=== PATIENT | female | born 1935 | race Caucasian/White ===

== ENCOUNTER → 2016-11-03 | Outpatient (CLI) | payer MEDICARE, OTHER ==
--- NOTE | 2016-11-04 16:34 | BD ---
EXAMINATION TYPE: MG DEXA axial skeleton. DATE OF EXAM: 11/03/2016 3:57 PM COMPARISON: NONE CLINICAL HISTORY: 81-year-old female disorder of bone, postmenopausal screening Height: 60.5 IN Weight: 137 LBS FRAX RISK QUESTIONS: Alcohol (3 or more units per day): NO Family History (Parent hip fracture): NO Glucocorticoids (More than 3mos): NO (Ex: prednisone, prednisolone, methylprednisolone, dexamethasone, and hydrocortisone). History of Fracture in Adulthood: NO Secondary Osteoporosis: 1. Type 1 Diabetes: NO 2. Hyperthyroidism: NO 3. Menopause before 45: NO 4. Malnutrition: NO 5. Chronic liver disease: NO Rheumatoid Arthritis: NO Current Tobacco Use: NO RISK FACTORS HISTORY OF: Active: YES Postmenopausal woman: YES AGE 53 Take estrogen and/or progesterone medications: NOT NOW How long: AGE 53 - 70 MEDICATIONS: Thyroid Medications: YES Which medication: Levothyroxine How Lon + YRS Additional Medications: CALCIUM, VIT D, LEVOTHYROXINE, HEART MED, BLOOD PRESSURE MEDS, EXAM MEASUREMENTS: Bone mineral densitometry was performed using the [employer]. Bone mineral density as measured about the Lumbar spine is: ----- L1-L4(G/cm2): 0.980 T Score Values are as follows: ----- L2: -2.4 ----- L3: -0.9 ----- L4: -1.6 ----- L1-L4: -1.7 Bone mineral density BASELINE Bone mineral density about the R hip (g/cm2): 0.731 Bone mineral density about the L hip (g/cm2): 0.720 T Score values are as follows: -----R Neck: -2.2 -----L Neck: -2.3 -----R Intertrochanter: -1.2 -----L Intertrochanter: -1.4 Bone mineral density BASELINE IMPRESSION: Osteopenia as indicated by T score values in the lumbar spine and both hips. There is slightly increased risk of fracture and the patient may be considered for treatment. Re-Screen 2-5 years. NOTE: T-SCORE=SD OF THE YOUNG ADULT MEAN.
== END | disposition home or self-care (01) ==
LOC: RADBDWWP 15:56
PROVIDERS: ATTEND Obstetrics & Gynecology
DX: M85.852 Other specified disorders of bone density and structure, left thigh (principal); M85.851 Other specified disorders of bone density and structure, right thigh; M85.88 Other specified disorders of bone density and structure, other site
CPT/HCPCS: 77080

== ENCOUNTER → 2016-11-03 | Outpatient (CLI) | payer MEDICARE, OTHER | LOC: RADMAMWWP 13:16 → RADBDWWP 13:34 | PROVIDERS: ATTEND Obstetrics & Gynecology | DX: Z53.9 Procedure and treatment not carried out, unspecified reason (principal) ==

== ENCOUNTER → 2016-11-03 | Outpatient (CLI) | payer MEDICARE, OTHER ==
--- NOTE | 2016-11-05 07:26 | MM ---
Reason for exam: screening (asymptomatic). Last mammogram was performed 1 year and 1 month ago. History: Patient is postmenopausal and is nulliparous. Physical Findings: A clinical breast exam by your physician is recommended on an annual basis and results should be correlated with mammographic findings. MG Screening Mammo w CAD Bilateral CC and MLO view(s) were taken. Prior study comparison: October 11, 2015, bilateral MG screening mammo w CAD. September 11, 2014, bilateral MG screening mammo w CAD. May 29, 2013, bilateral digital screening mammo w/CAD. March 12, 2011, bilateral digital screening mammo w/CAD. There are scattered fibroglandular densities. Asymmetric density superior right breast at a middle depth appears more defined. ASSESSMENT: Incomplete: need additional imaging evaluation, BI-RAD 0 RECOMMENDATION: Special view mammogram of the right breast. If lesion persists on supplemental views, image directed ultrasound is recommended. [facility] will attempt to contact patient to return for supplemental views and ultrasound if indicated.
== END | disposition home or self-care (01) ==
LOC: RADMAMWWP 12:41
PROVIDERS: ATTEND Obstetrics & Gynecology
DX: Z12.31 Encounter for screening mammogram for malignant neoplasm of breast (principal); R92.2 Inconclusive mammogram

== ENCOUNTER → 2016-11-12 | Outpatient (CLI) | payer MEDICARE, OTHER ==
--- NOTE | 2016-11-13 06:50 | MM ---
Reason for exam: additional evaluation requested from abnormal screening. Last mammogram was performed less than 1 month ago. History: Patient is postmenopausal and is nulliparous. Physical Findings: Nurse did not find any significant physical abnormalities on exam. MG Work Up Mamm w CAD RT CC and MLO view(s) were taken of the right breast. Prior study comparison: November 03, 2016, bilateral MG screening mammo w CAD. October 11, 2015, bilateral MG screening mammo w CAD. There are scattered fibroglandular densities. No distinct lesion persists at area of mammographic concern in the right breast. These results were verbally communicated with the patient and result sheet given to the patient on 11/12/16. ASSESSMENT: Benign, BI-RAD 2 RECOMMENDATION: Return to routine screening mammogram schedule for both breasts.
== END | disposition home or self-care (01) ==
LOC: RADMAMWWP 14:55
PROVIDERS: ATTEND Obstetrics & Gynecology
DX: R92.8 Other abnormal and inconclusive findings on diagnostic imaging of breast (principal)

== ENCOUNTER → 2017-12-24 | Outpatient (CLI) | payer MEDICARE, OTHER ==
--- NOTE | 2017-12-28 11:35 | MM ---
Reason for exam: screening (asymptomatic). Last mammogram was performed 1 year and 1 month ago. History: Patient is postmenopausal and is nulliparous. Physical Findings: A clinical breast exam by your physician is recommended on an annual basis and results should be correlated with mammographic findings. MG 3D Screening Mammo W/Cad Bilateral CC and MLO view(s) were taken. Prior study comparison: November 12, 2016, right breast MG work up mamm w CAD RT. November 03, 2016, bilateral MG screening mammo w CAD. There are scattered fibroglandular densities. Grouped calcifications posterior 11 o'clock right breast increased from 2017 and new from older priors. Associated focal asymmetry. ASSESSMENT: Incomplete: need additional imaging evaluation, BI-RAD 0 RECOMMENDATION: Special view mammogram of the right breast. [facility] will attempt to contact patient to return for supplemental views.
== END | disposition home or self-care (01) ==
LOC: RADMAMWWP 10:54
PROVIDERS: ATTEND Obstetrics & Gynecology
DX: Z12.31 Encounter for screening mammogram for malignant neoplasm of breast (principal)
CPT/HCPCS: 77063; 77067

== ENCOUNTER → 2017-12-31 | Outpatient (CLI) | payer MEDICARE, OTHER ==
--- NOTE | 2018-01-03 14:26 | MM ---
Reason for exam: additional evaluation requested from abnormal screening. Last mammogram was performed less than 1 month ago. History: Patient is postmenopausal. Took estrogen beginning at age 56. Took progesterone beginning at age 56. Physical Findings: Nurse did not find any significant physical abnormalities on exam. MG 3D Work Up W/Cad RT Spot compression CC, spot compression LM, and LM view(s) were taken of the right breast. Prior study comparison: December 24, 2017, bilateral MG 3d screening mammo w/cad. November 12, 2016, right breast MG work up mamm w CAD RT. The breast tissue is heterogeneously dense. This may lower the sensitivity of mammography. Finding: There are intermediate concern, suspicious heterogeneous calcifications in the upper outer quadrant, posterior middle position of the right breast. These results were verbally communicated with the patient and result sheet given to the patient on 12/31/17. ASSESSMENT: Suspicious, BI-RAD 4 RECOMMENDATION: Stereotactic core biopsy of the right breast. Called Dr. Akins with mammographic findings and has scheduled an appointment for the patient for 02/10/18 at 9:[address] Perry. Biopsy scheduled for 01/10/18 at 10:00. PRELIMINARY REPORT CALLED AND FAXED TO DR. PERRY ON 01/03/18.
== END | disposition home or self-care (01) ==
LOC: RADMAMWWP 12:54
PROVIDERS: ATTEND Obstetrics & Gynecology
DX: R92.8 Other abnormal and inconclusive findings on diagnostic imaging of breast (principal)
CPT/HCPCS: 77065; G0279

== ENCOUNTER → 2018-01-10 | Day surgery (SDC) | payer MEDICARE, OTHER ==
[2018-01-10 09:21] VITALS: RESP 16; BMI 25.7
[2018-01-10 10:37] VITALS: BP 144/71; PULSE 65; TEMP 98
--- NOTE | 2018-01-10 11:40 | MM ---
EXAMINATION TYPE: MG stereo VAD BX RT DATE OF EXAM: 01/10/2018 COMPARISON: Prior mammogram December 31, 2017 and older studies. CLINICAL HISTORY: Abnormal mammogram. Suspicious calcifications. TECHNIQUE: Stereotactic guided core biopsy of right breast with clip placement and follow-up two-view mammogram. FINDINGS: The procedure of stereotactic guided core biopsy was explained to the patient. Benefits, alternatives, and risks were discussed. An informed consent was then obtained. The [facility] pathway for biopsy was chosen. Shortness pathway was cranial approach. I performed the localization, then performed the remainder of the procedure. Overlying skin is cleansed with Betadine. Lidocaine with bicarbonate is used as anesthetic into the skin and deeper tissue. Lidocaine with epinephrine is used as anesthetic into the deeper tissue during sampling. A vacuum assisted biopsy gun was used to obtain multiple core samples. The patient tolerated the procedure well without any immediate complication. The patient was kept in the radiology department for short stay after the procedure and then discharged home in stable condition. Targeted calcifications are identified in specimen mammogram. Post biopsy mammogram shows the clip to appear in satisfactory position relative to the targeted area of concern on the preprocedure images. A few adjacent residual calcifications are present. IMPRESSION: SUCCESSFUL, UNCOMPLICATED STEREOTACTIC GUIDED CORE BIOPSY OF AREA OF CONCERN IN THE RIGHT BREAST, FULL PATHOLOGY RESULTS TO FOLLOW. Low to intermediate index of suspicion noted at time of procedure. 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 SEE SURGICAL PATHOLOGY CANCER CASE SUMMARY AND COMMENT. Recommendation Surgical consult of the right breast. GEOFFREY
== END ==
LOC: RADMAMWWP 08:47
PROVIDERS: ATTEND Surgery
DX: D05.11 Intraductal carcinoma in situ of right breast (principal); Z88.5 Allergy status to narcotic agent
CPT/HCPCS: 88305; 88342; 88341; 19081; A4648; J2001

== ENCOUNTER 2018-01-27 09:52 | Day surgery (SDC) | payer MEDICARE, OTHER ==
[2018-01-21 18:05] VITALS: BMI 25.4
--- NOTE | 2018-01-27 09:01 | P.HPADDEND ---
H&P Addendum H&P Addendum Date: 01/27/18 Patient presented to the hospital today for surgical resection of recently diagnosed right breast cancer. The options have been discussed previously with the patient in detail. She remains not interested in mastectomy. We will proceed with right breast lumpectomy with wire localization and sentinel lymph node biopsy preceded by sentinel lymph node injection. Risks of bleeding, infection, scarring, nerve injury, seroma, pain, potential need for additional surgeries, wound formation, and anesthesia-related complications were reviewed. She understands and wishes to proceed. No additional changes to history or physical
[~2018-01-27 09:52] MED LIST: ALPRAZolam 0.25 MG TAB PO PRN; DEXAMETHASONE SOD PHOSPHATE 10 MG/ML 1 ML VIAL IV ONE; HEPARIN SODIUM,PORCINE 5,000 UNIT/ML 1 ML VIAL SQ ONE; LACTATED RINGERS 1,000 ML IV SCH; MORPHINE SULFATE 4 MG/ML SYRINGE IV PRN; ONDANSETRON 4 MG/2 ML VIAL IVP ONE; Pre Op ABX Message 1 EACH MISC MISCELLANE ONE
[2018-01-27] MEDS ORDERED: LIDOCAINE 1% 20 ML VIAL (10MG/ML) FOR IV START INTRADERMA ONE (10:50)
[2018-01-27 11:00] LABS: Basophils % (A) 0 %; Eosinophils # (A) 0.1 k/uL (0-0.7); Eosinophils % (A) 2 %; HCT 40.2 % (34.0-46.0); HGB 13.4 gm/dL (11.4-16.0); Lymphocytes # (A) 1.9 k/uL (1.0-4.8); Lymphocytes % (A) 27 %; MCHC 33.3 g/dL (31.0-37.0); Mean Platelet Volume 6.6; Monocytes # (A) 0.3 k/uL (0-1.0); Monocytes % (A) 5 %; Neutrophils # (A) 4.7 k/uL (1.3-7.7); Neutrophils % (A) 66 %; Platelet Count 280 k/uL (150-450); RBC 4.79 m/uL (3.80-5.40); RDW 13.6 % (11.5-15.5); WBC 7.2 k/uL (3.8-10.6)
[2018-01-27] MEDS ORDERED: LIDOCAINE 1% INJ 10MG/ML (20 ML MDV) SQ ONE (12:01)
[2018-01-27] MEDS ORDERED: ceFAZolin IN SWFI 2 GM/20 ML SYRINGE IVP STA (12:51)
[2018-01-27] MEDS ORDERED: SUCCINYLCHOLINE CHLORIDE 100 MG/5 ML SYR IV ONE (12:58)
[2018-01-27] MEDS ORDERED: LIDOCAINE 1% INJ 10MG/ML (20 ML MDV) ONE (12:58)
[2018-01-27] MEDS ORDERED: diphenhydrAMINE 50 MG/ML 1 ML VIAL ONE (12:58)
[2018-01-27] MEDS ORDERED: fentaNYL (PF) 50 MCG/ML 2 ML AMP ONE (12:58)
[2018-01-27] MEDS ORDERED: PROPOFOL 10 MG/ML 20 ML VIAL IV ONE (12:58)
[2018-01-27] MEDS ORDERED: ePHEDrine SULFATE/0.9% NACL/PF 50 MG/5 ML SYRINGE IV ONE (12:58)
--- NOTE | 2018-01-27 13:20 | NM ---
EXAMINATION TYPE: NM sentinel node injection DATE OF EXAM: 01/27/2018 COMPARISON: NONE HISTORY: Right breast cancer. TECHNIQUE AND FINDINGS: The procedure of sentinel lymph node injection was explained to the patient. The benefits, alternatives, and risks were discussed. An informed consent was then obtained. Overlying skin is cleaned with sterile alcohol. Following this, 508 uCi Tc99m Tilmanocept was inject ed into 4 equivalent doses at 10:00 position surrounding the right nipple intradermally. The patient tolerated the procedure well without any immediate complication. The patient was kept in the radiology department for short stay after the procedure and then taken to surgery for surgical p rocedure what is presumed intraoperative gamma probe will be used for sentinel lymph node detection. IMPRESSION: Right breast radiotracer injection for sentinel node localization as above.
[2018-01-27] MEDS ORDERED: ROPIVACAINE 5 MG/ML 30 ML VIAL MISCELLANE ONE (13:26)
[2018-01-27] MEDS ORDERED: LACTATED RINGERS 1,000 ML IV ONE (14:37)
--- NOTE | 2018-01-27 14:42 | MM ---
EXAMINATION TYPE: MG pre op needle loc RT, MG surgical specimen RT DATE OF EXAM: 01/27/2018 COMPARISON: Exams dating back to 11/12/2016 CLINICAL HISTORY: Right breast upper outer quadrant calcifications. TECHNIQUE: Needle localization with wire placement and surgical excision of area of concern in the right breast. FINDINGS: The procedure of needle localization with wire placement and than surgical excision was explained to the patient. Benefits, alternatives, and risks were discussed. An informed consent was then obtained. Preprocedural timeout was performed. The shortest pathway for procedure was chosen. Shortest pathway was craniocaudal from above approach. The overlying skin was prepped and draped in usual sterile fashion. Lidocaine buffered with bicarbonate was used as anesthetic into the skin and subcutaneous tissue up to the level of area of concern. A 5 cm needle was used. It was placed via a craniocaudal from above approach under mammographic guidance. Subsequent 90 degrees mammogram show the needle to be in satisfactory position relative to the targeted area. At this point, wire was placed and the needle was withdrawn. The wire was fixed to patient's skin. Images were marked for surgeon. The patient tolerated the procedure well without any immediate complication. The patient was kept in the radiology department for short stay after the procedure and then taken to surgery for surgical excision. Targeted calcifications and wire are identified in specimen mammogram. The patient was kept in hospital for short stay after the procedure and then discharged home in stable condition. IMPRESSION: Successful, uncomplicated needle localization with wire placement and surgical excision of suspicious group of calcifications in the right breast , full pathology results to follow. Pathology Results: Malignant A. SENTINEL LYMPH NODE BIOPSY #1: NEGATIVE FOR METASTATIC ADENOCARCINOMA BY H+E WELL CYTOKERATIN 7 AND OTTONIEL IMMUNOPEROXIDASE STAINS. B. SENTINEL LYMPH NODE #2, BIOPSY: NEGATIVE FOR METASTATIC ADENOCARCINOMA BY ROUTINE H+E WELL CYTOKERATIN 7 AND OTTONIEL IMMUNOPEROXIDASE STUDIES. C. SENTINEL LYMPH NODE #3, BIOPSY: NEGATIVE FOR METASTATIC ADENOCARCINOMA BY ROUTINE H+E WELL IMMUNOPEROXIDASE STUDIES FOR CYTOKERATIN 7 AND OTTONIEL. D. SENTINEL LYMPH NODE #4, BIOPSY: NEGATIVE FOR METASTATIC ADENOCARCINOMA ON ROUTINE H+E WELL IMMUNOPEROXIDASE STUDIES FOR CYTOKERATIN 7 AND OTTONIEL. E. RIGHT BREAST: RESIDUAL INVASIVE DUCTAL CARCINOMA WITH MUCINOUS FEATURES. 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 THE INVASIVE COMPONENT MEASURES 6 MM IN GREATEST DIMENSION AND IS LESS THAN 2 MM FROM THE BLACK INKED SUPERIOR MARGIN OF EXCISION. DCIS IS LESS THAN 2 MM AWAY FROM THE JUNCTURE OF THE BLACK INKED SUPERIOR AND BLUE INKED ANTERIOR (ANTERIOR SUPERIOR) MARGIN. CYTOKERATIN 5/6 DOCUMENTS DCIS IN BLOCKS E6 AND E7 DESCRIBED ABOVE. APPROPRIATE PERFORMANCE OF IMMUNOPEROXIDASE CONTROL SECTIONS IS SEEN IN PARTS A - E FOR CK 5/6, CK 7 AND OTTONIEL RESPECTIVELY. Recommendation Surgical consult of the right breast. MTDD
[2018-01-27 14:58] VITALS: TEMP 98
[2018-01-27] MEDS ORDERED: traMADol 50 MG TAB PO PRN (15:23)
[2018-01-27] MEDS ORDERED: NALOXONE 0.4 MG/ML 1 ML VIAL IV PRN (15:23)
[2018-01-27] MEDS ORDERED: HYDROmorphone 0.5 MG/0.5 ML SYRINGE IVP ONE (15:27)
--- NOTE | 2018-01-27 15:39 | P.OP ---
Date of Procedure: 01/27/18 Procedure(s) Performed: PREOPERATIVE DIAGNOSIS: Right breast cancer POSTOPERATIVE DIAGNOSIS: Same PROCEDURE: Right Breast wire localization lumpectomy with sentinel lymph node biopsy SURGEON: Vicky EBL: Minimal ANESTHESIA: General COMPLICATIONS: None OPERATIVE PROCEDURE: Patient was placed on the operating room table in the supine position. 2 mL of methylene blue was injected into the subareolar space. The breast was then massaged for 5 minutes. The right axilla was addressed at that time. The hot spot in the right axilla was identified. A small curvilinear incision was made using the scalpel. Dissection down through the subcutaneous tissues took place using electrocautery. Using the neoprobe I identified a total of 4 sentinel lymph nodes. These were all removed and sent to pathology for close examination. Frozen sections from these lymph nodes were negative for metastatic disease. No bleeding was seen. The subcutaneous tissues were closed using 3-0 Vicryl sutures. The skin was closed using 4-0 Monocryl sutures. The wire entrance site was then addressed. This was present at the 11:00 location. A curvilinear incision was made adjacent to the wire entrance site. I followed the wire down into the breast tissue. An adequate lumpectomy specimen then took place around the wire. Margins of 1.5-2 cm worth attempted to be achieved. The clip cardiac cath lab manager was used to marla the lumpectomy site circumferentially. The lumpectomy site was irrigated no bleeding was seen. The clip was confirmed to be within the lumpectomy specimen by radiology. The subcutaneous tissues were closed using 3-0 Vicryl sutures. The skin was closed using a running 4-0 Monocryl stitch. Steri-Strips and sterile dressings were applied. The lumpectomy specimen was then painted the appropriate 6 colors. DISPOSITION: Stable to recovery room
[2018-01-27 16:04] VITALS: RESP 18
[2018-01-27 16:26] VITALS: BP 151/71; PULSE 67
== END 2018-01-27 17:22 | disposition home or self-care (01) ==
LOC: OR 09:52
PROVIDERS: ATTEND Surgery
DX: C50.411 Malignant neoplasm of upper-outer quadrant of right female breast (principal); R00.1 Bradycardia, unspecified; Z79.2 Long term (current) use of antibiotics; Z79.890 Hormone replacement therapy; Z79.899 Other long term (current) drug therapy; Z88.5 Allergy status to narcotic agent
CPT/HCPCS: 85025; 76098; 19281; 38792; 19301; 38525; A9520; J1200; J1644; J1100; J2405; J2001; J3010; J2795; J0330; J2704; J1170; J0690; 88307; 88331; 88341; 88342

== ENCOUNTER → 2018-04-25 | Outpatient (CLI) | payer MEDICARE, OTHER ==
--- NOTE | 2018-04-26 08:17 | BD ---
EXAMINATION TYPE: Axial Bone Density DATE OF EXAM: 04/25/2018 COMPARISON: 11/03/2016 CLINICAL HISTORY: C 50.411, Z79.890, breast carcinoma, post menopausal with hormonal replacement ther apy Height: 5 FT Weight: 132 FRAX RISK QUESTIONS: RISK FACTORS HISTORY OF: Active: YES Postmenopausal woman: AGE 55 If Premenopausal, do you have irregular periods: Take estrogen and/or progesterone medications: TOOK BIOIDENTICAL FROM [age] Lost more than 2 inches in height since high school: YES MEDICATIONS: Thyroid Medications: YES Which medication: LEVOTHYROXINE How Lon YEARS Additional Medications: LEVOTHYROXINE, LOSARTIN, OMEPRAZOLE, MULTI VIT, FISH OIL, CALCIUM, ASPIRIN, L ETROZOLE, ARTIFICIAL TEARS Additional History: RT CARPAL TUNNEL SURG EXAM MEASUREMENTS: Bone mineral densitometry was performed using the [employer]. Bone mineral density as measured about the Lumbar spine is: ----- L1-L4(G/cm2): 0.975 T Score Values are as follows: ----- L2: -2.8 ----- L3: -0.9 ----- L4: -0.9 ----- L1-L4: -1.7 Bone mineral density has: INCREASED 1.7% SINCE STUDY 2016 Bone mineral density about the R hip (g/cm2): 0.683 Bone mineral density about the L hip (g/cm2): 0.702 T Score values are as follows: -----R Neck: -2.6 -----L Neck: -2.4 -----R Total: -1.8 -----L Total: -1.7 Bone mineral density has: DECREASED -4.6% SINCE STUDY 2016 IMPRESSION: Osteoporosis Osteoporosis (T Score less than -2.5). There is increased fracture risk and therapy is usually indicated based on age. Re-Screen 1-2 years. NOTE: T-SCORE=SD OF THE YOUNG ADULT MEAN.
== END | disposition home or self-care (01) ==
LOC: RADBDWWP 14:27
PROVIDERS: ATTEND Internal Medicine Hematology & Oncology
DX: C50.411 Malignant neoplasm of upper-outer quadrant of right female breast (principal); M81.0 Age-related osteoporosis without current pathological fracture; N95.1 Menopausal and female climacteric states; Z79.890 Hormone replacement therapy
CPT/HCPCS: 77080

== ENCOUNTER 2019-01-26 17:04 | Inpatient (IN) | payer MEDICARE, OTHER ==
[2019-01-26] MEDS ORDERED: HYDROmorphone 1 MG/ML 1 ML SYRINGE IVP STA (18:01)
[2019-01-26 18:12] LABS: Basophils % (A) 0 %; Eosinophils # (A) 0.1 k/uL (0-0.7); Eosinophils % (A) 0 %; HCT 42.5 % (34.0-46.0); HGB 13.8 gm/dL (11.4-16.0); Lymphocytes % (A) 6 %; MCH 27.1 pg (25.0-35.0); MCHC 32.4 g/dL (31.0-37.0); MCV 83.5 fL (80.0-100.0); Mean Platelet Volume 6.8; Monocytes # (A) 0.7 k/uL (0-1.0); Monocytes % (A) 4 %; Neutrophils # (A) 15.9 k/uL (1.3-7.7); Neutrophils % (A) 90 %; Platelet Count 335 k/uL (150-450); RBC 5.09 m/uL (3.80-5.40); RDW 14.4 % (11.5-15.5); WBC 17.7 k/uL (3.8-10.6)
[2019-01-26 18:19] LABS: Appearance,Urine Clear (Clear); Bacteria,Urine Rare /hpf; Bilirubin,Urine Negative (Negative); Blood,Urine Trace (Negative); Color,Urine Yellow; Glucose,Urine (UA) Negative (Negative); Ketones,Urine Negative (Negative); Leukocyte Esterase,Urine Large (Negative); Mucus,Urine Many /hpf; Nitrite,Urine Negative (Negative); PH, Urine 5.5 (5.0-8.0); Protein,Urine 1+ (Negative); RBC,Urine 5 /hpf (0-5); Specific Gravity,Urine 1.033 (1.001-1.035); Squamous Epithelial Cell,Urine 1 /hpf (0-4); Urobilinogen,Urine <2.0 mg/dL (<2.0)
[2019-01-26 18:21] LABS: ALT 22 U/L (9-52); AST 20 U/L (14-36); Albumin 4.1 g/dL (3.5-5.0); Alkaline Phosphatase 57 U/L (38-126); Amylase 35 U/L (30-110); Anion Gap 8 mmol/L; Blood Urea Nitrogen 29 mg/dL (7-17); Carbon Dioxide 22 mmol/L (22-30); Chloride 109 mmol/L (98-107); Glucose 142 mg/dL (74-99); Lipase 67 U/L (23-300); Magnesium 2.1 mg/dL (1.6-2.3); Potassium 4.6 mmol/L (3.5-5.1); Sodium 139 mmol/L (137-145); Total Bilirubin 0.6 mg/dL (0.2-1.3)
[2019-01-26] MEDS ORDERED: PIPERACILLIN-TAZOBACTAM 3.375 GM in SODIUM CHLORIDE 0.9% 100 ML IVPB STA (19:13)
--- NOTE | 2019-01-26 19:22 | CT ---
EXAMINATION TYPE: CT abdomen pelvis w con DATE OF EXAM: 01/26/2019 COMPARISON: 08/04/2016 CT HISTORY: RUPTURE/AB PAIN CT DLP: 620.8 mGycm Automated exposure control for dose reduction was used. TECHNIQUE: Helical acquisition of images was performed from the lung bases through the pelvis. CONTRAST: Performed without Oral Contrast and with IV Contrast, patient injected with 100 mL of Isovu e 300. FINDINGS: LUNG BASES: No significant abnormality is appreciated. LIVER/GB: No significant abnormality is appreciated, although cholelithiasis noted. PANCREAS: No significant abnormality is seen. SPLEEN: No significant abnormality is seen. ADRENALS: No significant abnormality is seen. KIDNEYS: No significant abnormality is seen. Large right renal cyst noted, with 2 small left renal cy sts. PERITONEAL CAVITY: There is a moderate volume of pneumoperitoneum in the right upper quadrant and le ft upper quadrant. Only a few tiny bubbles of pneumoperitoneum noted within the bilateral lower quadr ants. BOWEL: The small bowel mesentery shows a diffuse, mild groundglass opacity pattern, consistent with edematous reticulation, with several fluid distended small bowel loops with top normal caliber. In ad dition, there are bowel loops anterior to the descending colon which show mural thickening. The colon has gas and fecal material scattered throughout, and demonstrates innumerable diverticula e xtending from the distal transverse colon to the rectosigmoid. The mesocolon does not show edematous reticulation. ADENOPATHY: None visualized REPRODUCTIVE ORGANS: No significant abnormality is seen URINARY BLADDER: No significant abnormality is seen. OSSEOUS STRUCTURES: No significant abnormality is seen. OTHER: No acute venous or arterial findings. The celiac axis, SMA, and MAYA are patent. IMPRESSION: PROMINENT PNEUMOPERITONEUM, WITH CT FINDINGS SUGGESTING PERFORATED ILEUM. Results discussed with ordering physician just now, in order to help expedite management decision-maureen naqvi. Less suspected differential considerations include perforated duodenal cap or colonic divertic jay.
[2019-01-26] MEDS ORDERED: NALOXONE 0.4 MG/ML 1 ML VIAL IV PRN ×2 (19:35→21:59)
--- NOTE | 2019-01-26 19:47 | ED ---
Abdominal Pain HPI - General Chief Complaint: Abdominal Pain Stated Complaint: Rupture, abd pain Time Seen by Provider: 01/26/19 17:36 Source: patient, RN notes reviewed Mode of arrival: wheelchair Limitations: no limitations - History of Present Illness Initial Comments: This 83-year-old female who was sent in by her doctor after she presented his office earlier today with complaints of abdominal pain this started last evening lab work was done as well as x-rays x-ray showed evidence of free air under the diaphragm. Patient came into the hospital after instruction by Dr. Peres. The patient initially went home however did tend to her [id number] before she came in herself. She denies any fevers chills nausea vomiting sweats this time he does complain of some abdominal pain no trouble with dysuria hematuria diarrhea constipation. She voices no history of ulcers diverticulitis. Shortness of breath no cough. MD Complaint: abdominal pain - Related Data Home Medications Medication Instructions Recorded Confirmed Aspirin 81 mg PO DAILY 08/19/16 01/26/19 Calcium Carbonate/Vitamin D3 1 each PO DAILY 08/19/16 01/26/19 [Calcium 600-Vit D3 800 Tab] Fish Oil/Dha/Epa [Fish Oil 1,200 600 mg PO DAILY 08/19/16 01/26/19 mg Fish Oil] Levothyroxine Sodium [Unithroid] 150 mcg PO QAM 08/19/16 01/26/19 Losartan [Cozaar] 50 mg PO DAILY 08/19/16 01/26/19 Multivitamins, Thera [Multivitamin] 1 tab PO DAILY 08/19/16 01/26/19 Omeprazole 20 mg PO HS 08/19/16 01/26/19 Letrozole 2.5 mg PO HS 01/26/19 01/26/19 Allergies Allergy/AdvReac Type Severity Reaction Status Date / Time codeine Allergy Nausea & Verified 01/26/19 18:19 Vomiting narcotics AdvReac Mild Nausea & Uncoded 01/26/19 17:29 Vomiting Review of Systems ROS Statement: Those systems with pertinent positive or pertinent negative responses have been documented in the HPI. ROS Other: All systems not noted in ROS Statement are negative. Past Medical History Past Medical History: Cancer, GERD/Reflux, Hypertension, Osteoarthritis (OA), Skin Disorder, Thyroid Disorder Additional Past Medical History / Comment(s): Rosacea. 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 RT BREAST CA CURRENTLY. History of Any Multi-Drug Resistant Organisms: None Reported Past Surgical History: Hernia Repair, Joint Replacement Additional Past Surgical History / Comment(s): valerie knee replacements; partial thyroidectomy. BREAST BIOPSY. EXC CATARACTS. Past Anesthesia/Blood Transfusion Reactions: Motion Sickness, Postoperative Nausea & Vomiting (PONV) Past Psychological History: No Psychological Hx Reported Smoking Status: Never smoker Past Alcohol Use History: None Reported Past Drug Use History: None Reported - Past Family History Mother Family Medical History: Osteoarthritis (OA) Additional Family Medical History / Comment(s): at age 85 Father Additional Family Medical History / Comment(s): [place] General Exam - General Exam Comments Initial Comments: This is a well-developed well-nourished awake alert oriented 3 female Limitations: no limitations General appearance: alert, in no apparent distress Head exam: Present: atraumatic, normocephalic, normal inspection Eye exam: Present: normal appearance, PERRL, EOMI. Absent: scleral icterus, conjunctival injection, periorbital swelling ENT exam: Present: normal exam, mucous membranes moist Neck exam: Present: normal inspection. Absent: tenderness, meningismus, lymphadenopathy Respiratory exam: Present: normal lung sounds bilaterally. Absent: respiratory distress, wheezes, rales, rhonchi, stridor Cardiovascular Exam: Present: regular rate, normal rhythm, normal heart sounds. Absent: systolic murmur, diastolic murmur, rubs, gallop, clicks GI/Abdominal exam: Present: soft, tenderness, guarding (Some voluntary guarding), normal bowel sounds. Absent: distended, rebound, rigid, bruit, pulsatile mass Rectal exam: Present: deferred Extremities exam: Present: normal inspection, full ROM, normal capillary refill. Absent: tenderness, pedal edema, joint swelling, calf tenderness Back exam: Present: normal inspection Neurological exam: Present: alert, oriented X3, CN II-XII intact Psychiatric exam: Present: normal affect, normal mood Skin exam: Present: warm, dry, intact, normal color. Absent: rash Course Vital Signs 01/26/19 01/26/19 17:27 19:22 Temperature 99.2 F 98.0 F Pulse Rate 90 82 Respiratory 22 18 Rate Blood Pressure 132/77 123/98 O2 Sat by Pulse 97 98 Oximetry Medical Decision Making - Medical Decision Making I did discuss findings with the patient Dr. Peres came in to see the patient also I did also discuss the case with . Patient will be admitted she will go the operating room for exploratory laparoscopy. IV antibiotics as well as pain medication was given. - Lab Data Result diagrams: 01/26/19 17:46 01/26/19 17:46 Lab Results 01/26/19 01/26/19 01/26/19 Range/Units 17:46 17:46 17:50 WBC 17.7 H (3.8-10.6) k/uL RBC 5.09 (3.80-5.40) m/uL Hgb 13.8 (11.4-16.0) gm/dL Hct 42.5 (34.0-46.0) % MCV 83.5 (80.0-100.0) fL MCH 27.1 (25.0-35.0) pg MCHC 32.4 (31.0-37.0) g/dL RDW 14.4 (11.5-15.5) % Plt Count 335 (150-450) k/uL Neutrophils % 90 % Lymphocytes % 6 % Monocytes % 4 % Eosinophils % 0 % Basophils % 0 % Neutrophils # 15.9 H (1.3-7.7) k/uL Lymphocytes # 1.0 (1.0-4.8) k/uL Monocytes # 0.7 (0-1.0) k/uL Eosinophils # 0.1 (0-0.7) k/uL Basophils # 0.0 (0-0.2) k/uL Sodium 139 (137-145) mmol/L Potassium 4.6 (3.5-5.1) mmol/L Chloride 109 H (98-107) mmol/L Carbon Dioxide 22 (22-30) mmol/L Anion Gap 8 mmol/L BUN 29 H (7-17) mg/dL Creatinine 0.62 (0.52-1.04) mg/dL Est GFR (CKD-EPI)AfAm >90 (>60 ml/min/1.73 sqM) Est GFR (CKD-EPI)NonAf 84 (>60 ml/min/1.73 sqM) Glucose 142 H (74-99) mg/dL Calcium 11.0 H (8.4-10.2) mg/dL Magnesium 2.1 (1.6-2.3) mg/dL Total Bilirubin 0.6 (0.2-1.3) mg/dL AST 20 (14-36) U/L ALT 22 (9-52) U/L Alkaline Phosphatase 57 (38-126) U/L Total Protein 7.0 (6.3-8.2) g/dL Albumin 4.1 (3.5-5.0) g/dL Amylase 35 (30-110) U/L Lipase 67 (23-300) U/L Urine Color Yellow Urine Appearance Clear (Clear) Urine pH 5.5 (5.0-8.0) Ur Specific Ackerman 1.033 (1.001-1.035) Urine Protein 1+ H (Negative) Urine Glucose (UA) Negative (Negative) Urine Ketones Negative (Negative) Urine Blood Trace H (Negative) Urine Nitrite Negative (Negative) Urine Bilirubin Negative (Negative) Urine Urobilinogen <2.0 (<2.0) mg/dL Ur Leukocyte Esterase Large H (Negative) Urine RBC 5 (0-5) /hpf Urine WBC 30 H (0-5) /hpf Ur Squamous Epith Cells 1 (0-4) /hpf Urine Bacteria Rare H (None) /hpf Urine Mucus Many H (None) /hpf - Radiology Data Radiology results: report reviewed (I did review the imaging and report or is evidence of a perforated viscus with free air in the diaphragm. Please see the complete report I did discuss the case with the radiologist), image reviewed Disposition Clinical Impression: Acute abdomen, Perforated abdominal viscus, Febrile illness, acute Disposition: ADMITTED IP TO THIS [facility] Condition: Serious Referrals: Ilia Peres MD [Primary Care Provider] - 1-2 days
[2019-01-26] MEDS: SODIUM CHLORIDE 0.9% 1,000 ML IV SCH (19:58)
--- NOTE | 2019-01-26 21:23 | P.GSHP ---
History of Present Illness H&P Date: 01/26/19 Chief Complaint: Pneumoperitoneum A 3-year-old female came to the ER with complaints of abdominal pain. Pain began suddenly last night. She was seen by Dr. Peres in the office today. X- ray showed free air. Patient was taken to the emergency room. White blood cell count elevated at 17. CAT scan shows large volume of pneumoperitoneum. Large volume of stool within the colon. Exact site unknown but ileum is listed as a possible etiology. Patient denies constipation. Appetite diminished. Some nausea. No fevers. No rectal bleeding or melena. Last colonoscopy over 10 years ago. Past Medical History Past Medical History: Cancer, GERD/Reflux, Hypertension, Osteoarthritis (OA), Skin Disorder, Thyroid Disorder Additional Past Medical History / Comment(s): Rosacea. 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 RT BREAST CA CURRENTLY. History of Any Multi-Drug Resistant Organisms: None Reported Past Surgical History: Hernia Repair, Joint Replacement Additional Past Surgical History / Comment(s): valerie knee replacements; partial thyroidectomy. BREAST BIOPSY. EXC CATARACTS. Past Anesthesia/Blood Transfusion Reactions: Motion Sickness, Postoperative Nausea & Vomiting (PONV) Past Psychological History: No Psychological Hx Reported Smoking Status: Never smoker Past Alcohol Use History: None Reported Past Drug Use History: None Reported - Past Family History Mother Family Medical History: Osteoarthritis (OA) Additional Family Medical History / Comment(s): at age 85 Father Additional Family Medical History / Comment(s): [place] Medications and Allergies Home Medications Medication Instructions Recorded Confirmed Type Aspirin 81 mg PO DAILY 08/19/16 01/26/19 History Calcium Carbonate/Vitamin D3 1 each PO DAILY 08/19/16 01/26/19 History [Calcium 600-Vit D3 800 Tab] Fish Oil/Dha/Epa [Fish Oil 1,200 600 mg PO DAILY 08/19/16 01/26/19 History mg Fish Oil] Levothyroxine Sodium [Unithroid] 150 mcg PO QAM 08/19/16 01/26/19 History Losartan [Cozaar] 50 mg PO DAILY 08/19/16 01/26/19 History Multivitamins, Thera [Multivitamin] 1 tab PO DAILY 08/19/16 01/26/19 History Omeprazole 20 mg PO HS 08/19/16 01/26/19 History Letrozole 2.5 mg PO HS 01/26/19 01/26/19 History Allergies Allergy/AdvReac Type Severity Reaction Status Date / Time codeine Allergy Nausea & Verified 01/26/19 18:19 Vomiting narcotics AdvReac Mild Nausea & Uncoded 01/26/19 17:29 Vomiting Surgical - Exam Vital Signs Temp Pulse Resp BP Pulse Ox 99.2 F 90 22 132/77 97 01/26/19 17:27 01/26/19 17:27 01/26/19 17:27 01/26/19 17:27 01/26/19 17:27 Physical exam: General: Well-developed, well-nourished HEENT: Normocephalic, sclerae nonicteric Abdomen: Mild distention, diffuse tenderness noted increase in the lower quadr ants Extremities: No edema Neuro: Alert and oriented Results - Labs 01/26/19 17:46 01/26/19 17:46 Abnormal Lab Results - Last 24 Hours (Table) 01/26/19 01/26/19 01/26/19 Range/Units 17:46 17:46 17:50 WBC 17.7 H (3.8-10.6) k/uL Neutrophils # 15.9 H (1.3-7.7) k/uL Chloride 109 H (98-107) mmol/L BUN 29 H (7-17) mg/dL Glucose 142 H (74-99) mg/dL Calcium 11.0 H (8.4-10.2) mg/dL Urine Protein 1+ H (Negative) Urine Blood Trace H (Negative) Ur Leukocyte Esterase Large H (Negative) Urine WBC 30 H (0-5) /hpf Urine Bacteria Rare H (None) /hpf Urine Mucus Many H (None) /hpf Diabetes panel 01/26/19 Range/Units 17:46 Sodium 139 (137-145) mmol/L Potassium 4.6 (3.5-5.1) mmol/L Chloride 109 H (98-107) mmol/L Carbon Dioxide 22 (22-30) mmol/L BUN 29 H (7-17) mg/dL Creatinine 0.62 (0.52-1.04) mg/dL Glucose 142 H (74-99) mg/dL Calcium 11.0 H (8.4-10.2) mg/dL AST 20 (14-36) U/L ALT 22 (9-52) U/L Alkaline Phosphatase 57 (38-126) U/L Total Protein 7.0 (6.3-8.2) g/dL Albumin 4.1 (3.5-5.0) g/dL Calcium panel 01/26/19 Range/Units 17:46 Calcium 11.0 H (8.4-10.2) mg/dL Albumin 4.1 (3.5-5.0) g/dL Pituitary panel 01/26/19 Range/Units 17:46 Sodium 139 (137-145) mmol/L Potassium 4.6 (3.5-5.1) mmol/L Chloride 109 H (98-107) mmol/L Carbon Dioxide 22 (22-30) mmol/L BUN 29 H (7-17) mg/dL Creatinine 0.62 (0.52-1.04) mg/dL Glucose 142 H (74-99) mg/dL Calcium 11.0 H (8.4-10.2) mg/dL Adrenal panel 01/26/19 Range/Units 17:46 Sodium 139 (137-145) mmol/L Potassium 4.6 (3.5-5.1) mmol/L Chloride 109 H (98-107) mmol/L Carbon Dioxide 22 (22-30) mmol/L BUN 29 H (7-17) mg/dL Creatinine 0.62 (0.52-1.04) mg/dL Glucose 142 H (74-99) mg/dL Calcium 11.0 H (8.4-10.2) mg/dL Total Bilirubin 0.6 (0.2-1.3) mg/dL AST 20 (14-36) U/L ALT 22 (9-52) U/L Alkaline Phosphatase 57 (38-126) U/L Total Protein 7.0 (6.3-8.2) g/dL Albumin 4.1 (3.5-5.0) g/dL Assessment and Plan (1) Perforated abdominal viscus Narrative/Plan: Clinical scenario discussed in detail with the patient. We'll proceed with exploratory laparotomy at this time. Possible need for bowel resection and/or ostomy reviewed. Risks of bleeding, infection, leak, abscess, hernia, progressive sepsis, respiratory failure, cardiac complications, and reviewed. She understands and wishes to proceed. Current Visit: Yes Status: Acute Code(s): [id number] - SNOMED Code(s): 96454654
[2019-01-26] MEDS ORDERED: ROCURONIUM BROMIDE 10 MG/ML 10 ML VIAL IV ONE (22:30)
[2019-01-26] MEDS ORDERED: MIDAZOLAM 2 MG/2 ML VIAL ONE (22:30)
[2019-01-26] MEDS ORDERED: SUCCINYLCHOLINE CHLORIDE 100 MG/5 ML SYR IV ONE (22:30)
[2019-01-26] MEDS ORDERED: fentaNYL (PF) 50 MCG/ML 2 ML AMP ONE (22:30)
[2019-01-26] MEDS ORDERED: LIDOCAINE 1% INJ 10MG/ML (20 ML MDV) ONE (22:30)
[2019-01-26] MEDS ORDERED: PROPOFOL 10 MG/ML 20 ML VIAL IV ONE (22:30)
[2019-01-26] MEDS ORDERED: SODIUM CHLORIDE 0.9% 1,000 ML IV ONE (22:36)
[2019-01-26] MEDS ORDERED: ceFAZolin 1,000 MG VIAL IVPB ONE (22:56)
[2019-01-26] MEDS ORDERED: BENZOCAINE/MENTHOL LOZENG 1 EACH LOZENGE MUCOUS MEM PRN (23:58)
--- NOTE | 2019-01-27 00:11 | P.OP ---
Date of Procedure: 01/27/19 Procedure(s) Performed: PREOPERATIVE DIAGNOSIS: Perforated viscous POSTOPERATIVE DIAGNOSIS: Sigmoid colon perforation PROCEDURE: Sigmoid colectomy with end colostomy SURGEON: Vicky EBL: 50 mL ANESTHESIA: General COMPLICATIONS: None OPERATIVE PROCEDURE: Patient place in the operative table in the supine posi tion. The patient was placed under general anesthesia. The abdomen was prepped and draped in usual sterile fashion. A vertical incision was made extending from the suprapubic region above the umbilicus. The fascia was divided as well. Upon entrance into the peritoneal cavity purulent fluid was identified. Cultures were taken. The patient had adhesions between the omentum and the lower abdominal wall. There was a mesh present across the lower abdominal wall that appeared to be subfascial in location. This was lysed using electrocautery and blunt dissection. The Bookwalter retractor was utilized. The site of perforation was identified in the mid sigmoid colon. I divided the sigmoid colon proximal to this using a linear 75 stapler. The mesentery was divided at that time using the LigaSure device. Beyond the inflamed segment I divided the distal sigmoid colon using a linear stapler. The sigmoid colon was then mobilized further by dividing a portion of mesentery proximally and also dividing the white line of Toldt. Once I had enough length on the colon the abdomen was copiously irrigated with 3 L of saline. No further purulence was encountered at that time. A circular incision was made in the left midabdomen. Dissection through the subcutaneous fat and fascia took place using electrocautery. I bluntly entered the peritoneal cavity and this was further bluntly opened. The bowel was brought out through this defect in the left midabdomen. The midline fascia was then reapproximated using 2 separate double- stranded #1 PDS sutures. The subcutaneous tissues were irrigated. The subcutaneous tissues were closed using 3-0 Vicryl sutures. The skin was then closed using gerson. 3 separate sites were left open along the midline incision for Telfa wick placement. The ostomy was then addressed. The staple line was then removed using electrocautery. The ostomy was then matured in a [place] fashion using interrupted 3-0 Vicryl sutures. An ostomy appliance was then applied. Sterile dressings were then applied to the midline incision. DISPOSITION: Stable to recovery room
[2019-01-27] MEDS: ROPIVACAINE 250 MG, HYDROMORPHONE (PF) 5 MG in SODIUM CHLORIDE 0.9% 200 ML EPIDURAL PRN ×2 (00:21→00:44)
[2019-01-27] MEDS: D5-0.45% NACL WITH KCL 20MEQ/L 1,000 ML IV SCH ×4 (01:30→23:47)
[2019-01-27] MEDS: SODIUM CHLORIDE 0.9% 1,000 ML IV SCH ×3 (03:24→20:18)
[2019-01-27] MEDS: METOCLOPRAMIDE 5 MG/ML 2 ML VIAL IVP PRN ×2 (06:28→17:31)
--- NOTE | 2019-01-27 07:13 | P.PN ---
Progress Note - Text 01/27 652am 83-year-old female status post exploratory lap by Dr. Perry. Patient has an epidural catheter for postop pain control solution running at 6 mL an hour, patient's pain is better controlled no motor or sensory deficits noted
[2019-01-27 07:37] LABS: Basophils % (A) 0 %; Eosinophils % (A) 0 %; HCT 37.4 % (34.0-46.0); HGB 11.9 gm/dL (11.4-16.0); Lymphocytes # (A) 0.8 k/uL (1.0-4.8); Lymphocytes % (A) 6 %; MCH 27.2 pg (25.0-35.0); MCHC 31.8 g/dL (31.0-37.0); MCV 85.4 fL (80.0-100.0); Mean Platelet Volume 6.2; Monocytes # (A) 0.5 k/uL (0-1.0); Monocytes % (A) 4 %; Neutrophils # (A) 12.1 k/uL (1.3-7.7); Neutrophils % (A) 89 %; Platelet Count 254 k/uL (150-450); RBC 4.38 m/uL (3.80-5.40); RDW 14.1 % (11.5-15.5); WBC 13.6 k/uL (3.8-10.6)
[2019-01-27 08:03] LABS: Anion Gap 4 mmol/L; Blood Urea Nitrogen 19 mg/dL (7-17); Calcium 8.6 mg/dL (8.4-10.2); Carbon Dioxide 24 mmol/L (22-30); Chloride 109 mmol/L (98-107); Glucose 209 mg/dL (74-99); Potassium 4.6 mmol/L (3.5-5.1); Sodium 137 mmol/L (137-145)
[2019-01-27] MEDS: HEPARIN SODIUM,PORCINE 5,000 UNIT/ML 1 ML VIAL SQ SCH ×3 (09:27→16:18)
[2019-01-27] MEDS: FAMOTIDINE 20 MG/2 ML VIAL IV SCH ×2 (09:27→20:24)
[2019-01-27] MEDS: metroNIDAZOLE-NS PMX 500 MG in SALINE 1 100ML.BAG IVPB SCH ×3 (09:28→23:44)
[2019-01-27] MEDS: PIPERACILLIN-TAZOBACTAM 3.375 GM in SODIUM CHLORIDE 0.9% 100 ML IVPB SCH ×2 (11:00→16:18)
--- NOTE | 2019-01-27 14:55 | P.PN ---
Subjective Progress Note Date: 01/27/19 Principal diagnosis: Diverticulitis Patient doing better today. She states her pain is improved. White blood cell count 13.6. Still feeling somewhat nauseated. No ostomy function. Objective - Vital Signs Vital signs: Vital Signs Temp 98 F 01/27/19 07:00 Pulse 67 01/27/19 08:00 Resp 14 01/27/19 08:00 BP 134/73 01/27/19 07:00 Pulse Ox 99 01/27/19 07:00 Intake & Output 01/26/19 01/27/19 01/27/19 18:59 06:59 18:59 Intake Total 811 800 Output Total 150 Balance 661 800 Weight 61.235 kg Intake: IV 811 Intake, IV Titration 750 Amount D5-0.45% NaCl with KCl 750 20Meq/l 1,000 ml @ 125 mls/hr IV .Q8H [facility] Rx#: [id number] Oral 50 Output: Urine 100 Estimated Blood Loss 50 Other: Voiding Method Indwelling Catheter - Exam Abdomen: Soft, mild tenderness, dressing clean and dry, ostomy pink - Labs CBC & Chem 7: 01/27/19 07:05 01/27/19 07:05 Labs: Abnormal Lab Results - Last 24 Hours (Table) 01/26/19 01/26/19 01/26/19 Range/Units 17:46 17:46 17:50 WBC 17.7 H (3.8-10.6) k/uL Neutrophils # 15.9 H (1.3-7.7) k/uL Lymphocytes # (1.0-4.8) k/uL Chloride 109 H (98-107) mmol/L BUN 29 H (7-17) mg/dL Glucose 142 H (74-99) mg/dL Calcium 11.0 H (8.4-10.2) mg/dL Urine Protein 1+ H (Negative) Urine Blood Trace H (Negative) Ur Leukocyte Esterase Large H (Negative) Urine WBC 30 H (0-5) /hpf Urine Bacteria Rare H (None) /hpf Urine Mucus Many H (None) /hpf 01/27/19 01/27/19 Range/Units 07:05 07:05 WBC 13.6 H (3.8-10.6) k/uL Neutrophils # 12.1 H (1.3-7.7) k/uL Lymphocytes # 0.8 L (1.0-4.8) k/uL Chloride 109 H (98-107) mmol/L BUN 19 H (7-17) mg/dL Glucose 209 H (74-99) mg/dL Calcium (8.4-10.2) mg/dL Urine Protein (Negative) Urine Blood (Negative) Ur Leukocyte Esterase (Negative) Urine WBC (0-5) /hpf Urine Bacteria (None) /hpf Urine Mucus (None) /hpf Microbiology - Last 24 Hours (Table) 01/26/19 23:43 Gram Stain - Preliminary Rectum Wound Culture - Preliminary 01/26/19 23:43 Anaerobic Culture - Preliminary Perineal Fluid 01/26/19 17:50 Urine Culture - Preliminary Urine,Voided Assessment and Plan (1) Perforated abdominal viscus Narrative/Plan: Continue clear liquids. Increase activity. We'll consult PT/OT. Continue antibiotics. Recheck labs tomorrow. Current Visit: Yes Status: Acute Code(s): [id number] - SNOMED Code(s): 01729233
[2019-01-27] MEDS: ONDANSETRON 4 MG/2 ML VIAL IVP PRN (23:03)
[2019-01-28] MEDS: HEPARIN SODIUM,PORCINE 5,000 UNIT/ML 1 ML VIAL SQ SCH ×4 (00:51→23:54)
[2019-01-28] MEDS: PIPERACILLIN-TAZOBACTAM 3.375 GM in SODIUM CHLORIDE 0.9% 100 ML IVPB SCH ×3 (00:51→16:50)
[2019-01-28] MEDS: SODIUM CHLORIDE 0.9% 1,000 ML IV SCH ×3 (03:04→23:32)
[2019-01-28 06:59] LABS: Basophils % (A) 0 %; Eosinophils # (A) 0.1 k/uL (0-0.7); Eosinophils % (A) 1 %; HCT 34.5 % (34.0-46.0); HGB 10.9 gm/dL (11.4-16.0); Lymphocytes # (A) 0.8 k/uL (1.0-4.8); Lymphocytes % (A) 8 %; MCH 27.3 pg (25.0-35.0); MCHC 31.7 g/dL (31.0-37.0); MCV 86.1 fL (80.0-100.0); Monocytes # (A) 0.5 k/uL (0-1.0); Monocytes % (A) 5 %; Neutrophils # (A) 8.5 k/uL (1.3-7.7); Neutrophils % (A) 85 %; Platelet Count 227 k/uL (150-450); RBC 4.01 m/uL (3.80-5.40); RDW 14.5 % (11.5-15.5)
--- NOTE | 2019-01-28 07:05 | P.PN ---
Progress Note - Text Progress Note Date: 01/28/19 Pt is POD#2 s/p ex lap. Pt w/o complaints. Pain controlled. Epidural at 4 ml/hr. Not ambulating. Denies headache, fever, or LE weakness. Epidural site with small amount of serosanguinous fluid. No erythema. A/P POD#2 s/p ex lap - Continue epidural - may increase rate if pt has discomfort - encourage incentive spirometer and OOB
[2019-01-28 07:09] LABS: Anion Gap 1 mmol/L; Blood Urea Nitrogen 12 mg/dL (7-17); Calcium 8.6 mg/dL (8.4-10.2); Carbon Dioxide 27 mmol/L (22-30); Chloride 110 mmol/L (98-107); Glucose 124 mg/dL (74-99); Potassium 5.1 mmol/L (3.5-5.1); Sodium 138 mmol/L (137-145)
[2019-01-28] MEDS: D5-0.45% NACL WITH KCL 20MEQ/L 1,000 ML IV SCH ×2 (09:25→16:59)
[2019-01-28] MEDS: metroNIDAZOLE-NS PMX 500 MG in SALINE 1 100ML.BAG IVPB SCH ×3 (09:26→23:54)
[2019-01-28] MEDS: FAMOTIDINE 20 MG/2 ML VIAL IV SCH ×2 (09:26→20:11)
[2019-01-28] MEDS: ONDANSETRON 4 MG/2 ML VIAL IVP PRN (10:23)
--- NOTE | 2019-01-28 11:30 | P.PN ---
Progress Note - Text Progress Note Date: 01/28/19 Patient is resting comfortably in bed. She has no real complaints. On exam her vital signs are stable. Her abdomen soft. Incision site is clean dry tach. Patient will have her diet slowly advance.
[2019-01-28] MEDS: ROPIVACAINE 250 MG, HYDROMORPHONE (PF) 5 MG in SODIUM CHLORIDE 0.9% 200 ML EPIDURAL PRN (19:15)
[2019-01-29] MEDS: PIPERACILLIN-TAZOBACTAM 3.375 GM in SODIUM CHLORIDE 0.9% 100 ML IVPB SCH ×3 (01:45→17:19)
[2019-01-29] MEDS: SODIUM CHLORIDE 0.9% 1,000 ML IV SCH ×2 (02:55→11:59)
[2019-01-29] MEDS: metroNIDAZOLE-NS PMX 500 MG in SALINE 1 100ML.BAG IVPB SCH ×3 (07:19→23:11)
--- NOTE | 2019-01-29 07:56 | P.PN ---
Progress Note - Text Progress Note Date: 01/29/19 Pt w/o complaints. Pain controlled. Denies weakness or headache. Epidural @ 5 ml/hr. Epidural site dry. A/P POD # 3 s/p ex lap - continue at current settings
[2019-01-29] MEDS: FAMOTIDINE 20 MG/2 ML VIAL IV SCH ×2 (08:50→21:26)
[2019-01-29] MEDS: HEPARIN SODIUM,PORCINE 5,000 UNIT/ML 1 ML VIAL SQ SCH ×3 (08:50→23:11)
[2019-01-29] MEDS: D5-0.45% NACL WITH KCL 20MEQ/L 1,000 ML IV SCH ×3 (08:51→11:59)
--- NOTE | 2019-01-29 10:10 | P.PN ---
Progress Note - Text Progress Note Date: 01/29/19 The patient appears to be slightly confused this morning. She wants to go home. She's had no significant function through her colostomy appliance. On exam her vital signs are stable. Abdomen soft. Incision site is clean dry tach. Colostomy is pink there is no significant stool in the colostomy appliance. Status post Karen procedure for perforated diverticula is. Patient will remain on clear liquid diet.
[2019-01-29] MEDS: ONDANSETRON 4 MG/2 ML VIAL IVP PRN (12:15)
[2019-01-30] MEDS: PIPERACILLIN-TAZOBACTAM 3.375 GM in SODIUM CHLORIDE 0.9% 100 ML IVPB SCH ×3 (00:21→16:57)
[2019-01-30] MEDS: SODIUM CHLORIDE 0.9% 1,000 ML IV SCH ×3 (01:51→15:20)
[2019-01-30] MEDS: metroNIDAZOLE-NS PMX 500 MG in SALINE 1 100ML.BAG IVPB SCH ×3 (09:07→23:55)
[2019-01-30] MEDS: HEPARIN SODIUM,PORCINE 5,000 UNIT/ML 1 ML VIAL SQ SCH ×3 (09:53→23:58)
[2019-01-30] MEDS: FAMOTIDINE 20 MG/2 ML VIAL IV SCH ×2 (09:53→21:22)
--- NOTE | 2019-01-30 10:45 | P.PN ---
Progress Note - Text Progress Note Date: 01/30/19 Patient's resting comfortably in chair. She has had no significant output through her colostomy appliance. On exam her vital signs are stable. Her abdomen soft. Incision site is clean. Status post Karen procedure. Patient will have her diet advanced once he has return of her bowel function.
--- NOTE | 2019-01-30 11:27 | P.CONS ---
History of Present Illness - Reason for Consult Consult date: 01/30/19 HTN Requesting physician: Kalin Desai - Chief Complaint abdominal pain - History of Present Illness Patient is an 83-year-old female with a past medical history of breast cancer currently on Femara, Osteoprosis on zometa, HTN, and hypothyroidism who presented to the ER at the direction of her physician for abdominal pain. She was seen by Dr. Peres's office and underwent an abdominal x-ray which showed free air and she was immediately sent to the emergency room. In the emergency room she underwent an extensive evaluation. Computed tomography scan showed free air. She was admitted to Dr. Perry's service and underwent sigmoid colectomy with end colostomy secondary to perforated viscus. She is continuing to do well postoperatively. Her diet has been maintained on clear liquids. We're asked to consult for help with resumption of her home meds. Patient seen and examined at bedside. She is having some abdominal pain that is worse with movement and coughing, she has some nausea which is improving daily, she has not had output from her ostomy. She is feeling very weak and tired. She denies any chest pain or shortness of breath. She is not having any focal neuro symptoms such as numbness, tingling, or 1 arm or 1 leg that is weak. She states she was healthy up until she began having abdominal pain. She has been caring for her [id number] . She denies any recent cough, cold, fever, flu, runny nose, or stuffy nose. Review of Systems Pertinent positives and negatives as discussed in HPI, a complete review of systems was performed and all other systems are negative. Past Medical History Past Medical History: Cancer, GERD/Reflux, Hyperlipidemia, Hypertension, Osteoarthritis (OA), Skin Disorder, Thyroid Disorder Additional Past Medical History / Comment(s): Rosacea. 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 RT BREAST CA CURRENTLY. Arthritis. GERD. Osteoporosis. History of Any Multi-Drug Resistant Organisms: None Reported Past Surgical History: Hernia Repair, Joint Replacement Additional Past Surgical History / Comment(s): valerie knee replacements; partial thyroidectomy. BREAST BIOPSY. EXC CATARACTS. Past Anesthesia/Blood Transfusion Reactions: Motion Sickness, Postoperative Nausea & Vomiting (PONV) Past Psychological History: No Psychological Hx Reported Smoking Status: Never smoker Past Alcohol Use History: None Reported Additional Past Alcohol Use History / Comment(s): once every couple weeks Past Drug Use History: None Reported Additional History: Takes care of her aging , does not use a cane or walker, walks and does aerobics and weightlifting. - Past Family History Mother Family Medical History: Osteoarthritis (OA) Additional Family Medical History / Comment(s): at age 85 Father Additional Family Medical History / Comment(s): in [place] Medications and Allergies Home Medications Medication Instructions Recorded Confirmed Type Aspirin 81 mg PO DAILY 08/19/16 01/26/19 History Calcium Carbonate/Vitamin D3 1 each PO DAILY 08/19/16 01/26/19 History [Calcium 600-Vit D3 800 Tab] Fish Oil/Dha/Epa [Fish Oil 1,200 600 mg PO DAILY 08/19/16 01/26/19 History mg Fish Oil] Levothyroxine Sodium [Unithroid] 150 mcg PO QAM 08/19/16 01/26/19 History Losartan [Cozaar] 50 mg PO DAILY 08/19/16 01/26/19 History Multivitamins, Thera [Multivitamin] 1 tab PO DAILY 08/19/16 01/26/19 History Omeprazole 20 mg PO HS 08/19/16 01/26/19 History Letrozole 2.5 mg PO HS 01/26/19 01/26/19 History Allergies Allergy/AdvReac Type Severity Reaction Status Date / Time codeine Allergy Nausea & Verified 01/26/19 18:19 Vomiting narcotics AdvReac Mild Nausea & Uncoded 01/26/19 17:29 Vomiting Physical Exam Osteopathic Statement: *. No significant issues noted on an osteopathic structural exam other than those noted in the History and Physical/Consult. Vitals: Vital Signs Temp Pulse Resp BP Pulse Ox 01/30/19 02:01 98.9 F 96 17 111/64 95 01/29/19 21:40 98.0 F 71 19 131/67 98 01/29/19 13:57 98.1 F 89 12 107/71 94 L Intake and Output 01/29/19 01/30/19 01/30/19 22:59 06:59 14:59 Intake Total 240 Output Total 800 875 Balance -800 -875 240 Intake: Oral 240 Output: Urine 800 875 Other: Voiding Method Indwelling Catheter General: non toxic, mild distress secondary to pain, appears at stated age, normal weight Derm: Dressing in place over midline incision, ostomy pink with no output, no unusual rashes/lesions no unusual ecchymoses, warm, dry Head: atraumatic, normocephalic, symmetric Eyes: EOMI, no lid lag, anicteric sclera, pupils equal round reactive to light ENT: Nose and ears atraumatic, no thrush, no pharyngeal erythema Neck: No thyromegaly, no cervical lymphadenopathy, trachea midline, supple Mouth: no lip lesion, mucus membranes moist Cardiovascular: S1S2 reg, no murmur, positive posterior tibial pulse bilateral, trace edema, capillary refill less than 2 seconds Lungs: CTA bilateral, no rhonchi, no rales , no accessory muscle use Abdominal: soft, + tender to palpation diffusely, no guarding, no appreciable organomegaly, normal bowel sounds Ext: no gross muscle atrophy, muscle strength 4 out of 5 in all 4 extremities grossly, no contractures, Neuro: CN II-XI grossly intact, light touch intact all 4 extremities, finger to nose within normal limits, Psych: Alert, oriented, appropriate affect Results CBC & Chem 7: 01/28/19 06:31 01/28/19 06:31 Labs: Microbiology - Last 24 Hours (Table) 01/26/19 23:43 Anaerobic Culture - Final Perineal Fluid Anaerobic Gm Negative Bacilli 01/26/19 17:46 Blood Culture - Preliminary Blood No Growth after 72 hours 01/26/19 23:43 Gram Stain - Preliminary Rectum Wound Culture - Preliminary Escherichia coli CT scan - abdomen: report reviewed CT scan - pelvis: report reviewed Assessment and Plan Assessment: Perforated viscus status post colectomy with colostomy formation and postoperat sumi pain -Patient with increased confusion will add prn Tylenol she has not been taking anything for pain -E coli and anaerobic bacteria in culture- on zosyn and flagyl -path pending -On clear liquid diet, no ostomy output as of yet -Management per surgery Hypothyroidism -Resume Synthroid Acute blood loss anemia - anticipated and expected outcome - follow CBC Hypertension -Resume Cozaar Breast cancer -Continue to hold Femara - Out patient follow-up GERD - protonix HLD - hold fish oil until more oral intake Hyperclacemia, resolved - continue hold calcium Dehydration, resolved Thank you for allowing us to participate in the care of this patient. Do not hesitate to contact us with questions. Someone can be reached from the [facility] hospitalist group at all hours of the day at [phone].
[2019-01-30] MEDS: PANTOPRAZOLE 40 MG TABLET PO SCH (12:59)
[2019-01-30 14:46] VITALS: BMI 25.4
[2019-01-30] MEDS: D5-0.45% NACL WITH KCL 20MEQ/L 1,000 ML IV SCH ×4 (15:09→23:58)
[2019-01-30] MEDS: HYDROmorphone 1 MG/ML 1 ML SYRINGE IVP PRN ×2 (18:57→22:45)
[2019-01-30] MEDS: METOCLOPRAMIDE 5 MG/ML 2 ML VIAL IVP PRN (19:04)
[2019-01-31] MEDS: PIPERACILLIN-TAZOBACTAM 3.375 GM in SODIUM CHLORIDE 0.9% 100 ML IVPB SCH ×3 (00:58→16:51)
[2019-01-31] MEDS: SODIUM CHLORIDE 0.9% 1,000 ML IV SCH ×4 (01:11→08:30)
[2019-01-31] MEDS: LEVOTHYROXINE 75 MCG TAB PO SCH (05:16)
[2019-01-31] MEDS: HEPARIN SODIUM,PORCINE 5,000 UNIT/ML 1 ML VIAL SQ SCH ×2 (08:11→15:00)
[2019-01-31] MEDS: D5-0.45% NACL WITH KCL 20MEQ/L 1,000 ML IV SCH ×2 (08:11→14:53)
[2019-01-31] MEDS: LOSARTAN 50 MG TAB PO SCH (08:12)
[2019-01-31] MEDS: metroNIDAZOLE-NS PMX 500 MG in SALINE 1 100ML.BAG IVPB SCH ×2 (08:12→15:00)
[2019-01-31] MEDS: FAMOTIDINE 20 MG/2 ML VIAL IV SCH ×2 (08:12→21:26)
[2019-01-31] MEDS: PANTOPRAZOLE 40 MG TABLET PO SCH ×2 (08:12→16:55)
[2019-01-31] MEDS: MULTIVITAMINS, THERA 1 EACH TAB PO SCH (08:12)
[2019-01-31 08:50] LABS: Anion Gap 5 mmol/L; Blood Urea Nitrogen 5 mg/dL (7-17); Calcium 8.9 mg/dL (8.4-10.2); Carbon Dioxide 25 mmol/L (22-30); Chloride 109 mmol/L (98-107); Glucose 117 mg/dL (74-99); Magnesium 1.8 mg/dL (1.6-2.3); Potassium 4.2 mmol/L (3.5-5.1); Sodium 139 mmol/L (137-145)
[2019-01-31 08:52] LABS: HCT 36.4 % (34.0-46.0); HGB 11.9 gm/dL (11.4-16.0); MCH 27.3 pg (25.0-35.0); MCHC 32.6 g/dL (31.0-37.0); MCV 83.8 fL (80.0-100.0); Mean Platelet Volume 7.2; Platelet Count 270 k/uL (150-450); RBC 4.35 m/uL (3.80-5.40); RDW 14.2 % (11.5-15.5); WBC 10.7 k/uL (3.8-10.6)
[2019-01-31 09:00] LABS: INR 1.1 (<1.2); Prothrombin Time 11.7 sec (9.0-12.0)
--- NOTE | 2019-01-31 10:47 | P.PN ---
<Rachelle Eldridge Britni - Last Filed: 01/31/19 10:42> Subjective Progress Note Date: 01/31/19 CHIEF COMPLAINT: Pneumoperitoneum HISTORY OF PRESENT ILLNESS: Patient is status post sigmoid colectomy with end colostomy secondary to sigmoid colon perforation performed on 01/27/2019. Svetlana ent examined at bedside. The patient denies abdominal pain. Ostomy with large amount of stool noted. Patient tolerating clear liquid diet. Requesting diet to be advanced. PHYSICAL EXAM: VITAL SIGNS: Reviewed. GENERAL: Well-developed in no acute distress. HEENT: No sclera icterus. Extraocular movements grossly intact. Moist buccal mucosa. Head is atraumatic, normocephalic. ABDOMEN: Soft. Nondistended. Nontender. Dressing clean dry intact. Ostomy with large amount of stool noted. NEUROLOGIC: Alert and oriented. Cranial nerves II through XII grossly intact. ASSESSMENT: 1. Sigmoid colon perforation, status post sigmoid colectomy with end colostomy PLAN: 1. Advance diet to full liquid. Advance as tolerated 2. PT/OT 3. Pain control 4. Incentive spirometry Nurse practitioner note has been reviewed by physician. Signing provider agrees with the documented findings, assessment, and plan of care. Objective - Vital Signs Vital signs: Vital Signs Temp 98.5 F 01/31/19 07:41 Pulse 77 01/31/19 07:41 Resp 15 01/31/19 07:41 BP 136/87 01/31/19 07:41 Pulse Ox 97 01/31/19 07:41 Intake & Output 01/30/19 01/31/19 01/31/19 18:59 06:59 18:59 Intake Total 770 240 480 Output Total 1700 Balance -930 240 480 Weight 61.235 kg Intake: Oral 770 240 480 Output: Urine 1700 Other: Voiding Method Toilet Toilet Toilet # Voids 2 - Labs CBC & Chem 7: 01/31/19 07:41 01/31/19 07:41 Labs: Abnormal Lab Results - Last 24 Hours (Table) 01/31/19 01/31/19 Range/Units 07:41 07:41 WBC 10.7 H (3.8-10.6) k/uL Chloride 109 H (98-107) mmol/L BUN 5 L (7-17) mg/dL Creatinine 0.47 L (0.52-1.04) mg/dL Glucose 117 H (74-99) mg/dL Microbiology - Last 24 Hours (Table) 01/26/19 17:46 Blood Culture - Preliminary Blood No Growth after 96 hours 01/26/19 23:43 Gram Stain - Final Rectum Wound Culture - Final Escherichia coli Beta Hemolytic Streptococcus F 01/26/19 23:43 Anaerobic Culture - Final Perineal Fluid Anaerobic Gm Negative Bacilli <Rivas Perry - Last Filed: 01/31/19 16:05> Subjective As above. Patient doing well. Tolerating diet currently. Ostomy functioning. Will increase diet further. Add Toradol for pain control. Objective - Vital Signs Vital signs: Vital Signs Temp 97.9 F 01/31/19 16:01 Pulse 88 01/31/19 16:01 Resp 16 01/31/19 16:01 BP 150/74 01/31/19 16:01 Pulse Ox 96 01/31/19 16:01 Intake & Output 01/30/19 01/31/19 01/31/19 18:59 06:59 18:59 Intake Total 770 240 960 Output Total 1700 Balance -930 240 960 Weight 61.235 kg Intake: Oral 770 240 960 Output: Urine 1700 Other: Voiding Method Toilet Toilet Toilet # Voids 2 - Labs CBC & Chem 7: 01/31/19 07:41 01/31/19 07:41 Labs: Abnormal Lab Results - Last 24 Hours (Table) 01/31/19 01/31/19 Range/Units 07:41 07:41 WBC 10.7 H (3.8-10.6) k/uL Chloride 109 H (98-107) mmol/L BUN 5 L (7-17) mg/dL Creatinine 0.47 L (0.52-1.04) mg/dL Glucose 117 H (74-99) mg/dL Microbiology - Last 24 Hours (Table) 01/26/19 17:46 Blood Culture - Preliminary Blood No Growth after 96 hours Assessment and Plan (1) Perforated abdominal viscus Current Visit: Yes Status: Acute Code(s): IJQ6159 - SNOMED Code(s): 40377442
--- NOTE | 2019-01-31 11:31 | P.PN ---
Subjective Progress Note Date: 01/31/19 Principal diagnosis: abdominal pain Patient is an 83-year-old female with a past medical history of breast cancer currently on Femara, Osteoprosis on zometa, HTN, and hypothyroidism who presented to the ER at the direction of her physician for abdominal pain. She was seen by Dr. Peres's office and underwent an abdominal x-ray which showed free air and she was immediately sent to the emergency room. In the emergency room she underwent an extensive evaluation. Computed tomography scan showed free air. She was admitted to Dr. Perry's service and underwent sigmoid colectomy with end colostomy secondary to perforated viscus. She is continuing to do well postoperatively. Her diet has been maintained on clear liquids. Increased on 01/31. Increasing confusion on 01/31. Patient seen and examined at bedside. Concerned about her feeling anxious. Doesn't understand why she needs to be in the hospital. No chest pain, sob. Difficult with reorientation. Objective - Vital Signs Vital signs: Vital Signs Temp 98.5 F 01/31/19 07:41 Pulse 77 01/31/19 07:41 Resp 15 01/31/19 07:41 BP 136/87 01/31/19 07:41 Pulse Ox 97 01/31/19 07:41 Intake & Output 01/30/19 01/31/19 01/31/19 18:59 06:59 18:59 Intake Total 770 240 480 Output Total 1700 Balance -930 240 480 Weight 61.235 kg Intake: Oral 770 240 480 Output: Urine 1700 Other: Voiding Method Toilet Toilet Toilet # Voids 2 - Exam General: non toxic, mild distress due to anxiety, appears at stated age Derm: warm, dry Head: atraumatic, normocephalic, symmetric Eyes: EOMI, no lid lag, anicteric sclera Mouth: no lip lesion, mucus membranes dry Cardiovascular: S1S2 reg, no murmur, positive posterior tibial pulse bilateral, Lungs: decreased bs bilateral, no rhonchi, no rales , no accessory muscle use Abdominal: soft, +tender to palpation diffusely, no guarding, no appreciable organomegaly Ext: no gross muscle atrophy, trace edema, no contractures Neuro: CN II-XI grossly intact, no focal neuro deficits Psych: Alert, oriented,anxious, flight of thoughts - Labs CBC & Chem 7: 01/31/19 07:41 01/31/19 07:41 Labs: Abnormal Lab Results - Last 24 Hours (Table) 01/31/19 01/31/19 Range/Units 07:41 07:41 WBC 10.7 H (3.8-10.6) k/uL Chloride 109 H (98-107) mmol/L BUN 5 L (7-17) mg/dL Creatinine 0.47 L (0.52-1.04) mg/dL Glucose 117 H (74-99) mg/dL Microbiology - Last 24 Hours (Table) 01/26/19 17:46 Blood Culture - Preliminary Blood No Growth after 96 hours 01/26/19 23:43 Gram Stain - Final Rectum Wound Culture - Final Escherichia coli Beta Hemolytic Streptococcus F 01/26/19 23:43 Anaerobic Culture - Final Perineal Fluid Anaerobic Gm Negative Bacilli Assessment and Plan Assessment: Perforated viscus status post colectomy with colostomy formation and postoperative pain - scheduled tylenol and prn dilaudid -polymicrobial culture- on zosyn and flagyl -path pending -On full liquid diet, + ostomy output -Management per surgery Toxic metabolic encephalopathy, suspect secondary to untreated pain -Patient's epidural stopped infusing on 01/29. -Start scheduled Tylenol -Frequent reorientation -treatment of underlying condition as above. Hypothyroidism -Synthroid Acute blood loss anemia - anticipated and expected outcome - follow CBC Hypertension - Cozaar -BP likely elevated secondary to pain Breast cancer -Continue to hold Femara - Out patient follow-up GERD - protonix HLD - hold fish oil until more oral intake Hyperclacemia, resolved - continue hold calcium Dehydration, resolved DVT prophylaxis: Heparin Anticipated discharge: Per surgery Total of 30 minutes was spent with this complex patient.
[2019-01-31] MEDS: ACETAMINOPHEN TAB 325 MG TAB PO SCH ×2 (12:36→17:00)
[2019-01-31] MEDS: KETOROLAC 30 MG/ML 1 ML VIAL IVP SCH (17:00)
[2019-02-01] MEDS: ACETAMINOPHEN TAB 325 MG TAB PO SCH ×5 (00:01→23:03)
[2019-02-01] MEDS: HEPARIN SODIUM,PORCINE 5,000 UNIT/ML 1 ML VIAL SQ SCH ×4 (00:01→23:03)
[2019-02-01] MEDS: PIPERACILLIN-TAZOBACTAM 3.375 GM in SODIUM CHLORIDE 0.9% 100 ML IVPB SCH ×4 (01:14→23:04)
[2019-02-01] MEDS: SODIUM CHLORIDE 0.9% 1,000 ML IV SCH ×3 (01:15→19:45)
[2019-02-01] MEDS: KETOROLAC 30 MG/ML 1 ML VIAL IVP SCH ×5 (06:03→23:03)
[2019-02-01] MEDS: LEVOTHYROXINE 75 MCG TAB PO SCH (06:04)
[2019-02-01] MEDS: metroNIDAZOLE-NS PMX 500 MG in SALINE 1 100ML.BAG IVPB SCH ×4 (08:50→23:04)
[2019-02-01] MEDS: PANTOPRAZOLE 40 MG TABLET PO SCH ×2 (08:56→17:12)
[2019-02-01] MEDS: FAMOTIDINE 20 MG/2 ML VIAL IV SCH ×2 (08:56→20:47)
[2019-02-01] MEDS: LOSARTAN 50 MG TAB PO SCH (08:56)
[2019-02-01] MEDS: MULTIVITAMINS, THERA 1 EACH TAB PO SCH (08:56)
[2019-02-01 10:48] LABS: Basophils % (A) 0 %; Eosinophils # (A) 0.1 k/uL (0-0.7); Eosinophils % (A) 1 %; HGB 12.1 gm/dL (11.4-16.0); Lymphocytes # (A) 1.5 k/uL (1.0-4.8); Lymphocytes % (A) 13 %; MCH 26.8 pg (25.0-35.0); MCHC 31.9 g/dL (31.0-37.0); MCV 84.1 fL (80.0-100.0); Mean Platelet Volume 7.2; Monocytes # (A) 0.7 k/uL (0-1.0); Monocytes % (A) 6 %; Neutrophils # (A) 8.6 k/uL (1.3-7.7); Neutrophils % (A) 77 %; Platelet Count 316 k/uL (150-450); RBC 4.52 m/uL (3.80-5.40); RDW 14.6 % (11.5-15.5); WBC 11.1 k/uL (3.8-10.6)
--- NOTE | 2019-02-01 11:57 | P.PN ---
<Rachelle Eldridge - Last Filed: 02/01/19 11:51> Subjective Progress Note Date: 02/01/19 CHIEF COMPLAINT: Pneumoperitoneum HISTORY OF PRESENT ILLNESS: Patient is status post sigmoid colectomy with end colostomy secondary to sigmoid colon perforation performed on 01/27/2019. Svetlana ent examined at bedside. Family present. Patient denies abdominal pain. Denies nausea or vomiting. She does report the smell of the hospital food makes her nauseous. She is tolerating low fiber diet but taking in very small amounts of her meals. Family encouraged to bring in items from home to eat that patient may enjoy. Ostomy with stool noted. WBC 11.1 PHYSICAL EXAM: VITAL SIGNS: Reviewed. GENERAL: Well-developed in no acute distress. HEENT: No sclera icterus. Extraocular movements grossly intact. Moist buccal mucosa. Head is atraumatic, normocephalic. ABDOMEN: Soft. Nondistended. Nontender. Dressing clean dry intact. Ostomy with stool noted. NEUROLOGIC: Alert and oriented. Cranial nerves II through XII grossly intact. ASSESSMENT: 1. Sigmoid colon perforation, status post sigmoid colectomy with end colostomy PLAN: 1. Continue low fiber diet 2. PT/OT 3. Pain control 4. Incentive spirometry 5. Possible discharge tomorrow. Patient and family to discuss home with home care versus subacute rehab Nurse practitioner note has been reviewed by physician. Signing provider agrees with the documented findings, assessment, and plan of care. Objective - Vital Signs Vital signs: Vital Signs Temp 99.3 F 02/01/19 07:26 Pulse 71 02/01/19 08:50 Resp 16 02/01/19 08:50 BP 133/69 02/01/19 07:26 Pulse Ox 97 02/01/19 07:26 Intake & Output 01/31/19 02/01/19 02/01/19 18:59 06:59 18:59 Intake Total 1440 Output Total 225 Balance 1440 -225 Intake: Oral 1440 Output: Stool 225 Other: Voiding Method Toilet Toilet Toilet - Labs CBC & Chem 7: 02/01/19 09:54 01/31/19 07:41 Labs: Abnormal Lab Results - Last 24 Hours (Table) 02/01/19 Range/Units 09:54 WBC 11.1 H (3.8-10.6) k/uL Neutrophils # 8.6 H (1.3-7.7) k/uL Microbiology - Last 24 Hours (Table) 01/26/19 17:46 Blood Culture - Preliminary Blood No Growth after 120 hours <Rivas Perry - Last Filed: 02/01/19 12:18> Subjective As above. Patient remains nauseated. White blood cell count slightly elevated. Continue low fiber diet. Continue discussion with the family regarding home versus rehab. Objective - Vital Signs Vital signs: Vital Signs Temp 99.3 F 02/01/19 07:26 Pulse 71 02/01/19 08:50 Resp 16 02/01/19 08:50 BP 133/69 02/01/19 07:26 Pulse Ox 97 02/01/19 07:26 Intake & Output 01/31/19 02/01/19 02/01/19 18:59 06:59 18:59 Intake Total 1440 Output Total 225 Balance 1440 -225 Intake: Oral 1440 Output: Stool 225 Other: Voiding Method Toilet Toilet Toilet - Labs CBC & Chem 7: 02/01/19 09:54 01/31/19 07:41 Labs: Abnormal Lab Results - Last 24 Hours (Table) 02/01/19 Range/Units 09:54 WBC 11.1 H (3.8-10.6) k/uL Neutrophils # 8.6 H (1.3-7.7) k/uL Microbiology - Last 24 Hours (Table) 01/26/19 17:46 Blood Culture - Preliminary Blood No Growth after 120 hours Assessment and Plan (1) Perforated abdominal viscus Current Visit: Yes Status: Acute Code(s): [id number] - SNOMED Code(s): 60244050
--- NOTE | 2019-02-01 15:09 | P.PN ---
Subjective Progress Note Date: 02/01/19 Principal diagnosis: abdominal pain Patient is an 83-year-old female with a past medical history of breast cancer currently on Femara, Osteoprosis on zometa, HTN, and hypothyroidism who presented to the ER at the direction of her physician for abdominal pain. She was seen by Dr. Peres's office and underwent an abdominal x-ray which showed free air and she was immediately sent to the emergency room. In the emergency room she underwent an extensive evaluation. Computed tomography scan showed free air. She was admitted to Dr. Perry's service and underwent sigmoid colectomy with end colostomy secondary to perforated viscus. She is continuing to do well postoperatively. Her diet has been maintained on clear liquids. Increased on 01/31. Increasing confusion on 01/31 that improved with scheduled tylenol. Patient seen and examined at bedside. Having slight abd pain, + nausea after lunch, decreased appetite, + ostomy output, no chest pain or shortness of trevor th. Will think about rehab, but doesn't want to go Objective - Vital Signs Vital signs: Vital Signs Temp 99.3 F 02/01/19 07:26 Pulse 71 02/01/19 08:50 Resp 16 02/01/19 08:50 BP 133/69 02/01/19 07:26 Pulse Ox 97 02/01/19 07:26 Intake & Output 01/31/19 02/01/19 02/01/19 18:59 06:59 18:59 Intake Total 1440 Output Total 225 Balance 1440 -225 Intake: Oral 1440 Output: Stool 225 Other: Voiding Method Toilet Toilet Toilet - Exam General: non toxic, no distress, appears at stated age Derm: warm, dry Head: atraumatic, normocephalic, symmetric Eyes: EOMI, no lid lag, anicteric sclera Mouth: no lip lesion, mucus membranes dry Cardiovascular: S1S2 reg, no murmur, positive posterior tibial pulse bilateral, Lungs: decreased bs bilateral, no rhonchi, no rales , no accessory muscle use Abdominal: soft, +tender to palpation diffusely, no guarding, no appreciable organomegaly Ext: no gross muscle atrophy, trace edema, no contractures Neuro: CN II-XI grossly intact, no focal neuro deficits Psych: Alert, oriented, appropriate affect - Labs CBC & Chem 7: 02/01/19 09:54 01/31/19 07:41 Labs: Abnormal Lab Results - Last 24 Hours (Table) 02/01/19 Range/Units 09:54 WBC 11.1 H (3.8-10.6) k/uL Neutrophils # 8.6 H (1.3-7.7) k/uL Microbiology - Last 24 Hours (Table) 01/26/19 17:46 Blood Culture - Preliminary Blood No Growth after 120 hours Assessment and Plan Assessment: Perforated viscus status post colectomy with colostomy formation and postoperative pain - scheduled tylenol and prn dilaudid -polymicrobial culture- on zosyn and flagyl -path: diverticulosis with ruptured diverticulitis -Low fiber diet, + ostomy output -Management per surgery Toxic metabolic encephalopathy, improved -Patient's epidural stopped infusing on 01/29. -Continue scheduled Tylenol -Frequent reorientation -treatment of underlying condition as above. Hypothyroidism -Synthroid Hypertension - Cozaar -follow BP Breast cancer -Continue to hold Femara - Out patient follow-up GERD - protonix HLD - resume fish oil Hyperclacemia, resolved - continue hold calcium Dehydration, resolved Acute blood loss anemia, resolved DVT prophylaxis: Heparin Anticipated discharge: Per surgery Total of 30 minutes was spent with this complex patient.
[2019-02-01] MEDS: D5-0.45% NACL WITH KCL 20MEQ/L 1,000 ML IV SCH ×3 (19:44→22:01)
[2019-02-02] MEDS: SODIUM CHLORIDE 0.9% 1,000 ML IV SCH ×2 (03:28→22:45)
[2019-02-02] MEDS: ACETAMINOPHEN TAB 325 MG TAB PO SCH ×3 (05:30→17:19)
[2019-02-02] MEDS: LEVOTHYROXINE 75 MCG TAB PO SCH (05:30)
[2019-02-02] MEDS: KETOROLAC 30 MG/ML 1 ML VIAL IVP SCH ×2 (05:31→15:18)
[2019-02-02] MEDS: HEPARIN SODIUM,PORCINE 5,000 UNIT/ML 1 ML VIAL SQ SCH ×2 (08:47→15:41)
[2019-02-02] MEDS: PANTOPRAZOLE 40 MG TABLET PO SCH ×2 (08:47→17:19)
[2019-02-02] MEDS: MULTIVITAMINS, THERA 1 EACH TAB PO SCH (08:47)
[2019-02-02] MEDS: LOSARTAN 50 MG TAB PO SCH (08:47)
[2019-02-02] MEDS: FAMOTIDINE 20 MG/2 ML VIAL IV SCH (08:48)
[2019-02-02] MEDS: metroNIDAZOLE-NS PMX 500 MG in SALINE 1 100ML.BAG IVPB SCH ×2 (08:48→15:41)
[2019-02-02] MEDS ORDERED: FISH OIL PO SCH (09:00)
[2019-02-02] MEDS ORDERED: EPA PO SCH (09:00)
[2019-02-02] MEDS ORDERED: DHA PO SCH (09:00)
[2019-02-02] MEDS: PIPERACILLIN-TAZOBACTAM 3.375 GM in SODIUM CHLORIDE 0.9% 100 ML IVPB SCH ×2 (11:08→17:19)
--- NOTE | 2019-02-02 11:47 | P.PN ---
Subjective Progress Note Date: 02/02/19 Principal diagnosis: abdominal pain Patient is an 83-year-old female with a past medical history of breast cancer currently on Femara, Osteoprosis on zometa, HTN, and hypothyroidism who presented to the ER at the direction of her physician for abdominal pain. She was seen by Dr. Peres's office and underwent an abdominal x-ray which showed free air and she was immediately sent to the emergency room. In the emergency room she underwent an extensive evaluation. Computed tomography scan showed free air. She was admitted to Dr. Perry's service and underwent sigmoid colectomy with end colostomy secondary to perforated viscus. She is continuing to do well postoperatively. Her diet has been maintained on clear liquids. Increased on 01/31. Increasing confusion on 01/31 that improved with scheduled tylenol. 02/01 started low fiber diet. Patient seen and examined at bedside. Has some pain at the top of her incision, worse with coughing. Still with low appetite, no overt nausea. Denies any chest pain or shortness of breath. Will be going home with home health. States changing her ostomy bag went well yesterday. Objective - Vital Signs Vital signs: Vital Signs Temp 98.4 F 02/02/19 08:30 Pulse 81 02/02/19 08:30 Resp 16 02/02/19 08:30 BP 131/67 02/02/19 08:30 Pulse Ox 98 02/02/19 08:30 Intake & Output 02/01/19 02/02/19 02/02/19 18:59 06:59 18:59 Other: Voiding Method Toilet Toilet - Exam General: non toxic, no distress, appears at stated age Derm: warm, dry Head: atraumatic, normocephalic, symmetric Eyes: EOMI, no lid lag, anicteric sclera Mouth: no lip lesion, mucus membranes dry Cardiovascular: S1S2 reg, no murmur, positive posterior tibial pulse bilateral, Lungs: decreased bs bilateral, no rhonchi, no rales , no accessory muscle use Abdominal: soft, +tender to palpation diffusely, no guarding, no appreciable organomegaly Ext: no gross muscle atrophy, trace edema, no contractures Neuro: CN II-XI grossly intact, no focal neuro deficits Psych: Alert, oriented, appropriate affect - Labs CBC & Chem 7: 02/01/19 09:54 01/31/19 07:41 Labs: Microbiology - Last 24 Hours (Table) 01/26/19 17:46 Blood Culture - Final Blood No Growth after 144 hours Assessment and Plan Assessment: Perforated viscus status post colectomy with colostomy formation and postoperative pain - scheduled tylenol and prn dilaudid -polymicrobial culture- on zosyn and flagyl -path: diverticulosis with ruptured diverticulitis -Low fiber diet, + ostomy output -Management per surgery Hypothyroidism -Synthroid Hypertension - Cozaar -follow BP Breast cancer -Continue to hold Femara, resume on discharge - Out patient follow-up GERD - protonix HLD - fish oil Hyperclacemia, resolved - continue hold calcium Dehydration, resolved Acute blood loss anemia, resolved Toxic metabolic encephalopathy,resolved DVT prophylaxis: Heparin Anticipated discharge: in AM with home health Total of 30 minutes was spent with this complex patient.
--- NOTE | 2019-02-02 13:23 | P.PN ---
Subjective Progress Note Date: 02/02/19 CHIEF COMPLAINT: Pneumoperitoneum HISTORY OF PRESENT ILLNESS: Patient is status post sigmoid colectomy with end colostomy secondary to sigmoid colon perforation performed on 01/27/2019. Patient examined at bedside this morning. No family present at time of exami nation. Patient continues to report decreased appetite. She states she ate a little bit of food that her family brought in yesterday. She reports eating some of her omelet this morning and some cherries her family brought in. Patient discussed discharge planning with her family yesterday. She does not want to go to subacute rehab at discharge. She would like to return home with home care. She states she is not ready for discharge today and needs more time to learn her colostomy bag. PHYSICAL EXAM: VITAL SIGNS: Reviewed. GENERAL: Well-developed in no acute distress. HEENT: No sclera icterus. Extraocular movements grossly intact. Moist buccal mucosa. Head is atraumatic, normocephalic. ABDOMEN: Soft. Nondistended. Nontender. Dressing clean dry intact. Ostomy with stool noted. NEUROLOGIC: Alert and oriented. Cranial nerves II through XII grossly intact. ASSESSMENT: 1. Sigmoid colon perforation, status post sigmoid colectomy with end colostomy PLAN: 1. Continue low fiber diet 2. PT/OT 3. Pain control 4. Incentive spirometry 5. Continue colostomy teaching. Yady Culp to meet with patient again tomorrow morning 6. Anticipate discharge home tomorrow with home care Nurse practitioner note has been reviewed by physician. Signing provider agrees with the documented findings, assessment, and plan of care. Objective - Vital Signs Vital signs: Vital Signs Temp 98.4 F 02/02/19 08:30 Pulse 81 02/02/19 08:30 Resp 16 02/02/19 08:30 BP 131/67 02/02/19 08:30 Pulse Ox 98 02/02/19 08:30 Intake & Output 02/01/19 02/02/19 02/02/19 18:59 06:59 18:59 Other: Voiding Method Toilet Toilet - Labs CBC & Chem 7: 02/01/19 09:54 01/31/19 07:41 Labs: Microbiology - Last 24 Hours (Table) 01/26/19 17:46 Blood Culture - Final Blood No Growth after 144 hours
[2019-02-02] MEDS: FAMOTIDINE 20 MG TAB PO SCH (20:19)
[2019-02-02] MEDS: D5-0.45% NACL WITH KCL 20MEQ/L 1,000 ML IV SCH (22:45)
[2019-02-03] MEDS: ACETAMINOPHEN TAB 325 MG TAB PO SCH ×4 (00:19→17:50)
[2019-02-03] MEDS: metroNIDAZOLE-NS PMX 500 MG in SALINE 1 100ML.BAG IVPB SCH ×3 (00:20→16:43)
[2019-02-03] MEDS: HEPARIN SODIUM,PORCINE 5,000 UNIT/ML 1 ML VIAL SQ SCH ×3 (00:20→16:43)
[2019-02-03] MEDS: PIPERACILLIN-TAZOBACTAM 3.375 GM in SODIUM CHLORIDE 0.9% 100 ML IVPB SCH ×3 (01:21→17:50)
[2019-02-03] MEDS: LEVOTHYROXINE 75 MCG TAB PO SCH (05:35)
[2019-02-03 08:24] LABS: Calcium 9.1 mg/dL (8.4-10.2); Potassium 3.9 mmol/L (3.5-5.1)
[2019-02-03] MEDS: MULTIVITAMINS, THERA 1 EACH TAB PO SCH (08:24)
[2019-02-03] MEDS: LOSARTAN 50 MG TAB PO SCH (08:24)
[2019-02-03] MEDS: FAMOTIDINE 20 MG TAB PO SCH (08:24)
[2019-02-03] MEDS: PANTOPRAZOLE 40 MG TABLET PO SCH ×2 (08:24→17:50)
[2019-02-03 08:26] LABS: Basophils # (A) 0.1 k/uL (0-0.2); Basophils % (A) 0 %; Eosinophils # (A) 0.2 k/uL (0-0.7); Eosinophils % (A) 1 %; HCT 39.3 % (34.0-46.0); HGB 12.5 gm/dL (11.4-16.0); Lymphocytes # (A) 3.1 k/uL (1.0-4.8); Lymphocytes % (A) 20 %; MCH 26.4 pg (25.0-35.0); MCHC 31.8 g/dL (31.0-37.0); MCV 82.9 fL (80.0-100.0); Mean Platelet Volume 6.8; Monocytes # (A) 0.7 k/uL (0-1.0); Monocytes % (A) 5 %; Neutrophils # (A) 11.3 k/uL (1.3-7.7); Neutrophils % (A) 72 %; Platelet Count 411 k/uL (150-450); RBC 4.75 m/uL (3.80-5.40); WBC 15.6 k/uL (3.8-10.6)
--- NOTE | 2019-02-03 10:33 | P.PN ---
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 She was seen by Dr. Peres's office and underwent an abdominal x-ray which showed free air and she was immediately sent to the emergency room. In the emergency room she underwent an extensive evaluation. Computed tomography scan showed free air. She was admitted to Dr. Perry's service and underwent sigmoid colectomy with end colostomy secondary to perforated viscus. She is continuing to do well postoperatively. Her diet has been maintained on clear liquids. Increased on 01/31. Increasing confusion on 01/31 that improved with scheduled tylenol. 02/01 started low fiber diet. WBC increased to 15 on 02/03. Patient seen and examined at bedside. Feeling tired today and a bit off. No chest pain, SOB, nausea, + increased ostomy output. Ostomy teaching going well. Objective - Vital Signs Vital signs: Vital Signs Temp 97.3 F L 02/03/19 07:40 Pulse 99 02/03/19 08:22 Resp 18 02/03/19 08:22 BP 135/78 02/03/19 07:40 Pulse Ox 98 02/03/19 07:40 Intake & Output 02/02/19 02/03/19 02/03/19 18:59 06:59 18:59 Intake Total 300 240 Balance 300 240 Weight 61.235 kg Intake: Intake, IV Titration 200 Amount Piperacillin-Tazobactam 3 100 .375 gm In Sodium Chloride 0.9% 100 ml @ 25 mls/hr IVPB Q8HR [facility] Rx# :[id number] metroNIDAZOLE-NS PMX 500 100 mg In Saline 1 100ml.bag @ 100 mls/hr IVPB Q8HR [facility] Rx#:[id number] Oral 100 240 Other: Voiding Method Toilet Toilet Toilet # Voids 2 - Exam General: non toxic, no distress, appears at stated age Derm: Incision clean, dry, intact, warm, dry Head: atraumatic, normocephalic, symmetric Eyes: EOMI, no lid lag, anicteric sclera Mouth: no lip lesion, mucus membranes dry Cardiovascular: S1S2 reg, no murmur, positive posterior tibial pulse bilateral, Lungs: decreased bs bilateral, no rhonchi, no rales , no accessory muscle use Abdominal: soft, nontender to palpation diffusely, no guarding, no appreciable organomegaly, + ostomy with good output, pink Ext: no gross muscle atrophy, trace edema, no contractures Neuro: CN II-XI grossly intact, no focal neuro deficits Psych: Alert, oriented, appropriate affect - Labs CBC & Chem 7: 02/03/19 07:44 02/03/19 07:44 Labs: Abnormal Lab Results - Last 24 Hours (Table) 02/03/19 02/03/19 Range/Units 07:44 07:44 WBC 15.6 H (3.8-10.6) k/uL Neutrophils # 11.3 H (1.3-7.7) k/uL Chloride 109 H (98-107) mmol/L Assessment and Plan Assessment: Perforated viscus status post colectomy with colostomy formation with increasing leukocytosis today - d/w Surgery will do CT scan to ensure no abscess. - scheduled tylenol and prn dilaudid -polymicrobial culture- on zosyn and flagyl -path: diverticulosis with ruptured diverticulitis -Low fiber diet, + ostomy output Hypothyroidism -Synthroid Hypertension - Cozaar -follow BP Breast cancer -Continue to hold Femara, resume on discharge - Out patient follow-up GERD - protonix HLD - fish oil Hyperclacemia, resolved - continue hold calcium Dehydration, resolved Acute blood loss anemia, resolved Toxic metabolic encephalopathy,resolved DVT prophylaxis: Heparin Anticipated discharge: undetermined Total of 30 minutes was spent with this complex patient.
[2019-02-03] MEDS: IOPAMIDOL-300 CONTRAST 30 ML VIAL (ORAL USE) PO PRN ×2 (10:39→11:09)
--- NOTE | 2019-02-03 10:50 | P.PN ---
<Rachelle Eldridge A - Last Filed: 02/03/19 10:47> Subjective Progress Note Date: 02/03/19 CHIEF COMPLAINT: Pneumoperitoneum HISTORY OF PRESENT ILLNESS: Patient is status post sigmoid colectomy with end colostomy secondary to sigmoid colon perforation performed on 01/27/2019. [place]ana ent examined at bedside this morning. No family present at time of examination. Patient denies abdominal pain. She reports eating about half her breakfast this morning. Denies nausea or vomiting. Ostomy with stool. Met with ostomy resource RN this morning for further teaching. Patient states she feels more comfortable with her ostomy care. WBC increased to 15.6 today from 11.1. Patient remains on Flagyl and Zosyn. Afebrile. Vital signs have been stable. PHYSICAL EXAM: VITAL SIGNS: Reviewed. GENERAL: Well-developed in no acute distress. HEENT: No sclera icterus. Extraocular movements grossly intact. Moist buccal mucosa. Head is atraumatic, normocephalic. ABDOMEN: Soft. Nondistended. Nontender. Dressing clean dry intact. Ostomy with stool noted. NEUROLOGIC: Alert and oriented. Cranial nerves II through XII grossly intact. ASSESSMENT: 1. Sigmoid colon perforation, status post sigmoid colectomy with end colostomy PLAN: 1. Continue low fiber diet 2. PT/OT 3. Pain control 4. Incentive spirometry 5. Continue colostomy teaching 6. Continue antibiotics. Monitor WBC 7. CT abdomen/pelvis to rule out abscess Nurse practitioner note has been reviewed by physician. Signing provider agrees with the documented findings, assessment, and plan of care. Objective - Vital Signs Vital signs: Vital Signs Temp 97.3 F L 02/03/19 07:40 Pulse 99 02/03/19 08:22 Resp 18 02/03/19 08:22 BP 135/78 02/03/19 07:40 Pulse Ox 98 02/03/19 07:40 Intake & Output 02/02/19 02/03/19 02/03/19 18:59 06:59 18:59 Intake Total 300 240 Balance 300 240 Weight 61.235 kg Intake: Intake, IV Titration 200 Amount Piperacillin-Tazobactam 3 100 .375 gm In Sodium Chloride 0.9% 100 ml @ 25 mls/hr IVPB Q8HR [facility] Rx# :[id number] metroNIDAZOLE-NS PMX 500 100 mg In Saline 1 100ml.bag @ 100 mls/hr IVPB Q8HR [facility] Rx#:[id number] Oral 100 240 Other: Voiding Method Toilet Toilet Toilet # Voids 2 - Labs CBC & Chem 7: 02/03/19 07:44 02/03/19 07:44 Labs: Abnormal Lab Results - Last 24 Hours (Table) 02/03/19 02/03/19 Range/Units 07:44 07:44 WBC 15.6 H (3.8-10.6) k/uL Neutrophils # 11.3 H (1.3-7.7) k/uL Chloride 109 H (98-107) mmol/L <MelquiadesdiandraRivas - Last Filed: 02/03/19 13:31> Subjective As above. Patient's white blood cell count today is elevated. She actually feels well and looks better than when I saw her last 48 hours ago. Incision without erythema or significant drainage. CAT scan from today was reviewed. No identifiable source of infection to explain her leukocytosis on that study. Continue antibiotics. Recheck CBC tomorrow. Continue pulmonary toilet. Objective - Vital Signs Vital signs: Vital Signs Temp 97.3 F L 02/03/19 07:40 Pulse 99 02/03/19 08:22 Resp 18 02/03/19 08:22 BP 135/78 02/03/19 07:40 Pulse Ox 98 02/03/19 07:40 Intake & Output 02/02/19 02/03/19 02/03/19 18:59 06:59 18:59 Intake Total 300 240 Balance 300 240 Weight 61.235 kg Intake: Intake, IV Titration 200 Amount Piperacillin-Tazobactam 3 100 .375 gm In Sodium Chloride 0.9% 100 ml @ 25 mls/hr IVPB Q8HR [facility] Rx# :[id number] metroNIDAZOLE-NS PMX 500 100 mg In Saline 1 100ml.bag @ 100 mls/hr IVPB Q8HR [facility] Rx#:[id number] Oral 100 240 Other: Voiding Method Toilet Toilet Toilet # Voids 2 - Labs CBC & Chem 7: 02/03/19 07:44 02/03/19 07:44 Labs: Abnormal Lab Results - Last 24 Hours (Table) 02/03/19 02/03/19 Range/Units 07:44 07:44 WBC 15.6 H (3.8-10.6) k/uL Neutrophils # 11.3 H (1.3-7.7) k/uL Chloride 109 H (98-107) mmol/L Assessment and Plan (1) Perforated abdominal viscus Current Visit: Yes Status: Acute Code(s): TAN1013 - SNOMED Code(s): 45862181
[2019-02-03] MEDS ORDERED: IOPAMIDOL-300 CONTRAST 30 ML VIAL (ORAL USE) PO PRN (11:34)
--- NOTE | 2019-02-03 12:03 | CT ---
EXAMINATION TYPE: CT abdomen pelvis wo con DATE OF EXAM: 02/03/2019 COMPARISON: 01/26/2019 HISTORY: Possible abscess post op. CT DLP: 406.3 mGycm Examination is limited given the lack of intravenous contrast. Therefore evaluation of possible absce sses is quite limited. GI contrast was utilized. Unenhanced CT abdomen pelvis was performed. FINDINGS: LUNG BASES: No evidence for nodule. No evidence for infiltrate. LIVER/GB: Cholelithiasis noted. No space-occupying hepatic lesion. PANCREAS: No pancreatic mass identified. No inflammatory process seen. SPLEEN: No evidence for splenomegaly. No intrasplenic lesions seen. ADRENALS: No adrenal nodules identified. No evidence for thickening. KIDNEYS: Hypoattenuating renal lesions again noted likely reflecting cysts. No nephrolithiasis. No hy dronephrosis. Air is identified within the urinary bladder. BOWEL: Interval left mid abdominal diverting colostomy. Subcutaneous air noted. Midline skin gerson noted without abnormal collection. Previously noted left lower quadrant abscess is no longer visuali zed. No new abscess seen with certainty. No free air evident. Lymph nodes: No evidence for adenopathy greater than 1 cm. Abdominal aorta: Atheromatous changes seen. No evidence for aneurysm. Genital organs: No significant abnormality. Other: No significant abnormality. IMPRESSION: 1. Interval left mid abdominal diverting colostomy. 2. No visible abscess on this limited unenhanced study. 3. Cholelithiasis.
--- NOTE | 2019-02-03 15:24 | XR ---
EXAMINATION TYPE: XR chest 2V DATE OF EXAM: 02/03/2019 COMPARISON: NONE HISTORY: Pneumonia TECHNIQUE: Frontal and lateral views of the chest are obtained. FINDINGS: Patient is rotated. Multiple right-sided rib fractures appear chronic. Surgical clips pres ent in the right breast and axilla. Aorta is dense and tortuous. Heart is likely enlarged. No evident airspace disease, pneumothorax, or pleural effusion. Prominent lung volume may be indicative of unde rlying COPD. Thoracic spondylosis is present. Bone mineralization is reduced. IMPRESSION: Postop changes. Cardiomegaly. Additional findings above. Pneumonia not evident. Follow-u p as indicated. Rotated exam.
[2019-02-03 15:46] LABS: Appearance,Urine Clear (Clear); Bilirubin,Urine Negative (Negative); Blood,Urine Negative (Negative); Color,Urine Yellow; Glucose,Urine (UA) Negative (Negative); Ketones,Urine Negative (Negative); Leukocyte Esterase,Urine Trace (Negative); Nitrite,Urine Negative (Negative); PH, Urine 6.5 (5.0-8.0); Protein,Urine Negative (Negative); Specific Gravity,Urine 1.009 (1.001-1.035); Squamous Epithelial Cell,Urine <1 /hpf (0-4); Urobilinogen,Urine <2.0 mg/dL (<2.0)
[2019-02-04] MEDS: HEPARIN SODIUM,PORCINE 5,000 UNIT/ML 1 ML VIAL SQ SCH ×2 (00:23→08:59)
[2019-02-04] MEDS: metroNIDAZOLE-NS PMX 500 MG in SALINE 1 100ML.BAG IVPB SCH ×2 (00:24→08:59)
[2019-02-04] MEDS: ACETAMINOPHEN TAB 325 MG TAB PO SCH ×3 (00:24→11:44)
[2019-02-04] MEDS: PIPERACILLIN-TAZOBACTAM 3.375 GM in SODIUM CHLORIDE 0.9% 100 ML IVPB SCH ×2 (01:29→10:16)
[2019-02-04] MEDS: LEVOTHYROXINE 75 MCG TAB PO SCH (06:07)
[2019-02-04 07:56] LABS: Basophils % (A) 0 %; Eosinophils # (A) 0.3 k/uL (0-0.7); Eosinophils % (A) 2 %; HGB 11.7 gm/dL (11.4-16.0); Lymphocytes # (A) 2.4 k/uL (1.0-4.8); Lymphocytes % (A) 19 %; MCH 27.1 pg (25.0-35.0); MCHC 32.6 g/dL (31.0-37.0); MCV 83.1 fL (80.0-100.0); Mean Platelet Volume 6.7; Monocytes # (A) 0.6 k/uL (0-1.0); Monocytes % (A) 5 %; Neutrophils # (A) 9.5 k/uL (1.3-7.7); Neutrophils % (A) 73 %; Platelet Count 344 k/uL (150-450); RBC 4.33 m/uL (3.80-5.40); RDW 15.9 % (11.5-15.5); WBC 13.1 k/uL (3.8-10.6)
[2019-02-04 08:12] LABS: Calcium 9.3 mg/dL (8.4-10.2); Potassium 4.1 mmol/L (3.5-5.1)
[2019-02-04 08:34] VITALS: BP 152/76; PULSE 70; RESP 15; TEMP 98.4
[2019-02-04] MEDS: PANTOPRAZOLE 40 MG TABLET PO SCH (08:59)
[2019-02-04] MEDS: MULTIVITAMINS, THERA 1 EACH TAB PO SCH (08:59)
[2019-02-04] MEDS: LOSARTAN 50 MG TAB PO SCH (08:59)
--- NOTE | 2019-02-04 13:15 | P.PN ---
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 She was seen by Dr. Peres's office and underwent an abdominal x-ray which showed free air and she was immediately sent to the emergency room. In the emergency room she underwent an extensive evaluation. Computed tomography scan showed free air. She was admitted to Dr. Perry's service and underwent sigmoid colectomy with end colostomy secondary to perforated viscus. She is continuing to do well postoperatively. Her diet has been maintained on clear liquids. Increased on 01/31. Increasing confusion on 01/31 that improved with scheduled tylenol. 02/01 started low fiber diet. WBC increased to 15 on 02/03. UA and CXR negative. WBC decreasing. Patient seen and examined at bedside. Up and eating. Tolerating diet, good ostomy output. No nuasea or vomiting, no SOB, no chest pain. Objective - Vital Signs Vital signs: Vital Signs Temp 98.4 F 02/04/19 07:11 Pulse 70 02/04/19 08:00 Resp 15 02/04/19 08:00 BP 152/76 02/04/19 07:11 Pulse Ox 98 02/04/19 07:11 Intake & Output 02/03/19 02/04/19 02/04/19 18:59 06:59 18:59 Intake Total 240 200 240 Output Total 200 Balance 40 200 240 Intake: Intake, IV Titration 200 Amount Piperacillin-Tazobactam 3 100 .375 gm In Sodium Chloride 0.9% 100 ml @ 25 mls/hr IVPB Q8HR [facility] Rx# :[id number] metroNIDAZOLE-NS PMX 500 100 mg In Saline 1 100ml.bag @ 100 mls/hr IVPB Q8HR [facility] Rx#:[id number] Oral 240 240 Output: Urine 200 Other: Voiding Method Toilet Toilet Toilet # Voids 1 2 - Exam General: non toxic, no distress, appears at stated age Derm: Incision clean, dry, intact, warm, dry Head: atraumatic, normocephalic, symmetric Eyes: EOMI, no lid lag, anicteric sclera Mouth: no lip lesion, mucus membranes dry Cardiovascular: S1S2 reg, no murmur, positive posterior tibial pulse bilateral, Lungs: decreased bs bilateral, no rhonchi, no rales , no accessory muscle use Abdominal: soft, nontender to palpation diffusely, no guarding, no appreciable organomegaly, Ext: no gross muscle atrophy, trace edema, no contractures Neuro: CN II-XI grossly intact, no focal neuro deficits Psych: Alert, oriented, appropriate affect - Labs CBC & Chem 7: 02/04/19 07:10 02/04/19 07:10 Labs: Abnormal Lab Results - Last 24 Hours (Table) 02/03/19 02/04/19 02/04/19 Range/Units 15:25 07:10 07:10 WBC 13.1 H (3.8-10.6) k/uL RDW 15.9 H (11.5-15.5) % Neutrophils # 9.5 H (1.3-7.7) k/uL Chloride 110 H (98-107) mmol/L Ur Leukocyte Esterase Trace H (Negative) Urine WBC Clumps Rare H (None) /hpf Assessment and Plan Assessment: Perforated viscus status post colectomy with colostomy formation with increasing leukocytosis today - Retepat CT without abscess - not taking anything besides tylenol for pain -polymicrobial culture- on zosyn and flagyl. Will complete 2 week course with augment and flagyl. RX writtne -path: diverticulosis with ruptured diverticulitis -Low fiber diet, + ostomy output Hypothyroidism -Synthroid Hypertension - Cozaar -follow BP Breast cancer - Resume Femera on discharge GERD - protonix HLD - fish oil Hyperclacemia, resolved Dehydration, resolved Acute blood loss anemia, resolved Toxic metabolic encephalopathy,resolved Medically optimized for discharge at the discretion of surgery Discharge med recs completed, Colectomy instructions attached. DVT prophylaxis: Heparin Anticipated discharge: undetermined Total of 30 minutes was spent with this complex patient.
[2019-02-04] MEDS ORDERED: metroNIDAZOLE 500 MG TAB PO SCH (16:00)
--- NOTE | 2019-02-04 18:04 | P.DS ---
Providers Date of admission: 01/26/19 19:37 Expected date of discharge: 02/04/19 Attending physician: Rivas Perry Consults: 01/30/19 09:26 Consult Physician Urgent Consulting Provider: Wally Burger Consult Reason/Comments: medical management Do you want consulting provider notified?: Yes Primary care physician: Ilia Peres - Discharge Diagnosis(es) (1) Diverticulitis large intestine Current Visit: Yes Status: Acute (2) Diverticulitis of colon with perforation Current Visit: Yes Status: Acute (3) Acute abdomen Current Visit: Yes Status: Acute (4) Perforated abdominal viscus Current Visit: Yes Status: Acute (5) Hypertensive cardiomyopathy Current Visit: Yes Status: Acute (6) Hypothyroidism Current Visit: Yes Status: Acute Hospital Course: CHIEF COMPLAINT: Perforated viscus HISTORY OF PRESENT ILLNESS: The patient is a 83-year-old female who was admitted on 01/26/2019 for perforated viscus. She status post ostomy creation for perforated diverticulitis, 01/27/2019. Yesterday, she had leukocytosis is now improved. No fevers or chills. Clinically she is doing well and anxious to leave the hospital. She is very independent. Her family is at bedside. She is tolerating diet. Ostomy is functioning for bowel movements ROS: No reports of nausea and vomiting. No fevers or chills. No new chest pain. No productive sputum PHYSICAL EXAM: VITAL SIGNS: Reviewed CONSTITUTIONAL: Well developed and in no acute distress. EYES: Conjuctivae without sclera icterus. Extraocular movements grossly intact. HEAD, EARS, NOSE, THROAT: Moist buccal mucosa. Head is atraumatic, normocephalic. Hears conversational speech. No nasal drainage. NECK: Supple. No thyroidomegaly. RESPIRATORY: Non-labored respirations and equal bilateral excursions. CARDIOVASCULAR: Palpable 2+ radial pulses. Regular rate. Regular rhythm. ABDOMEN: Incisions clean dry and intact. Soft. No peritonitis. MUSCULOSKELETAL: No gross deformity of the lower extremities noted. No clubbing. No cyanosis. SKIN: Good skin turgor. Well perfused. NEUROLOGIC: Cranial nerves I through XII grossly intact. No focal or lateralizing signs. PSYCH: Appropriate affect. Alert and oriented to person, place and time. CLINCAL LABS: White blood cell count improved, less than 17,000 ASSESSMENT: 1. Perforated viscus from sigmoid diverticulitis PLAN: 1. Overall patient clinically stable for discharge. 2. No driving restrictions reviewed in the interim. 3. Weight lifting restrictions also reviewed of 10 pounds. 4. Foreign strips from abdomen removed per nursing with Optifoam placed. 5. Home healthcare arranged. 6. Follow-up with Dr. Perry as outpatient Vital Signs Temp 98.4 F 02/04/19 07:11 Pulse 70 02/04/19 15:46 Resp 15 02/04/19 15:46 BP 152/76 02/04/19 07:11 Pulse Ox 98 02/04/19 07:11 Intake & Output 02/03/19 02/04/19 02/04/19 18:59 06:59 18:59 Intake Total 240 200 420 Output Total 200 Balance 40 200 420 Intake: Intake, IV Titration 200 Amount Piperacillin-Tazobactam 3 100 .375 gm In Sodium Chloride 0.9% 100 ml @ 25 mls/hr IVPB Q8HR [facility] Rx# :[id number] metroNIDAZOLE-NS PMX 500 100 mg In Saline 1 100ml.bag @ 100 mls/hr IVPB Q8HR [facility] Rx#:[id number] Oral 240 420 Output: Urine 200 Other: Voiding Method Toilet Toilet Toilet # Voids 1 2 Laboratory Last Values WBC 13.1 k/uL (3.8-10.6) H 02/04/19 07:10 RBC 4.33 m/uL (3.80-5.40) 02/04/19 07:10 Hgb 11.7 gm/dL (11.4-16.0) 02/04/19 07:10 Hct 36.0 % (34.0-46.0) 02/04/19 07:10 MCV 83.1 fL (80.0-100.0) 02/04/19 07:10 MCH 27.1 pg (25.0-35.0) 02/04/19 07:10 MCHC 32.6 g/dL (31.0-37.0) 02/04/19 07:10 RDW 15.9 % (11.5-15.5) H 02/04/19 07:10 Plt Count 344 k/uL (150-450) 02/04/19 07:10 Neutrophils % 73 % 02/04/19 07:10 Lymphocytes % 19 % 02/04/19 07:10 Monocytes % 5 % 02/04/19 07:10 Eosinophils % 2 % 02/04/19 07:10 Basophils % 0 % 02/04/19 07:10 Neutrophils # 9.5 k/uL (1.3-7.7) H 02/04/19 07:10 Lymphocytes # 2.4 k/uL (1.0-4.8) 02/04/19 07:10 Monocytes # 0.6 k/uL (0-1.0) 02/04/19 07:10 Eosinophils # 0.3 k/uL (0-0.7) 02/04/19 07:10 Basophils # 0.0 k/uL (0-0.2) 02/04/19 07:10 PT 11.7 sec (9.0-12.0) 01/31/19 07:41 INR 1.1 (<1.2) 01/31/19 07:41 Sodium 140 mmol/L (137-145) 02/04/19 07:10 Potassium 4.1 mmol/L (3.5-5.1) 02/04/19 07:10 Chloride 110 mmol/L (98-107) H 02/04/19 07:10 Carbon Dioxide 25 mmol/L (22-30) 02/04/19 07:10 Anion Gap 5 mmol/L 02/04/19 07:10 BUN 17 mg/dL (7-17) 02/04/19 07:10 Creatinine 0.87 mg/dL (0.52-1.04) 02/04/19 07:10 Est GFR (CKD-EPI)AfAm 71 (>60 ml/min/1.73 sqM) 02/04/19 07:10 Est GFR (CKD-EPI)NonAf 62 (>60 ml/min/1.73 sqM) 02/04/19 07:10 Glucose 91 mg/dL (74-99) 02/04/19 07:10 Calcium 9.3 mg/dL (8.4-10.2) 02/04/19 07:10 Magnesium 1.8 mg/dL (1.6-2.3) 01/31/19 07:41 Total Bilirubin 0.6 mg/dL (0.2-1.3) 01/26/19 17:46 AST 20 U/L (14-36) 01/26/19 17:46 ALT 22 U/L (9-52) 01/26/19 17:46 Alkaline Phosphatase 57 U/L (38-126) 01/26/19 17:46 Total Protein 7.0 g/dL (6.3-8.2) 01/26/19 17:46 Albumin 4.1 g/dL (3.5-5.0) 01/26/19 17:46 Amylase 35 U/L (30-110) 01/26/19 17:46 Lipase 67 U/L (23-300) 01/26/19 17:46 Urine Color Yellow 02/03/19 15:25 Urine Appearance Clear (Clear) 02/03/19 15:25 Urine pH 6.5 (5.0-8.0) 02/03/19 15:25 Ur Specific [place] 1.009 (1.001-1.035) 02/03/19 15:25 Urine Protein Negative (Negative) 02/03/19 15:25 Urine Glucose (UA) Negative (Negative) 02/03/19 15:25 Urine Ketones Negative (Negative) 02/03/19 15:25 Urine Blood Negative (Negative) 02/03/19 15:25 Urine Nitrite Negative (Negative) 02/03/19 15:25 Urine Bilirubin Negative (Negative) 02/03/19 15:25 Urine Urobilinogen <2.0 mg/dL (<2.0) 02/03/19 15:25 Ur Leukocyte Esterase Trace (Negative) H 02/03/19 15:25 Urine RBC 5 /hpf (0-5) 01/26/19 17:50 Urine WBC 3 /hpf (0-5) 02/03/19 15:25 Urine WBC Clumps Rare /hpf (None) H 02/03/19 15:25 Ur Squamous Epith Cells <1 /hpf (0-4) 02/03/19 15:25 Urine Bacteria Rare /hpf (None) H 01/26/19 17:50 Urine Mucus Many /hpf (None) H 01/26/19 17:50 Pertinent Studies: Recent CT of the abdomen and pelvis 02/03/2019 without moderate pneumoperitoneum. Postsurgical changes confirmed. Procedures: PREOPERATIVE DIAGNOSIS: Perforated viscous POSTOPERATIVE DIAGNOSIS: Sigmoid colon perforation PROCEDURE: Sigmoid colectomy with end colostomy SURGEON: Vicky EBL: 50 mL ANESTHESIA: General COMPLICATIONS: None Patient Condition at Discharge: Stable Plan - Discharge Summary Discharge Rx Participant: Yes New Discharge Prescriptions: New Amoxic-Pot Clav 875-125Mg [Augmentin 875-125] 1 tab PO Q12HR #12 tablet metroNIDAZOLE [Flagyl] 500 mg PO TID #18 tab Acetaminophen Tab [Tylenol] 650 mg PO Q6HR PRN tab PRN Reason: Pain Continue Losartan [Cozaar] 50 mg PO DAILY Levothyroxine Sodium [Unithroid] 150 mcg PO QAM Multivitamins, Thera [Multivitamin (formulary)] 1 tab PO DAILY Fish Oil/Dha/Epa [Fish Oil 1,200 mg Fish Oil] 600 mg PO DAILY Aspirin 81 mg PO DAILY Omeprazole 20 mg PO HS Calcium Carbonate/Vitamin D3 [Calcium 600-Vit D3 800 Tab] 1 each PO DAILY Letrozole 2.5 mg PO HS Discharge Medication List Aspirin 81 mg PO DAILY 08/19/16 [History] Calcium Carbonate/Vitamin D3 [Calcium 600-Vit D3 800 Tab] 1 each PO DAILY 08/19/16 [History] Fish Oil/Dha/Epa [Fish Oil 1,200 mg Fish Oil] 600 mg PO DAILY 08/19/16 [History] Levothyroxine Sodium [Unithroid] 150 mcg PO QAM 08/19/16 [History] Losartan [Cozaar] 50 mg PO DAILY 08/19/16 [History] Multivitamins, Thera [Multivitamin (formulary)] 1 tab PO DAILY 08/19/16 [History] Omeprazole 20 mg PO HS 08/19/16 [History] Letrozole 2.5 mg PO HS 01/26/19 [History] Acetaminophen Tab [Tylenol] 650 mg PO Q6HR PRN tab 02/04/19 [Rx] Amoxic-Pot Clav 875-125Mg [Augmentin 875-125] 1 tab PO Q12HR #12 tablet 02/04/19 [Rx] metroNIDAZOLE [Flagyl] 500 mg PO TID #18 tab 02/04/19 [Rx] Follow up Appointment(s)/Referral(s): Ilia Peres MD [Primary Care Provider] - 1-2 days [facility], [NON-STAFF] - Rivas Perry MD [Medical Doctor] - 1 Week Patient Instructions/Handouts: Colostomy Care (GEN), Colectomy (DC) Activity/Diet/Wound Care/Special Instructions: PLEASE CALL TO CONFIRM APPOINTMENT WITH DR PERRY Colostomy Care Instructions for Post Hospital Stay: Date of Last Pouching system change: 02.03.2019 Current supplies being sent with patient to home for colostomy care as follows: Convatec flange moldable to size of stoma #[id number] (Three provided by the hospital for home) Convatec Pouching system with filter #[id number] (three provided by the hospital) Deyvi seal (half noel sjape ) to skin crease (three from the hospital) Osotmy powder & No sting prep pads (12) from the hospital Apply around the stoma (bowel) skin irritation area before placing the flange (wafer) Ala is reminded to empty the pouching system when the bag is 1/2 to 1/3 full . The entire Pouching system is to be changed every 3 -5 days unless otherwise directed by the Home Nurse [facility] Can[facility] Health please make arrangements for Mrs Canchola for permanent colostomy care supplies after 3 weeks [address] home [address] Arnett. Diet: Low fiber Activity: as tolerated, no lifting over 5 pounds, No driving for 1 week Discharge Disposition: HOME WITH HOME HEALTH SERVICES
== END 2019-02-04 18:23 | disposition home health service (06) | DRG 329 ==
LOC: EC 17:04 → 4SSUR 19:37
PROVIDERS: ADMIT Surgery; ATTEND Surgery
PROC: 0D1N0Z4 Bypass Sigmoid Colon to Cutaneous, Open Approach (ICD-10-PCS; principal; 2019-01-27)
PROC: 0DBN0ZZ Excision of Sigmoid Colon, Open Approach (ICD-10-PCS; principal; 2019-01-27)
DX: K57.20 Diverticulitis of large intestine with perforation and abscess without bleeding (principal); G92 Toxic encephalopathy; D62 Acute posthemorrhagic anemia; I43 Cardiomyopathy in diseases classified elsewhere; C50.911 Malignant neoplasm of unspecified site of right female breast; M81.0 Age-related osteoporosis without current pathological fracture; I11.9 Hypertensive heart disease without heart failure; E86.0 Dehydration; E83.52 Hypercalcemia; K21.9 Gastro-esophageal reflux disease without esophagitis; E78.5 Hyperlipidemia, unspecified; I10 Essential (primary) hypertension; E89.0 Postprocedural hypothyroidism; L71.9 Rosacea, unspecified; M19.90 Unspecified osteoarthritis, unspecified site; Z96.653 Presence of artificial knee joint, bilateral; Z79.82 Long term (current) use of aspirin; Z79.899 Other long term (current) drug therapy; Z85.3 Personal history of malignant neoplasm of breast; Z85.828 Personal history of other malignant neoplasm of skin; Z98.42 Cataract extraction status, left eye; Z98.41 Cataract extraction status, right eye; Z82.61 Family history of arthritis; Z88.5 Allergy status to narcotic agent
CPT/HCPCS: 36415; 71046; 74176; 74177; 80048; 80053; 81001; 82150; 83690; 83735; 85025; 85027; 85610; 87040; 87070; 87075; 87077; 87086; 87186; 87205; 88307; 96365; 96375; 99285

== ENCOUNTER → 2019-01-26 | Outpatient (CLI) | payer MEDICARE, OTHER ==
[2019-01-26 13:40] LABS: Appearance,Urine Clear (Clear); Bilirubin,Urine Negative (Negative); Blood,Urine Negative (Negative); Color,Urine Yellow; Glucose,Urine (UA) 3+ (Negative); Ketones,Urine Negative (Negative); Leukocyte Esterase,Urine Small (Negative); Mucus,Urine Occasional /hpf; Nitrite,Urine Negative (Negative); Protein,Urine Trace (Negative); RBC,Urine 2 /hpf (0-5); Specific Gravity,Urine 1.027 (1.001-1.035); Urobilinogen,Urine <2.0 mg/dL (<2.0); WBC,Urine 2 /hpf (0-5)
[2019-01-26 13:42] LABS: HCT 42.8 % (34.0-46.0); HGB 13.6 gm/dL (11.4-16.0); MCH 26.8 pg (25.0-35.0); MCHC 31.8 g/dL (31.0-37.0); MCV 84.2 fL (80.0-100.0); Mean Platelet Volume 6.2; Platelet Count 352 k/uL (150-450); RBC 5.08 m/uL (3.80-5.40)
[2019-01-26 13:49] LABS: ALT 26 U/L (9-52); AST 22 U/L (14-36); Albumin 4.2 g/dL (3.5-5.0); Alkaline Phosphatase 56 U/L (38-126); Anion Gap 8 mmol/L; Blood Urea Nitrogen 28 mg/dL (7-17); Carbon Dioxide 26 mmol/L (22-30); Chloride 105 mmol/L (98-107); Glucose 110 mg/dL (74-99); Potassium 4.4 mmol/L (3.5-5.1); Sodium 139 mmol/L (137-145); Total Bilirubin 0.7 mg/dL (0.2-1.3); Total Protein 7.1 g/dL (6.3-8.2)
--- NOTE | 2019-01-26 14:59 | XR ---
EXAMINATION TYPE: XR abdomen complete w decub DATE OF EXAM: 01/26/2019 COMPARISON: CT abdomen pelvis 08/04/2016 HISTORY: Abdominal pain TECHNIQUE: Supine, upright, and left side down lateral decubitus views of the abdomen are obtained. FINDINGS: There is pneumoperitoneum. The bowel gas pattern is unremarkable as there is air throughout nondilated small and large bowel. No sizeable air fluid levels. No mass effects are seen. No unusual calcifications. Multiple calcifications are likely representing phleboliths within the pe lvis. There is a calcification present in left upper quadrant associated with the pancreatic tail as noted on prior CT. There is a spinal curvature. Degenerative disc changes are present. Bone mineraliz ation is reduced. Surgical clips are present in the right axilla. IMPRESSION: Pneumoperitoneum, results called to the referring clinician's office at the time of interpretation of the exam.
== END ==
LOC: RADXRMAIN 12:34
PROVIDERS: ATTEND Internal Medicine
DX: R10.9 Unspecified abdominal pain (principal)
CPT/HCPCS: 36415; 74021; 80053; 81001; 85027

== ENCOUNTER → 2019-03-27 | Outpatient (CLI) | payer MEDICARE, OTHER ==
--- NOTE | 2019-03-28 09:03 | MM ---
Reason for exam: additional evaluation requested from prior study. Last mammogram was performed 1 year and 3 months ago. History: Patient is postmenopausal and has history of breast cancer at age 82. Malignant MG pre op needle loc RT of the right breast, January 27, 2018. Lumpectomy of the right breast, January 27, 2018. Malignant MG stereo VAD BX RT of the right breast, January 10, 2018. Took estrogen beginning at age 56. Took progesterone beginning at age 56. Taking antineoplastic for 1 year beginning at age 82. Physical Findings: Nurse did not find any significant physical abnormalities on exam. MG 3D Diag Mammo W/Cad EILEEN Bilateral CC and MLO view(s) were taken. Prior study comparison: December 31, 2017, right breast MG 3d work up w/cad RT. December 24, 2017, bilateral MG 3d screening mammo w/cad. The breast tissue is heterogeneously dense. This may lower the sensitivity of mammography. No suspicious calcifications or masses. Post operative changes right breast of lumpectomy. No significant new findings when compared with previous films. These results were verbally communicated with the patient and result sheet given to the patient on 03/27/19. ASSESSMENT: Benign, BI-RAD 2 RECOMMENDATION: Follow-up diagnostic mammogram of both breasts in 1 year.
== END | disposition home or self-care (01) ==
LOC: RADMAMWWP 13:42
PROVIDERS: ATTEND Surgery
DX: Z08 Encounter for follow-up examination after completed treatment for malignant neoplasm (principal); Z85.3 Personal history of malignant neoplasm of breast
CPT/HCPCS: 77066; G0279; 77062

== ENCOUNTER 2019-06-20 16:09 | Inpatient (IN) | payer MEDICARE, OTHER ==
[2019-06-20] MEDS ORDERED: SODIUM CHLORIDE 0.9% 1,000 ML IV STA (16:32)
[2019-06-20] MEDS ORDERED: SODIUM CHLORIDE 0.9% 500 ML 500 ML IV STA (16:32)
--- NOTE | 2019-06-20 16:47 | ED ---
Abdominal Pain HPI - General Chief Complaint: Abdominal Pain Stated Complaint: unable to eat, possible blockage Time Seen by Provider: 06/20/19 16:31 Source: patient, RN notes reviewed, old records reviewed Mode of arrival: wheelchair Limitations: no limitations - History of Present Illness Initial Comments: This is an 83-year-old female the ER for evaluation of severe abdominal pain with nausea and no output in her colostomy. Patient is unable blockage she has had this issue before. She is colostomy few months ago. Symptoms started for 2 days unable keep down fluids feels very dehydrated no fevers. Again no output in her colostomy. 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 Unknown surgeon MD Complaint: abdominal pain, other (Decreased bowel movements, nausea and vomiting with eating) -: days(s) Location: diffuse Radiation: none Migration to: no migration Severity: moderate Severity scale (1-10): 6 Quality: aching, fullness Consistency: constant Improves With: nothing Worsens With: eating Associated Symptoms: nausea, vomiting - Related Data Home Medications Medication Instructions Recorded Confirmed Levothyroxine Sodium [Unithroid] 150 mcg PO DAILY 08/19/16 06/20/19 Losartan [Cozaar] 50 mg PO HS 08/19/16 06/20/19 Multivitamins, Thera [Multivitamin 1 tab PO DAILY 08/19/16 06/20/19 (formulary)] Letrozole 2.5 mg PO HS 01/26/19 06/20/19 Calcium Carbonate 500 mg PO HS 06/20/19 06/20/19 [place]-3 Fatty Acids/Fish Oil [Fish 1 cap PO HS 06/20/19 06/20/19 Oil 1,000 mg Softgel] Zometa(Unknown) 1 dose IV Q365D 06/20/19 06/20/19 Allergies Allergy/AdvReac Type Severity Reaction Status Date / Time codeine AdvReac Nausea & Verified 06/20/19 17:06 Vomiting narcotics AdvReac Mild Nausea & Uncoded 06/20/19 16:18 Vomiting Review of Systems ROS Statement: Those systems with pertinent positive or pertinent negative responses have been documented in the HPI. ROS Other: All systems not noted in ROS Statement are negative. Past Medical History Past Medical History: Cancer, GERD/Reflux, Hypertension, Osteoarthritis (OA), Skin Disorder, Thyroid Disorder Additional Past Medical History / Comment(s): Rosacea. 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 RT BREAST CA CURRENTLY. History of Any Multi-Drug Resistant Organisms: None Reported Past Surgical History: Hernia Repair, Joint Replacement Additional Past Surgical History / Comment(s): valerie knee replacements; partial thyroidectomy. BREAST BIOPSY. EXC CATARACTS. Past Anesthesia/Blood Transfusion Reactions: Motion Sickness, Postoperative Nausea & Vomiting (PONV) Past Psychological History: No Psychological Hx Reported Smoking Status: Never smoker Past Alcohol Use History: None Reported Past Drug Use History: None Reported - Past Family History Mother Family Medical History: Osteoarthritis (OA) Additional Family Medical History / Comment(s): at age 85 Father Additional Family Medical History / Comment(s): in [place] General Exam Limitations: no limitations General appearance: alert, in no apparent distress Head exam: Present: atraumatic, normocephalic, normal inspection Eye exam: Present: normal appearance, EOMI. Absent: scleral icterus, conjunctival injection, periorbital swelling ENT exam: Present: normal exam, mucous membranes dry Neck exam: Present: normal inspection. Absent: tenderness, meningismus, lymphadenopathy Respiratory exam: Present: normal lung sounds bilaterally. Absent: respiratory distress, wheezes, rales, rhonchi, stridor Cardiovascular Exam: Present: regular rate, normal rhythm, normal heart sounds. Absent: systolic murmur, diastolic murmur, rubs, gallop, clicks GI/Abdominal exam: Present: soft, distended, tenderness, guarding, normal bowel sounds. Absent: rebound, rigid Extremities exam: Present: normal inspection, full ROM, normal capillary refill. Absent: tenderness, pedal edema, joint swelling, calf tenderness Back exam: Present: normal inspection Neurological exam: Present: alert, oriented X3, CN II-XII intact Psychiatric exam: Present: normal affect, normal mood Skin exam: Present: warm, dry, intact, normal color. Absent: rash Course Vital Signs 06/20/19 16:16 Temperature 97.9 F Pulse Rate 94 Respiratory 16 Rate Blood Pressure 153/88 O2 Sat by Pulse 98 Oximetry - Reevaluation(s) Reevaluation #1: 06/20/19 19:23 Medical records reviewed Reevaluation #2: 06/20/19 19:23 With no improvement in symptoms still severe pain nausea vomiting - Consultations Consultation #1: Spoke with sound will admit, will consult Dr. Whaley patient's prior surgeon Medical Decision Making - Medical Decision Making 83 female the ER for evaluation patient resents today for evaluation regards to abdominal pain and small bowel obstruction. We'll admit for symptom management and IV hydration - Lab Data Result diagrams: 06/20/19 17:04 06/20/19 17:04 Lab Results 06/20/19 06/20/19 06/20/19 Range/Units 17:04 17:04 17:04 WBC 9.8 (3.8-10.6) k/uL RBC 4.58 (3.80-5.40) m/uL Hgb 12.7 (11.4-16.0) gm/dL Hct 38.8 (34.0-46.0) % MCV 84.8 (80.0-100.0) fL MCH 27.7 (25.0-35.0) pg MCHC 32.6 (31.0-37.0) g/dL RDW 13.5 (11.5-15.5) % Plt Count 295 (150-450) k/uL Neutrophils % 91 % Lymphocytes % 7 % Monocytes % 2 % Eosinophils % 0 % Basophils % 0 % Neutrophils # 8.9 H (1.3-7.7) k/uL Lymphocytes # 0.6 L (1.0-4.8) k/uL Monocytes # 0.2 (0-1.0) k/uL Eosinophils # 0.0 (0-0.7) k/uL Basophils # 0.0 (0-0.2) k/uL Sodium 140 (137-145) mmol/L Potassium 3.9 (3.5-5.1) mmol/L Chloride 101 (98-107) mmol/L Carbon Dioxide 30 (22-30) mmol/L Anion Gap 9 mmol/L BUN 20 H (7-17) mg/dL Creatinine 0.68 (0.52-1.04) mg/dL Est GFR (CKD-EPI)AfAm >90 (>60 ml/min/1.73 sqM) Est GFR (CKD-EPI)NonAf 81 (>60 ml/min/1.73 sqM) Glucose 181 H (74-99) mg/dL Plasma Lactic Acid [place] 1.3 (0.7-2.0) mmol/L Calcium 11.3 H (8.4-10.2) mg/dL Phosphorus 3.7 (2.5-4.5) mg/dL Magnesium 1.7 (1.6-2.3) mg/dL Total Bilirubin 0.5 (0.2-1.3) mg/dL AST 22 (14-36) U/L ALT 24 (9-52) U/L Alkaline Phosphatase 58 (38-126) U/L Total Protein 6.9 (6.3-8.2) g/dL Albumin 4.0 (3.5-5.0) g/dL Amylase 39 (30-110) U/L Lipase 14 L (23-300) U/L - Radiology Data Radiology results: report reviewed (X-ray abdomen series the chest is positive for SBO), image reviewed Disposition Clinical Impression: Abdominal pain, Small bowel obstruction Disposition: ADMITTED IP TO THIS HOSP Condition: Fair Is patient prescribed a controlled substance at d/c from ED?: No Referrals: Ilia Peres MD [Primary Care Provider] - 1-2 days
[2019-06-20 17:40] LABS: Basophils % (A) 0 %; Eosinophils % (A) 0 %; HCT 38.8 % (34.0-46.0); HGB 12.7 gm/dL (11.4-16.0); Lymphocytes # (A) 0.6 k/uL (1.0-4.8); Lymphocytes % (A) 7 %; MCH 27.7 pg (25.0-35.0); MCHC 32.6 g/dL (31.0-37.0); MCV 84.8 fL (80.0-100.0); Mean Platelet Volume 6.3; Monocytes # (A) 0.2 k/uL (0-1.0); Monocytes % (A) 2 %; Neutrophils # (A) 8.9 k/uL (1.3-7.7); Neutrophils % (A) 91 %; Platelet Count 295 k/uL (150-450); RBC 4.58 m/uL (3.80-5.40); RDW 13.5 % (11.5-15.5); WBC 9.8 k/uL (3.8-10.6)
[2019-06-20 17:51] LABS: ALT 24 U/L (9-52); AST 22 U/L (14-36); African American GFR (CKD) >90 (>60 ml/min/1.73 sqM); Alkaline Phosphatase 58 U/L (38-126); Amylase 39 U/L (30-110); Anion Gap 9 mmol/L; Blood Urea Nitrogen 20 mg/dL (7-17); Calcium 11.3 mg/dL (8.4-10.2); Carbon Dioxide 30 mmol/L (22-30); Chloride 101 mmol/L (98-107); Glucose 181 mg/dL (74-99); Magnesium 1.7 mg/dL (1.6-2.3); Phosphorus 3.7 mg/dL (2.5-4.5); Potassium 3.9 mmol/L (3.5-5.1); Sodium 140 mmol/L (137-145); Total Bilirubin 0.5 mg/dL (0.2-1.3); Total Protein 6.9 g/dL (6.3-8.2)
--- NOTE | 2019-06-20 19:03 | XR ---
EXAMINATION TYPE: XR abdomen acute w cxr, total 3 views DATE OF EXAM: 06/20/2019 COMPARISON: None HISTORY: Pain, vomiting, no colostomy output for 3 days TECHNIQUE: 3 views FINDINGS: CHEST: Right axillary and breast surgical clips noted. No acute pulmonary or pleural process. Mildly enlarged cardiac silhouette and tortuous thoracic aorta noted. ABDOMEN PELVIS: There is no evidence for pneumoperitoneum. No pneumatosis. However, the bowel gas pa ttern is remarkable for small bowel dilatation, which is particularly prominent in the left upper rudy drant. The small bowel dilated loops measure up to 4.4 cm caliber (normal up to 3 cm caliber). The up right view shows gas fluid levels in the left upper quadrant. The colon is not well visualized. IMPRESSION: MODERATE SMALL BOWEL OBSTRUCTION PATTERN.
[2019-06-20] MEDS ORDERED: PANTOPRAZOLE 40 MG/10 ML VIAL IVP STA (19:24)
[2019-06-20] MEDS ORDERED: DEXTROSE 5%-0.45% NACL 1,000 ML IV ONE (19:24)
[2019-06-20] MEDS ORDERED: ONDANSETRON 4 MG/2 ML VIAL IVP PRN (19:24)
[2019-06-20] MEDS ORDERED: ONDANSETRON 4 MG/2 ML VIAL IVP STA (19:24)
--- NOTE | 2019-06-21 08:05 | P.HPIM ---
History of Present Illness H&P Date: 06/20/19 Chief Complaint: no colostomy output this is delayed charting , due to EMR technical difficulties, patient seen on 06/20/2019 @2345 83-year-old female with history of hypertension and hypothyroid Patient reports no colostomy output for the past 3 days she wasnt passing gases. She had this colostomy done back in January 2019 for ruptured bowel patient is not exactly aware of what happened exactly. She denies history of colon cancer. Yesterday patient felt nauseous she had decreased by mouth intake over the past few days. Today she attempted to eat and ended up throwing everything up denies any GI bleeding or hematemesis. Denies any fevers or chills. She had these symptoms before multiple times. For which she decided to come to the hospital as she was feeling weak and tired and was afraid of getting dehydration again has happened before when she had decreased by mouth intake. She was also concerned bowel obstruction. She also reports abdominal pain mainly in the upper epigastric region rated 8 out of 10 in severity sharp in nature nonradiating pain decreases after vomiting. And gets worse with eating. At time of interview she reports no abdominal pain. Of note by the time I evaluated the patient she had passed bowel movement through the colostomy bag however it was more liquid than she is used to but she reports that its brown in color no evidence of any bleeding. She feels way better now since he passed a bowel movement. Patient was admitted for general surgery evaluation and supportive care along with IV fluid hydration Otherwise patient denies any fevers or chills denies any chest pain or trouble breathing denies any leg swelling or GI bleeding Review of Systems Pertinent positives as noted in HPI. All other systems were reviewed and are negative Past Medical History Past Medical History: Cancer, GERD/Reflux, Hypertension, Osteoarthritis (OA), Skin Disorder, Thyroid Disorder Additional Past Medical History / Comment(s): Rosacea. 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 RT BREAST CA CURRENTLY. History of Any Multi-Drug Resistant Organisms: None Reported Past Surgical History: Hernia Repair, Joint Replacement Additional Past Surgical History / Comment(s): valerie knee replacements; partial thyroidectomy. BREAST BIOPSY. EXC CATARACTS. Past Anesthesia/Blood Transfusion Reactions: Motion Sickness, Postoperative Nausea & Vomiting (PONV) Past Psychological History: No Psychological Hx Reported Smoking Status: Never smoker Past Alcohol Use History: None Reported Additional Past Alcohol Use History / Comment(s): once every couple weeks Past Drug Use History: None Reported - Past Family History Mother Family Medical History: Osteoarthritis (OA) Additional Family Medical History / Comment(s): at age 85 Father Additional Family Medical History / Comment(s): [place] Medications and Allergies Home Medications Medication Instructions Recorded Confirmed Type Levothyroxine Sodium [Unithroid] 150 mcg PO DAILY 08/19/16 06/20/19 History Losartan [Cozaar] 50 mg PO HS 08/19/16 06/20/19 History Multivitamins, Thera [Multivitamin 1 tab PO DAILY 08/19/16 06/20/19 History (formulary)] Letrozole 2.5 mg PO HS 01/26/19 06/20/19 History Calcium Carbonate 500 mg PO HS 06/20/19 06/20/19 History [place]-3 Fatty Acids/Fish Oil [Fish 1 cap PO HS 06/20/19 06/20/19 History Oil 1,000 mg Softgel] Zometa(Unknown) 1 dose IV Q365D 06/20/19 06/20/19 History Allergies Allergy/AdvReac Type Severity Reaction Status Date / Time codeine AdvReac Nausea & Verified 06/20/19 17:06 Vomiting narcotics AdvReac Mild Nausea & Uncoded 06/20/19 16:18 Vomiting Physical Exam Vitals: Vital Signs Temp Pulse Pulse Resp BP BP Pulse Ox 06/21/19 07:00 98.3 F 68 16 112/63 92 L 06/20/19 19:57 98.2 F 76 18 145/78 95 06/20/19 16:16 97.9 F 94 16 153/88 98 Intake and Output 06/20/19 06/21/19 06/21/19 22:59 06:59 14:59 Intake Total 800 Output Total 0 Balance 0 800 Intake: Intake, IV Titration 800 Amount Dextrose 5%-0.45% NaCl 1, 800 000 ml @ 83 mls/hr IV . Q12H3M [facility] Rx#:[id number] Output: Urine 0 Other: # Voids 1 Weight 57.606 kg Constitutional: No acute distress, conversant, pleasant Eyes: Anicteric sclerae, moist conjunctiva, no lid-lag Pupils equal round reactive to light ENMT: NC/AT Oropharynx clear, no erythema, exudates Neck: Supple, FROM, no masses, or JVD No carotid bruits No thyromegaly Lungs: Clear to auscultation Clear to percussion Normal respiratory effort, no accessory muscle use Cardiovascular: Heart regular in rate and rhythm, No murmurs, gallops, or rubs No peripheral edema Abdominal: Soft Colostomy back with brownish liquid no bleeding. Nontender, no guarding, rebound or rigidity Abdomen moving with respiration Normoactive bowel sounds No hepatomegaly, No splenomegaly No palpable mass No abdominal wall hernia noted Skin: Normal temperature, tone, texture, turgor No induration No subcutaneous nodules No rash, lesions No ulcers Extremities: No digital cyanosis No clubbing Pedal pulses intact and symmetrical Radial pulses intact and symmetrical No calf tenderness Psychiatric: Alert and oriented to person, place and time Appropriate affect fair judgement Neuro Muscles Strength 5/5 in all 4 extremities Sensation to light touch grossly present throughout Cranial nerves II-XII grossly intact No focal sensory deficits Lymphatics: no palpable cervical or supraclavicular , or inguinal lymph nodes Results CBC & Chem 7: 06/20/19 17:04 06/20/19 17:04 Labs: Abnormal Lab Results - Last 24 Hours (Table) 06/20/19 06/20/19 Range/Units 17:04 17:04 Neutrophils # 8.9 H (1.3-7.7) k/uL Lymphocytes # 0.6 L (1.0-4.8) k/uL BUN 20 H (7-17) mg/dL Glucose 181 H (74-99) mg/dL Calcium 11.3 H (8.4-10.2) mg/dL Lipase 14 L (23-300) U/L Thrombosis Risk Factor Assmnt - Choose All That Apply Any of the Below Risk Factors Present?: No Each Risk Factor Represents 3 Points: Age 75 years or older Other congenital or acquired thrombophilia - If yes, enter type in comment: No Thrombosis Risk Factor Assessment Total Risk Factor Score: 3 Thrombosis Risk Factor Assessment Level: Moderate Risk Assessment and Plan Assessment: 83-year-old femalewith history of ruptured colon Status post colostomy presented to the hospital due to decrease output through the colostomy and abdominal pain along with vomiting and nausea and dehydration. Anticipated length of stay less than 2 midnights. for general surgery evaluation rule out bowel obstruction and for IV rehydration with fluids Plan: Decreased colostomy output rule out bowel obstruction This has since improved patient had output in her colostomy, liquid brownish in color, denies any bleeding General surgery evaluation Dehydration secondary to decreased by mouth intake and repeated nausea vomiting IV fluid hydration and supportive care Hypertension resume home meds Hypothyroid resume home meds DVT prophylaxis heparin subcu 3 times a day CODE STATUS: Full code Discussed with: Patient, ER, RN Anticipated length of stay less than [address]: home A total of 60 minutes was spent on the care of this complex patient more than 50% of the time was spent in counseling and care coordination.
[2019-06-21] MEDS ORDERED: PANTOPRAZOLE 40 MG/10 ML VIAL IVP SCH (09:00)
--- NOTE | 2019-06-21 10:22 | XR ---
2 view abdomen HISTORY: Small bowel obstruction To views the abdomen correlated to prior exam 06/20/2019 There is a mild spinal curvature. There are air-fluid levels without bowel distention in the left hem iabdomen. Lung bases are clear. Multiple calcifications present within the pelvis are likely vascular . There is an ostomy in the left lower quadrant. IMPRESSION: Correlate for small bowel obstruction.
[2019-06-21] MEDS: ENOXAPARIN 40 MG/0.4 ML SYRINGE SQ SCH (11:32)
[2019-06-21] MEDS: LEVOTHYROXINE 75 MCG TAB PO SCH (11:33)
[2019-06-21] MEDS: SODIUM CHLORIDE 0.9% 1,000 ML IV SCH (12:05)
--- NOTE | 2019-06-21 12:06 | P.GSCN ---
<Rachelle Eldridge A - Last Filed: 06/21/19 11:59> History of Present Illness Consult date: 06/21/19 Reason for Consult: known Requesting physician: Arpit Flowers History of present illness: CHIEF COMPLAINT: decreased ostomy output HISTORY OF PRESENT ILLNESS: 83-year-old female known to surgical services due to recent hospitalization in January 2019. Patient underwent sigmoid colectomy with end colostomy secondary to sigmoid colon perforation at that time. Patient presented to the ER with a chief complaint of no ostomy output for 2 days and nausea and vomiting with oral intake. Patient examined this morning at the bedside. She reports having some liquid stool last night from ostomy. No stool this morning. However, ostomy has gas in bag. She denies abdominal pain. Denies nausea or vomiting. PAST MEDICAL HISTORY: See list. PAST SURGICAL HISTORY: See list. SOCIAL HISTORY: No illicit drug use. REVIEW OF SYSTEMS: CONSTITUTIONAL: Denies fever or chills. HEENT: Denies blurred vision, vision changes, or eye pain. Denies hemoptysis CARDIOVASCULAR: Denies chest pain or pressure. RESPIRATORY: No shortness of breath. GASTROINTESTINAL: Refer to HPI for pertinent findings HEMATOLOGIC: Denies bleeding disorders. GENITOURINARY: Denies any blood in urine. SKIN: Denies pruitis. Denies rash. PHYSICAL EXAM: VITAL SIGNS: Reviewed. GENERAL: Well-developed in no acute distress. HEENT: No sclera icterus. Extraocular movements grossly intact. Moist buccal mucosa. Head is atraumatic, normocephalic. ABDOMEN: Soft. Nondistended. Nontender. Healed midline incision. Ostomy to left lower quadrant with flatus noted. NEUROLOGIC: Alert and oriented. Cranial nerves II through XII grossly intact. LABORATORY DATA: WBC 9.8. Hemoglobin 12.7. Lactic acid 1.3 IMAGIN. Abdominal x-ray on admission reveals small bowel dilation prominent in the left upper quadrant measuring 4.47 m in caliber. Impression reveals moderate small bowel obstruction pattern. 2. Repeat abdominal x-ray this morning reveals air-fluid levels without bowel distention the left hemiabdomen. Correlate personal bowel obstruction. ASSESSMENT: 1. Decreased stool from ostomy, nausea, vomiting, x 2 days 2. Possible small bowel obstruction versus ileus PLAN: Patients symptoms have resolved at the time of examination. XR shows improvement in small bowel dilation. Will trial clear liquid diet. If she tolerates, may slowly advance. Nurse practitioner note has been reviewed by physician. Signing provider agrees with the documented findings, assessment, and plan of care. Past Medical History Past Medical History: Cancer, GERD/Reflux, Hypertension, Osteoarthritis (OA), Skin Disorder, Thyroid Disorder Additional Past Medical History / Comment(s): Rosacea. 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 RT BREAST CA CURRENTLY. History of Any Multi-Drug Resistant Organisms: None Reported Past Surgical History: Hernia Repair, Joint Replacement Additional Past Surgical History / Comment(s): valerie knee replacements; partial thyroidectomy. BREAST BIOPSY. EXC CATARACTS. Past Anesthesia/Blood Transfusion Reactions: Motion Sickness, Postoperative Nausea & Vomiting (PONV) Past Psychological History: No Psychological Hx Reported Smoking Status: Never smoker Past Alcohol Use History: None Reported Additional Past Alcohol Use History / Comment(s): once every couple weeks Past Drug Use History: None Reported - Past Family History Mother Family Medical History: Osteoarthritis (OA) Additional Family Medical History / Comment(s): at age 85 Father Additional Family Medical History / Comment(s): [place] Medications and Allergies Home Medications Medication Instructions Recorded Confirmed Type Levothyroxine Sodium [Unithroid] 150 mcg PO DAILY 08/19/16 06/20/19 History Losartan [Cozaar] 50 mg PO HS 08/19/16 06/20/19 History Multivitamins, Thera [Multivitamin 1 tab PO DAILY 08/19/16 06/20/19 History (formulary)] Letrozole 2.5 mg PO HS 01/26/19 06/20/19 History Calcium Carbonate 500 mg PO HS 06/20/19 06/20/19 History [place]-3 Fatty Acids/Fish Oil [Fish 1 cap PO HS 06/20/19 06/20/19 History Oil 1,000 mg Softgel] Zometa(Unknown) 1 dose IV Q365D 06/20/19 06/20/19 History Allergies Allergy/AdvReac Type Severity Reaction Status Date / Time codeine AdvReac Nausea & Verified 06/20/19 17:06 Vomiting narcotics AdvReac Mild Nausea & Uncoded 06/20/19 16:18 Vomiting Surgical - Exam Vital Signs Temp Pulse Resp BP Pulse Ox 97.9 F 94 16 153/88 98 06/20/19 16:16 06/20/19 16:16 06/20/19 16:16 06/20/19 16:16 06/20/19 16:16 Results - Labs 06/20/19 17:04 06/20/19 17:04 Abnormal Lab Results - Last 24 Hours (Table) 06/20/19 06/20/19 Range/Units 17:04 17:04 Neutrophils # 8.9 H (1.3-7.7) k/uL Lymphocytes # 0.6 L (1.0-4.8) k/uL BUN 20 H (7-17) mg/dL Glucose 181 H (74-99) mg/dL Calcium 11.3 H (8.4-10.2) mg/dL Lipase 14 L (23-300) U/L Diabetes panel 06/20/19 Range/Units 17:04 Sodium 140 (137-145) mmol/L Potassium 3.9 (3.5-5.1) mmol/L Chloride 101 (98-107) mmol/L Carbon Dioxide 30 (22-30) mmol/L BUN 20 H (7-17) mg/dL Creatinine 0.68 (0.52-1.04) mg/dL Glucose 181 H (74-99) mg/dL Calcium 11.3 H (8.4-10.2) mg/dL AST 22 (14-36) U/L ALT 24 (9-52) U/L Alkaline Phosphatase 58 (38-126) U/L Total Protein 6.9 (6.3-8.2) g/dL Albumin 4.0 (3.5-5.0) g/dL Calcium panel 06/20/19 Range/Units 17:04 Calcium 11.3 H (8.4-10.2) mg/dL Phosphorus 3.7 (2.5-4.5) mg/dL Albumin 4.0 (3.5-5.0) g/dL Pituitary panel 06/20/19 Range/Units 17:04 Sodium 140 (137-145) mmol/L Potassium 3.9 (3.5-5.1) mmol/L Chloride 101 (98-107) mmol/L Carbon Dioxide 30 (22-30) mmol/L BUN 20 H (7-17) mg/dL Creatinine 0.68 (0.52-1.04) mg/dL Glucose 181 H (74-99) mg/dL Calcium 11.3 H (8.4-10.2) mg/dL Adrenal panel 06/20/19 Range/Units 17:04 Sodium 140 (137-145) mmol/L Potassium 3.9 (3.5-5.1) mmol/L Chloride 101 (98-107) mmol/L Carbon Dioxide 30 (22-30) mmol/L BUN 20 H (7-17) mg/dL Creatinine 0.68 (0.52-1.04) mg/dL Glucose 181 H (74-99) mg/dL Calcium 11.3 H (8.4-10.2) mg/dL Total Bilirubin 0.5 (0.2-1.3) mg/dL AST 22 (14-36) U/L ALT 24 (9-52) U/L Alkaline Phosphatase 58 (38-126) U/L Total Protein 6.9 (6.3-8.2) g/dL Albumin 4.0 (3.5-5.0) g/dL <Rivas Perry - Last Filed: 06/21/19 12:55> History of Present Illness History of present illness: As above. Patient with plain films and clinical history suggesting small bowel obstruction. She has had improvement ostomy function and no longer having any pain or bloating. We'll start clear liquids. If symptoms recur Will order CT abdomen and pelvis. We'll consult social work to see the patient to discuss issues related to her who has severe dementia. Surgical - Exam Vital Signs Temp Pulse Resp BP Pulse Ox 97.9 F 94 16 153/88 98 06/20/19 16:16 06/20/19 16:16 06/20/19 16:16 06/20/19 16:16 06/20/19 16:16 Results - Labs 06/20/19 17:04 06/20/19 17:04 Abnormal Lab Results - Last 24 Hours (Table) 06/20/19 06/20/19 Range/Units 17:04 17:04 Neutrophils # 8.9 H (1.3-7.7) k/uL Lymphocytes # 0.6 L (1.0-4.8) k/uL BUN 20 H (7-17) mg/dL Glucose 181 H (74-99) mg/dL Calcium 11.3 H (8.4-10.2) mg/dL Lipase 14 L (23-300) U/L Diabetes panel 06/20/19 Range/Units 17:04 Sodium 140 (137-145) mmol/L Potassium 3.9 (3.5-5.1) mmol/L Chloride 101 (98-107) mmol/L Carbon Dioxide 30 (22-30) mmol/L BUN 20 H (7-17) mg/dL Creatinine 0.68 (0.52-1.04) mg/dL Glucose 181 H (74-99) mg/dL Calcium 11.3 H (8.4-10.2) mg/dL AST 22 (14-36) U/L ALT 24 (9-52) U/L Alkaline Phosphatase 58 (38-126) U/L Total Protein 6.9 (6.3-8.2) g/dL Albumin 4.0 (3.5-5.0) g/dL Calcium panel 06/20/19 Range/Units 17:04 Calcium 11.3 H (8.4-10.2) mg/dL Phosphorus 3.7 (2.5-4.5) mg/dL Albumin 4.0 (3.5-5.0) g/dL Pituitary panel 06/20/19 Range/Units 17:04 Sodium 140 (137-145) mmol/L Potassium 3.9 (3.5-5.1) mmol/L Chloride 101 (98-107) mmol/L Carbon Dioxide 30 (22-30) mmol/L BUN 20 H (7-17) mg/dL Creatinine 0.68 (0.52-1.04) mg/dL Glucose 181 H (74-99) mg/dL Calcium 11.3 H (8.4-10.2) mg/dL Adrenal panel 06/20/19 Range/Units 17:04 Sodium 140 (137-145) mmol/L Potassium 3.9 (3.5-5.1) mmol/L Chloride 101 (98-107) mmol/L Carbon Dioxide 30 (22-30) mmol/L BUN 20 H (7-17) mg/dL Creatinine 0.68 (0.52-1.04) mg/dL Glucose 181 H (74-99) mg/dL Calcium 11.3 H (8.4-10.2) mg/dL Total Bilirubin 0.5 (0.2-1.3) mg/dL AST 22 (14-36) U/L ALT 24 (9-52) U/L Alkaline Phosphatase 58 (38-126) U/L Total Protein 6.9 (6.3-8.2) g/dL Albumin 4.0 (3.5-5.0) g/dL
--- NOTE | 2019-06-21 13:26 | P.PN ---
Subjective Progress Note Date: 06/21/19 Principal diagnosis: Small bowel obstruction Patient was in examined. No acute events overnight. Patient reports no abdominal pain currently. No output in the ostomy. She denies any chest pain, shortness of breath or palpitations. Complains of no nausea or vomiting. No fever or chills. Objective - Vital Signs Vital signs: Vital Signs Temp 98.3 F 06/21/19 07:00 Pulse 68 06/21/19 07:00 Resp 16 06/21/19 07:00 BP 112/63 06/21/19 07:00 Pulse Ox 92 L 06/21/19 07:00 Intake & Output 06/20/19 06/21/19 06/21/19 18:59 06:59 18:59 Intake Total 800 Output Total 0 Balance 800 Weight 57.606 kg Intake: Intake, IV Titration 800 Amount Dextrose 5%-0.45% NaCl 1, 800 000 ml @ 83 mls/hr IV . Q12H3M ONE Rx#:[id number] Output: Urine 0 Other: # Voids 1 - Exam General: [non toxic], [no distress], [appears at stated age] Derm: [warm], [dry] Head: [atraumatic], [normocephalic], [symmetric] Eyes: [EOMI], [no lid lag], [anicteric sclera] Mouth: [no lip lesion], [mucus membranes moist] Cardiovascular: [S1S2 reg], [no murmur], [positive DP pulse bilateral], Lungs: [CTA bilateral], [no rhonchi, no rales] , [no accessory muscle use] Abdominal: [soft], [ nontender to palpation], [no guarding], [no appreciable organomegaly], [ostomy bag without stool] Ext: [no gross muscle atrophy], [no edema], [no contractures] Neuro: [no focal neuro deficits] Psych: [Alert], [oriented], [appropriate affect] - Labs CBC & Chem 7: 06/20/19 17:04 06/20/19 17:04 Labs: Abnormal Lab Results - Last 24 Hours (Table) 06/20/19 06/20/19 Range/Units 17:04 17:04 Neutrophils # 8.9 H (1.3-7.7) k/uL Lymphocytes # 0.6 L (1.0-4.8) k/uL BUN 20 H (7-17) mg/dL Glucose 181 H (74-99) mg/dL Calcium 11.3 H (8.4-10.2) mg/dL Lipase 14 L (23-300) U/L Assessment and Plan Assessment: Assessment and plan Decreased colostomy output rule out bowel obstruction Elevated BUN Hyperglycemia Hypertension Hypothyroidism KUB shows small bowel obstruction pattern. Evaluated by surgery, recommends clear liquid diet and advance as tolerated. Plans: Clear liquid diet and advance as tolerated. Zofran as needed for nausea or vomiting. Continue Protonix IV daily. Continue normal saline at 75 mL per hour. BUN 20, creatinine within normal limits. Likely due to dehydration. Plans: IVF as above. Repeat BMP in the morning. Blood glucose 181. No history of diabetes. Was also on D5. Plans: Repeat BMP in the morning. Follow A1c. BP well-controlled. Plans: Resume losartan. Plans: Resume Synthroid. [Patient admitted for small bowel obstruction, decreased ostomy output. Symptoms have improved. Clear liquid diet and advance. General surgery on board. Likely DC in 1-2 days. ]
[2019-06-21] MEDS: LOSARTAN 50 MG TAB PO SCH (20:49)
[2019-06-21] MEDS: LETROZOLE 2.5 MG TAB PO SCH (20:49)
[2019-06-21] MEDS ORDERED: CALCIUM CARBONATE 500 MG CHEWABLE PO SCH (21:00)
[2019-06-21 21:54] LABS: Appearance,Urine Clear (Clear); Bilirubin,Urine Negative (Negative); Blood,Urine Negative (Negative); Color,Urine Colorless; Glucose,Urine (UA) Negative (Negative); Ketones,Urine Negative (Negative); Leukocyte Esterase,Urine Negative (Negative); Nitrite,Urine Negative (Negative); PH, Urine 6.5 (5.0-8.0); Protein,Urine Negative (Negative); Specific Gravity,Urine 1.003 (1.001-1.035); Urobilinogen,Urine <2.0 mg/dL (<2.0)
[2019-06-22] MEDS: SODIUM CHLORIDE 0.9% 1,000 ML IV SCH ×2 (03:42→11:13)
[2019-06-22] MEDS: LEVOTHYROXINE 75 MCG TAB PO SCH (06:14)
[2019-06-22] MEDS: PANTOPRAZOLE 40 MG TABLET PO SCH (08:29)
[2019-06-22] MEDS: ENOXAPARIN 40 MG/0.4 ML SYRINGE SQ SCH (08:29)
--- NOTE | 2019-06-22 11:12 | P.PN ---
Subjective Progress Note Date: 06/22/19 Principal diagnosis: Small bowel obstruction Patient was in examined. No acute events overnight. Patient reports no abdominal pain currently. No output in the ostomy. Able to tolerate clear liquids without difficulties. She denies any chest pain, shortness of breath or palpitations. Complains of no nausea or vomiting. No fever or chills. Objective - Vital Signs Vital signs: Vital Signs Temp 98.3 F 06/22/19 07:00 Pulse 67 06/22/19 07:00 Resp 16 06/22/19 07:00 BP 106/58 06/22/19 07:00 Pulse Ox 95 06/22/19 07:00 Intake & Output 06/21/19 06/22/19 06/22/19 18:59 06:59 18:59 Intake Total 750 Balance 750 Intake: Intake, IV Titration 750 Amount Sodium Chloride 0.9% 1, 750 000 ml @ 75 mls/hr IV . [id number] [facility] Rx#:[id number] Other: Voiding Method Toilet Toilet # Voids 1 2 - Exam General: [non toxic], [no distress], [appears at stated age] Derm: [warm], [dry] Head: [atraumatic], [normocephalic], [symmetric] Eyes: [EOMI], [no lid lag], [anicteric sclera] Mouth: [no lip lesion], [mucus membranes moist] Cardiovascular: [S1S2 reg], [no murmur], [positive DP pulse bilateral], Lungs: [CTA bilateral], [no rhonchi, no rales] , [no accessory muscle use] Abdominal: [soft], [ nontender to palpation], [no guarding], [no appreciable organomegaly], [ostomy bag without stool] Ext: [no gross muscle atrophy], [no edema], [no contractures] Neuro: [no focal neuro deficits] Psych: [Alert], [oriented], [appropriate affect] - Labs CBC & Chem 7: 06/20/19 17:04 06/20/19 17:04 Assessment and Plan Assessment: Assessment and plan Decreased colostomy output rule out bowel obstruction Elevated BUN Hyperglycemia Hypertension Hypothyroidism KUB shows small bowel obstruction pattern. Evaluated by surgery, recommends full liquid diet and advance as tolerated. Plans: Full liquid diet and advance as tolerated. Zofran as needed for nausea or vomiting. Continue Protonix IV daily. Continue normal saline at 75 mL per hour. BUN 20, creatinine within normal limits. Likely due to dehydration. Plans: IVF as above. Repeat BMP in the morning. Blood glucose 181. No history of diabetes. Was also on D5. Plans: Repeat BMP in the morning. Follow A1c. BP well-controlled. Plans: Resume losartan. Plans: Resume Synthroid. [Patient admitted for small bowel obstruction, decreased ostomy output. Symptoms have improved. Full liquid diet and advance. General surgery on board. Plans on DC tomorrow if able to tolerate diet.]
[2019-06-22] MEDS: CALCIUM CARBONATE LIQUID 500 MG/5 ML CUP PO SCH ×2 (11:46→17:15)
--- NOTE | 2019-06-22 13:21 | P.PN ---
<Rachelle Eldridge - Last Filed: 06/22/19 13:15> Subjective Progress Note Date: 06/22/19 CHIEF COMPLAINT: decreased ostomy output HISTORY OF PRESENT ILLNESS: Patient examined at the bedside. She reports having stool in her ostomy overnight. Small amount of stool in bag this morning. She is been tolerating clear liquid diet. She denies abdominal pain. Denies nausea or vomiting. PHYSICAL EXAM: VITAL SIGNS: Reviewed. GENERAL: Well-developed in no acute distress. HEENT: No sclera icterus. Extraocular movements grossly intact. Moist buccal mucosa. Head is atraumatic, normocephalic. ABDOMEN: Soft. Nondistended. Nontender. Healed midline incision. Ostomy to left lower quadrant with flatus and stool noted. NEUROLOGIC: Alert and oriented. Cranial nerves II through XII grossly intact. ASSESSMENT: 1. Decreased stool from ostomy, nausea, vomiting, x 2 days 2. Small bowel obstruction, resolving PLAN: Advance diet to full liquids If patient continues to tolerate diet and stool output, anticipate discharge home tomorrow Nurse practitioner note has been reviewed by physician. Signing provider agrees with the documented findings, assessment, and plan of care. Objective - Vital Signs Vital signs: Vital Signs Temp 98.3 F 06/22/19 07:00 Pulse 67 06/22/19 07:00 Resp 16 06/22/19 07:00 BP 106/58 06/22/19 07:00 Pulse Ox 95 06/22/19 07:00 Intake & Output 06/21/19 06/22/19 06/22/19 18:59 06:59 18:59 Intake Total 750 Balance 750 Intake: Intake, IV Titration 750 Amount Sodium Chloride 0.9% 1, 750 000 ml @ 75 mls/hr IV . [id number] [facility] Rx#:[id number] Other: Voiding Method Toilet Toilet # Voids 1 2 - Labs CBC & Chem 7: 06/20/19 17:04 06/20/19 17:04 <Rivas Perry - Last Filed: 06/22/19 15:08> Subjective As above. Patient doing better today. Believe the patient's bowel obstruction is resolving spontaneously. Will increase diet. Likely discharge tomorrow. Objective - Vital Signs Vital signs: Vital Signs Temp 98.2 F 06/22/19 15:00 Pulse 75 06/22/19 15:00 Resp 16 06/22/19 15:00 BP 114/64 06/22/19 15:00 Pulse Ox 99 06/22/19 15:00 Intake & Output 06/21/19 06/22/19 06/22/19 18:59 06:59 18:59 Intake Total 750 Balance 750 Intake: Intake, IV Titration 750 Amount Sodium Chloride 0.9% 1, 750 000 ml @ 75 mls/hr IV . [id number] [facility] Rx#:[id number] Other: Voiding Method Toilet Toilet # Voids 1 2 2 - Labs CBC & Chem 7: 06/20/19 17:04 06/20/19 17:04
[2019-06-22 17:32] LABS: Hemoglobin A1C 5.6 % (4.0-6.0)
[2019-06-22] MEDS ORDERED: IOPAMIDOL CONTRAST (ORAL USE) VIAL PO PRN ×2 (19:14→19:29)
[2019-06-22] MEDS: HYDROmorphone 0.5 MG/0.5 ML SYRINGE IVP PRN (21:26)
--- NOTE | 2019-06-22 22:19 | CT ---
EXAMINATION TYPE: CT abdomen pelvis w con DATE OF EXAM: 06/22/2019 COMPARISON: 02/03/2019 HISTORY: Abdomen pain. Hx breast ca-RT. Hx hernia repair CT DLP: 724.4 mGycm Automated exposure control for dose reduction was used. TECHNIQUE: Helical acquisition of images was performed from the lung bases through the pelvis. CONTRAST: Performed with Oral Contrast and with IV Contrast, patient injected with 100 mL of Isovue 300. FINDINGS: There is some patchy atelectasis at the lung bases. Heart is enlarged. There is hiatal hernia. Stomac h is large. There are multiple large gallstones. Liver shows no focal defect. Bile ducts are not dila mayte. There is no evidence of pancreatic mass. Spleen is intact. There is no adrenal mass. There are multiple bilateral renal cortical cysts that measure up to 7 cm. There is no hydronephrosis. Ureters are not dilated. There is no retroperitoneal adenopathy. There is colostomy with parastomal hernia in the left lower quadrant. There are multiple dilated air and flui d-filled loops of small bowel in the abdomen. Bladder distends smoothly. There are numerous phleboliths in the pelvis. Uterus is anteverted. There is no free fluid in the pelvis. There are spondylotic changes in the lumbar spine. There is no compre ssion fracture. The bony pelvis appears intact. The terminal ileum is not dilated. There are multiple sigmoid diverticula. There is small bowel transition point seen on the sagittal images #72 and the a xial image 51. Small bowel is dilated to more than 4 cm. There is no evidence of free air. There is no ascites. There is no intestinal wall thickening. Parast omal hernia contains dilated small bowel but no obstruction at that point. IMPRESSION: THERE IS LEFT SIDE COLOSTOMY WITH INCARCERATED DILATED SMALL BOWEL AND PARASTOMAL HERNIA. THIS DOES N OT APPEAR TO BE A SITE OF OBSTRUCTION.. THERE IS EVIDENCE OF MECHANICAL HIGH-GRADE SMALL BOWEL OBSTRU CTION WITH TRANSITION POINT IN THE MID JEJUNUM ANTERIORLY THAT COULD RELATE TO A STRICTURE OR ADHESIO NS. NO MASS SEEN.. PARASTOMAL HERNIA IS A CHANGE COMPARED TO OLD EXAM. SMALL BOWEL OBSTRUCTION IS A CHANGE COMPARED TO O LD EXAM.
[2019-06-22] MEDS: LETROZOLE 2.5 MG TAB PO SCH (22:52)
[2019-06-22] MEDS: LOSARTAN 50 MG TAB PO SCH (22:52)
[2019-06-23] MEDS: traMADol 50 MG TAB PO PRN (01:37)
[2019-06-23] MEDS: SODIUM CHLORIDE 0.9% 1,000 ML IV SCH ×2 (01:38→17:16)
[2019-06-23] MEDS: LEVOTHYROXINE 75 MCG TAB PO SCH (05:53)
[2019-06-23] MEDS: CALCIUM CARBONATE LIQUID 500 MG/5 ML CUP PO SCH ×2 (06:39→17:01)
[2019-06-23] MEDS: ENOXAPARIN 40 MG/0.4 ML SYRINGE SQ SCH (08:43)
[2019-06-23] MEDS: PANTOPRAZOLE 40 MG TABLET PO SCH (08:44)
[2019-06-23 08:58] LABS: African American GFR (CKD) >90 (>60 ml/min/1.73 sqM); Anion Gap 8 mmol/L; Blood Urea Nitrogen 9 mg/dL (7-17); Carbon Dioxide 28 mmol/L (22-30); Chloride 105 mmol/L (98-107); Glucose 117 mg/dL (74-99); Potassium 3.5 mmol/L (3.5-5.1); Sodium 141 mmol/L (137-145)
--- NOTE | 2019-06-23 12:00 | P.PN ---
Subjective Progress Note Date: 06/23/19 Principal diagnosis: Small bowel obstruction Patient was in examined. Overnight patient consumed some pork chop and solid food. Multiple episodes of nausea and vomiting with abdominal soreness yesterday. Patient denies any chest pain, shortness of breath or palpitations. CT scan done last night confirms SBO. Objective - Vital Signs Vital signs: Vital Signs Temp 98.9 F 06/23/19 07:00 Pulse 71 06/23/19 07:00 Resp 16 06/23/19 07:00 BP 114/65 06/23/19 07:00 Pulse Ox 92 L 06/23/19 07:00 Intake & Output 06/22/19 06/23/19 06/23/19 18:59 06:59 18:59 Intake Total 450 Output Total 400 Balance 50 Intake: Intake, IV Titration 450 Amount Sodium Chloride 0.9% 1, 450 000 ml @ 75 mls/hr IV . [id number] [facility] Rx#:[id number] Output: Emesis 400 Other: Voiding Method Toilet Toilet # Voids 2 2 - Exam General: [non toxic], [no distress], [appears at stated age] Derm: [warm], [dry] Head: [atraumatic], [normocephalic], [symmetric] Eyes: [EOMI], [no lid lag], [anicteric sclera] Mouth: [no lip lesion], [mucus membranes moist] Cardiovascular: [S1S2 reg], [no murmur], [positive DP pulse bilateral], Lungs: [CTA bilateral], [no rhonchi, no rales] , [no accessory muscle use] Abdominal: [soft], [epigastric tenderness to palpation without rebound], [no guarding], [no appreciable organomegaly], [ostomy bag without stool] Ext: [no gross muscle atrophy], [no edema], [no contractures] Neuro: [no focal neuro deficits] Psych: [Alert], [oriented], [appropriate affect] - Labs CBC & Chem 7: 06/20/19 17:04 06/23/19 08:19 Labs: Abnormal Lab Results - Last 24 Hours (Table) 06/23/19 Range/Units 08:19 Glucose 117 H (74-99) mg/dL Assessment and Plan Assessment: Assessment and plan Decreased colostomy output rule out bowel obstruction Hypertension Hypothyroidism Result: Elevated BUN and hyperglycemia, no evidence of diabetes mellitus with normal A1c. KUB shows small bowel obstruction pattern. SBO confirmed on CT last night. Plans: Follow surgery recommendations, patient will likely need OR. Zofran as needed for nausea or vomiting. Continue Protonix IV daily. Continue normal saline at 75 mL per hour. BP well-controlled. Plans: Resume losartan. Plans: Resume Synthroid. [Patient admitted for small bowel obstruction, decreased ostomy output. Symptoms worsened overnight. General surgery on board. Possible OR will discuss with surgery.]
--- NOTE | 2019-06-23 13:22 | P.PN ---
Subjective Progress Note Date: 06/23/19 Principal diagnosis: Small bowel obstruction After the patient had regular food yesterday evening she began experiencing abdominal pain and bloating with subsequent vomiting. CAT scan reviewed. Small bowel obstruction seen. She does have a parastomal hernia but this does not appear to be the site of obstruction. She does feel somewhat better today. Decreased ostomy function once again. Objective - Vital Signs Vital signs: Vital Signs Temp 98.9 F 06/23/19 07:00 Pulse 71 06/23/19 07:00 Resp 16 06/23/19 07:00 BP 114/65 06/23/19 07:00 Pulse Ox 92 L 06/23/19 07:00 Intake & Output 06/22/19 06/23/19 06/23/19 18:59 06:59 18:59 Intake Total 450 Output Total 400 Balance 50 Intake: Intake, IV Titration 450 Amount Sodium Chloride 0.9% 1, 450 000 ml @ 75 mls/hr IV . [id number] [facility] Rx#:[id number] Output: Emesis 400 Other: Voiding Method Toilet Toilet # Voids 2 2 - Exam Abdomen: Soft, mild distention, mild tenderness - Labs CBC & Chem 7: 06/20/19 17:04 06/23/19 08:19 Labs: Abnormal Lab Results - Last 24 Hours (Table) 06/23/19 Range/Units 08: Glucose 117 H (74-99) mg/dL Assessment and Plan (1) Small bowel obstruction Narrative/Plan: Patient with recurrent or persistent small bowel obstruction. Will keep nothing by mouth for now. Place nasogastric tube. Tentatively plan small bowel follow- through for Wednesday. Patient and her son were informed of the clinical scenario and plans. Current Visit: Yes Status: Acute Code(s): K56.609 - UNSP INTESTNL OBST, UNSP TO PARTIAL VERSUS COMPLETE OBST SNOMED Code(s): 017271431
[2019-06-23] MEDS: HYDROmorphone 0.5 MG/0.5 ML SYRINGE IVP PRN (21:04)
[2019-06-23] MEDS: LOSARTAN 50 MG TAB PO SCH (21:28)
[2019-06-23] MEDS: LETROZOLE 2.5 MG TAB PO SCH (21:28)
[2019-06-24] MEDS: LEVOTHYROXINE 75 MCG TAB PO SCH (04:57)
[2019-06-24 07:30] LABS: Basophils % (A) 0 %; Eosinophils # (A) 0.1 k/uL (0-0.7); Eosinophils % (A) 1 %; HCT 35.5 % (34.0-46.0); HGB 11.3 gm/dL (11.4-16.0); Lymphocytes # (A) 2.1 k/uL (1.0-4.8); Lymphocytes % (A) 28 %; MCH 27.4 pg (25.0-35.0); MCHC 31.9 g/dL (31.0-37.0); Mean Platelet Volume 6.3; Monocytes # (A) 0.5 k/uL (0-1.0); Monocytes % (A) 6 %; Neutrophils % (A) 64 %; Platelet Count 242 k/uL (150-450); RBC 4.12 m/uL (3.80-5.40); RDW 13.5 % (11.5-15.5); WBC 7.8 k/uL (3.8-10.6)
[2019-06-24 07:40] LABS: African American GFR (CKD) >90 (>60 ml/min/1.73 sqM); Anion Gap 7 mmol/L; Blood Urea Nitrogen 10 mg/dL (7-17); Calcium 8.8 mg/dL (8.4-10.2); Carbon Dioxide 26 mmol/L (22-30); Chloride 108 mmol/L (98-107); Glucose 85 mg/dL (74-99); Potassium 3.4 mmol/L (3.5-5.1); Sodium 141 mmol/L (137-145)
[2019-06-24] MEDS: CALCIUM CARBONATE LIQUID 500 MG/5 ML CUP PO SCH ×2 (07:51→18:39)
[2019-06-24] MEDS: PANTOPRAZOLE 40 MG TABLET PO SCH (07:51)
[2019-06-24] MEDS: SODIUM CHLORIDE 0.9% 1,000 ML IV SCH ×2 (08:00→18:42)
[2019-06-24] MEDS: ENOXAPARIN 40 MG/0.4 ML SYRINGE SQ SCH (09:49)
[2019-06-24] MEDS: PANTOPRAZOLE 40 MG/10 ML VIAL IVP SCH (11:05)
--- NOTE | 2019-06-24 11:52 | P.PN ---
Progress Note - Text Progress Note Date: 06/24/19 The patient is resting comfortably in her bed. She denies a significant abdominal pain. She's had no significant bowel function. Her CAT scan shows evidence of a high-grade small bowel obstruction in the jejunum. Parafon exam her vital signs are stable. Her abdomen soft with no significant tenderness. There is no rebound or guarding. High-grade small bowel structure. Patient will most likely undergo surgery on Wednesday with Dr. Whaley.
[2019-06-24] MEDS ORDERED: Potassium Replacement Protocol 1 EACH MISC MISCELLANE PRN (12:46)
[2019-06-24] MEDS: BENZOCAINE SPRAY 1 CAN TOPICAL PRN ×2 (12:58→21:29)
[2019-06-24 13:00] VITALS: BMI 24.0
--- NOTE | 2019-06-24 13:01 | P.PN ---
Subjective Progress Note Date: 06/24/19 Principal diagnosis: Small bowel obstruction Patient was in examined. NG tube inserted with 500 mL evacuated. Patient complains of sore throat. Patient denies any chest pain, shortness of breath or palpitations. Plans to observe while nothing by mouth for possible surgery on Wednesday. Objective - Vital Signs Vital signs: Vital Signs Temp 98.2 F 06/24/19 07:00 Pulse 75 06/24/19 07:00 Resp 15 06/24/19 07:00 BP 116/67 06/24/19 07:00 Pulse Ox 93 L 06/24/19 07:00 Intake & Output 06/23/19 06/24/19 06/24/19 18:59 06:59 18:59 Intake Total 225 600 Output Total 401 100 Balance -401 125 600 Intake: IV 600 Sodium Chloride 0.9% 1, 600 000 ml @ 75 mls/hr IV . [id number] [facility] Rx#:[id number] Intake, IV Titration 225 Amount Sodium Chloride 0.9% 1, 225 000 ml @ 75 mls/hr IV . [id number] [facility] Rx#:[id number] Output: Gastric Drainage 400 100 Stool 1 Other: # Voids 1 1 3 - Exam General: [non toxic], [no distress], [appears at stated age] Derm: [warm], [dry] Head: [atraumatic], [normocephalic], [symmetric] Eyes: [EOMI], [no lid lag], [anicteric sclera] Mouth: [no lip lesion], [mucus membranes moist] Cardiovascular: [S1S2 reg], [no murmur], [positive DP pulse bilateral], Lungs: [CTA bilateral], [no rhonchi, no rales] , [no accessory muscle use] Abdominal: [soft], [epigastric tenderness to palpation without rebound], [no guarding], [no appreciable organomegaly], [ostomy bag without stool] Ext: [no gross muscle atrophy], [no edema], [no contractures] Neuro: [no focal neuro deficits] Psych: [Alert], [oriented], [appropriate affect] - Labs CBC & Chem 7: 06/24/19 07:05 06/24/19 06:50 Labs: Abnormal Lab Results - Last 24 Hours (Table) 06/24/19 06/24/19 Range/Units 06:50 07:05 Hgb 11.3 L (11.4-16.0) gm/dL Potassium 3.4 L (3.5-5.1) mmol/L Chloride 108 H (98-107) mmol/L Assessment and Plan Assessment: Assessment and plan Decreased colostomy output rule out bowel obstruction Hypokalemia Hypertension Hypothyroidism Resolved: Elevated BUN and hyperglycemia, no evidence of diabetes mellitus with normal A1c. KUB shows small bowel obstruction pattern. SBO confirmed on CT. Plans: Follow surgery recommendations, patient will likely need OR. Zofran as needed for nausea or vomiting. Continue Protonix IV daily. Continue normal saline at 75 mL per hour. Potassium 3.4. Likely from poor oral intake, vomiting. Plans: Replace via protocol. Repeat BMP in the morning. BP well-controlled. Plans: Resume losartan. Plans: Resume Synthroid. [Patient admitted for small bowel obstruction, decreased ostomy output. General surgery on board, Continue NG tube to suction. Possible OR will discuss with surgery.]
[2019-06-24] MEDS: POTASSIUM CHLORIDE 10 MEQ in WATER FOR INJECTION 1 100ML.BAG IVPB SCH ×4 (14:41→19:46)
[2019-06-24] MEDS: LETROZOLE 2.5 MG TAB PO SCH (19:45)
[2019-06-24] MEDS: LOSARTAN 50 MG TAB PO SCH (19:45)
[2019-06-25] MEDS: LEVOTHYROXINE 75 MCG TAB PO SCH (04:54)
[2019-06-25] MEDS: PANTOPRAZOLE 40 MG/10 ML VIAL IVP SCH (09:21)
[2019-06-25] MEDS: ENOXAPARIN 40 MG/0.4 ML SYRINGE SQ SCH (09:22)
[2019-06-25] MEDS: POTASSIUM CHLORIDE 10 MEQ in WATER FOR INJECTION 1 100ML.BAG IVPB SCH ×2 (09:22→10:49)
[2019-06-25] MEDS: HYDROmorphone 0.5 MG/0.5 ML SYRINGE IVP PRN (10:02)
[2019-06-25] MEDS: SODIUM CHLORIDE 0.9% 1,000 ML IV SCH ×2 (10:25→14:40)
[2019-06-25] MEDS: CALCIUM CARBONATE LIQUID 500 MG/5 ML CUP PO SCH ×2 (10:25→17:39)
--- NOTE | 2019-06-25 10:45 | P.PN ---
Progress Note - Text Progress Note Date: 06/25/19 The patient denies any significant abdominal pain. She states that may have been some stool in her colostomy bag yesterday. The nurses state that they have not seen anything. On exam her vital signs are stable. Her NG tube has put out 100 mL of feculent- looking material. There is no gas or stool in the colostomy bag. Probable partial small bowel charge. Patient be reevaluated by Dr. Whaley the a.m.
[2019-06-25] MEDS: BENZOCAINE SPRAY 1 CAN TOPICAL PRN (14:37)
--- NOTE | 2019-06-25 14:49 | P.PN ---
Subjective Progress Note Date: 06/25/19 Principal diagnosis: Small bowel obstruction Patient was in examined. NG tube inserted with 200 additional ml evacuated. Patient complains of sore throat. Patient denies any chest pain, shortness of breath or palpitations. Plans to observe while nothing by mouth for possible surgery on Wednesday. Objective - Vital Signs Vital signs: Vital Signs Temp 98.6 F 06/25/19 07:00 Pulse 90 06/25/19 07:00 Resp 15 06/25/19 07:00 BP 148/73 06/25/19 07:00 Pulse Ox 93 L 06/25/19 07:00 Intake & Output 06/24/19 06/25/19 06/25/19 18:59 06:59 18:59 Intake Total 600 900 Output Total 200 Balance 600 700 Weight 57.606 kg Intake: IV 600 Sodium Chloride 0.9% 1, 600 000 ml @ 75 mls/hr IV . [id number] [facility] Rx#:[id number] Oral 900 Output: Gastric Drainage 200 Other: Voiding Method Toilet # Voids 3 2 2 - Exam General: [non toxic], [no distress], [appears at stated age] Derm: [warm], [dry] Head: [atraumatic], [normocephalic], [symmetric] Eyes: [EOMI], [no lid lag], [anicteric sclera] Mouth: [no lip lesion], [mucus membranes moist] Cardiovascular: [S1S2 reg], [no murmur], [positive DP pulse bilateral], Lungs: [CTA bilateral], [no rhonchi, no rales] , [no accessory muscle use] Abdominal: [soft], [epigastric tenderness to palpation without rebound], [no guarding], [no appreciable organomegaly], [ostomy bag with minimal watery stool] Ext: [no gross muscle atrophy], [no edema], [no contractures] Neuro: [no focal neuro deficits] Psych: [Alert], [oriented], [appropriate affect] - Labs CBC & Chem 7: 06/24/19 07:05 06/25/19 06:49 Assessment and Plan Assessment: Assessment and plan Decreased colostomy output rule out bowel obstruction Hypokalemia Hypertension Hypothyroidism Resolved: Elevated BUN and hyperglycemia, no evidence of diabetes mellitus with normal A1c. KUB shows small bowel obstruction pattern. SBO confirmed on CT. Plans: Follow surgery recommendations, patient will likely need OR, Dr. Perry to decide on Wednesday. Zofran as needed for nausea or vomiting. Continue Protonix IV daily. Continue normal saline at 75 mL per hour. Potassium 3.4-3.7. Likely from poor oral intake, vomiting. Plans: Replace via protocol. Repeat BMP in the morning. BP well-controlled. Plans: Resume losartan. Plans: Resume Synthroid. [Patient admitted for small bowel obstruction, decreased ostomy output. General surgery on board, Continue NG tube to suction. Ice chips to keep mouth moist. Possible OR will discuss with surgery.]
[2019-06-25] MEDS: LOSARTAN 50 MG TAB PO SCH (19:37)
[2019-06-25] MEDS: LETROZOLE 2.5 MG TAB PO SCH (19:37)
--- NOTE | 2019-06-25 19:55 | XR ---
EXAMINATION TYPE: XR abdomen 1V DATE OF EXAM: 06/25/2019 COMPARISON: NONE HISTORY: Check tube placement TECHNIQUE: 2 views supine FINDINGS: There is nasogastric tube that has probably epigastric fundus. There are a few distended ga s and fluid-filled small bowel loops in the mid abdomen. There is no sign of free air. Lung bases are clear. IMPRESSION: NG tube is probably within the stomach at the gastric fundus. Distended loops of small bowel and could relate to ileus or partial mechanical obstruction.
[2019-06-26] MEDS: LEVOTHYROXINE 75 MCG TAB PO SCH (05:05)
[2019-06-26] MEDS: CALCIUM CARBONATE LIQUID 500 MG/5 ML CUP PO SCH ×2 (07:32→17:11)
[2019-06-26] MEDS: ENOXAPARIN 40 MG/0.4 ML SYRINGE SQ SCH (09:32)
[2019-06-26] MEDS: PANTOPRAZOLE 40 MG/10 ML VIAL IVP SCH (09:33)
[2019-06-26] MEDS: SODIUM CHLORIDE 0.9% 1,000 ML IV SCH ×2 (11:21→21:46)
--- NOTE | 2019-06-26 13:21 | FL ---
EXAMINATION TYPE: FL small bowel follow through DATE OF EXAM: 06/26/2019 COMPARISON: CT abdomen and pelvis 06/22/2019 HISTORY: Small bowel obstruction TECHNIQUE: [employer] view was obtained. Following the administration of approximately 12 ounces of thin b arium administered through the nasogastric tube are in position multiple fluoroscopic imaging and ove rhead radiographs were obtained. FINDINGS: [employer] views obtained. The tip of the nasogastric tube is within the proximal left upper quadrant of t he abdomen. If more typical positioning of the nasogastric tube is desired, this could be advanced ap proximately 10 cm. Contrast passes through the stomach into the duodenum without hesitancy. Jejunal is prominent within its proximal to midportion. No filling defects are evident. There appears to be a zone of transition identified on the oblique views at approximately 130 minutes. The ileum has a normal caliber to the t erminal ileum. No dilated ileal loops are evident. Colostomy site is identified in the left mid abdom en. Fluoroscopic spot images of the terminal ileum appear unremarkable. The loops of bowel to some transi tion within the left lower quadrant distal jejunum appears freely mobile without an etiology for obst ruction at this level. IMPRESSION: 1. Some mild obstruction versus jejunal ileus should be considered. There does appear to be a zone o f transition within the left lower quadrant within the distal jejunum suggesting resolving partial sm all bowel obstruction. Report was discussed with Dr. Vicky Brennan by telephone at time of prelim inary interpretation.
[2019-06-26] MEDS: HYDROmorphone 0.5 MG/0.5 ML SYRINGE IVP PRN (13:54)
--- NOTE | 2019-06-26 16:36 | P.PN ---
Subjective Progress Note Date: 06/26/19 Principal diagnosis: Small bowel obstruction Patient was seen and examined. No acute events overnight. Patient reports no output into the colostomy bag. She denies any abdominal pain. She has been drinking broth without any difficulties. She denies any chest pain, shortness of breath or palpitations. No nausea or vomiting. No fever or chills. Objective - Vital Signs Vital signs: Vital Signs Temp 99.1 F 06/26/19 15:00 Pulse 83 06/26/19 15:00 Resp 16 06/26/19 15:00 BP 144/69 06/26/19 15:00 Pulse Ox 96 06/26/19 15:00 Intake & Output 06/25/19 06/26/19 06/26/19 18:59 06:59 18:59 Intake Total 900 150 Output Total 100 100 Balance -100 800 150 Weight 57.606 kg Intake: IV 900 Sodium Chloride 0.9% 1, 900 000 ml @ 75 mls/hr IV . [id number] [facility] Rx#:[id number] Intake, IV Titration 150 Amount Sodium Chloride 0.9% 1, 150 000 ml @ 75 mls/hr IV . [id number] [facility] Rx#:[id number] Output: Gastric Drainage 100 100 Urine 0 Other: Voiding Method Toilet Toilet # Voids 1 1 - Exam General: [non toxic], [no distress], [appears at stated age] Derm: [warm], [dry] Head: [atraumatic], [normocephalic], [symmetric] Eyes: [EOMI], [no lid lag], [anicteric sclera] Mouth: [no lip lesion], [mucus membranes moist] Cardiovascular: [S1S2 reg], [no murmur], [positive DP pulse bilateral], Lungs: [CTA bilateral], [no rhonchi, no rales] , [no accessory muscle use] Abdominal: [soft], [no epigastric tenderness to palpation], [no guarding], [no appreciable organomegaly], [ostomy bag with minimal watery stool] Ext: [no gross muscle atrophy], [no edema], [no contractures] Neuro: [no focal neuro deficits] Psych: [Alert], [oriented], [appropriate affect] - Labs CBC & Chem 7: 06/24/19 07:05 06/26/19 07:58 Assessment and Plan Assessment: Assessment and plan Decreased colostomy output rule out bowel obstruction Hypokalemia Hypertension Hypothyroidism Resolved: Elevated BUN and hyperglycemia, no evidence of diabetes mellitus with normal A1c. KUB shows small bowel obstruction pattern. SBO confirmed on CT. Small bowel follow-through shows slowly resolving SBO. Plans: Follow surgery recommendations, Dr. Perry to decide. Zofran as needed for nausea or vomiting. Continue Protonix IV daily. Continue normal saline at 75 mL per hour. Potassium 3.4-3.7. Likely from poor oral intake, vomiting. Plans: Replace via protocol. Repeat BMP in the morning. BP well-controlled. Plans: Resume losartan. Plans: Resume Synthroid. [Patient admitted for small bowel obstruction, decreased ostomy output. General surgery on board. NG tube removed today and patient started on clear liquid diet. DC planning based on surgery recommendations.]
--- NOTE | 2019-06-26 17:06 | P.PN ---
Subjective Progress Note Date: 06/26/19 Principal diagnosis: Small bowel obstruction Patient went for her small bowel series earlier today. Small bowel series was reviewed with Dr. Brennan. The patient's transit time was close to normal. Some proximal small bowel dilation does persist. Patient is tolerating her cl ears after her nasogastric tube was removed. Denies abdominal pain. Improved ostomy output. Objective - Vital Signs Vital signs: Vital Signs Temp 99.1 F 06/26/19 15:00 Pulse 83 06/26/19 15:00 Resp 16 06/26/19 15:00 BP 144/69 06/26/19 15:00 Pulse Ox 96 06/26/19 15:00 Intake & Output 06/25/19 06/26/19 06/26/19 18:59 06:59 18:59 Intake Total 900 150 Output Total 100 100 Balance -100 800 150 Weight 57.606 kg Intake: IV 900 Sodium Chloride 0.9% 1, 900 000 ml @ 75 mls/hr IV . [id number] [facility] Rx#:[id number] Intake, IV Titration 150 Amount Sodium Chloride 0.9% 1, 150 000 ml @ 75 mls/hr IV . [id number] [facility] Rx#:[id number] Output: Gastric Drainage 100 100 Urine 0 Other: Voiding Method Toilet Toilet # Voids 1 1 - Exam Abdomen: Soft, nondistended, nontender, ostomy functioning - Labs CBC & Chem 7: 06/24/19 07:05 06/26/19 07:58 Assessment and Plan (1) Small bowel obstruction Narrative/Plan: Patient with small bowel obstruction. This appears partial based on today's study. We'll gradually advance diet. If bowel obstruction recurs we'll plan exploratory laparotomy. Options of possible attempts at colostomy reversal reviewed with the patient and her family in the event that surgery is required. Continue clear liquids tonight. Advance to full liquids tomorrow. Current Visit: Yes Status: Acute Code(s): K56.609 - UNSP INTESTNL OBST, UNSP TO PARTIAL VERSUS COMPLETE OBST SNOMED Code(s): 955213123
[2019-06-26] MEDS: LETROZOLE 2.5 MG TAB PO SCH (20:58)
[2019-06-26] MEDS: LOSARTAN 50 MG TAB PO SCH (20:58)
[2019-06-27] MEDS: traMADol 50 MG TAB PO PRN ×3 (00:09→21:15)
[2019-06-27] MEDS: LEVOTHYROXINE 75 MCG TAB PO SCH (05:34)
[2019-06-27] MEDS ORDERED: POTASSIUM CHLORIDE ER 20 MEQ TAB.ER PO STA (08:24)
[2019-06-27] MEDS: ENOXAPARIN 40 MG/0.4 ML SYRINGE SQ SCH (08:28)
[2019-06-27] MEDS: PANTOPRAZOLE 40 MG/10 ML VIAL IVP SCH (08:33)
[2019-06-27] MEDS: CALCIUM CARBONATE LIQUID 500 MG/5 ML CUP PO SCH ×2 (08:34→17:38)
[2019-06-27] MEDS: SODIUM CHLORIDE 0.9% 1,000 ML IV SCH (08:50)
[2019-06-27 10:16] LABS: HGB 12.1 gm/dL (11.4-16.0); MCH 28.4 pg (25.0-35.0); MCHC 33.5 g/dL (31.0-37.0); MCV 84.8 fL (80.0-100.0); Mean Platelet Volume 6.1; Platelet Count 343 k/uL (150-450); RBC 4.25 m/uL (3.80-5.40); RDW 13.5 % (11.5-15.5); WBC 12.1 k/uL (3.8-10.6)
[2019-06-27 10:19] LABS: African American GFR (CKD) >90 (>60 ml/min/1.73 sqM); Anion Gap 9 mmol/L; Blood Urea Nitrogen 13 mg/dL (7-17); Calcium 9.3 mg/dL (8.4-10.2); Carbon Dioxide 21 mmol/L (22-30); Chloride 109 mmol/L (98-107); Glucose 206 mg/dL (74-99); Potassium 3.4 mmol/L (3.5-5.1); Sodium 139 mmol/L (137-145)
[2019-06-27] MEDS: BENZOCAINE SPRAY 1 CAN TOPICAL PRN (10:27)
--- NOTE | 2019-06-27 14:11 | P.PN ---
<Rachelle Eldridge - Last Filed: 06/27/19 14:09> Subjective Progress Note Date: 06/27/19 CHIEF COMPLAINT: decreased ostomy output HISTORY OF PRESENT ILLNESS: Patient examined at the bedside. She denies abdominal pain. Denies nausea or vomiting. Tolerating clear liquid diet but she does not like any of the food items on the clear liquid tray. She reports changing her ostomy appliance this morning so bag is currently without stool. She states ostomy had stool output last night. PHYSICAL EXAM: VITAL SIGNS: Reviewed. GENERAL: Well-developed in no acute distress. HEENT: No sclera icterus. Extraocular movements grossly intact. Moist buccal mucosa. Head is atraumatic, normocephalic. ABDOMEN: Soft. Nondistended. Nontender. Healed midline incision. Ostomy to left lower quadrant-no stool noted as appliance was just changed NEUROLOGIC: Alert and oriented. Cranial nerves II through XII grossly intact. ASSESSMENT: 1. Decreased stool from ostomy, nausea, vomiting, x 2 days 2. Small bowel obstruction PLAN: Advance diet to full liquids as patient does not like any of the options on clear liquid diet Monitor for ostomy output as appliance was just changed prior to my examination If patient tolerates diet and has ostomy output, may advance diet If obstruction reoccurs, will require exploratory laparotomy Nurse practitioner note has been reviewed by physician. Signing provider agrees with the documented findings, assessment, and plan of care. Objective - Vital Signs Vital signs: Vital Signs Temp 97.8 F 06/27/19 07:24 Pulse 71 06/27/19 07:24 Resp 16 06/27/19 07:24 BP 108/61 06/27/19 07:24 Pulse Ox 97 06/27/19 07:24 Intake & Output 06/26/19 06/27/19 06/27/19 18:59 06:59 18:59 Intake Total 150 170 420 Balance 150 170 420 Weight 57.606 kg Intake: Intake, IV Titration 150 Amount Sodium Chloride 0.9% 1, 150 000 ml @ 75 mls/hr IV . [id number] [facility] Rx#:[id number] Oral 170 420 Other: Voiding Method Toilet Toilet # Voids 1 - Labs CBC & Chem 7: 06/27/19 09:00 06/27/19 09:00 Labs: Abnormal Lab Results - Last 24 Hours (Table) 06/27/19 06/27/19 Range/Units 09:00 09:00 WBC 12.1 H (3.8-10.6) k/uL Potassium 3.4 L (3.5-5.1) mmol/L Chloride 109 H (98-107) mmol/L Carbon Dioxide 21 L (22-30) mmol/L Glucose 206 H (74-99) mg/dL <Rivas Perry - Last Filed: 06/27/19 17:48> Subjective As above. Patient doing fairly well. Apparently she did have some mild discomfort earlier this afternoon that only lasted for a short period of time. Small amount of ostomy function today. No vomiting. Does not feel nauseated. Abdominal exam is benign. Continue full liquids today. If tolerates full liquids for breakfast was advance to a dysphagia diet following that. Objective - Vital Signs Vital signs: Vital Signs Temp 97.0 F L 06/27/19 15:51 Pulse 78 06/27/19 15:51 Resp 16 06/27/19 15:51 BP 99/54 06/27/19 15:51 Pulse Ox 97 06/27/19 15:51 Intake & Output 06/26/19 06/27/19 06/27/19 18:59 06:59 18:59 Intake Total 150 170 420 Balance 150 170 420 Weight 57.606 kg Intake: Intake, IV Titration 150 Amount Sodium Chloride 0.9% 1, 150 000 ml @ 75 mls/hr IV . [id number] [facility] Rx#:[id number] Oral 170 420 Other: Voiding Method Toilet Toilet # Voids 1 - Labs CBC & Chem 7: 06/27/19 09:00 06/27/19 09:00 Labs: Abnormal Lab Results - Last 24 Hours (Table) 06/27/19 06/27/19 Range/Units 09:00 09:00 WBC 12.1 H (3.8-10.6) k/uL Potassium 3.4 L (3.5-5.1) mmol/L Chloride 109 H (98-107) mmol/L Carbon Dioxide 21 L (22-30) mmol/L Glucose 206 H (74-99) mg/dL Assessment and Plan (1) Small bowel obstruction Current Visit: Yes Status: Acute Code(s): K56.609 - [facility], UNSP TO PARTIAL VERSUS COMPLETE OBST SNOMED Code(s): 658997829
--- NOTE | 2019-06-27 15:55 | P.PN ---
Subjective Progress Note Date: 06/27/19 Patient is sitting with her family states she is doing fine there is no abdominal pain but there is minimal to none colostomy drainage in the collecting bag. Patient stated that she is walking in the hallway with holding her IV pole and she is doing fine. She is more concerned about her who is also admitted to the hospital. Nurses reported that patient may benefit from home care after discharge. Patient stated that she was tolerating clear liquid diet well and is being advanced to full liquid this morning but still there is no output in the ostomy bag. Patient is being closely monitored by Dr. Perry from surgical standpoint. Patient denies chest pain, palpitation, headache, dizziness, diaphoresis, fever, chills And denies rest of the review system. Patient potassium was noted to be low and was replaced earlier today. Objective - Vital Signs Vital signs: Vital Signs Temp 97.8 F 06/27/19 07:24 Pulse 71 06/27/19 07:24 Resp 16 06/27/19 07:24 BP 108/61 06/27/19 07:24 Pulse Ox 97 06/27/19 07:24 Intake & Output 06/26/19 06/27/19 06/27/19 18:59 06:59 18:59 Intake Total 150 170 420 Balance 150 170 420 Weight 57.606 kg Intake: Intake, IV Titration 150 Amount Sodium Chloride 0.9% 1, 150 000 ml @ 75 mls/hr IV . [id number] [facility] Rx#:[id number] Oral 170 420 Other: Voiding Method Toilet Toilet # Voids 1 - Constitutional General appearance: Present: cooperative, no acute distress - EENT Eyes: Present: EOMI, normal appearance ENT: Present: hard of hearing - Respiratory Respiratory: bilateral: CTA, diminished (At the bases bilaterally.), negative: dullness, rales, rhonchi, wheezing - Cardiovascular Rhythm: regular Heart sounds: normal: S1, S2 - Gastrointestinal Gastrointestinal Comment(s): Abdomen soft, bowel sounds positive but very sluggish, there is no air or stools in the ostomy bag. Nondistended abdomen no guarding rigidity or rebound detected. - Neurologic Neurologic: Present: CNII-XII intact, focal deficits - Psychiatric Psychiatric: Present: A&O x's 3, appropriate affect - Allied health notes Allied health notes reviewed: nursing - Labs CBC & Chem 7: 06/27/19 09:00 06/27/19 09:00 Labs: Abnormal Lab Results - Last 24 Hours (Table) 06/27/19 06/27/19 Range/Units 09:00 09:00 WBC 12.1 H (3.8-10.6) k/uL Potassium 3.4 L (3.5-5.1) mmol/L Chloride 109 H (98-107) mmol/L Carbon Dioxide 21 L (22-30) mmol/L Glucose 206 H (74-99) mg/dL Assessment and Plan Plan: Decreased colostomy output rule out bowel obstruction Hypokalemia Hypertension Hypothyroidism Resolved: Elevated BUN and hyperglycemia, no evidence of diabetes mellitus with normal A1c. SBO confirmed on CT-Abdomen, small bowel follow-through shows slowly resolving SBO. Plans: Dr. Perry to decide re: surgical option and when to consider it. Zofran as needed for nausea or vomiting. Continue Protonix IV daily. Continue normal saline at 75 mL per hour. Potassium 3.4-3.7. Likely from poor oral intake, vomiting. Plans: Replace via protocol. Repeat BMP in the morning. BP well-controlled. Plans: Resume losartan. Plans: Resume Synthroid. DC planning based on surgery recommendations, will consult PT/OT/Home care for post discharge needs and if pt. needs Exp. Laparotomy then dispisition will need to be re-addressed. Time with Patient: Less than 30
[2019-06-27] MEDS: LETROZOLE 2.5 MG TAB PO SCH (21:16)
[2019-06-27] MEDS: LOSARTAN 50 MG TAB PO SCH (21:16)
[2019-06-28] MEDS: LEVOTHYROXINE 75 MCG TAB PO SCH (05:05)
[2019-06-28] MEDS: SODIUM CHLORIDE 0.9% 1,000 ML IV SCH ×2 (05:05→17:22)
[2019-06-28] MEDS: ENOXAPARIN 40 MG/0.4 ML SYRINGE SQ SCH (08:53)
[2019-06-28] MEDS: CALCIUM CARBONATE LIQUID 500 MG/5 ML CUP PO SCH ×2 (08:53→17:22)
[2019-06-28] MEDS: PANTOPRAZOLE 40 MG/10 ML VIAL IVP SCH (08:53)
[2019-06-28 09:28] LABS: Basophils # (A) 0.1 k/uL (0-0.2); Basophils % (A) 1 %; Eosinophils # (A) 0.1 k/uL (0-0.7); Eosinophils % (A) 1 %; HCT 36.5 % (34.0-46.0); HGB 12.2 gm/dL (11.4-16.0); Lymphocytes # (A) 2.6 k/uL (1.0-4.8); Lymphocytes % (A) 24 %; MCH 28.2 pg (25.0-35.0); MCHC 33.3 g/dL (31.0-37.0); MCV 84.7 fL (80.0-100.0); Mean Platelet Volume 6.1; Monocytes # (A) 0.5 k/uL (0-1.0); Monocytes % (A) 5 %; Neutrophils # (A) 7.3 k/uL (1.3-7.7); Neutrophils % (A) 68 %; Platelet Count 312 k/uL (150-450); RBC 4.31 m/uL (3.80-5.40); RDW 13.6 % (11.5-15.5); WBC 10.7 k/uL (3.8-10.6)
[2019-06-28 09:34] LABS: African American GFR (CKD) >90 (>60 ml/min/1.73 sqM); Anion Gap 7 mmol/L; Blood Urea Nitrogen 6 mg/dL (7-17); Calcium 9.5 mg/dL (8.4-10.2); Carbon Dioxide 24 mmol/L (22-30); Chloride 111 mmol/L (98-107); Glucose 130 mg/dL (74-99); Potassium 3.7 mmol/L (3.5-5.1); Sodium 142 mmol/L (137-145)
--- NOTE | 2019-06-28 09:47 | P.PN ---
Subjective Progress Note Date: 06/28/19 Patient reported that she is eating slightly advanced than the full liquid diet with more pudding and semisolid stuff but still she did not had any bowel movement through ostomy. Patient denies nausea vomiting but complains of left- sided abdominal pain and stated that her left side of the abdomen around the ostomy site is getting more intense and distended. Nurses reported no other issues with the patient. Patient denies headache, dizziness, chest pain, palpitation, diaphoresis, nausea, vomiting and denies rest of the review system. Objective - Vital Signs Vital signs: Vital Signs Temp 98.4 F 06/28/19 06:56 Pulse 74 06/28/19 06:56 Resp 17 06/28/19 06:56 BP 112/63 06/28/19 06:56 Pulse Ox 97 06/28/19 06:56 Intake & Output 06/27/19 06/28/19 06/28/19 18:59 06:59 18:59 Intake Total 1185 795 Balance 1185 795 Intake: Intake, IV Titration 525 Amount Sodium Chloride 0.9% 1, 525 000 ml @ 75 mls/hr IV . [id number] [facility] Rx#:[id number] Oral 660 795 Other: Voiding Method Toilet # Voids 2 2 - Constitutional General appearance: Present: cooperative, no acute distress - EENT Eyes: Present: EOMI, normal appearance ENT: Present: hearing grossly normal, NA/AT - Respiratory Respiratory: bilateral: CTA, negative: dullness, rales, rhonchi, wheezing - Cardiovascular Rhythm: regular Heart sounds: normal: S1, S2 - Gastrointestinal Gastrointestinal Comment(s): Abdomen is soft, bowel sounds are sluggish on the right side but barely minimum on the left side, no stool or gas noted in the ostomy bag. There is some tenderness bulging around the superior and superior lateral aspect of the colo stomy site. No guarding rigidity or rebound detected. - Neurologic Neurologic: Present: CNII-XII intact, focal deficits - Psychiatric Psychiatric: Present: A&O x's 3, appropriate affect - Allied health notes Allied health notes reviewed: case management - Labs CBC & Chem 7: 06/28/19 08:26 06/28/19 08:26 Labs: Abnormal Lab Results - Last 24 Hours (Table) 1006/27/19 06/28/19 Range/Units 09:00 09:00 08:26 WBC 12.1 H (3.8-10.6) k/uL Potassium 3.4 L (3.5-5.1) mmol/L Chloride 109 H 111 H (98-107) mmol/L Carbon Dioxide 21 L (22-30) mmol/L BUN 6 L (7-17) mg/dL Glucose 206 H 130 H (74-99) mg/dL 06/28/19 Range/Units 08:26 WBC 10.7 H (3.8-10.6) k/uL Potassium (3.5-5.1) mmol/L Chloride (98-107) mmol/L Carbon Dioxide (22-30) mmol/L BUN (7-17) mg/dL Glucose (74-99) mg/dL Assessment and Plan Plan: Decreased colostomy output rule out bowel obstruction Hypokalemia - Resolved Hypertension Hypothyroidism SBO not getting clinically better and now pt. is requesting to have surgical repair done so she can be dicharged home. Dr. Perry to decide re: surgical option and when to consider it. Zofran and Protonix for symptomatic control. Continue normal saline at 75 mL per hour. Potassium replaced via protocol and repeat BMP showed improved levels. Resumed pt's home meds including losartan and Synthroid. DC planning based on final surgery recommendations, PT recs for home care services post discharge and if she needs Exp. Laparotomy then dispisition will need to be re-addressed depending upon her condition at that point in time. Time with Patient: Less than 30
--- NOTE | 2019-06-28 12:45 | P.PN ---
<Rachelle Eldridge - Last Filed: 06/28/19 12:41> Subjective Progress Note Date: 06/28/19 CHIEF COMPLAINT: decreased ostomy output HISTORY OF PRESENT ILLNESS: Patient examined at the bedside. She denies abdominal pain. Denies nausea or vomiting. Tolerating full liquid diet. Ostomy with gas present but no stool. PHYSICAL EXAM: VITAL SIGNS: Reviewed. GENERAL: Well-developed in no acute distress. HEENT: No sclera icterus. Extraocular movements grossly intact. Moist buccal mucosa. Head is atraumatic, normocephalic. ABDOMEN: Soft. Nondistended. Nontender. Healed midline incision. Ostomy to left lower quadrant. Flatus present. No stool. NEUROLOGIC: Alert and oriented. Cranial nerves II through XII grossly intact. ASSESSMENT: 1. Decreased stool from ostomy, nausea, vomiting, x 2 days 2. Small bowel obstruction PLAN: Continue full liquid diet Ostomy with flatus. Monitor for stool output Dr. Perry to re-evaluate patient this afternoon Nurse practitioner note has been reviewed by physician. Signing provider agrees with the documented findings, assessment, and plan of care. Objective - Vital Signs Vital signs: Vital Signs Temp 98.4 F 06/28/19 06:56 Pulse 74 06/28/19 06:56 Resp 17 06/28/19 06:56 BP 112/63 06/28/19 06:56 Pulse Ox 97 06/28/19 06:56 Intake & Output 06/27/19 06/28/19 06/28/19 18:59 06:59 18:59 Intake Total 1185 795 360 Balance 1185 795 360 Intake: Intake, IV Titration 525 Amount Sodium Chloride 0.9% 1, 525 000 ml @ 75 mls/hr IV . [id number] [facility] Rx#:[id number] Oral 660 795 360 Other: Voiding Method Toilet Toilet # Voids 2 2 - Labs CBC & Chem 7: 06/28/19 08:26 06/28/19 08:26 Labs: Abnormal Lab Results - Last 24 Hours (Table) 06/28/19 06/28/19 Range/Units 08:26 08:26 WBC 10.7 H (3.8-10.6) k/uL Chloride 111 H (98-107) mmol/L BUN 6 L (7-17) mg/dL Glucose 130 H (74-99) mg/dL <Rivas Perry - Last Filed: 06/28/19 21:35> Subjective As above. Patient doing well today. Still with low ostomy function from a stool standpoint. Will increase to dysphagia diet. Ambulate. Objective - Vital Signs Vital signs: Vital Signs Temp 98.2 F 06/28/19 21:02 Pulse 84 06/28/19 21:02 Resp 12 06/28/19 21:02 BP 133/70 06/28/19 21:02 Pulse Ox 95 06/28/19 21:02 Intake & Output 06/28/19 06/28/19 06/29/19 06:59 18:59 06:59 Intake Total 795 540 Balance 795 540 Intake: Oral 795 540 Other: Voiding Method Toilet Toilet # Voids 2 3 1 - Labs CBC & Chem 7: 06/28/19 08:26 06/28/19 08:26 Labs: Abnormal Lab Results - Last 24 Hours (Table) 06/28/19 06/28/19 Range/Units 08:26 08:26 WBC 10.7 H (3.8-10.6) k/uL Chloride 111 H (98-107) mmol/L BUN 6 L (7-17) mg/dL Glucose 130 H (74-99) mg/dL Assessment and Plan (1) Small bowel obstruction Current Visit: Yes Status: Acute Code(s): K56.609 - UNSP INTESTNL OBST, UNSP TO PARTIAL VERSUS COMPLETE OBST SNOMED Code(s): 693888689
[2019-06-28] MEDS: LOSARTAN 50 MG TAB PO SCH (21:05)
[2019-06-28] MEDS: LETROZOLE 2.5 MG TAB PO SCH (21:06)
[2019-06-29] MEDS: SODIUM CHLORIDE 0.9% 1,000 ML IV SCH ×2 (04:35→16:44)
[2019-06-29] MEDS: LEVOTHYROXINE 75 MCG TAB PO SCH (05:31)
[2019-06-29] MEDS: PANTOPRAZOLE 40 MG/10 ML VIAL IVP SCH (08:16)
[2019-06-29] MEDS: CALCIUM CARBONATE LIQUID 500 MG/5 ML CUP PO SCH ×2 (08:16→17:42)
[2019-06-29] MEDS: ACETAMINOPHEN TAB 325 MG TAB PO PRN ×2 (08:16→21:00)
[2019-06-29] MEDS: ENOXAPARIN 40 MG/0.4 ML SYRINGE SQ SCH (08:16)
--- NOTE | 2019-06-29 13:08 | P.PN ---
<Rachelle Eldridge - Last Filed: 06/29/19 13:07> Subjective Progress Note Date: 06/29/19 CHIEF COMPLAINT: decreased ostomy output HISTORY OF PRESENT ILLNESS: Patient examined at the bedside. She denies abdominal pain. Denies nausea or vomiting. Tolerating diet. Ostomy with large amount of flatus and small amount of light brown stool. PHYSICAL EXAM: VITAL SIGNS: Reviewed. GENERAL: Well-developed in no acute distress. HEENT: No sclera icterus. Extraocular movements grossly intact. Moist buccal mucosa. Head is atraumatic, normocephalic. ABDOMEN: Soft. Nondistended. Nontender. Healed midline incision. Ostomy to left lower quadrant. Stool and flatus present. NEUROLOGIC: Alert and oriented. Cranial nerves II through XII grossly intact. ASSESSMENT: 1. Decreased stool from ostomy, nausea, vomiting, x 2 days 2. Small bowel obstruction PLAN: Continue current diet If patient continues to tolerate diet and have ostomy function, anticipate discharge home tomorrow Nurse practitioner note has been reviewed by physician. Signing provider agrees with the documented findings, assessment, and plan of care. Objective - Vital Signs Vital signs: Vital Signs Temp 98.9 F 06/29/19 07:00 Pulse 79 06/29/19 07:00 Resp 16 06/29/19 07:00 BP 158/79 06/29/19 07:00 Pulse Ox 97 06/29/19 07:00 Intake & Output 06/28/19 06/29/19 06/29/19 18:59 06:59 18:59 Intake Total 540 Balance 540 Intake: Oral 540 Other: Voiding Method Toilet Toilet # Voids 3 1 - Labs CBC & Chem 7: 06/28/19 08:26 06/28/19 08:26 <Rivas Perry - Last Filed: 06/29/19 18:39> Subjective As above. Patient doing well today. No abdominal pain. Improved ostomy function. According to the family she ate most of her dysphagia diet when provided to her. No nausea. No bloating. Continue chopped foods diet. Probable discharge tomorrow. Objective - Vital Signs Vital signs: Vital Signs Temp 98.4 F 06/29/19 15:00 Pulse 74 06/29/19 15:00 Resp 16 06/29/19 15:00 BP 145/75 06/29/19 15:00 Pulse Ox 99 06/29/19 15:00 Intake & Output 06/28/19 06/29/19 06/29/19 18:59 06:59 18:59 Intake Total 540 Balance 540 Weight 57.606 kg Intake: Oral 540 Other: Voiding Method Toilet Toilet # Voids 3 1 2 - Labs CBC & Chem 7: 06/28/19 08:26 06/28/19 08:26 Assessment and Plan (1) Small bowel obstruction Current Visit: Yes Status: Acute Code(s): K56.609 - UNSP INTESTNL OBST, UNSP TO PARTIAL VERSUS COMPLETE OBST SNOMED Code(s): 546793359
--- NOTE | 2019-06-29 17:06 | P.PN ---
Subjective Progress Note Date: 06/29/19 (delayed charting patient seen at 1300) Principal diagnosis: Nausea and decreased appetite Patient's an 83-year-old female with a past medical history of diverticulosis with rupture requiring ostomy placement, GERD, hypertension, and hypothyroidism who presented to the emergency department secondary to nausea and decreased oral intake. Her x-rays obtained in the emergency department which showed moderate small bowel obstruction pattern. She was started on IV fluids, antiemetics and was admitted for further surgical evaluation. She was seen by surgery who agreed with conservative management. She underwent a CT abdomen and pelvis which showed left-sided colostomy with incarcerated dilated small bowel and parastomal hernia, evidence of mechanical high grade small bowel junction with transition point in the mid jejunum anteriorly that could relate to strictu re or adhesion. Patient did requiring NG tube placement and this was removed by 06/26 and the patient was tolerating clear liquids. She underwent a small bowel follow-through on 06/26 which again demonstrated ileus versus obstruction. Cranial 06/28 she again had some output from her ostomy bag. She is having significant increase in ostomy output by 06/29 was tolerating regular diet. Patient seen and examined at bedside. She reports she did have to empty her ostomy that once today, no nausea, no vomiting, no abdominal pain. Anxious to go home. No chest pain or shortness of breath. Objective - Vital Signs Vital signs: Vital Signs Temp 98.4 F 06/29/19 15:00 Pulse 74 06/29/19 15:00 Resp 16 06/29/19 15:00 BP 145/75 06/29/19 15:00 Pulse Ox 99 06/29/19 15:00 Intake & Output 06/28/19 06/29/19 06/29/19 18:59 06:59 18:59 Intake Total 540 Balance 540 Weight 57.606 kg Intake: Oral 540 Other: Voiding Method Toilet Toilet # Voids 3 1 2 - Exam General: non toxic, no distress, appears younger than stated age Derm: warm, dry Head: atraumatic, normocephalic, symmetric Eyes: EOMI, no lid lag, anicteric sclera Mouth: no lip lesion, mucus membranes moist Cardiovascular: S1S2 reg, no murmur, positive posterior tibial pulse bilateral, Lungs: CTA bilateral, no rhonchi, no rales , no accessory muscle use Abdominal: soft, nontender to palpation, no guarding, no appreciable organomegaly, ostomy with light colored stool Ext: no gross muscle atrophy, no edema, no contractures Neuro: CN II-XI grossly intact, no focal neuro deficits Psych: Alert, oriented, appropriate affect - Labs CBC & Chem 7: 06/28/19 08:26 06/28/19 08:26 Assessment and Plan Assessment: Small bowel obstruction - appears resolved - surgery recs - suspect home in AM if continued output - pain control, antiemetics Hypertension - controlled - cozaar - follow BP Hypothyroidism - synthroid Breast CA - Femara Hypokalemia, resolved Hyperglycemia, resolved DVT prophylaxis: Lovenox Discussed with: patient, zan, nursing, Rachelle Eldridge NP Anticipated discharge: in AM Anticipated discharge place: home A total of 35 minutes was spent on the care of this complex patient more than 50% of the time was spent in counseling and care coordination.
[2019-06-29] MEDS: LOSARTAN 50 MG TAB PO SCH (21:00)
[2019-06-29] MEDS: LETROZOLE 2.5 MG TAB PO SCH (21:01)
[2019-06-30] MEDS: LEVOTHYROXINE 75 MCG TAB PO SCH (05:08)
[2019-06-30 08:37] VITALS: RESP 16
[2019-06-30] MEDS: SODIUM CHLORIDE 0.9% 1,000 ML IV SCH (09:00)
[2019-06-30] MEDS: CALCIUM CARBONATE LIQUID 500 MG/5 ML CUP PO SCH (09:01)
[2019-06-30] MEDS: ENOXAPARIN 40 MG/0.4 ML SYRINGE SQ SCH (09:02)
[2019-06-30] MEDS: PANTOPRAZOLE 40 MG/10 ML VIAL IVP SCH (09:02)
--- NOTE | 2019-06-30 10:54 | P.PN ---
<Rachelle Eldridge - Last Filed: 06/30/19 10:52> Subjective Progress Note Date: 06/30/19 CHIEF COMPLAINT: decreased ostomy output HISTORY OF PRESENT ILLNESS: Patient examined at the bedside. She denies abdominal pain. Denies nausea or vomiting. Tolerating diet. Ostomy with large amount of flatus stool. PHYSICAL EXAM: VITAL SIGNS: Reviewed. GENERAL: Well-developed in no acute distress. HEENT: No sclera icterus. Extraocular movements grossly intact. Moist buccal mucosa. Head is atraumatic, normocephalic. ABDOMEN: Soft. Nondistended. Nontender. Healed midline incision. Ostomy to left lower quadrant. Stool and flatus present. NEUROLOGIC: Alert and oriented. Cranial nerves II through XII grossly intact. ASSESSMENT: 1. Decreased stool from ostomy, nausea, vomiting, x 2 days 2. Small bowel obstruction PLAN: Continue current diet Stable for discharge home today from a surgical standpoint. Discussed with Dr. Gregorio. Patient to follow up with Dr. Perry outpatient Nurse practitioner note has been reviewed by physician. Signing provider agrees with the documented findings, assessment, and plan of care. Objective - Vital Signs Vital signs: Vital Signs Temp 98.5 F 06/30/19 07:00 Pulse 67 06/30/19 07:00 Resp 16 06/30/19 07:00 BP 151/76 06/30/19 07:00 Pulse Ox 96 06/30/19 07:00 Intake & Output 06/29/19 06/30/19 06/30/19 18:59 06:59 18:59 Weight 57.606 kg Other: Voiding Method Toilet # Voids 2 2 - Labs CBC & Chem 7: 06/28/19 08:26 06/28/19 08:26 <Rivas Perry - Last Filed: 06/30/19 15:49> Subjective As above. Patient discharge prior to my arrival. Follow-up outpatient. Objective - Vital Signs Vital signs: Vital Signs Temp 98.2 F 06/30/19 14:39 Pulse 78 06/30/19 14:39 Resp 16 06/30/19 14:39 BP 129/70 06/30/19 14:39 Pulse Ox 96 06/30/19 14:39 Intake & Output 10/24/19 10/25/19 10/25/19 18:59 06:59 18:59 Weight 57.606 kg Other: Voiding Method Toilet # Voids 2 2 1 - Labs CBC & Chem 7: 06/28/19 08:26 06/28/19 08:26 Assessment and Plan (1) Small bowel obstruction Status: Acute Code(s): K56.609 - UNSP INTESTNL OBST, UNSP TO PARTIAL VERSUS COMPLETE OBST SNOMED Code(s): 071395238
[2019-06-30 14:40] VITALS: BP 129/70; PULSE 78; TEMP 98.2
[2019-06-30] MEDS: traMADol 50 MG TAB PO PRN (15:08)
--- NOTE | 2019-06-30 20:36 | P.DS ---
Providers Date of admission: 06/20/19 19:23 Expected date of discharge: 06/30/19 Attending physician: Wally Burger MD Consults: 06/20/19 19:24 Consult Physician Routine Consulting Provider: Rivas Perry Consult Reason/Comments: known Do you want consulting provider notified?: Yes Primary care physician: Ilia Peres Hospital Course: Discharge Diagnosis: Small bowel obstruction HTN Hypothyroidism Breast CA Hypokalemia Hyperglycemia Hospital Course: Patient's an 83-year-old female with a past medical history of diverticulosis with rupture requiring ostomy placement, GERD, hypertension, and hypothyroidism who presented to the emergency department secondary to nausea and decreased oral intake. Her x-rays obtained in the emergency department which showed moderate small bowel obstruction pattern. She was started on IV fluids, antiemetics and was admitted for further surgical evaluation. She was seen by surgery who agreed with conservative management. She underwent a CT abdomen and pelvis which showed left-sided colostomy with incarcerated dilated small bowel and parastomal hernia, evidence of mechanical high grade small bowel junction with transition point in the mid jejunum anteriorly that could relate to stricture or adhesion. Patient did requiring NG tube placement and this was removed by 06/26 and the patient was tolerating clear liquids. She underwent a small bowel follow-through on 06/26 which again demonstrated ileus versus obstruction. Starting on 06/28 she again had some output from her ostomy bag. She is having significant increase in ostomy output by 06/29 was tolerating regular diet. She was determined stable for discharge on 06/30. Patient seen and examined at bedside. No pain, nausea, vomiting, good output in stoma. Vital signs reviewed and stable. General: non toxic, no distress, appears at stated age Derm: warm, dry Head: atraumatic, normocephalic, symmetric Eyes: EOMI, no lid lag, anicteric sclera Mouth: no lip lesion, mucus membranes moist Cardiovascular: S1S2 reg, no murmur, positive posterior tibial pulse bilateral, Lungs: CTA bilateral, no rhonchi, no rales , no accessory muscle use Abdominal: soft, nontender to palpation, no guarding, no appreciable organomegaly Ext: no gross muscle atrophy, no edema, no contractures Neuro: CN II-XI grossly intact, no focal neuro deficits Psych: Alert, oriented, appropriate affect A total of 35 minutes of time were spent preparing this complex discharge summary . Patient Condition at Discharge: Stable Plan - Discharge Summary Discharge Rx Participant: Yes New Discharge Prescriptions: New Pantoprazole Sodium [Protonix] 40 mg PO DAILY #30 tablet.dr Continue Losartan [Cozaar] 50 mg PO HS Levothyroxine Sodium [Unithroid] 150 mcg PO DAILY Multivitamins, Thera [Multivitamin (formulary)] 1 tab PO DAILY Letrozole 2.5 mg PO HS Zometa(Unknown) 1 dose IV Q365D Calcium Carbonate 500 mg PO HS [place]-3 Fatty Acids/Fish Oil [Fish Oil 1,000 mg Softgel] 1 cap PO HS Discharge Medication List Levothyroxine Sodium [Unithroid] 150 mcg PO DAILY 08/19/16 [History] Losartan [Cozaar] 50 mg PO HS 08/19/16 [History] Multivitamins, Thera [Multivitamin (formulary)] 1 tab PO DAILY 08/19/16 [History] Letrozole 2.5 mg PO HS 01/26/19 [History] Calcium Carbonate 500 mg PO HS 06/20/19 [History] [place]-3 Fatty Acids/Fish Oil [Fish Oil 1,000 mg Softgel] 1 cap PO HS 06/20/19 [History] Zometa(Unknown) 1 dose IV Q365D 06/20/19 [History] Pantoprazole Sodium [Protonix] 40 mg PO DAILY #30 tablet. 06/30/19 [Rx] Follow up Appointment(s)/Referral(s): Rivas Perry MD [Medical Doctor] - 07/05/19 3:00 pm Ilia Peres MD [Primary Care Provider] - 07/03/19 10:45 am [facility], [NON-STAFF] - As Needed Patient Instructions/Handouts: Low Fiber Diet (DC), Bowel Obstruction (DC) Activity/Diet/Wound Care/Special Instructions: Activity: as tolerated Diet: low fiber Discharge Disposition: HOME SELF-CARE
== END 2019-06-30 15:36 | disposition home health service (06) | DRG 390 ==
LOC: EC 16:09 → 4SSUR 19:23
PROVIDERS: ADMIT Family Medicine; ATTEND Family Medicine
PROC: 0D9670Z Drainage of Stomach with Drainage Device, Via Natural or Artificial Opening (ICD-10-PCS; principal; 2019-06-23)
DX: K56.50 Intestinal adhesions [bands], unspecified as to partial versus complete obstruction (principal); E86.0 Dehydration; C50.911 Malignant neoplasm of unspecified site of right female breast; I10 Essential (primary) hypertension; E87.6 Hypokalemia; E89.0 Postprocedural hypothyroidism; K43.5 Parastomal hernia without obstruction or gangrene; R73.9 Hyperglycemia, unspecified; K21.9 Gastro-esophageal reflux disease without esophagitis; M19.90 Unspecified osteoarthritis, unspecified site; Z79.890 Hormone replacement therapy; Z79.83 Long term (current) use of bisphosphonates; Z79.811 Long term (current) use of aromatase inhibitors; Z79.899 Other long term (current) drug therapy; Z96.653 Presence of artificial knee joint, bilateral; Z98.42 Cataract extraction status, left eye; Z98.41 Cataract extraction status, right eye; Z88.5 Allergy status to narcotic agent; Z82.61 Family history of arthritis
CPT/HCPCS: 36415; 74018; 74019; 74022; 74177; 74250; 80048; 80053; 81003; 82150; 83036; 83605; 83690; 83735; 84100; 84132; 85025; 85027; 96361; 96374; 96375; 99285

== ENCOUNTER 2019-07-20 09:09 | Inpatient (IN) | payer MEDICARE, OTHER ==
[2019-07-20] MEDS ORDERED: SODIUM CHLORIDE 0.9% 500 ML 500 ML IV STA (10:00)
--- NOTE | 2019-07-20 10:05 | ED ---
General Adult HPI - General Chief complaint: Abdominal Pain Stated complaint: Abd Pain, Nausea Time Seen by Provider: 07/20/19 09:25 Source: patient, RN notes reviewed Mode of arrival: wheelchair Limitations: no limitations - History of Present Illness Initial comments: 83-year-old female with a past medical history of breast cancer, GERD, hypertension, skin disorder, thyroid disorder presents to the emergency department for a chief complaint of abdominal pain. She has had a colostomy since January 2019 when she underwent sigmoid colectomy with end colostomy secondary to sigmoid colon perforation. Today patient presents for decreased output since yesterday. Patient is having abdominal pain as well. Patient states this has happened before and she has had a bowel obstruction. States that she was told by Dr. Perry that if this ever occurs again and then to come to the emergency department. Patient denies fevers or chills. Denies dysuria. Denies back pain. Denies chest pain.Patient has no other complaints at this time including shortness of breath, chest pain, abdominal pain, nausea or vomiting, headache, or visual changes. - Related Data Home Medications Medication Instructions Recorded Confirmed Levothyroxine Sodium [Unithroid] 150 mcg PO DAILY 08/19/16 07/20/19 Losartan [Cozaar] 50 mg PO HS 08/19/16 07/20/19 Multivitamins, Thera [Multivitamin 1 tab PO HS 08/19/16 07/20/19 (formulary)] Letrozole 2.5 mg PO DAILY 01/26/19 07/20/19 Calcium Carbonate 500 mg PO HS 06/20/19 07/20/19 [place]-3 Fatty Acids/Fish Oil [Fish 1 cap PO HS 06/20/19 07/20/19 Oil 1,000 mg Softgel] Pantoprazole Sodium [Protonix] 40 mg PO HS 07/20/19 07/20/19 Allergies Allergy/AdvReac Type Severity Reaction Status Date / Time codeine AdvReac Nausea & Verified 07/20/19 11:53 Vomiting narcotics AdvReac Mild Nausea & Uncoded 07/20/19 09:23 Vomiting Review of Systems ROS Statement: Those systems with pertinent positive or pertinent negative responses have been documented in the HPI. ROS Other: All systems not noted in ROS Statement are negative. Past Medical History Past Medical History: Cancer, GERD/Reflux, Hypertension, Osteoarthritis (OA), Skin Disorder, Thyroid Disorder Additional Past Medical History / Comment(s): Rosacea. 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 RT BREAST CA CURRENTLY. History of Any Multi-Drug Resistant Organisms: None Reported Past Surgical History: Hernia Repair, Joint Replacement Additional Past Surgical History / Comment(s): valerie knee replacements; partial thyroidectomy. BREAST BIOPSY. EXC CATARACTS. Past Anesthesia/Blood Transfusion Reactions: Motion Sickness, Postoperative Nausea & Vomiting (PONV) Past Psychological History: No Psychological Hx Reported Smoking Status: Never smoker Past Alcohol Use History: None Reported Past Drug Use History: None Reported - Past Family History Mother Family Medical History: Osteoarthritis (OA) Additional Family Medical History / Comment(s): at age 85 Father Additional Family Medical History / Comment(s): in [place] General Exam Limitations: no limitations General appearance: alert, in no apparent distress Head exam: Present: atraumatic, normocephalic, normal inspection Eye exam: Present: normal appearance, PERRL, EOMI. Absent: scleral icterus, conjunctival injection, periorbital swelling ENT exam: Present: normal exam, normal oropharynx, mucous membranes moist, TM's normal bilaterally, normal external ear exam Neck exam: Present: normal inspection, full ROM. Absent: tenderness, meningismus, lymphadenopathy Respiratory exam: Present: normal lung sounds bilaterally. Absent: respiratory distress, wheezes, rales, rhonchi, stridor Cardiovascular Exam: Present: regular rate, normal rhythm, normal heart sounds. Absent: systolic murmur, diastolic murmur, rubs, gallop, clicks GI/Abdominal exam: Present: soft, tenderness (Left upper abdominal tenderness.), normal bowel sounds, other (Colostomy noted with hard stool). Absent: distended, guarding, rebound, rigid Course Vital Signs 07/20/19 07/20/19 09:20 12:01 Temperature 97.7 F Pulse Rate 97 76 Respiratory 18 16 Rate Blood Pressure 126/79 158/88 O2 Sat by Pulse 95 99 Oximetry Medical Decision Making - Medical Decision Making CBC unremarkable. CMP does show mild hypercalcemia which is stable. Urinalysis does show 2+ ketones, likely related to dehydration as patient has been vomiting for the past 12-24 hours. Cerebellar the abdomen was obtained which showed dilated small bowel loops with air-fluid levels correlated for bowel obstruction. Patient had a similar occurrence back in June that was managed medically by Dr. Perry. We did attempt to contact Dr. Perry as this a she has followed with him but was unable to reach him through his paging system. We then called office and he is out of the office. Therefore we did consult Dr. Desai who accepts this admission. NG tube will be ordered as patient has been vomiting at home. She will be kept nothing by mouth and given IV fluids. - Lab Data Result diagrams: 07/20/19 10:04 07/20/19 10:04 Lab Results 07/20/19 07/20/19 07/20/19 Range/Units 10:04 10:04 10:10 WBC 8.5 (3.8-10.6) k/uL RBC 4.79 (3.80-5.40) m/uL Hgb 13.0 (11.4-16.0) gm/dL Hct 40.3 (34.0-46.0) % MCV 84.2 (80.0-100.0) fL MCH 27.1 (25.0-35.0) pg MCHC 32.2 (31.0-37.0) g/dL RDW 13.9 (11.5-15.5) % Plt Count 331 (150-450) k/uL Neutrophils % 80 % Lymphocytes % 14 % Monocytes % 4 % Eosinophils % 0 % Basophils % 1 % Neutrophils # 6.8 (1.3-7.7) k/uL Lymphocytes # 1.2 (1.0-4.8) k/uL Monocytes # 0.3 (0-1.0) k/uL Eosinophils # 0.0 (0-0.7) k/uL Basophils # 0.1 (0-0.2) k/uL Sodium 141 (137-145) mmol/L Potassium 3.8 (3.5-5.1) mmol/L Chloride 104 (98-107) mmol/L Carbon Dioxide 28 (22-30) mmol/L Anion Gap 9 mmol/L BUN 15 (7-17) mg/dL Creatinine 0.62 (0.52-1.04) mg/dL Est GFR (CKD-EPI)AfAm >90 (>60 ml/min/1.73 sqM) Est GFR (CKD-EPI)NonAf 84 (>60 ml/min/1.73 sqM) Glucose 142 H (74-99) mg/dL Calcium 11.0 H (8.4-10.2) mg/dL Total Bilirubin 0.5 (0.2-1.3) mg/dL AST 24 (14-36) U/L ALT 32 (9-52) U/L Alkaline Phosphatase 61 (38-126) U/L Total Protein 6.9 (6.3-8.2) g/dL Albumin 3.9 (3.5-5.0) g/dL Amylase 40 (30-110) U/L Lipase 22 L (23-300) U/L Urine Color Yellow Urine Appearance Clear (Clear) Urine pH 6.0 (5.0-8.0) Ur Specific [place] 1.025 (1.001-1.035) Urine Protein 1+ H (Negative) Urine Glucose (UA) Negative (Negative) Urine Ketones 2+ H (Negative) Urine Blood Negative (Negative) Urine Nitrite Negative (Negative) Urine Bilirubin Negative (Negative) Urine Urobilinogen 2.0 (<2.0) mg/dL Ur Leukocyte Esterase Trace H (Negative) Urine WBC 4 (0-5) /hpf Ur Squamous Epith Cells 1 (0-4) /hpf Urine Mucus Many H (None) /hpf Disposition Clinical Impression: Bowel obstruction Disposition: ADMITTED IP TO THIS HOSP Condition: Good Is patient prescribed a controlled substance at d/c from ED?: No Referrals: Ilia Peres MD [Primary Care Provider] - 1-2 days Time of Disposition: 12:22
[2019-07-20 10:33] LABS: ALT 32 U/L (9-52); AST 24 U/L (14-36); African American GFR (CKD) >90 (>60 ml/min/1.73 sqM); Albumin 3.9 g/dL (3.5-5.0); Alkaline Phosphatase 61 U/L (38-126); Amylase 40 U/L (30-110); Anion Gap 9 mmol/L; Blood Urea Nitrogen 15 mg/dL (7-17); Carbon Dioxide 28 mmol/L (22-30); Chloride 104 mmol/L (98-107); Glucose 142 mg/dL (74-99); Non-African American GFR(CKD) 84 (>60 ml/min/1.73 sqM); Potassium 3.8 mmol/L (3.5-5.1); Sodium 141 mmol/L (137-145); Total Bilirubin 0.5 mg/dL (0.2-1.3); Total Protein 6.9 g/dL (6.3-8.2)
[2019-07-20 10:37] LABS: Basophils # (A) 0.1 k/uL (0-0.2); Basophils % (A) 1 %; Eosinophils % (A) 0 %; HCT 40.3 % (34.0-46.0); Lymphocytes # (A) 1.2 k/uL (1.0-4.8); Lymphocytes % (A) 14 %; MCH 27.1 pg (25.0-35.0); MCHC 32.2 g/dL (31.0-37.0); MCV 84.2 fL (80.0-100.0); Mean Platelet Volume 6.2; Monocytes # (A) 0.3 k/uL (0-1.0); Monocytes % (A) 4 %; Neutrophils # (A) 6.8 k/uL (1.3-7.7); Neutrophils % (A) 80 %; Platelet Count 331 k/uL (150-450); RBC 4.79 m/uL (3.80-5.40); RDW 13.9 % (11.5-15.5); WBC 8.5 k/uL (3.8-10.6)
--- NOTE | 2019-07-20 10:56 | XR ---
EXAMINATION TYPE: XR abdomen 2V DATE OF EXAM: 07/20/2019 COMPARISON: 06/25/2019 HISTORY: Abdominal pain TECHNIQUE: One view abdominal series FINDINGS: Surgical clips are seen overlying the right chest. Rib deformities are noted. Scoliosis of the spine with diffuse osteopenia and hypertrophic changes. Extensive calcifications are seen overlying the upp er abdomen may be related to granuloma. Air-fluid levels are seen with prominent small bowel loops. C alcifications the pelvis are likely vascular. IMPRESSION: 1. Dilated small bowel loops with air-fluid levels correlate for bowel obstruction.
[2019-07-20 10:57] LABS: Appearance,Urine Clear (Clear); Bilirubin,Urine Negative (Negative); Blood,Urine Negative (Negative); Color,Urine Yellow; Glucose,Urine (UA) Negative (Negative); Ketones,Urine 2+ (Negative); Leukocyte Esterase,Urine Trace (Negative); Mucus,Urine Many /hpf; Nitrite,Urine Negative (Negative); Protein,Urine 1+ (Negative); Specific Gravity,Urine 1.025 (1.001-1.035); Squamous Epithelial Cell,Urine 1 /hpf (0-4)
[2019-07-20] MEDS ORDERED: NALOXONE 0.4 MG/ML 1 ML VIAL IV PRN (12:17)
[2019-07-20] MEDS ORDERED: HYDROmorphone 0.5 MG/0.5 ML SYRINGE IVP PRN (12:17)
[2019-07-20] MEDS: SODIUM CHLORIDE 0.9% 1,000 ML IV SCH ×2 (12:59→18:00)
--- NOTE | 2019-07-20 13:06 | XR ---
EXAMINATION TYPE: XR chest 1V confirm line [facility] DATE OF EXAM: 07/20/2019 COMPARISON: 06/20/2019 HISTORY: NG tube placement TECHNIQUE: Single frontal view of the chest is obtained. FINDINGS: NG tube is seen coursing into the abdomen. The distal margin of the tube is not well seen. Pleural-based be at the level the distal esophagus. Scoliosis with degenerative changes spine. Surgical clips in the axilla noted. Arthropathy of the bethel ulders. Chronic appearing rib deformities noted. No pneumothorax. Underlying COPD noted. Heart size n ormal. Right basilar infiltrate noted. IMPRESSION: On right basilar atelectasis or infiltrate. 2. The NG tube is seen only to the level the distal esophagus. Correlate for positioning.
[2019-07-20 16:17] VITALS: BMI 23.6
[2019-07-20] MEDS: ONDANSETRON 4 MG/2 ML VIAL IVP PRN (18:00)
--- NOTE | 2019-07-21 13:58 | P.GSHP ---
History of Present Illness H&P Date: 07/21/19 Chief Complaint: Decreased ostomy output CHIEF COMPLAINT: Decreased ostomy output HISTORY OF PRESENT ILLNESS: 83-year-old female known to surgical services due to hospitalization January 2019. Patient underwent sigmoid colectomy with end colostomy secondary to sigmoid colon perforation. Patient was recently hospitalized in June 2018 with small bowel obstruction that resolved with conservative management. Patient presented to the emergency room with a chief complaint of decreased ostomy output. Patient reports she has not noticed much stool from her ostomy for the last 24-48 hours. She also reports nausea and vomiting. PAST MEDICAL HISTORY: See list. PAST SURGICAL HISTORY: See list. SOCIAL HISTORY: No illicit drug use. REVIEW OF SYSTEMS: CONSTITUTIONAL: Denies fever or chills. HEENT: Denies blurred vision, vision changes, or eye pain. Denies hemoptysis CARDIOVASCULAR: Denies chest pain or pressure. RESPIRATORY: No shortness of breath. GASTROINTESTINAL: Refer to HPI for pertinent findings HEMATOLOGIC: Denies bleeding disorders. GENITOURINARY: Denies any blood in urine. SKIN: Denies pruitis. Denies rash. PHYSICAL EXAM: VITAL SIGNS: Reviewed. GENERAL: Well-developed in no acute distress. HEENT: NG to LIS with feculent output. No sclera icterus. Extraocular movements grossly intact. Moist buccal mucosa. Head is atraumatic, normocephalic. ABDOMEN: Soft. Nondistended. Nontender. Ostomy noted a small amount of stool. NEUROLOGIC: Alert and oriented. Cranial nerves II through XII grossly intact. LABORATORY DATA: WBC 8.5. Hemoglobin 13.0. Platelet count 331. IMAGING: Abdominal x-ray: Dilated small bowel loops with air-fluid levels correlate for follow obstruction. ASSESSMENT: 1. Bowel obstruction 2. History of small bowel obstruction, resolved with conservative management, O ctober 2018 3. History of sigmoid colectomy with end colostomy secondary to sigmoid colon perforation, January 2019 PLAN: 1. Continue NG to LIS 2. NPO except for ice chips 3. No surgical intervention recommended at this time. Patient with ostomy output upon evaluation. Continue with conservative management. Nurse practitioner note has been reviewed by physician. Signing provider agrees with the documented findings, assessment, and plan of care. Past Medical History Past Medical History: Cancer, GERD/Reflux, Hypertension, Osteoarthritis (OA), Skin Disorder, Thyroid Disorder Additional Past Medical History / Comment(s): Pt recently admitted to [facility] on 06/20/19 with SBO. Other hx: R breast cancer with lumpectomy, skin cancer removed from leg, generalized arthritis, hypothyroid, diverticular disease with rupture/colostomy, rosacea. History of Any Multi-Drug Resistant Organisms: None Reported Past Surgical History: Bowel Resection, Breast Surgery, Hernia Repair, Joint Replacement Additional Past Surgical History / Comment(s): 01/2019 sigmoid resection with colostomy, colonoscopies, R breast biopsy/lumpectomy, skin cancer removal, bilateral total knee arthroplasties, bilateral inguinal hernia repairs, partial thyroidectomy, bilateral cataract removals. Past Anesthesia/Blood Transfusion Reactions: Motion Sickness, Postoperative Nausea & Vomiting (PONV) Smoking Status: Never smoker - Past Family History Mother Family Medical History: Osteoarthritis (OA) Additional Family Medical History / Comment(s): at age 85 Father Additional Family Medical History / Comment(s): Pt believes father may have in war-they were never informed officially. Medications and Allergies Home Medications Medication Instructions Recorded Confirmed Type Levothyroxine Sodium [Unithroid] 150 mcg PO DAILY 08/19/16 07/20/19 History Losartan [Cozaar] 50 mg PO HS 08/19/16 07/20/19 History Multivitamins, Thera [Multivitamin 1 tab PO HS 08/19/16 07/20/19 History (formulary)] Letrozole 2.5 mg PO DAILY 01/26/19 07/20/19 History Calcium Carbonate 500 mg PO HS 06/20/19 07/20/19 History [place]-3 Fatty Acids/Fish Oil [Fish 1 cap PO HS 06/20/19 07/20/19 History Oil 1,000 mg Softgel] Pantoprazole Sodium [Protonix] 40 mg PO HS 07/20/19 07/20/19 History Allergies Allergy/AdvReac Type Severity Reaction Status Date / Time codeine AdvReac Nausea & Verified 07/20/19 11:53 Vomiting narcotics AdvReac Mild Nausea & Uncoded 07/20/19 09:23 Vomiting Surgical - Exam Vital Signs Temp Pulse Resp BP Pulse Ox 97.7 F 97 18 126/79 95 07/20/19 09:20 07/20/19 09:20 07/20/19 09:20 07/20/19 09:20 07/20/19 09:20 Results - Labs 07/20/19 10:04 07/20/19 10:04
[2019-07-21] MEDS: SODIUM CHLORIDE 0.9% 1,000 ML IV SCH (18:59)
[2019-07-22] MEDS: SODIUM CHLORIDE 0.9% 1,000 ML IV SCH ×2 (05:25→19:00)
--- NOTE | 2019-07-22 10:46 | P.PN ---
Progress Note - Text Progress Note Date: 07/22/19 The patient feels better today. She has minimal complaint pain. It appears that her intermittent partial small bowel obstruction has improved. There is some gas in her colostomy bag. On exam her vital signs are stable. Her abdomen soft. There is some gas and stool in the colostomy bag. Resolving partial small bowel obstruction. Patient will have her colostomy reversed by Dr. Whaley next week.
[2019-07-22] MEDS: LETROZOLE 2.5 MG TAB PO SCH (11:27)
[2019-07-22] MEDS: CALCIUM CARBONATE 500 MG CHEWABLE PO SCH (20:38)
[2019-07-22] MEDS: PANTOPRAZOLE 40 MG TABLET PO SCH (20:39)
[2019-07-22] MEDS: MULTIVITAMINS, THERA 1 EACH TAB PO SCH (20:39)
[2019-07-22] MEDS: LOSARTAN 50 MG TAB PO SCH (20:39)
[2019-07-22] MEDS ORDERED: NON FORMULARY DRUG (Omega-3 Fatty Acids/Fish Oil [Fish Oil 1,000 Mg Softgel] 1 CAP) PO SCH (21:00)
[2019-07-23] MEDS: LEVOTHYROXINE 75 MCG TAB PO SCH (05:33)
--- NOTE | 2019-07-23 10:08 | P.PN ---
Progress Note - Text Progress Note Date: 07/23/19 The patient feels well today. She's had no further signs of a bowel obstruction. Her colostomy dysfunction. On exam her vital signs are stable. Her abdomen soft. Patient wishes to have her colostomy reversed. She will discuss this with Dr. Whaley tomorrow. She'll have her diet advanced.
[2019-07-23] MEDS: LETROZOLE 2.5 MG TAB PO SCH (11:54)
[2019-07-23] MEDS: SODIUM CHLORIDE 0.9% 1,000 ML IV SCH ×2 (18:46→19:55)
[2019-07-23] MEDS: MULTIVITAMINS, THERA 1 EACH TAB PO SCH (19:55)
[2019-07-23] MEDS: LOSARTAN 50 MG TAB PO SCH (19:55)
[2019-07-23] MEDS: CALCIUM CARBONATE 500 MG CHEWABLE PO SCH (19:55)
[2019-07-23] MEDS: PANTOPRAZOLE 40 MG TABLET PO SCH (19:55)
[2019-07-23] MEDS ORDERED: LORazepam 2 MG/ML INJ IV ONE (23:48)
[2019-07-24] MEDS: LEVOTHYROXINE 75 MCG TAB PO SCH (05:35)
[2019-07-24] MEDS: LETROZOLE 2.5 MG TAB PO SCH (09:04)
--- NOTE | 2019-07-24 13:10 | P.PN ---
Subjective Progress Note Date: 07/24/19 CHIEF COMPLAINT: Decreased ostomy output HISTORY OF PRESENT ILLNESS: Patient examined this morning at the bedside. She denies abdominal pain. Tolerating diet without nausea or vomiting. Ostomy with stool noted. Vital signs stable. She is afebrile. PHYSICAL EXAM: VITAL SIGNS: Reviewed. GENERAL: Well-developed in no acute distress. HEENT: No sclera icterus. Extraocular movements grossly intact. Moist buccal mucosa. Head is atraumatic, normocephalic. ABDOMEN: Soft. Nondistended. Nontender. Ostomy with stool noted. NEUROLOGIC: Alert and oriented. Cranial nerves II through XII grossly intact. ASSESSMENT: 1. Possible bowel obstruction, clinically resolving 2. History of small bowel obstruction, resolved with conservative management, June 2019 3. History of sigmoid colectomy with end colostomy secondary to sigmoid colon perforation, January 2019 PLAN: Continue diet as tolerated Patient requesting to have colostomy reversed during this admission. Spoke with Dr. Perry regarding patient wishes. He will evaluate patient today and make further recommendations Nurse practitioner note has been reviewed by physician. Signing provider agrees with the documented findings, assessment, and plan of care. Objective - Vital Signs Vital signs: Vital Signs Temp 98.2 F 07/24/19 07:00 Pulse 70 07/24/19 07:00 Resp 16 07/24/19 07:00 BP 123/66 07/24/19 07:00 Pulse Ox 96 07/24/19 07:00 Intake & Output 07/23/19 07/24/19 07/24/19 18:59 06:59 18:59 Intake Total 1112 40 Balance 1112 40 Intake: Intake, IV Titration 525 Amount Sodium Chloride 0.9% 1, 525 000 ml @ 75 mls/hr IV . [id number] [facility] Rx#:[id number] Oral 587 40 Other: Voiding Method Toilet # Voids 1 - Labs CBC & Chem 7: 07/20/19 10:04 07/20/19 10:04
[2019-07-24] MEDS ORDERED: MAGNESIUM CITRATE 296 ML BOTTLE PO ONE (17:18)
[2019-07-24] MEDS: SODIUM CHLORIDE 0.9% 1,000 ML IV SCH (17:31)
[2019-07-24] MEDS: CALCIUM CARBONATE 500 MG CHEWABLE PO SCH (20:11)
[2019-07-24] MEDS: MULTIVITAMINS, THERA 1 EACH TAB PO SCH (20:11)
[2019-07-24] MEDS: LOSARTAN 50 MG TAB PO SCH (20:11)
[2019-07-24] MEDS: PANTOPRAZOLE 40 MG TABLET PO SCH (20:11)
[2019-07-25] MEDS: SODIUM CHLORIDE 0.9% 1,000 ML IV SCH ×2 (00:21→11:32)
[2019-07-25] MEDS: LEVOTHYROXINE 75 MCG TAB PO SCH (06:24)
[2019-07-25] MEDS: LETROZOLE 2.5 MG TAB PO SCH (08:38)
[2019-07-25] MEDS ORDERED: PEG 3350-NA SULF,BICARB,CL/KCL 4,000 ML BOTTLE PO ONE (12:00)
--- NOTE | 2019-07-25 13:10 | P.PN ---
<Rachelle Eldridge - Last Filed: 07/25/19 13:08> Subjective Progress Note Date: 07/25/19 CHIEF COMPLAINT: Decreased ostomy output HISTORY OF PRESENT ILLNESS: Patient examined this morning at the bedside. She denies abdominal pain. Tolerating diet without nausea or vomiting. Ostomy with stool noted. Vital signs stable. She is afebrile. PHYSICAL EXAM: VITAL SIGNS: Reviewed. GENERAL: Well-developed in no acute distress. HEENT: No sclera icterus. Extraocular movements grossly intact. Moist buccal mucosa. Head is atraumatic, normocephalic. ABDOMEN: Soft. Nondistended. Nontender. Ostomy with stool noted. NEUROLOGIC: Alert and oriented. Cranial nerves II through XII grossly intact. ASSESSMENT: 1. Possible bowel obstruction, clinically resolving 2. History of small bowel obstruction, resolved with conservative management, June 2019 3. History of sigmoid colectomy with end colostomy secondary to sigmoid colon perforation, January 2019 PLAN: Continue clear liquid diet. Patient to undergo GoLYTELY bowel prep today. Colonoscopy scheduled for tomorrow, 07/26/2019 Patient to undergo exploratory laparotomy with colostomy reversal and repair of parastomal hernia on 07/27/2019 Nurse practitioner note has been reviewed by physician. Signing provider agrees with the documented findings, assessment, and plan of care. Objective - Vital Signs Vital signs: Vital Signs Temp 98.9 F 07/25/19 07:00 Pulse 70 07/25/19 07:00 Resp 16 07/25/19 07:00 BP 110/70 07/25/19 07:00 Pulse Ox 95 07/25/19 07:00 Intake & Output 07/24/19 07/25/19 07/25/19 18:59 06:59 18:59 Intake Total 600 Balance 600 Weight 56.699 kg Intake: IV 600 Sodium Chloride 0.9% 1, 600 000 ml @ 75 mls/hr IV . [id number] [facility] Rx#:[id number] Other: Voiding Method Toilet # Voids 3 2 - Labs CBC & Chem 7: 07/20/19 10:04 07/20/19 10:04 <Rivas Perry - Last Filed: 07/25/19 13:17> Subjective As above. Patient doing well with her prep was far. No pain. Loose stools starting through the ostomy. Continue bowel prep. We'll proceed with colonoscopy tomorrow and plan exploratory laparotomy with reversal on . Objective - Vital Signs Vital signs: Vital Signs Temp 98.9 F 07/25/19 07:00 Pulse 70 07/25/19 07:00 Resp 16 07/25/19 07:00 BP 110/70 07/25/19 07:00 Pulse Ox 95 07/25/19 07:00 Intake & Output 07/24/19 07/25/19 07/25/19 18:59 06:59 18:59 Intake Total 600 Balance 600 Weight 56.699 kg Intake: IV 600 Sodium Chloride 0.9% 1, 600 000 ml @ 75 mls/hr IV . [id number] [facility] Rx#:[id number] Other: Voiding Method Toilet # Voids 3 2 - Labs CBC & Chem 7: 07/20/19 10:04 07/20/19 10:04
[2019-07-25] MEDS: PANTOPRAZOLE 40 MG TABLET PO SCH (21:49)
[2019-07-25] MEDS: CALCIUM CARBONATE 500 MG CHEWABLE PO SCH (21:49)
[2019-07-25] MEDS: LOSARTAN 50 MG TAB PO SCH (21:49)
[2019-07-25] MEDS: MULTIVITAMINS, THERA 1 EACH TAB PO SCH (21:49)
[2019-07-26] MEDS: SODIUM CHLORIDE 0.9% 1,000 ML IV SCH ×2 (02:56→19:47)
[2019-07-26] MEDS: LEVOTHYROXINE 75 MCG TAB PO SCH (05:25)
[2019-07-26] MEDS: LETROZOLE 2.5 MG TAB PO SCH (08:08)
[2019-07-26] MEDS ORDERED: PROPOFOL 10 MG/ML 20 ML VIAL IV ONE (11:37)
[2019-07-26] MEDS ORDERED: LIDOCAINE 1% INJ 10MG/ML (20 ML MDV) ONE (11:37)
[2019-07-26] MEDS ORDERED: LACTATED RINGERS 1,000 ML IV ONE (11:43)
[2019-07-26] MEDS ORDERED: ACETAMINOPHEN TAB 500 MG TAB PO ONE (12:10)
[2019-07-26] MEDS ORDERED: Antibiotics per Pharmacy 1 EACH MISC MISCELLANE PRN (12:10)
[2019-07-26] MEDS ORDERED: ALVIMOPAN 12 MG CAPSULE PO ONE (12:10)
--- NOTE | 2019-07-26 12:12 | P.PCN ---
Date of Procedure: 07/26/19 Procedure(s) Performed: PREOPERATIVE DIAGNOSIS: Diverticulitis, colonic obstruction POSTOPERATIVE DIAGNOSIS: Normal exam PROCEDURE: Colonoscopy ANESTHESIA: MAC SURGEON: Rivas Perry M.D. SPECIMENS: None ENDOSCOPIC PROCEDURE: The patient was placed on the endoscopy table in the left decubitus position. The Olympus colonoscope was inserted into the anus and passed under direct visualization to the proximal rectum. There was some retained stool throughout the rectum that was evacuated. No abnormalities were seen. The scope was then advanced into the ostomy and passed to the base of the cecum. The appendiceal orifice was visualized. From that point the scope was slowly withdrawn inspecting all surfaces carefully. There were no neoplastic inflammatory or polypoid lesions throughout the cecum, ascending, transverse, descending, or proximal sigmoid colon. Minimal diverticulosis was seen. The patient was taken to the recovery room in stable condition per anesthesia guidelines. RECOMMENDATIONS: Will proceed with exploratory laparotomy and planned colostomy reversal tomorrow.
[2019-07-26] MEDS ORDERED: metroNIDAZOLE-NS PMX 500 MG in SALINE 1 100ML.BAG IVPB STA (12:15)
[2019-07-26 12:45] LABS: Glucose,Whole Blood 85 mg/dL (75-99)
[2019-07-26] MEDS: NEOMYCIN 500 MG TAB PO SCH ×3 (14:41→20:06)
[2019-07-26] MEDS: metroNIDAZOLE 500 MG TAB PO SCH ×3 (14:41→20:06)
[2019-07-26] MEDS: MULTIVITAMINS, THERA 1 EACH TAB PO SCH (20:04)
[2019-07-26] MEDS: LOSARTAN 50 MG TAB PO SCH (20:05)
[2019-07-26] MEDS: CALCIUM CARBONATE 500 MG CHEWABLE PO SCH (20:06)
[2019-07-26] MEDS: PANTOPRAZOLE 40 MG TABLET PO SCH (20:06)
[2019-07-26] MEDS: LACTATED RINGERS 1,000 ML IV SCH (20:16)
[2019-07-27] MEDS: BENZOCAINE/MENTHOL LOZENG 1 EACH LOZENGE MUCOUS MEM PRN (00:43)
[2019-07-27] MEDS: SODIUM CHLORIDE 0.9% 1,000 ML IV SCH ×2 (04:01→22:26)
[2019-07-27] MEDS: LEVOTHYROXINE 75 MCG TAB PO SCH (06:07)
[2019-07-27] MEDS: LETROZOLE 2.5 MG TAB PO SCH (10:11)
[2019-07-27] MEDS: LACTATED RINGERS 1,000 ML IV SCH ×2 (13:42→15:47)
[2019-07-27] MEDS: ONDANSETRON 4 MG/2 ML VIAL IVP PRN (13:42)
[2019-07-27] MEDS ORDERED: MIDAZOLAM 2 MG/2 ML VIAL IV ONE (14:02)
[2019-07-27] MEDS ORDERED: metroNIDAZOLE-NS PMX 500 MG in SALINE 1 100ML.BAG IVPB STA (14:05)
[2019-07-27] MEDS ORDERED: NALOXONE 0.4 MG/ML 1 ML VIAL IV PRN (14:28)
[2019-07-27] MEDS ORDERED: PHENYLEPHRINE-0.9% NACL SYG 1 MG/10 ML SYRINGE ONE (15:45)
[2019-07-27] MEDS ORDERED: ALVIMOPAN 12 MG CAPSULE PO ONE (15:45)
[2019-07-27] MEDS ORDERED: LIDOCAINE 1% INJ 10MG/ML (20 ML MDV) ONE (15:45)
[2019-07-27] MEDS ORDERED: HEPARIN SODIUM,PORCINE 5,000 UNIT/ML 1 ML VIAL SQ ONE (15:45)
[2019-07-27] MEDS ORDERED: ROCURONIUM BROMIDE 10 MG/ML 10 ML VIAL IV ONE (15:45)
[2019-07-27] MEDS ORDERED: PROPOFOL 10 MG/ML 20 ML VIAL IV ONE (15:45)
[2019-07-27] MEDS ORDERED: LACTATED RINGERS 1,000 ML IV ONE ×3 (17:00→18:34)
[2019-07-27] MEDS: SODIUM CHLORIDE 0.9% EPIDURAL PRN ×2 (20:34→20:56)
[2019-07-27] MEDS: ROPIVACAINE EPIDURAL PRN ×2 (20:34→20:56)
--- NOTE | 2019-07-27 20:56 | P.OP ---
Date of Procedure: 07/27/19 Procedure(s) Performed: PREOPERATIVE DIAGNOSIS: Diverticulitis, partial small bowel obstruction, parastomal hernia POSTOPERATIVE DIAGNOSIS: Same, severe intra-abdominal adhesions PROCEDURE: Colostomy reversal, repair of stomal hernia, mobilization splenic flexure, extensive lysis of adhesions, biopsy of mesenteric nodule SURGEON: Vicky EBL: 100 mL ANESTHESIA: General COMPLICATIONS: None OPERATIVE PROCEDURE: Patient was placed on the operative table in the supine position. The patient was placed under general anesthesia. The patient was then placed in lithotomy. The abdomen was prepped and draped sterilely. At that time a vertical incision was made using a scalpel through the previous midline incision. The incision was lengthened superiorly and also inferiorly. Adhesions present throughout the peritoneal cavity. Some of the adhesions were present immediately beneath the fascia. We encountered 2-3 serosal tears that were repaired using interrupted 3-0 GI silk Lambert sutures. Lysis of Adhesions took place fully and in doing so 2 separate areas of suspected partial small bowel obstruction were seen one distally and one more proximally adjacent to the stomal hernia. In one area there was some thickening of the mesentery and a small portion of the scar tissue present there was sent to pathology to rule out neoplasia. Once we were done lysing adhesions no further suspicion for partial small bowel obstruction was seen. Dissection then took place around the descending colon where it entered the abdominal wall. The bowel was divided there using a linear stapler. The mesentery was divided using LigaSure device. We did not have enough length to reach the pelvis. The left colon was fully mobilized including the splenic flexure all the way to the mid transverse colon. The distal sigmoid colon was then mobilized using both 0 silk ties and the LigaSure device. The rectum was divided proximally using the contour stapler. The left colon was then again inspected and we still did not have enough room to reach the pelvis. For that reason the left colic artery and vein were divided as that was the point holding us from reaching the pelvis. As we monitored the bowel at that time we will noted that the distal aspect of the mobilized colon became somewhat ischemic appearing. A demarcation point was seen after we waited some time. A small colotomy was then made distally in the site of ischemic colon. The 25 EEA anvil was advanced into the lumen of the bowel at that location. This was milked proximally. 25 EEA was chosen after we used a sizer in the rectum and brought this up to the proximal staple line. It was noted that the rectum was somewhat narrowed which was consistent with our recent colonoscopy findings. The colon was then divided proximal to the demarcation point using a linear stapler. The 25 anvil was brought out adjacent to the staple line. A 3-0 GI silk pursestring was placed at that location. We then brought the stapler up to the staple line at the rectal stump. The obturator was brought out adjacent to the staple line and the 2 portions of the stapler were connected to one another tightened and subsequent fired. The bowel was clamped proximal to the anastomosis. The abdomen was irrigated with saline. The liver, stomach, visualized colon, and small bowel appeared normal. The midline fascia was then reapproximated using 3 separate double-stranded #1 PDS sutures. The subcutaneous tissues were closed using 2-0 Vicryl sutures. The skin was then closed using gerson. The colostomy site was then addressed after we had a sterile dressing over the midline incision. An elliptical incision was made around the colostomy. Dissection through the subcutaneous fat took place using electrocautery. The patient had a moderate-sized parastomal hernia. Entrance into the peritoneal cavity took place through the hernia sac. The stoma was fully excised. The fascia was then reapproximated horizontally using [id number] #1 Vicryl sutures. The subcutaneous tissues were closed using 2-0 Vicryl sutures. The skin was closed using gerson. Sterile dressings were then applied. DISPOSITION: Stable to recovery room
[2019-07-27] MEDS: MULTIVITAMINS, THERA 1 EACH TAB PO SCH (22:23)
[2019-07-27] MEDS: CALCIUM CARBONATE 500 MG CHEWABLE PO SCH (22:23)
[2019-07-27] MEDS: FAMOTIDINE 20 MG/2 ML VIAL IV SCH (22:23)
[2019-07-27] MEDS: PANTOPRAZOLE 40 MG TABLET PO SCH (22:23)
[2019-07-27] MEDS: LOSARTAN 50 MG TAB PO SCH (22:23)
[2019-07-27] MEDS: HEPARIN SODIUM,PORCINE 5,000 UNIT/ML 1 ML VIAL SQ SCH (22:24)
[2019-07-27] MEDS: HYDROmorphone 0.5 MG/0.5 ML SYRINGE IVP PRN (23:09)
[2019-07-28] MEDS: HYDROmorphone 0.5 MG/0.5 ML SYRINGE IVP PRN ×4 (02:19→23:11)
[2019-07-28] MEDS: ONDANSETRON 4 MG/2 ML VIAL IVP PRN (02:19)
[2019-07-28] MEDS: LEVOTHYROXINE 75 MCG TAB PO SCH (05:55)
[2019-07-28 07:43] LABS: African American GFR (CKD) >90 (>60 ml/min/1.73 sqM); Anion Gap 9 mmol/L; Blood Urea Nitrogen 14 mg/dL (7-17); Calcium 8.6 mg/dL (8.4-10.2); Carbon Dioxide 23 mmol/L (22-30); Chloride 108 mmol/L (98-107); Glucose 163 mg/dL (74-99); Non-African American GFR(CKD) 85 (>60 ml/min/1.73 sqM); Sodium 140 mmol/L (137-145)
[2019-07-28 07:46] LABS: Basophils % (A) 0 %; Eosinophils % (A) 0 %; HCT 37.4 % (34.0-46.0); HGB 12.1 gm/dL (11.4-16.0); Lymphocytes % (A) 6 %; MCH 27.7 pg (25.0-35.0); MCHC 32.3 g/dL (31.0-37.0); MCV 85.7 fL (80.0-100.0); Mean Platelet Volume 6.4; Monocytes # (A) 0.7 k/uL (0-1.0); Monocytes % (A) 4 %; Neutrophils # (A) 14.1 k/uL (1.3-7.7); Neutrophils % (A) 89 %; Platelet Count 300 k/uL (150-450); RBC 4.37 m/uL (3.80-5.40); RDW 13.8 % (11.5-15.5); WBC 15.9 k/uL (3.8-10.6)
--- NOTE | 2019-07-28 07:49 | P.PN ---
Progress Note - Text Progress Note Date: 07/28/19 Anesthesia 83-year-old female status post Colostomy reversal, repair of stoma hernia postop day #1, epidural catheter day #2. VAS today is between a 2-4-10 in severity. Solution is ropivacaine 0.12% with no opiates. Pain is mostly in the proximal part incision is well as discomfort with abdominal binder. No motor sensory deficits apparent. Unable to assess catheter site as the patient had abdominal binder. Denies any back pain. Patient has not ambulated yet. Plan is to continue epidural at current rate of 10 ML's an hour.
[2019-07-28] MEDS: FAMOTIDINE 20 MG/2 ML VIAL IV SCH ×2 (09:35→20:28)
[2019-07-28] MEDS: ALVIMOPAN 12 MG CAPSULE PO SCH ×2 (09:36→20:29)
[2019-07-28] MEDS: HEPARIN SODIUM,PORCINE 5,000 UNIT/ML 1 ML VIAL SQ SCH ×3 (09:36→23:11)
[2019-07-28] MEDS: LETROZOLE 2.5 MG TAB PO SCH (09:36)
[2019-07-28] MEDS: SODIUM CHLORIDE 0.9% 1,000 ML IV SCH ×2 (09:36→20:37)
--- NOTE | 2019-07-28 11:21 | P.PN ---
<Rachelle Eldridge Britni - Last Filed: 07/28/19 11:16> Subjective Progress Note Date: 07/28/19 CHIEF COMPLAINT: Decreased ostomy output HISTORY OF PRESENT ILLNESS: Patient is status post colostomy reversal, repair of stomal hernia, mobilization of splenic flexure, extensive lysis of adhesions and biopsy of mesenteric nodule. Postop day #1. Patient examined this morning. Family at the bedside. Patient is sitting up in the chair. She reports working with physical therapy this morning and felt dizzy but it has since resolved since she has been sitting in the chair. She is tolerating clear liquid diet. Denies nausea or vomiting. She is having multiple loose bowel movements this morning. She reports having abdominal discomfort this morning secondary to abdominal binder. Abdominal binder has been removed and patient states her pain has resolved. Epidural is infusing at 10 mL an hour. PHYSICAL EXAM: VITAL SIGNS: Reviewed. GENERAL: Well-developed in no acute distress. HEENT: No sclera icterus. Extraocular movements grossly intact. Moist buccal mucosa. Head is atraumatic, normocephalic. ABDOMEN: Soft. Nondistended. Appropriate surgical tenderness. Dressing clean dry and intact. NEUROLOGIC: Alert and oriented. Cranial nerves II through XII grossly intact. ASSESSMENT: 1. Possible bowel obstruction, resolved 2. History of small bowel obstruction, resolved with conservative management, June 2019 3. 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 Status post colostomy reversal, repair of stomal hernia, mobilization of splenic flexure, extensive lysis of adhesions and biopsy of mesenteric nodule PLAN: Continue ropivacaine epidural. Discontinue postoperative day #3. Patient receiving IV Dilaudid for pain control. Will add [place] PRN and Tylenol PRN. Continue Dunne catheter while epidural is in place Increase activity as tolerated. PT/OT on consult Incentive spirometer 10 times an hour Advance diet to full liquids Nurse practitioner note has been reviewed by physician. Signing provider agrees with the documented findings, assessment, and plan of care. Objective - Vital Signs Vital signs: Vital Signs Temp 98.1 F 07/28/19 07:00 Pulse 94 07/28/19 07:00 Resp 16 07/28/19 07:00 BP 115/64 07/28/19 07:36 Pulse Ox 98 07/28/19 07:00 Intake & Output 07/27/19 07/28/1907/28/19 18:59 06:59 18:59 Intake Total 2150 812.75 Output Total 1050 Balance 2150 -237.25 Weight 56.699 kg Intake: IV 2150 785 Intake, IV Titration 27.75 Amount Ropivacaine 300 mg In 27.75 Sodium Chloride 0.9% 190 ml @ Per Protocol EPIDURAL .Q0M PRN Rx#: [id number] Output: Urine 950 Estimated Blood Loss 100 Other: Voiding Method Toilet Indwelling Catheter # Bowel Movements 1 1 - Labs CBC & Chem 7: 07/28/19 07:04 07/28/19 07:04 Labs: Abnormal Lab Results - Last 24 Hours (Table) 07/28/19 07/28/19 Range/Units 07:04 07:04 WBC 15.9 H (3.8-10.6) k/uL Neutrophils # 14.1 H (1.3-7.7) k/uL Chloride 108 H (98-107) mmol/L Glucose 163 H (74-99) mg/dL <Rivas Perry - Last Filed: 07/28/19 14:27> Subjective As above. Patient's pain is improved although was worse earlier today. Dressings clean and dry. She is having loose stools. Continue epidural and Dunne catheter. Continue full liquids. Objective - Vital Signs Vital signs: Vital Signs Temp 98.1 F 07/28/19 07:00 Pulse 94 07/28/19 07:00 Resp 16 07/28/19 08:10 BP 115/64 07/28/19 07:36 Pulse Ox 98 07/28/19 11:37 Intake & Output 07/27/19 07/28/19 07/28/19 18:59 06:59 18:59 Intake Total 2150 812.75 Output Total 1050 Balance 2150 -237.25 Weight 56.699 kg Intake: IV 2150 785 Intake, IV Titration 27.75 Amount Ropivacaine 300 mg In 27.75 Sodium Chloride 0.9% 190 ml @ Per Protocol EPIDURAL .Q0M PRN Rx#: [id number] Output: Urine 950 Estimated Blood Loss 100 Other: Voiding Method Toilet Indwelling Catheter Indwelling Catheter # Bowel Movements 1 1 - Labs CBC & Chem 7: 07/28/19 07:04 07/28/19 07:04 Labs: Abnormal Lab Results - Last 24 Hours (Table) 07/28/19 07/28/19 Range/Units 07:04 07:04 WBC 15.9 H (3.8-10.6) k/uL Neutrophils # 14.1 H (1.3-7.7) k/uL Chloride 108 H (98-107) mmol/L Glucose 163 H (74-99) mg/dL
[2019-07-28] MEDS: SODIUM CHLORIDE 0.9% EPIDURAL PRN (14:57)
[2019-07-28] MEDS: ROPIVACAINE EPIDURAL PRN (14:57)
[2019-07-28] MEDS: ACETAMINOPHEN TAB 325 MG TAB PO PRN (17:35)
[2019-07-28] MEDS: LACTATED RINGERS 1,000 ML IV SCH (18:58)
[2019-07-28] MEDS: MULTIVITAMINS, THERA 1 EACH TAB PO SCH (20:28)
[2019-07-28] MEDS: CALCIUM CARBONATE 500 MG CHEWABLE PO SCH (20:28)
[2019-07-28] MEDS: LOSARTAN 50 MG TAB PO SCH (20:29)
[2019-07-29] MEDS: HYDROcodone/APAP 5-325MG 1 EACH TAB PO PRN ×3 (06:06→17:00)
[2019-07-29] MEDS: LEVOTHYROXINE 75 MCG TAB PO SCH ×2 (06:06→23:40)
[2019-07-29] MEDS: SODIUM CHLORIDE 0.9% 1,000 ML IV SCH ×2 (06:08→20:34)
[2019-07-29 06:58] LABS: Basophils % (A) 0 %; Eosinophils % (A) 0 %; HGB 10.8 gm/dL (11.4-16.0); Lymphocytes # (A) 1.6 k/uL (1.0-4.8); Lymphocytes % (A) 15 %; MCH 28.5 pg (25.0-35.0); MCHC 33.6 g/dL (31.0-37.0); MCV 84.8 fL (80.0-100.0); Mean Platelet Volume 6.1; Monocytes # (A) 0.5 k/uL (0-1.0); Monocytes % (A) 4 %; Neutrophils # (A) 8.7 k/uL (1.3-7.7); Neutrophils % (A) 80 %; Platelet Count 273 k/uL (150-450); RBC 3.78 m/uL (3.80-5.40); RDW 13.9 % (11.5-15.5); WBC 10.9 k/uL (3.8-10.6)
[2019-07-29 07:09] LABS: African American GFR (CKD) >90 (>60 ml/min/1.73 sqM); Anion Gap 3 mmol/L; Blood Urea Nitrogen 11 mg/dL (7-17); Calcium 9.3 mg/dL (8.4-10.2); Carbon Dioxide 25 mmol/L (22-30); Chloride 111 mmol/L (98-107); Glucose 109 mg/dL (74-99); Non-African American GFR(CKD) 89 (>60 ml/min/1.73 sqM); Potassium 3.6 mmol/L (3.5-5.1); Sodium 139 mmol/L (137-145)
[2019-07-29] MEDS: FAMOTIDINE 20 MG/2 ML VIAL IV SCH (08:17)
[2019-07-29] MEDS: LETROZOLE 2.5 MG TAB PO SCH (08:18)
[2019-07-29] MEDS: HEPARIN SODIUM,PORCINE 5,000 UNIT/ML 1 ML VIAL SQ SCH ×3 (08:18→23:39)
--- NOTE | 2019-07-29 11:13 | P.PN ---
Subjective Progress Note Date: 07/29/19 Principal diagnosis: Small bowel obstruction, diverticulitis Patient sleeping this morning. Apparently she was very stressed last night about some of the in-laws visiting her . White blood cell count decreased at 10.9, hemoglobin 10.8. Tolerating liquids. Some loose stools. Objective - Vital Signs Vital signs: Vital Signs Temp 98.3 F 07/29/19 07:00 Pulse 98 07/29/19 07:00 Resp 17 07/29/19 07:00 BP 111/64 07/29/19 07:00 Pulse Ox 94 L 07/29/19 07:00 Intake & Output 07/28/19 07/29/19 07/29/19 18:59 06:59 18:59 Intake Total 69.75 Output Total 1300 Balance 69.75 -1300 Weight 56.699 kg Intake: Intake, IV Titration 69.75 Amount Ropivacaine 300 mg In 69.75 Sodium Chloride 0.9% 190 ml @ Per Protocol EPIDURAL .Q0M PRN Rx#: [id number] Output: Urine 1300 Other: Voiding Method Indwelling Catheter Indwelling Catheter Indwelling Catheter # Bowel Movements 1 - Exam Abdomen: Soft, nondistended, dressing clean and dry, mild tenderness - Labs CBC & Chem 7: 07/29/19 06:15 07/29/19 06:15 Labs: Abnormal Lab Results - Last 24 Hours (Table) 07/29/19 07/29/19 Range/Units 06:15 06:15 WBC 10.9 H (3.8-10.6) k/uL RBC 3.78 L (3.80-5.40) m/uL Hgb 10.8 L (11.4-16.0) gm/dL Hct 32.0 L (34.0-46.0) % Neutrophils # 8.7 H (1.3-7.7) k/uL Chloride 111 H (98-107) mmol/L Glucose 109 H (74-99) mg/dL Assessment and Plan (1) Bowel obstruction Narrative/Plan: Patient doing relatively well. We'll plan removing Dunne catheter and epidural tomorrow. Continue liquid diet. Crease activity. Current Visit: Yes Status: Acute Code(s): K56.609 - UNSP INTESTNL OBST, UNSP TO PARTIAL VERSUS COMPLETE OBST SNOMED Code(s): 61901267
[2019-07-29] MEDS: HYDROmorphone 0.5 MG/0.5 ML SYRINGE IVP PRN ×3 (14:14→21:36)
[2019-07-29] MEDS: ROPIVACAINE EPIDURAL PRN (14:16)
[2019-07-29] MEDS: SODIUM CHLORIDE 0.9% EPIDURAL PRN (14:16)
[2019-07-29] MEDS: ONDANSETRON 4 MG/2 ML VIAL IVP PRN (14:18)
--- NOTE | 2019-07-29 16:49 | P.PN ---
Progress Note - Text 07/29 0390 82-year-old female status post colostomy reversal by Dr. Perry. Patient has an epidural catheter for postop pain control with the solution running at 10 mL an hour. Patient has been passing gas and has had had a bowel movement. She is complaining of some pain in the upper abdomen but the incision seems to be fine. Plan to continue epidural and DC tomorrow morning
[2019-07-29] MEDS: FAMOTIDINE 20 MG TAB PO SCH (17:00)
[2019-07-29] MEDS: LACTATED RINGERS 1,000 ML IV SCH (17:04)
[2019-07-29] MEDS: LOSARTAN 50 MG TAB PO SCH (20:33)
[2019-07-29] MEDS: MULTIVITAMINS, THERA 1 EACH TAB PO SCH (20:33)
[2019-07-29] MEDS: CALCIUM CARBONATE 500 MG CHEWABLE PO SCH (20:33)
[2019-07-30] MEDS: HYDROmorphone 0.5 MG/0.5 ML SYRINGE IVP PRN ×2 (04:14→22:24)
[2019-07-30 06:39] LABS: Basophils % (A) 0 %; Eosinophils # (A) 0.1 k/uL (0-0.7); Eosinophils % (A) 2 %; HGB 9.5 gm/dL (11.4-16.0); Lymphocytes # (A) 1.2 k/uL (1.0-4.8); Lymphocytes % (A) 14 %; MCH 27.5 pg (25.0-35.0); MCHC 31.7 g/dL (31.0-37.0); MCV 86.8 fL (80.0-100.0); Mean Platelet Volume 6.6; Monocytes # (A) 0.4 k/uL (0-1.0); Monocytes % (A) 5 %; Neutrophils # (A) 6.6 k/uL (1.3-7.7); Neutrophils % (A) 79 %; Platelet Count 240 k/uL (150-450); RBC 3.46 m/uL (3.80-5.40); WBC 8.4 k/uL (3.8-10.6)
[2019-07-30] MEDS: LACTATED RINGERS 1,000 ML IV SCH (08:04)
[2019-07-30] MEDS: FAMOTIDINE 20 MG TAB PO SCH ×2 (08:07→19:50)
[2019-07-30] MEDS: SODIUM CHLORIDE 0.9% 1,000 ML IV SCH ×2 (08:07→21:29)
[2019-07-30] MEDS: HYDROcodone/APAP 5-325MG 1 EACH TAB PO PRN ×3 (08:08→21:30)
[2019-07-30] MEDS: HEPARIN SODIUM,PORCINE 5,000 UNIT/ML 1 ML VIAL SQ SCH ×2 (08:08→15:08)
[2019-07-30] MEDS: LETROZOLE 2.5 MG TAB PO SCH (08:08)
[2019-07-30] MEDS ORDERED: SIMETHICONE 80 MG CHEWABLE PO PRN (10:36)
--- NOTE | 2019-07-30 10:38 | P.PN ---
Subjective Progress Note Date: 07/30/19 Principal diagnosis: Small bowel obstruction, diverticulitis Patient complaining of some epigastric bloating pain. Pain is relieved by belching. No nausea or vomiting however. She did have another large loose stool last night. White blood cell count 8.4, hemoglobin 9.5. Objective - Vital Signs Vital signs: Vital Signs Temp 97.9 F 07/30/19 07:00 Pulse 73 07/30/19 07:00 Resp 17 07/30/19 07:00 BP 142/80 07/30/19 07:00 Pulse Ox 96 07/30/19 07:00 Intake & Output 07/29/19 07/30/19 07/30/19 18:59 06:59 18:59 Intake Total 763.167 200 Output Total 800 900 Balance -36.833 -900 200 Intake: Intake, IV Titration 233.167 Amount Ropivacaine 300 mg In 233.167 Sodium Chloride 0.9% 190 ml @ Per Protocol EPIDURAL .Q0M PRN Rx#: [id number] Oral 530 200 Output: Urine 800 900 Other: Voiding Method Indwelling Catheter Indwelling Catheter Indwelling Catheter # Voids 1 # Bowel Movements 1 - Exam Abdomen: Soft, mild distention, mild tenderness, dressings clean and dry - Labs CBC & Chem 7: 07/30/19 06:12 07/29/19 06:15 Labs: Abnormal Lab Results - Last 24 Hours (Table) 07/30/19 Range/Units 06:12 RBC 3.46 L (3.80-5.40) m/uL Hgb 9.5 L (11.4-16.0) gm/dL Hct 30.0 L (34.0-46.0) % Assessment and Plan (1) Bowel obstruction Narrative/Plan: We will back off on liquid diet to include ice chips, water, sips of noreen jacqui only. Add Mylicon. Ambulate. Suspect mild ileus. Current Visit: Yes Status: Acute Code(s): K56.609 - UNSP INTESTNL OBST, UNSP TO PARTIAL VERSUS COMPLETE OBST SNOMED Code(s): 61736845
[2019-07-30] MEDS: ROPIVACAINE EPIDURAL PRN (13:10)
[2019-07-30] MEDS: SODIUM CHLORIDE 0.9% EPIDURAL PRN (13:10)
--- NOTE | 2019-07-30 15:48 | P.PN ---
Progress Note - Text 07/30 1526 30-year-old female status post colostomy reversal by Dr. Perry. She has an epidural catheter for postop pain control with the solution running at 10 mL an hour, patient has a VAS of 4 no motor or sensory deficit noted. Plan to continue epidural infusion for another day as per for surgeon's request. Plan to DC epidural in a.m.
[2019-07-30] MEDS: MULTIVITAMINS, THERA 1 EACH TAB PO SCH (19:50)
[2019-07-30] MEDS: LOSARTAN 50 MG TAB PO SCH (19:50)
[2019-07-30] MEDS: CALCIUM CARBONATE 500 MG CHEWABLE PO SCH (19:50)
[2019-07-31] MEDS: HEPARIN SODIUM,PORCINE 5,000 UNIT/ML 1 ML VIAL SQ SCH ×4 (00:31→22:49)
[2019-07-31] MEDS: LEVOTHYROXINE 75 MCG TAB PO SCH (04:53)
[2019-07-31] MEDS: HYDROmorphone 0.5 MG/0.5 ML SYRINGE IVP PRN ×4 (04:56→22:21)
--- NOTE | 2019-07-31 07:15 | P.PN ---
Progress Note - Text 07/31 656am 83-year-old female status post colostomy reversal by Dr. Perry. Patient has an epidural catheter for postop for postop pain control with the solution running at 10 mL an hour with a VAS of 2. Patient has no motor or sensory deficit and she has been ambulating well. Plan to DC epidural nurse was informed
[2019-07-31] MEDS: LETROZOLE 2.5 MG TAB PO SCH (09:06)
[2019-07-31] MEDS: FAMOTIDINE 20 MG TAB PO SCH ×2 (09:06→20:06)
--- NOTE | 2019-07-31 11:50 | P.PN ---
<Rachelle Eldridge A - Last Filed: 07/31/19 11:48> Subjective Progress Note Date: 07/31/19 CHIEF COMPLAINT: Decreased ostomy output HISTORY OF PRESENT ILLNESS: Patient is status post colostomy reversal, repair of stomal hernia, mobilization of splenic flexure, extensive lysis of adhesions and biopsy of mesenteric nodule. Postop day #4. Patient examined this morning. Family at the bedside. Patient reports her abdominal pain and epigastric discomfort that she was experiencing yesterday has improved. She denies abdominal bloating this morning. She denies nausea or vomiting. She is tolerating some clear liquids. Passing flatus. She denies BM. She has been ambulating in the hallway. Vital signs stable. PHYSICAL EXAM: VITAL SIGNS: Reviewed. GENERAL: Well-developed in no acute distress. HEENT: No sclera icterus. Extraocular movements grossly intact. Moist buccal mucosa. Head is atraumatic, normocephalic. ABDOMEN: Soft. Nondistended. Appropriate surgical tenderness. Dressing clean dry and intact. NEUROLOGIC: Alert and oriented. Cranial nerves II through XII grossly intact. ASSESSMENT: 1. Possible bowel obstruction, resolved 2. History of small bowel obstruction, resolved with conservative management, June 2019 3. 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 Status post colostomy reversal, repair of stomal hernia, mobilization of splenic flexure, extensive lysis of adhesions and biopsy of mesenteric nodule PLAN: Discontinue epidural Discontinue galvan catheter Increase activity as tolerated. PT/OT on consult Incentive spirometer 10 times an hour Advance diet to full liquids Nurse practitioner note has been reviewed by physician. Signing provider agrees with the documented findings, assessment, and plan of care. Objective - Vital Signs Vital signs: Vital Signs Temp 98.3 F 07/31/19 07:00 Pulse 79 07/31/19 08:00 Resp 13 07/31/19 08:00 BP 121/65 07/31/19 07:00 Pulse Ox 97 07/31/19 07:00 Intake & Output 07/30/19 07/31/19 07/31/19 18:59 06:59 18:59 Intake Total 529 Output Total 1600 2600 Balance -1071 -2600 Weight 56.699 kg Intake: Intake, IV Titration 229 Amount Ropivacaine 300 mg In 229 Sodium Chloride 0.9% 190 ml @ Per Protocol EPIDURAL .Q0M PRN Rx#: [id number] Oral 300 Output: Urine 1600 2600 Other: Voiding Method Indwelling Catheter Indwelling Catheter Indwelling Catheter - Labs CBC & Chem 7: 07/30/19 06:12 07/29/19 06:15 <Rivas Perry - Last Filed: 07/31/19 16:09> Subjective As above. Patient having some crampy abdominal pain again today after epidural removed. We'll add Toradol to IV Dilaudid. Increase activity. Continue full liquid diet. Objective - Vital Signs Vital signs: Vital Signs Temp 98 F 07/31/19 15:00 Pulse 68 07/31/19 15:00 Resp 12 07/31/19 15:00 BP 162/72 07/31/19 15:00 Pulse Ox 94 L 07/31/19 15:00 Intake & Output 07/30/19 07/31/19 07/31/19 18:59 06:59 18:59 Intake Total 529 Output Total 1600 2600 Balance -1071 -2600 Weight 56.699 kg Intake: Intake, IV Titration 229 Amount Ropivacaine 300 mg In 229 Sodium Chloride 0.9% 190 ml @ Per Protocol EPIDURAL .Q0M PRN Rx#: [id number] Oral 300 Output: Urine 1600 2600 Other: Voiding Method Indwelling Catheter Indwelling Catheter Indwelling Catheter - Labs CBC & Chem 7: 07/30/19 06:12 07/29/19 06:15 Assessment and Plan (1) Bowel obstruction Current Visit: Yes Status: Acute Code(s): K56.609 - UNSP INTESTNL OBST, UNSP TO PARTIAL VERSUS COMPLETE OBST SNOMED Code(s): 90866329
[2019-07-31] MEDS: KETOROLAC 30 MG/ML 1 ML VIAL IVP SCH ×2 (17:00→22:51)
[2019-07-31] MEDS: SODIUM CHLORIDE 0.9% 1,000 ML IV SCH ×2 (20:02→22:50)
[2019-07-31] MEDS: LOSARTAN 50 MG TAB PO SCH (20:06)
[2019-07-31] MEDS: CALCIUM CARBONATE 500 MG CHEWABLE PO SCH (20:07)
[2019-07-31] MEDS: MULTIVITAMINS, THERA 1 EACH TAB PO SCH (20:07)
[2019-08-01] MEDS: KETOROLAC 30 MG/ML 1 ML VIAL IVP SCH ×4 (05:56→23:26)
[2019-08-01] MEDS: LEVOTHYROXINE 75 MCG TAB PO SCH (05:57)
[2019-08-01] MEDS: FAMOTIDINE 20 MG TAB PO SCH ×2 (07:53→19:57)
[2019-08-01] MEDS: HEPARIN SODIUM,PORCINE 5,000 UNIT/ML 1 ML VIAL SQ SCH ×3 (07:54→23:26)
[2019-08-01] MEDS: LETROZOLE 2.5 MG TAB PO SCH (07:55)
[2019-08-01] MEDS: HYDROcodone/APAP 5-325MG 1 EACH TAB PO PRN ×2 (08:01→15:10)
--- NOTE | 2019-08-01 12:17 | P.PN ---
<Rachelle Eldridge - Last Filed: 08/01/19 12:16> Subjective Progress Note Date: 08/01/19 CHIEF COMPLAINT: Decreased ostomy output HISTORY OF PRESENT ILLNESS: Patient is status post colostomy reversal, repair of stomal hernia, mobilization of splenic flexure, extensive lysis of adhesions and biopsy of mesenteric nodule. Postop day #5. Patient examined this morning. Family at the bedside. Patient reports improvement in upper abdominal pain. She does report some left lower quadrant discomfort this morning. She is passing flatus. Reports BM. She has been ambulating in the hallways. PHYSICAL EXAM: VITAL SIGNS: Reviewed. GENERAL: Well-developed in no acute distress. HEENT: No sclera icterus. Extraocular movements grossly intact. Moist buccal mucosa. Head is atraumatic, normocephalic. ABDOMEN: Soft. Nondistended. Appropriate surgical tenderness. Dressing clean dry and intact. NEUROLOGIC: Alert and oriented. Cranial nerves II through XII grossly intact. ASSESSMENT: 1. Possible bowel obstruction, resolved 2. History of small bowel obstruction, resolved with conservative management, June 2019 3. 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 Status post colostomy reversal, repair of stomal hernia, mobilization of splenic flexure, extensive lysis of adhesions and biopsy of mesenteric nodule PLAN: Continue full liquids at this time. Possible advancement this afternoon when she is re-evaluated by Dr. Perry Increase activity as tolerated. PT/OT on consult Incentive spirometer 10 times an hour Pain control Nurse practitioner note has been reviewed by physician. Signing provider agrees with the documented findings, assessment, and plan of care. Objective - Vital Signs Vital signs: Vital Signs Temp 98.8 F 08/01/19 07:58 Pulse 88 08/01/19 07:58 Resp 16 08/01/19 07:58 BP 145/85 08/01/19 07:58 Pulse Ox 96 08/01/19 07:58 Intake & Output 07/31/19 08/01/19 08/01/19 18:59 06:59 18:59 Output Total 1 2 Balance -1 -2 Output: Stool 1 2 Other: Voiding Method Indwelling Catheter Indwelling Catheter Toilet - Labs CBC & Chem 7: 07/30/19 06:12 07/29/19 06:15 <Rivas Perry - Last Filed: 08/01/19 19:42> Subjective As above. Patient doing better today. Her pain is improved. Will begin low fiber diet. Consult social work to discuss transportation post discharge. Consult dietary to discuss low fiber diet post discharge. Home care will be arranged. Sounds like patient is leaning towards VNA. Probable discharge or Wednesday. Objective - Vital Signs Vital signs: Vital Signs Temp 98.7 F 08/01/19 15:24 Pulse 83 08/01/19 15:24 Resp 17 08/01/19 15:24 BP 126/71 08/01/19 15:24 Pulse Ox 94 L 08/01/19 15:24 Intake & Output 08/01/19 08/01/19 08/02/19 06:59 18:59 06:59 Output Total 1 2 Balance -1 -2 Weight 56.699 kg Output: Stool 1 2 Other: Voiding Method Indwelling Catheter Toilet - Labs CBC & Chem 7: 07/30/19 06:12 07/29/19 06:15 Assessment and Plan (1) Bowel obstruction Current Visit: Yes Status: Acute Code(s): K56.609 - UNSP INTESTNL OBST, UNSP TO PARTIAL VERSUS COMPLETE OBST SNOMED Code(s): 19496671
[2019-08-01] MEDS: SODIUM CHLORIDE 0.9% 1,000 ML IV SCH (17:45)
[2019-08-01] MEDS: CALCIUM CARBONATE 500 MG CHEWABLE PO SCH (19:57)
[2019-08-01] MEDS: LOSARTAN 50 MG TAB PO SCH (19:57)
[2019-08-01] MEDS: MULTIVITAMINS, THERA 1 EACH TAB PO SCH (19:57)
[2019-08-01] MEDS: HYDROmorphone 0.5 MG/0.5 ML SYRINGE IVP PRN (21:51)
[2019-08-02] MEDS: HYDROcodone/APAP 5-325MG 1 EACH TAB PO PRN ×3 (04:37→15:41)
[2019-08-02] MEDS: LEVOTHYROXINE 75 MCG TAB PO SCH (04:38)
[2019-08-02] MEDS: KETOROLAC 30 MG/ML 1 ML VIAL IVP SCH ×2 (05:21→13:28)
[2019-08-02] MEDS: SODIUM CHLORIDE 0.9% 1,000 ML IV SCH ×2 (09:13→20:23)
[2019-08-02] MEDS: LETROZOLE 2.5 MG TAB PO SCH (09:17)
[2019-08-02] MEDS: FAMOTIDINE 20 MG TAB PO SCH ×2 (09:17→20:24)
[2019-08-02] MEDS: HEPARIN SODIUM,PORCINE 5,000 UNIT/ML 1 ML VIAL SQ SCH ×3 (09:17→23:23)
[2019-08-02] MEDS: BENZOCAINE/MENTHOL LOZENG 1 EACH LOZENGE MUCOUS MEM PRN (11:20)
--- NOTE | 2019-08-02 12:47 | P.PN ---
Subjective Progress Note Date: 08/02/19 Principal diagnosis: Small bowel obstruction, diverticulitis Patient doing better today. Her pain is improved. She did have a bowel movement yesterday. Activity still limited. She is insisting she is going home. Objective - Vital Signs Vital signs: Vital Signs Temp 97.9 F 08/02/19 07:47 Pulse 66 08/02/19 07:47 Resp 18 08/02/19 07:47 BP 131/73 08/02/19 07:47 Pulse Ox 97 08/02/19 07:47 Intake & Output 08/01/19 08/02/19 08/02/19 18:59 06:59 18:59 Intake Total 200 Output Total 2 Balance -2 200 Weight 56.699 kg Intake: Oral 200 Output: Stool 2 Other: Voiding Method Toilet Toilet - Exam Abdomen: Soft, nondistended, dressings clean and dry, mild tenderness - Labs CBC & Chem 7: 07/30/19 06:12 07/29/19 06:15 Assessment and Plan (1) Bowel obstruction Narrative/Plan: Continue low fiber diet. Ambulate. Discharge tomorrow or Wednesday. Current Visit: Yes Status: Acute Code(s): K56.609 - UNSP INTESTNL OBST, UNSP TO PARTIAL VERSUS COMPLETE OBST SNOMED Code(s): 49047966
[2019-08-02] MEDS: CALCIUM CARBONATE 500 MG CHEWABLE PO SCH (20:24)
[2019-08-02] MEDS: LOSARTAN 50 MG TAB PO SCH (20:24)
[2019-08-02] MEDS: MULTIVITAMINS, THERA 1 EACH TAB PO SCH (20:24)
[2019-08-02] MEDS: HYDROmorphone 0.5 MG/0.5 ML SYRINGE IVP PRN (21:42)
[2019-08-03] MEDS: HYDROmorphone 0.5 MG/0.5 ML SYRINGE IVP PRN (04:42)
[2019-08-03] MEDS: LEVOTHYROXINE 75 MCG TAB PO SCH (04:42)
[2019-08-03] MEDS: FAMOTIDINE 20 MG TAB PO SCH ×2 (09:30→21:13)
[2019-08-03] MEDS: HEPARIN SODIUM,PORCINE 5,000 UNIT/ML 1 ML VIAL SQ SCH ×3 (09:30→22:47)
[2019-08-03] MEDS: LETROZOLE 2.5 MG TAB PO SCH (09:31)
[2019-08-03] MEDS: HYDROcodone/APAP 5-325MG 1 EACH TAB PO PRN ×3 (09:35→21:14)
--- NOTE | 2019-08-03 12:24 | P.PN ---
Subjective Progress Note Date: 08/03/19 Principal diagnosis: Small bowel obstruction, diverticulitis Patient doing better today. Still having mild upper abdominal pain. Tolerating diet. No nausea or vomiting. T-max 99.5. She had a bowel movement yesterday. Objective - Vital Signs Vital signs: Vital Signs Temp 97.8 F 08/03/19 08:33 Pulse 80 08/03/19 08:33 Resp 16 08/03/19 08:33 BP 112/67 08/03/19 08:33 Pulse Ox 97 08/03/19 08:33 Intake & Output 08/02/19 08/03/19 08/03/19 18:59 06:59 18:59 Intake Total 1400 240 Output Total 2 Balance 1398 240 Weight 56.699 kg Intake: Oral 1400 240 Output: Stool 2 Other: Voiding Method Toilet Toilet - Exam Abdomen: Soft, nondistended, mild tenderness, dressings clean and dry - Labs CBC & Chem 7: 07/30/19 06:12 07/29/19 06:15 Assessment and Plan (1) Bowel obstruction Narrative/Plan: Continue fiber diet. Ambulate. Probable discharge tomorrow. Current Visit: Yes Status: Acute Code(s): K56.609 - UNSP INTESTNL OBST, UNSP TO PARTIAL VERSUS COMPLETE OBST SNOMED Code(s): 37365470
[2019-08-03] MEDS: SODIUM CHLORIDE 0.9% 1,000 ML IV SCH ×2 (14:34→21:37)
[2019-08-03] MEDS: LOSARTAN 50 MG TAB PO SCH (21:14)
[2019-08-03] MEDS: CALCIUM CARBONATE 500 MG CHEWABLE PO SCH (21:14)
[2019-08-03] MEDS: MULTIVITAMINS, THERA 1 EACH TAB PO SCH (21:14)
[2019-08-03] MEDS: BENZOCAINE/MENTHOL LOZENG 1 EACH LOZENGE MUCOUS MEM PRN (21:25)
[2019-08-04] MEDS: HYDROmorphone 0.5 MG/0.5 ML SYRINGE IVP PRN ×2 (00:15→21:45)
[2019-08-04] MEDS: LEVOTHYROXINE 75 MCG TAB PO SCH (05:06)
[2019-08-04] MEDS ORDERED: BISACODYL 10 MG SUPP RECTAL STA (08:31)
[2019-08-04] MEDS: HEPARIN SODIUM,PORCINE 5,000 UNIT/ML 1 ML VIAL SQ SCH ×3 (08:35→23:35)
[2019-08-04] MEDS: LETROZOLE 2.5 MG TAB PO SCH (08:35)
[2019-08-04] MEDS: FAMOTIDINE 20 MG TAB PO SCH ×2 (08:35→20:31)
[2019-08-04] MEDS: SODIUM CHLORIDE 0.9% 1,000 ML IV SCH (08:56)
--- NOTE | 2019-08-04 09:42 | P.PN ---
<Rachelle Eldridge - Last Filed: 08/04/19 09:40> Subjective Progress Note Date: 08/04/19 CHIEF COMPLAINT: Decreased ostomy output HISTORY OF PRESENT ILLNESS: Patient is status post colostomy reversal, repair of stomal hernia, mobilization of splenic flexure, extensive lysis of adhesions and biopsy of mesenteric nodule. Patient examined this morning. She is sitting on the side of the bed eating breakfast. She reports severe abdominal pain overnight requiring 2 doses of IV Dilaudid. She continues to report discomfort this morning but states it has improved from overnight. She reports passing flatus. She reports her last bowel movement was 2-3 days ago. Denies nausea or vomiting. PHYSICAL EXAM: VITAL SIGNS: Reviewed. GENERAL: Well-developed in no acute distress. HEENT: No sclera icterus. Extraocular movements grossly intact. Moist buccal mu cosa. Head is atraumatic, normocephalic. ABDOMEN: Soft. Nondistended. Diffuse mild tenderness. Dressing clean dry and intact. NEUROLOGIC: Alert and oriented. Cranial nerves II through XII grossly intact. ASSESSMENT: 1. Possible bowel obstruction, resolved 2. History of small bowel obstruction, resolved with conservative management, June 2019 3. 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 Status post colostomy reversal, repair of stomal hernia, mobilization of splenic flexure, extensive lysis of adhesions and biopsy of mesenteric nodule PLAN: Increase activity as tolerated. PT/OT on consult Incentive spirometer 10 times an hour Pain control Continue diet as tolerated Obtain CBC and CMP Obtain CT abdomen and pelvis with IV and oral contrast Hold discharge for today. Possible discharge tomorrow pending CT results and improvement in patient's pain Nurse practitioner note has been reviewed by physician. Signing provider agrees with the documented findings, assessment, and plan of care. Objective - Vital Signs Vital signs: Vital Signs Temp 98.4 F 08/04/19 07:11 Pulse 71 08/04/19 07:11 Resp 18 08/04/19 07:11 BP 116/70 08/04/19 07:11 Pulse Ox 95 08/04/19 07:11 Intake & Output 08/03/19 08/04/19 08/04/19 18:59 06:59 18:59 Intake Total 240 180 Balance 240 180 Intake: Oral 240 180 Other: Voiding Method Toilet Toilet # Voids 2 - Labs CBC & Chem 7: 07/30/19 06:12 07/29/19 06:15 <Rivas Perry - Last Filed: 08/04/19 13:07> Subjective Patient complaining of back pain again last night. No bowel movement yesterday or today thus far. CAT scan was ordered which was reviewed. Small amount of inflammatory change around the anastomosis is seen with a few small air bubbles which are likely normal postsurgical. Today's white blood cell count is normal. She does have a significant amount of stool throughout the colon. Will add stool softeners. She did have a small bowel movement after Dulcolax was provided. Continue diet as tolerated. Objective - Vital Signs Vital signs: Vital Signs Temp 98.4 F 08/04/19 07:11 Pulse 71 08/04/19 07:11 Resp 18 08/04/19 07:11 BP 116/70 08/04/19 07:11 Pulse Ox 95 08/04/19 07:11 Intake & Output 08/03/19 08/04/19 08/04/19 18:59 06:59 18:59 Intake Total 240 180 Balance 240 180 Intake: Oral 240 180 Other: Voiding Method Toilet Toilet # Voids 2 - Labs CBC & Chem 7: 08/04/19 09:37 08/04/19 09:37 Labs: Abnormal Lab Results - Last 24 Hours (Table) 08/04/19 Range/Units 09:37 Carbon Dioxide 32 H (22-30) mmol/L Glucose 116 H (74-99) mg/dL Total Protein 5.8 L (6.3-8.2) g/dL Albumin 3.0 L (3.5-5.0) g/dL Assessment and Plan (1) Bowel obstruction Current Visit: Yes Status: Acute Code(s): K56.609 - UNSP INTESTNL OBST, UNSP TO PARTIAL VERSUS COMPLETE OBST SNOMED Code(s): 99582036
[2019-08-04 10:10] LABS: Basophils % (A) 0 %; Eosinophils # (A) 0.1 k/uL (0-0.7); Eosinophils % (A) 1 %; HCT 36.8 % (34.0-46.0); HGB 11.7 gm/dL (11.4-16.0); Lymphocytes # (A) 1.6 k/uL (1.0-4.8); Lymphocytes % (A) 18 %; MCH 27.5 pg (25.0-35.0); MCHC 31.8 g/dL (31.0-37.0); MCV 86.5 fL (80.0-100.0); Mean Platelet Volume 6.3; Monocytes # (A) 0.4 k/uL (0-1.0); Monocytes % (A) 4 %; Neutrophils # (A) 6.5 k/uL (1.3-7.7); Neutrophils % (A) 75 %; Platelet Count 409 k/uL (150-450); RBC 4.26 m/uL (3.80-5.40); RDW 14.7 % (11.5-15.5); WBC 8.7 k/uL (3.8-10.6)
[2019-08-04 10:15] LABS: ALT 27 U/L (9-52); AST 24 U/L (14-36); African American GFR (CKD) >90 (>60 ml/min/1.73 sqM); Alkaline Phosphatase 58 U/L (38-126); Anion Gap 5 mmol/L; Blood Urea Nitrogen 8 mg/dL (7-17); Calcium 10.1 mg/dL (8.4-10.2); Carbon Dioxide 32 mmol/L (22-30); Chloride 103 mmol/L (98-107); Glucose 116 mg/dL (74-99); Non-African American GFR(CKD) 88 (>60 ml/min/1.73 sqM); Potassium 3.8 mmol/L (3.5-5.1); Sodium 140 mmol/L (137-145); Total Bilirubin 0.4 mg/dL (0.2-1.3); Total Protein 5.8 g/dL (6.3-8.2)
[2019-08-04] MEDS: IOPAMIDOL CONTRAST (ORAL USE) VIAL PO PRN ×2 (10:17→11:16)
--- NOTE | 2019-08-04 12:15 | CT ---
EXAMINATION TYPE: CT abdomen pelvis w con DATE OF EXAM: 08/04/2019 COMPARISON: 06/22/2019 HISTORY: Pain Post colostomy reversal. CT DLP: 696.5 mGycm CONTRAST: CT scan of the abdomen and pelvis is performed with Oral Contrast and with IV Contrast, patient injec mayte with 100 mL of Isovue 300. FINDINGS: LUNG BASES-: Basilar atelectasis and small effusions noted. LIVER/GB: There is evidence of cholelithiasis. No space occupying hepatic lesion. Biliary tree is of normal caliber. PANCREAS: No inflammation. No distinct mass. SPLEEN: No splenic enlargement. No lesion seen. ADRENALS: No nodule. No thickening. KIDNEYS/BLADDER: No hydronephrosis. No nephrolithiasis. Large simple cyst right kidney measuring 6. 4 cm maximal dimension. There is seen within the urinary bladder likely from recent Dunne catheter re moval. BOWEL: Normal appendix. Normal bowel caliber. No inflammation. Colostomy reversal noted. GENITAL ORGANS: No gross abnormality. LYMPH NODES: No greater than 1cm abdominal or pelvic lymph nodes are appreciated. AORTA: No significant abnormality. OSSEOUS STRUCTURES: No significant abnormality is seen. OTHER: Midline and left lower quadrant skin gerson are in place. Underneath the left lower quadrant gerson other is a fluid collection noted measuring of 5.9 x 1.5 cm. Underneath the lower extent of t he midline skin gerson there is a 2.0 x 2.4 cm collection defined. These collections are felt to ref lect seromas. Infected collections are less likely. IMPRESSION: 1. 2 subcutaneous seromas are noted as discussed above. 2. Reversal of colostomy without complicating factor seen at this time. 3. Cholelithiasis.
[2019-08-04] MEDS: MAGNESIUM HYDROXIDE 2,400 MG/10 ML CUP PO SCH (13:16)
[2019-08-04] MEDS: ACETAMINOPHEN TAB 325 MG TAB PO PRN (19:25)
[2019-08-04] MEDS: BENZOCAINE/MENTHOL LOZENG 1 EACH LOZENGE MUCOUS MEM PRN (19:28)
[2019-08-04] MEDS: DOCUSATE 100 MG CAP PO SCH (20:28)
[2019-08-04] MEDS: CALCIUM CARBONATE 500 MG CHEWABLE PO SCH (20:31)
[2019-08-04] MEDS: LOSARTAN 50 MG TAB PO SCH (20:31)
[2019-08-04] MEDS: MULTIVITAMINS, THERA 1 EACH TAB PO SCH (20:31)
[2019-08-05] MEDS: SODIUM CHLORIDE 0.9% 1,000 ML IV SCH (03:26)
[2019-08-05] MEDS: LEVOTHYROXINE 75 MCG TAB PO SCH (05:19)
[2019-08-05 07:51] VITALS: BP 121/79; PULSE 78; RESP 16; TEMP 98.5
[2019-08-05] MEDS: FAMOTIDINE 20 MG TAB PO SCH (08:22)
[2019-08-05] MEDS: HEPARIN SODIUM,PORCINE 5,000 UNIT/ML 1 ML VIAL SQ SCH (08:23)
[2019-08-05] MEDS: LETROZOLE 2.5 MG TAB PO SCH (08:23)
[2019-08-05] MEDS: MAGNESIUM HYDROXIDE 2,400 MG/10 ML CUP PO SCH (08:25)
[2019-08-05] MEDS: DOCUSATE 100 MG CAP PO SCH (08:25)
--- NOTE | 2019-08-05 11:52 | P.DS ---
Providers Date of admission: 07/20/19 12:15 Expected date of discharge: 08/05/19 Attending physician: Rivas Perry Primary care physician: Ilia Peres - Discharge Diagnosis(es) (1) Bowel obstruction Patient admitted for recurrent small bowel obstruction. During this hospital stay the bowel obstruction seemed to improve. She was then given a bowel prep and underwent colostomy reversal with lysis of adhesions. Postoperative the patient is had a prolonged course. She's been seen by various consultants during this hospital stay. Her diet has gradually been advanced. She was having some increased pain. CAT scan was performed yesterday showing just constipation that appears to be the source of her discomfort. The patient had numerous stools yesterday and feels better today. Tolerating her diet. She would like to go home today. Unfortunately her was placed in hospice and is doing poorly. She has been depressed. Will plan discharge today. Prescription for Colace will be provided. She is already received her [place] prescription. We'll try to do [id number] pain medications and not use [place]. Follow-up one week with Dr. Peres in 2 weeks with myself. Current Visit: Yes Status: Acute Patient Condition at Discharge: Good Plan - Discharge Summary Discharge Rx Participant: No New Discharge Prescriptions: New Hydrocodone/Acetaminophen [[place] 5-325] 1 tab PO Q6HR PRN 3 Days #12 tab PRN Reason: Pain No Action Losartan [Cozaar] 50 mg PO HS Levothyroxine Sodium [Unithroid] 150 mcg PO DAILY Multivitamins, Thera [Multivitamin (formulary)] 1 tab PO HS Letrozole 2.5 mg PO DAILY Calcium Carbonate 500 mg PO HS [place]-3 Fatty Acids/Fish Oil [Fish Oil 1,000 mg Softgel] 1 cap PO HS Pantoprazole Sodium [Protonix] 40 mg PO HS Discharge Medication List Levothyroxine Sodium [Unithroid] 150 mcg PO DAILY 08/19/16 [History] Losartan [Cozaar] 50 mg PO HS 08/19/16 [History] Multivitamins, Thera [Multivitamin (formulary)] 1 tab PO HS 08/19/16 [History] Letrozole 2.5 mg PO DAILY 01/26/19 [History] Calcium Carbonate 500 mg PO HS 06/20/19 [History] [place]-3 Fatty Acids/Fish Oil [Fish Oil 1,000 mg Softgel] 1 cap PO HS 06/20/19 [History] Pantoprazole Sodium [Protonix] 40 mg PO HS 07/20/19 [History] Hydrocodone/Acetaminophen [[place] 5-325] 1 tab PO Q6HR PRN 3 Days #12 tab 08/01/19 [Rx] Follow up Appointment(s)/Referral(s): Rivas Perry MD [Medical Doctor] - 1 Week Ilia Peres MD [Primary Care Provider] - 1-2 days [facility] Visiting Nurse, [NON-STAFF] - As Needed Activity/Diet/Wound Care/Special Instructions: No driving while taking [place] No lifting over 10 pounds You may shower. No soaking or tub baths Very light activity until you are reevaluated at your follow up appointment with your surgeon
== END 2019-08-05 13:56 | disposition home health service (06) | DRG 330 ==
LOC: EC 09:09 → 4SSUR 12:15
PROVIDERS: ADMIT Surgery; ATTEND Surgery
PROC: 0DJD8ZZ Inspection of Lower Intestinal Tract, Via Natural or Artificial Opening Endoscopic (ICD-10-PCS; 2019-07-26)
PROC: 0DBM0ZZ Excision of Descending Colon, Open Approach (ICD-10-PCS; 2019-07-27)
PROC: 0WQF0ZZ Repair Abdominal Wall, Open Approach (ICD-10-PCS; 2019-07-27)
PROC: 0DBV0ZX Excision of Mesentery, Open Approach, Diagnostic (ICD-10-PCS; 2019-07-27)
PROC: 0DN80ZZ Release Small Intestine, Open Approach (ICD-10-PCS; principal; 2019-07-27 13:30)
DX: K56.51 Intestinal adhesions [bands], with partial obstruction (principal); K57.32 Diverticulitis of large intestine without perforation or abscess without bleeding; K43.3 Parastomal hernia with obstruction, without gangrene; E03.9 Hypothyroidism, unspecified; E83.52 Hypercalcemia; E86.0 Dehydration; I10 Essential (primary) hypertension; M13.0 Polyarthritis, unspecified; Z79.890 Hormone replacement therapy; Z85.3 Personal history of malignant neoplasm of breast; Z85.828 Personal history of other malignant neoplasm of skin; Z96.653 Presence of artificial knee joint, bilateral; K21.9 Gastro-esophageal reflux disease without esophagitis; K66.8 Other specified disorders of peritoneum; Z90.49 Acquired absence of other specified parts of digestive tract; Z88.5 Allergy status to narcotic agent; K59.00 Constipation, unspecified; Z79.899 Other long term (current) drug therapy; L71.9 Rosacea, unspecified; Z43.3 Encounter for attention to colostomy
CPT/HCPCS: 36415; 44388; 74019; 74177; 80048; 80053; 81001; 82150; 83690; 85025; 86850; 86900; 86901; 88304; 88307; 94760; 99285

== ENCOUNTER → 2020-03-28 | Outpatient (CLI) | payer MEDICARE, OTHER ==
--- NOTE | 2020-03-28 13:45 | MM ---
Reason for exam: additional evaluation requested from prior study. Last mammogram was performed 1 year ago. History: Patient is postmenopausal and has history of breast cancer at age 82. Malignant MG pre op needle loc RT of the right breast, January 27, 2018. Lumpectomy of the right breast, January 27, 2018. Malignant MG stereo VAD BX RT of the right breast, January 10, 2018. Took estrogen beginning at age 56. Took progesterone beginning at age 56. Taking antineoplastic for 1 year beginning at age 82. Physical Findings: Nurse did not find any significant physical abnormalities on exam. MG 3D Diag Mammo W/Cad EILEEN Bilateral CC and MLO view(s) were taken. Prior study comparison: March 27, 2019, bilateral MG 3d diag mammo w/cad EILEEN. December 31, 2017, right breast MG 3d work up w/cad RT. The breast tissue is heterogeneously dense. This may lower the sensitivity of mammography. Finding: Architectural distortion in the right breast consistent with post opeative lumpectomy changes with clips. There are benign appearing calcifications. These results were verbally communicated with the patient and result sheet given to the patient on 03/28/20. ASSESSMENT: Benign, BI-RAD 2 RECOMMENDATION: Follow-up diagnostic mammogram of both breasts in 1 year.
== END | disposition home or self-care (01) ==
LOC: RADMAMWWP 10:51
PROVIDERS: ATTEND Internal Medicine Hematology & Oncology
DX: Z08 Encounter for follow-up examination after completed treatment for malignant neoplasm (principal); Z85.3 Personal history of malignant neoplasm of breast
CPT/HCPCS: 77066; G0279; 77062

== ENCOUNTER → 2020-04-29 | Outpatient (CLI) | payer MEDICARE, OTHER ==
--- NOTE | 2020-04-29 18:33 | BD ---
EXAMINATION TYPE: Axial Bone Density DATE OF EXAM: 04/29/2020 COMPARISON: NONE CLINICAL HISTORY: Postmenopausal screening Height: 5 FT 1 IN Weight: 134 FRAX RISK QUESTIONS: Alcohol (3 or more units per day): NO Family History (Parent hip fracture): UNSURE Glucocorticoids (More than 3mos): NO (Ex: prednisone, prednisolone, methylprednisolone, dexamethasone, and hydrocortisone). History of Fracture in Adulthood: NO Secondary Osteoporosis: 1. Type 1 Diabetes: NO 2. Hyperthyroidism: NO 3. Menopause before 45: NO 4. Malnutrition: NO 5. Chronic liver disease: NO Rheumatoid Arthritis: NO Current Tobacco Use: NO RISK FACTORS HISTORY OF: Active: YES Postmenopausal woman: AGE 55 Take estrogen and/or progesterone medications: TOOK BIOIDENTICAL HRT FROM AGE [age] Lost more than 2 inches in height since high school: YES MEDICATIONS: Thyroid Medications: YES Which medication: LEVOTHYROXINE How Long: OVER 40 YEARS Additional Medications: LEVOTHYROXINE, RECLAST, CALCIUM, LETROZOLE Additional History: RECLAST X LAST TWO YEARS. PREV BREAST CANCER EXAM MEASUREMENTS: Bone mineral densitometry was performed using the [email or web address] System. Bone mineral density as measured about the Lumbar spine is: ----- L1-L4(G/cm2): 1.014 T Score Values are as follows: ----- L2: -2.0 ----- L3: -0.4 ----- L4: -1.4 ----- L1-L4: -1.4 Bone mineral density has: INCREASED 2.3 % since study of: 2017 Bone mineral density about the R hip (g/cm2): 0.721 Bone mineral density about the L hip (g/cm2): 0.715 T Score values are as follows: -----R Neck: -2.3 -----L Neck: -2.3 -----R Total: -1.7 -----L Total: -1.8 Bone mineral density has: INCREASED 0.5 % since study of: 2018 IMPRESSION: Osteopenia (T Score between -2.5 and -1). There is slightly increased risk of fracture and the patient may be considered for treatment. Re-Screen 2-5 years. NOTE: T-SCORE=SD OF THE YOUNG ADULT MEAN.
== END | disposition home or self-care (01) ==
LOC: RADBDWWP 12:22
PROVIDERS: ATTEND Obstetrics & Gynecology
DX: M81.0 Age-related osteoporosis without current pathological fracture (principal); M85.80 Other specified disorders of bone density and structure, unspecified site
CPT/HCPCS: 77080

== ENCOUNTER → 2020-09-12 | Outpatient (CLI) | payer MEDICARE, OTHER | END | disposition home or self-care (01) | LOC: LABPAT 11:11 | PROVIDERS: ATTEND Surgery | DX: Z01.818 Encounter for other preprocedural examination (principal); K43.2 Incisional hernia without obstruction or gangrene | CPT/HCPCS: 93005 ==

== ENCOUNTER 2020-09-27 09:22 | Inpatient (IN) | payer MEDICARE, OTHER ==
[2020-09-26 10:50] VITALS: BMI 26.7
[~2020-09-27 09:22] MED LIST changes: +ACETAMINOPHEN TAB 325 MG TAB PO PRN; -ALPRAZolam 0.25 MG TAB PO PRN; -DEXAMETHASONE SOD PHOSPHATE 10 MG/ML 1 ML VIAL IV ONE; +DEXAMETHASONE SOD PHOSPHATE 4 MG/ML 1 ML VIAL IV ONE; -HEPARIN SODIUM,PORCINE 5,000 UNIT/ML 1 ML VIAL SQ ONE; +HEPARIN SODIUM,PORCINE 5,000 UNIT/ML 1 ML VIAL SQ PRN; -LACTATED RINGERS 1,000 ML IV SCH; +LIDOCAINE 1% (10MG/ML) FOR IV START INTRADERMA PRN; +MIDAZOLAM 2 MG/2 ML VIAL IV PRN; -MORPHINE SULFATE 4 MG/ML SYRINGE IV PRN; -Pre Op ABX Message 1 EACH MISC MISCELLANE ONE
--- NOTE | 2020-09-27 10:35 | P.GSHP ---
History of Present Illness H&P Date: 09/27/20 Chief Complaint: Incisional hernia 85-year-old female underwent previous Browne's procedure and subsequent reversal. Patient had a hernia at the ostomy site that was repaired at the time of the reversal. Unfortunately postoperatively the hernia has recurred. The hernia has gotten gradually larger and is uncomfortable at times. She is interested in repair. No nausea or vomiting. Tolerating diet. Good bowel function. Past Medical History Past Medical History: Cancer, GERD/Reflux, Hypertension, Osteoarthritis (OA), Skin Disorder, Thyroid Disorder Additional Past Medical History / Comment(s): hx: R breast cancer with lumpectomy, skin cancer removed from leg, generalized arthritis, hypothyroid, diverticular disease with rupture/colostomy, rosacea, osteopenia History of Any Multi-Drug Resistant Organisms: None Reported Past Surgical History: Bowel Resection, Breast Surgery, Hernia Repair, Joint Replacement Additional Past Surgical History / Comment(s): 01/2019 sigmoid resection with colostomy,colostomy reversal colonoscopies, R breast biopsy/lumpectomy, skin cancer removal, bilateral total knee arthroplasties, bilateral inguinal hernia repairs, partial thyroidectomy, bilateral cataract removals. Past Anesthesia/Blood Transfusion Reactions: Motion Sickness, Postoperative Nausea & Vomiting (PONV) Smoking Status: Never smoker - Past Family History Mother Family Medical History: Osteoarthritis (OA) Additional Family Medical History / Comment(s): at age 85 Father Additional Family Medical History / Comment(s): Pt believes father may have in war-they were never informed officially. Medications and Allergies Home Medications Medication Instructions Recorded Confirmed Type Levothyroxine Sodium [Unithroid] 150 mcg PO DAILY 08/19/16 09/26/20 History Losartan [Cozaar] 50 mg PO HS 08/19/16 09/26/20 History Multivitamins, Thera [Multivitamin 1 tab PO HS 08/19/16 09/26/20 History (formulary)] Letrozole 2.5 mg PO DAILY 01/26/19 09/26/20 History [place]-3 Fatty Acids/Fish Oil [Fish 1 cap PO HS 06/20/19 09/26/20 History Oil 1,000 mg Softgel] Acetaminophen/Diphenhydramine 1 tab PO HS 09/26/20 09/26/20 History [Tylenol PM 500-25mg] Calcium Infusion 1 dose IV Q365D 09/26/20 History Lidocaine HCl [Aspercreme] 1 applic TOPICAL DAILY PRN 09/26/20 09/26/20 History Melatonin 10 mg PO HS 09/26/20 09/26/20 History Omeprazole 20 mg PO DAILY PRN 09/26/20 09/26/20 History Allergies Allergy/AdvReac Type Severity Reaction Status Date / Time codeine AdvReac Nausea & Verified 09/27/20 10:31 Vomiting narcotics AdvReac Mild Nausea & Uncoded 09/27/20 10:31 Vomiting Surgical - Exam Physical exam: General: Well-developed, well-nourished HEENT: Normocephalic, sclerae nonicteric Abdomen: Nontender, nondistended hernia at previous ostomy site, fascial defect 4 cm Extremities: No edema Neuro: Alert and oriented Assessment and Plan (1) Incarcerated incisional hernia Narrative/Plan: A 5-year-old female with symptomatic incarcerated incisional hernia. We'll proceed with operative repair with mesh. Risks of bleeding, infection, recurrence, bladder and bowel injury, numbness, nerve injury were discussed with the patient. The patient understands and wishes to proceed. Current Visit: Yes Status: Acute Code(s): K43.0 - INCISIONAL HERNIA WITH OBS TRUCTION, WITHOUT GANGRENE SNOMED Code(s): 019599507
[2020-09-27] MEDS: LACTATED RINGERS 1,000 ML IV SCH (11:03)
[2020-09-27] MEDS ORDERED: GLYCOPYRROLATE 0.2 MG/ML 2 ML VIAL ONE (11:51)
[2020-09-27] MEDS ORDERED: ROCURONIUM 10 MG/ML (10 ML VIAL) IV ONE (11:51)
[2020-09-27] MEDS ORDERED: SUCCINYLCHOLINE CHLORIDE 100 MG/5 ML SYR IV ONE (11:51)
[2020-09-27] MEDS ORDERED: fentaNYL (PF) 50 MCG/ML 2 ML AMP ONE (11:51)
[2020-09-27] MEDS ORDERED: ePHEDrine SULFATE/0.9% NACL/PF 50 MG/5 ML SYRINGE IV ONE (11:51)
[2020-09-27] MEDS ORDERED: LIDOCAINE 1% INJ 10MG/ML (20 ML MDV) ONE (11:51)
[2020-09-27] MEDS ORDERED: PROPOFOL 10 MG/ML 20 ML VIAL IV ONE (11:51)
[2020-09-27] MEDS ORDERED: NEOSTIGMINE 1 MG/ML 10 ML VIAL ONE (11:51)
[2020-09-27] MEDS ORDERED: NALOXONE 0.4 MG/ML 1 ML VIAL IV PRN (13:29)
[2020-09-27] MEDS ORDERED: METOCLOPRAMIDE 5 MG/ML 2 ML VIAL IVP PRN (13:29)
[2020-09-27] MEDS ORDERED: ONDANSETRON 4 MG/2 ML VIAL IVP PRN (13:29)
[2020-09-27] MEDS ORDERED: LACTATED RINGERS 1,000 ML IV ONE (13:29)
[2020-09-27] MEDS ORDERED: HYDROmorphone 0.5 MG/0.5 ML SYRINGE IVP PRN (13:29)
--- NOTE | 2020-09-27 13:39 | P.OP ---
Date of Procedure: 09/27/20 Procedure(s) Performed: PREOPERATIVE DIAGNOSIS: Incarcerated incisional hernia POSTOPERATIVE DIAGNOSIS: Same PROCEDURE: Incarcerated incisional hernia with mesh, lysis of adhesions SURGEON: Vicky EBL: Minimal ANESTHESIA: Gen. COMPLICATIONS: None OPERATIVE PROCEDURE: Patient placed on the operating table in the supine position. Abdomen was prepped and draped in usual sterile fashion. The previous ostomy incision was re-incised horizontally. A portion of the skin was excised. Dissection through the subcutaneous tissues took place using electrocautery. A large hernia was identified. The hernia sac was carefully dissected down to the level of the fascia where it was excised. The patient had a single fascial defect measuring 4-5 cm in diameter. The hernia sac was excised. There were adhesions between the abdominal wall/peritoneum and both omentum and small bowel that were lysed using both blunt dissection sharp dissection and cautery. Once the peritoneal surface was freed of adhesions the fascia was freed anteriorly using electrocautery. I then placed a 8 cm ventral ex mesh beneath the fascia and this was sutured to the fascia using trans- fascial 0 Ethibond sutures. The defect was then closed horizontally using interrupted 0 Ethibond sutures in a mattress technique. The folding edge was tacked down using interrupted 0 Ethibond sutures as well. A drain was placed anterior to the fascial closure exiting through the left lower quadrant. This was sutured to the skin using a 3-0 silk stitch. The subcutaneous tissues were closed using 3-0 Vicryl sutures. The skin was closed using gerson. Sterile dressings were applied. DISPOSITION: Stable to recovery room
[2020-09-27] MEDS: HYDROmorphone 0.5 MG/0.5 ML SYRINGE IVP PRN ×2 (14:20→14:37)
[2020-09-27] MEDS: HEPARIN SODIUM,PORCINE 5,000 UNIT/ML 1 ML VIAL SQ SCH ×2 (17:47→23:24)
[2020-09-27] MEDS: DOCUSATE 100 MG CAP PO SCH (20:13)
[2020-09-27] MEDS: FAMOTIDINE 20 MG TAB PO SCH (20:13)
[2020-09-28] MEDS: LACTATED RINGERS 1,000 ML IV SCH (03:36)
[2020-09-28] MEDS: ACETAMINOPHEN TAB 325 MG TAB PO PRN ×3 (03:53→21:57)
[2020-09-28 06:35] LABS: Basophils % (A) 0 %; Eosinophils % (A) 0 %; HCT 36.8 % (34.0-46.0); HGB 11.9 gm/dL (11.4-16.0); Lymphocytes # (A) 1.9 k/uL (1.0-4.8); Lymphocytes % (A) 18 %; MCH 27.5 pg (25.0-35.0); MCHC 32.4 g/dL (31.0-37.0); Mean Platelet Volume 6.7; Monocytes # (A) 0.8 k/uL (0-1.0); Monocytes % (A) 7 %; Neutrophils # (A) 7.7 k/uL (1.3-7.7); Neutrophils % (A) 73 %; Platelet Count 229 k/uL (150-450); RBC 4.33 m/uL (3.80-5.40); RDW 13.6 % (11.5-15.5); WBC 10.4 k/uL (3.8-10.6)
[2020-09-28] MEDS: traMADol 50 MG TAB PO PRN (08:08)
[2020-09-28] MEDS: FAMOTIDINE 20 MG TAB PO SCH ×2 (08:42→20:24)
[2020-09-28] MEDS: HEPARIN SODIUM,PORCINE 5,000 UNIT/ML 1 ML VIAL SQ SCH ×2 (08:42→18:00)
[2020-09-28] MEDS: DOCUSATE 100 MG CAP PO SCH ×2 (08:42→20:24)
[2020-09-28 09:35] LABS: African American GFR (CKD) 91.6 (60.0-200.0); Anion Gap 6.9 mmol/L (4.00-12.00); BUN/Creat Ratio 22.86 Ratio (12.00-20.00); Calcium 9.3 mg/dL (8.7-10.3); Carbon Dioxide 25.1 mmol/L (21.6-31.8); Potassium 3.9 mmol/L (3.5-5.5)
[2020-09-28] MEDS ORDERED: PANTOPRAZOLE 40 MG TABLET PO PRN (09:42)
[2020-09-28] MEDS ORDERED: LIDOCAINE 4% CREAM 5 GM TUBE TOPICAL PRN (09:42)
--- NOTE | 2020-09-28 11:25 | P.PN ---
Subjective Progress Note Date: 09/28/20 Principal diagnosis: Incisional hernia Patient complaining of pain this morning. Says the narcotics made her nauseated. FARHAD draining serous anus. Labs noted. Objective - Vital Signs Vital signs: Vital Signs Temp 98.2 F 09/28/20 09:16 Pulse 73 09/28/20 09:16 Resp 16 09/28/20 09:16 BP 143/58 09/28/20 09:16 Pulse Ox 95 09/28/20 09:16 Intake & Output 09/27/20 09/28/20 09/28/20 18:59 06:59 18:59 Intake Total 1100 Output Total 430 40 Balance 670 -40 Weight 62 kg Intake: IV 1100 Output: Drainage 40 Left Lower Abdomen 40 Urine 400 Estimated Blood Loss 30 Other: Voiding Method Toilet Toilet # Voids 1 3 - Exam Abdomen: Soft, nondistended, dressing clean and dry, FARHAD serosanguineous - Labs CBC & Chem 7: 09/28/20 06:10 09/28/20 06:09 Labs: Abnormal Lab Results - Last 24 Hours (Table) 09/28/20 Range/Units 06:09 BUN/Creatinine Ratio 22.86 H (12.00-20.00) Ratio Glucose 120 H (70-110) mg/dL Assessment and Plan (1) Incarcerated incisional hernia Narrative/Plan: Patient overall doing fairly well. Pain control is an issue. We'll add Toradol. Continue Ultram. Current Visit: Yes Status: Acute Code(s): K43.0 - INCISIONAL HERNIA WITH OBSTRUCTION, WITHOUT GANGRENE SNOMED Code(s): 170362571
[2020-09-28] MEDS: LETROZOLE 2.5 MG TAB PO SCH (12:03)
[2020-09-28] MEDS: LEVOTHYROXINE 75 MCG TAB PO SCH (12:03)
[2020-09-28] MEDS: KETOROLAC 15 MG/ML 1 ML VIAL IVP SCH ×2 (12:04→18:25)
--- NOTE | 2020-09-28 12:25 | P.CONS ---
History of Present Illness - Reason for Consult Consult date: 09/28/20 medical management - History of Present Illness Brooke Canchola, is an 85-year-old female underwent previous Browne's pr ocedure and subsequent reversal, she had a hernia at the ostomy site that was repaired at the time of the reversal, however the hernia has recurred and was growing larger and causing discomfort patient was readmitted by Dr. Perry, for hernia repair surgery which was done on 09/27/2020, medical consultation was requested for management while hospitalized, patient is known to our office, she has a history of diverticular disease with perforation and history of colostomy placement with reversal, she also has a known history of right breast cancer with lumpectomy history of hypothyroidism history of hypertension, history of osteoarthritis, and history of gastroesophageal reflux disease. On review of systems patient is alert and oriented 3 in no apparent distress there is no fever or chills no headache or dizziness no chest pain no shortness of breath no cough no nausea or vomiting she is still having abdominal pain post surgery no diarrhea no blood in the stools no burning with urination no frequency or urgency and no hematuria. Past Medical History Past Medical History: Cancer, GERD/Reflux, Hypertension, Osteoarthritis (OA), Skin Disorder, Thyroid Disorder Additional Past Medical History / Comment(s): hx: R breast cancer with lumpectomy, skin cancer removed from leg, generalized arthritis, hypothyroid, diverticular disease with rupture/colostomy, rosacea, osteopenia History of Any Multi-Drug Resistant Organisms: None Reported Past Surgical History: Bowel Resection, Breast Surgery, Hernia Repair, Joint Replacement Additional Past Surgical History / Comment(s): 01/2019 sigmoid resection with colostomy,colostomy reversal colonoscopies, R breast biopsy/lumpectomy, skin cancer removal, bilateral total knee arthroplasties, bilateral inguinal hernia repairs, partial thyroidectomy, bilateral cataract removals. Past Anesthesia/Blood Transfusion Reactions: Motion Sickness, Postoperative Nausea & Vomiting (PONV) Past Psychological History: No Psychological Hx Reported Additional Psychological History / Comment(s): Pt resides alone. She is independent. She is originally from [facility]. Smoking Status: Never smoker Past Alcohol Use History: Occasional Additional Past Alcohol Use History / Comment(s): once every couple weeks Past Drug Use History: None Reported - Past Family History Mother Family Medical History: Osteoarthritis (OA) Additional Family Medical History / Comment(s): at age 85 Father Additional Family Medical History / Comment(s): Pt believes father may have in war-they were never informed officially. Medications and Allergies Home Medications Medication Instructions Recorded Confirmed Type Levothyroxine Sodium [Unithroid] 150 mcg PO DAILY 08/19/16 09/27/20 History Losartan [Cozaar] 50 mg PO HS 08/19/16 09/27/20 History Multivitamins, Thera [Multivitamin 1 tab PO HS 08/19/16 09/27/20 History (formulary)] Letrozole 2.5 mg PO DAILY 01/26/19 09/27/20 History [place]-3 Fatty Acids/Fish Oil [Fish 1 cap PO HS 06/20/19 09/27/20 History Oil 1,000 mg Softgel] Acetaminophen/Diphenhydramine 1 tab PO HS 09/26/20 09/27/20 History [Tylenol PM 500-25mg] Calcium Infusion 1 dose IV Q365D 09/26/20 09/27/20 History Lidocaine HCl [Aspercreme] 1 applic TOPICAL DAILY PRN 09/26/20 09/27/20 History Melatonin 10 mg PO HS 09/26/20 09/27/20 History Omeprazole 20 mg PO DAILY PRN 09/26/20 09/27/20 History Allergies Allergy/AdvReac Type Severity Reaction Status Date / Time codeine AdvReac Nausea & Verified 09/27/20 10:31 Vomiting narcotics AdvReac Mild Nausea & Uncoded 09/27/20 10:31 Vomiting Physical Exam Vitals: Vital Signs Temp Pulse Pulse Resp BP Pulse Ox 09/28/20 09:16 98.2 F 73 16 143/58 95 09/28/20 08:00 18 09/28/20 01:33 98.2 F 79 18 132/67 95 09/27/20 19:33 98.4 F 87 18 135/76 98 09/27/20 17:36 97.7 F 85 18 132/71 96 09/27/20 17:06 97.7 F 89 17 139/76 96 09/27/20 16:39 97.7 F 69 17 122/67 95 09/27/20 16:21 97.5 F L 73 19 128/68 96 09/27/20 16:06 97.7 F 84 18 127/68 97 09/27/20 16:02 97.2 F L 72 16 133/63 97 09/27/20 15:35 97.7 F 93 16 129/65 92 L 09/27/20 15:23 97.7 F 83 18 129/65 92 L 09/27/20 15:01 78 16 133/60 100 09/27/20 14:45 74 16 113/57 100 09/27/20 14:31 75 16 128/60 100 09/27/20 14:15 73 16 133/60 100 09/27/20 14:01 79 16 148/64 100 09/27/20 13:45 82 16 151/59 100 09/27/20 13:32 98.4 F 89 14 156/67 94 L Intake and Output 09/27/20 09/28/20 09/28/20 22:59 06:59 14:59 Output Total 400 40 Balance -400 -40 Output: Drainage 40 Left Lower Abdomen 40 Urine 400 Other: Voiding Method Toilet Toilet # Voids 1 3 Weight 62 kg In general patient is alert and oriented 3 in no apparent distress HEENT head normocephalic and atraumatic Neck is supple no JVD no goiter no lymphadenopathy Chest exam reveals a few scattered rhonchi no wheezing Cardiac exam reveals regular heart sounds S1 and S2 no gallops no murmurs Abdomen is soft nontender no organomegaly with normal bowel sounds Extremity exam reveals no edema no cyanosis or clubbing Neurological examination reveals no gross focal deficits Results CBC & Chem 7: 09/28/20 06:10 09/28/20 06:09 Labs: Abnormal Lab Results - Last 24 Hours (Table) 09/28/20 Range/Units 06:09 BUN/Creatinine Ratio 22.86 H (12.00-20.00) Ratio Glucose 120 H (70-110) mg/dL Assessment and Plan Plan: 1. Status post incisional hernia repair on 09/27/2020 2. ALLERGY to narcotics with nausea and vomiting will avoid narcotics during this admission and use Tylenol and Toradol 3. History of diverticular disease with perforation and colostomy placement and subsequent reversal 4. Underlying history of hypertension 5. Underlying history of hypothyroidism Underlying history of osteoarthritis Underlying history of gastroesophageal reflux disease At this time patient was seen and examined, home medication reviewed and reordered For DVT prophylaxis SCD stockings for GI prophylaxis patient is on Pepcid Will follow during this admission for medical management
[2020-09-28] MEDS: MULTIVITAMINS, THERA 1 EACH TAB PO SCH (20:24)
[2020-09-28] MEDS: LOSARTAN 50 MG TAB PO SCH (20:24)
[2020-09-28] MEDS: MELATONIN 5 MG TABLET PO SCH (20:24)
[2020-09-28] MEDS ORDERED: NON FORMULARY DRUG (Omega-3 Fatty Acids/Fish Oil [Fish Oil 1,000 Mg Softgel] 1 EACH Capsul PO SCH (21:00)
[2020-09-28] MEDS ORDERED: NON FORMULARY DRUG (Acetaminophen/Diphenhydramine [Tylenol Pm 500-25mg] 1 EACH Tablet) PO SCH (21:00)
[2020-09-29] MEDS: HEPARIN SODIUM,PORCINE 5,000 UNIT/ML 1 ML VIAL SQ SCH ×4 (01:18→23:11)
[2020-09-29] MEDS: KETOROLAC 15 MG/ML 1 ML VIAL IVP SCH ×5 (03:06→23:11)
[2020-09-29 05:48] LABS: Basophils % (A) 0 %; Eosinophils # (A) 0.1 k/uL (0-0.7); Eosinophils % (A) 1 %; HCT 36.8 % (34.0-46.0); HGB 11.9 gm/dL (11.4-16.0); Lymphocytes % (A) 26 %; MCH 27.4 pg (25.0-35.0); MCHC 32.2 g/dL (31.0-37.0); MCV 85.2 fL (80.0-100.0); Mean Platelet Volume 6.6; Monocytes # (A) 0.5 k/uL (0-1.0); Monocytes % (A) 6 %; Neutrophils # (A) 5.2 k/uL (1.3-7.7); Neutrophils % (A) 66 %; Platelet Count 217 k/uL (150-450); RBC 4.32 m/uL (3.80-5.40); RDW 13.6 % (11.5-15.5); WBC 7.8 k/uL (3.8-10.6)
[2020-09-29] MEDS: LEVOTHYROXINE 75 MCG TAB PO SCH (06:03)
[2020-09-29] MEDS: LACTATED RINGERS 1,000 ML IV SCH (06:04)
[2020-09-29] MEDS: FAMOTIDINE 20 MG TAB PO SCH ×2 (09:03→20:29)
[2020-09-29] MEDS: DOCUSATE 100 MG CAP PO SCH ×2 (09:03→20:29)
[2020-09-29 09:06] LABS: African American GFR (CKD) 91.6 (60.0-200.0); Albumin 3.6 g/dL (3.80-4.90); Anion Gap 4.9 mmol/L (4.00-12.00); BUN/Creat Ratio 21.43 Ratio (12.00-20.00); Calcium 9.9 mg/dL (8.7-10.3); Carbon Dioxide 29.1 mmol/L (21.6-31.8); Globulin 1.8 g/dL (1.6-3.3); Potassium 4.1 mmol/L (3.5-5.5); Total Bilirubin 0.5 mg/dL (0.2-1.2); Total Protein 5.4 g/dL (6.2-8.2)
[2020-09-29] MEDS: LETROZOLE 2.5 MG TAB PO SCH (09:20)
--- NOTE | 2020-09-29 12:03 | P.PN ---
Subjective Progress Note Date: 09/29/20 Brooke Canchola, is an 85-year-old female underwent previous Browne's procedure and subsequent reversal, she had a hernia at the ostomy site that was repaired at the time of the reversal, however the hernia has recurred and was growing larger and causing discomfort patient was readmitted by Dr. Perry, for hernia repair surgery which was done on 09/27/2020, medical consultation was requested for management while hospitalized, patient is known to our office, she has a history of diverticular disease with perforation and history of colostomy placement with reversal, she also has a known history of right breast cancer with lumpectomy history of hypothyroidism history of hypertension, history of osteoarthritis, and history of gastroesophageal reflux disease. On review of systems patient is alert and oriented 3 in no apparent distress there is no fever or chills no headache or dizziness no chest pain no shortness of breath no cough no nausea or vomiting she is still having abdominal pain post surgery no diarrhea no blood in the stools no burning with urination no frequency or urgency and no hematuria. On 09/29/2020 patient's alert and oriented 3. Patient is still having some increased abdominal pain but due to patient's medication ALLERGIES Discussed case with surgeon will keep patient another 24-hours to obtain adequate pain control. Patient has been tolerating regular diet. Patient denies chest pain or shortness of breath. Patient denies nausea vomiting or diarrhea. Patient denies any urinary burning or frequency Objective - Vital Signs Vital signs: Vital Signs Temp 97.8 F 09/29/20 09:01 Pulse 76 09/29/20 09:01 Resp 16 09/29/20 09:01 BP 151/83 09/29/20 09:01 Pulse Ox 96 09/29/20 09:01 Intake & Output 09/28/20 09/29/20 09/29/20 18:59 06:59 18:59 Output Total 30 30 Balance -30 -30 Output: Drainage 30 30 Left Lower Abdomen 30 30 Other: Voiding Method Toilet Toilet Toilet # Voids 3 - Exam In general patient is alert and oriented 3 in no apparent distress HEENT head normocephalic and atraumatic Neck is supple no JVD no goiter no lymphadenopathy Chest exam reveals a few scattered rhonchi no wheezing Cardiac exam reveals regular heart sounds S1 and S2 no gallops no murmurs Abdomen is soft nontender no organomegaly with normal bowel sounds Extremity exam reveals no edema no cyanosis or clubbing Neurological examination reveals no gross focal deficits - Labs CBC & Chem 7: 09/29/20 04:53 09/29/20 04:53 Labs: Abnormal Lab Results - Last 24 Hours (Table) 09/29/20 Range/Units 04:53 BUN/Creatinine Ratio 21.43 H (12.00-20.00) Ratio Total Protein 5.4 L (6.2-8.2) g/dL Albumin 3.60 L (3.80-4.90) g/dL Assessment and Plan Plan: 1. Status post incisional hernia repair on 09/27/2020 2. ALLERGY to narcotics with nausea and vomiting will avoid narcotics during this admission and use Tylenol and Toradol 3. History of diverticular disease with perforation and colostomy placement and subsequent reversal 4. Underlying history of hypertension 5. Underlying history of hypothyroidism Underlying history of osteoarthritis Underlying history of gastroesophageal reflux disease At this time patient was seen and examined, home medication reviewed and r eordered For DVT prophylaxis SCD stockings for GI prophylaxis patient is on Pepcid Will follow during this admission for medical management Possible discharge in the next 24
--- NOTE | 2020-09-29 12:13 | P.PN ---
Subjective Progress Note Date: 09/29/20 Principal diagnosis: Incisional hernia Patient doing better today. Pain somewhat improved. No nausea or vomiting. FARHAD drain serosanguineous Objective - Vital Signs Vital signs: Vital Signs Temp 97.8 F 09/29/20 09:01 Pulse 76 09/29/20 09:01 Resp 16 09/29/20 09:01 BP 151/83 09/29/20 09:01 Pulse Ox 96 09/29/20 09:01 Intake & Output 09/28/20 09/29/20 09/29/20 18:59 06:59 18:59 Output Total 30 30 Balance -30 -30 Output: Drainage 30 30 Left Lower Abdomen 30 30 Other: Voiding Method Toilet Toilet Toilet # Voids 3 - Exam Abdomen: Soft, nondistended, dressing clean and dry, mild tenderness - Labs CBC & Chem 7: 09/29/20 04:53 09/29/20 04:53 Labs: Abnormal Lab Results - Last 24 Hours (Table) 09/29/20 Range/Units 04:53 BUN/Creatinine Ratio 21.43 H (12.00-20.00) Ratio Total Protein 5.4 L (6.2-8.2) g/dL Albumin 3.60 L (3.80-4.90) g/dL Assessment and Plan (1) Incarcerated incisional hernia Narrative/Plan: Patient overall doing better. Pains still an issue. We'll plan observation until tomorrow. Hopefully discharge tomorrow. Current Visit: Yes Status: Acute Code(s): K43.0 - INCISIONAL HERNIA WITH OBSTRUCTION, WITHOUT GANGRENE SNOMED Code(s): 534272782
[2020-09-29] MEDS: MELATONIN 5 MG TABLET PO SCH (20:29)
[2020-09-29] MEDS: MULTIVITAMINS, THERA 1 EACH TAB PO SCH (20:29)
[2020-09-29] MEDS: traMADol 50 MG TAB PO PRN (20:30)
[2020-09-29] MEDS: LOSARTAN 50 MG TAB PO SCH (20:30)
[2020-09-30] MEDS: LACTATED RINGERS 1,000 ML IV SCH (05:32)
[2020-09-30] MEDS: KETOROLAC 15 MG/ML 1 ML VIAL IVP SCH ×2 (05:48→13:54)
[2020-09-30] MEDS: LEVOTHYROXINE 75 MCG TAB PO SCH (05:48)
[2020-09-30 07:53] VITALS: BP 125/63; PULSE 64; RESP 16; TEMP 98.6
[2020-09-30] MEDS: FAMOTIDINE 20 MG TAB PO SCH (09:37)
[2020-09-30] MEDS: DOCUSATE 100 MG CAP PO SCH (09:37)
[2020-09-30] MEDS: LETROZOLE 2.5 MG TAB PO SCH (09:38)
[2020-09-30] MEDS: HEPARIN SODIUM,PORCINE 5,000 UNIT/ML 1 ML VIAL SQ SCH (09:38)
[2020-09-30] MEDS ORDERED: MAGNESIUM HYDROXIDE 2,400 MG/10 ML CUP PO PRN (10:21)
--- NOTE | 2020-09-30 12:36 | P.DS ---
<Anna Higuera - Last Filed: 09/30/20 12:33> Providers Expected date of discharge: 09/30/20 Hospital Course: Discharge diagnosis 1. Incarcerated incisional hernia status post repair of incarcerated incisional hernia with mesh and lysis of adhesions Hospital course This is an 85-year-old female who underwent previous Browne's procedure and subsequent reversal. Patient had a hernia at the ostomy site that was repaired at the time of the reversal. Unfortunately postoperatively the hernia has recurred. The hernia has gotten gradually larger and is uncomfortable at times. Patient is status post repair of incarcerated incisional hernia with mesh and lysis of adhesions. Patient tolerated surgery well. Her pain is controlled. She is tolerating diet. She is passing gas. She is afebrile. She is ambulating. She is stable for discharge. Please refer to chart for any further details. Physician Pharmacy Assistant note has been reviewed by physician. Signing provider agrees with the documented findings, assessment, and plan of care. Patient Condition at Discharge: Stable Plan - Discharge Summary Discharge Rx Participant: Yes New Discharge Prescriptions: New Docusate [Colace] 100 mg PO BID #30 capsule traMADol HCL [Ultram] 50 mg PO Q6HR PRN 3 Days #12 tab PRN Reason: Pain Continue Losartan [Cozaar] 50 mg PO HS Levothyroxine Sodium [Unithroid] 150 mcg PO DAILY Multivitamins, Thera [Multivitamin (formulary)] 1 tab PO HS Letrozole 2.5 mg PO DAILY [place]-3 Fatty Acids/Fish Oil [Fish Oil 1,000 mg Softgel] 1 cap PO HS Melatonin 10 mg PO HS Omeprazole 20 mg PO DAILY PRN PRN Reason: Gi Upset Acetaminophen/Diphenhydramine [Tylenol PM 500-25mg] 1 tab PO HS Calcium Infusion 1 dose IV Q365D Lidocaine HCl [Aspercreme Lidocaine] 1 applic TOPICAL DAILY PRN PRN Reason: Pain Discharge Medication List Levothyroxine Sodium [Unithroid] 150 mcg PO DAILY 08/19/16 [History] Losartan [Cozaar] 50 mg PO HS 08/19/16 [History] Multivitamins, Thera [Multivitamin (formulary)] 1 tab PO HS 08/19/16 [History] Letrozole 2.5 mg PO DAILY 01/26/19 [History] Spart[place]-3 Fatty Acids/Fish Oil [Fish Oil 1,000 mg Softgel] 1 cap PO HS 06/20/19 [History] Acetaminophen/Diphenhydramine [Tylenol PM 500-25mg] 1 tab PO HS 09/26/20 [History] Calcium Infusion 1 dose IV Q365D 09/26/20 [History] Lidocaine HCl [Aspercreme Lidocaine] 1 applic TOPICAL DAILY PRN 09/26/20 [History] Melatonin 10 mg PO HS 09/26/20 [History] Omeprazole 20 mg PO DAILY PRN 09/26/20 [History] Docusate [Colace] 100 mg PO BID #30 capsule 09/30/20 [Rx] traMADol HCL [Ultram] 50 mg PO Q6HR PRN 3 Days #12 tab 09/30/20 [Rx] Follow up Appointment(s)/Referral(s): Rivas Perry MD [Medical Doctor] - 10/03/20 10:45 am Srinivas Waldron MD [Primary Care Provider] - 1 Week [facility] Visiting Nurse, [NON-STAFF] - 1-2 Days Patient Instructions/Handouts: Incisional Hernia (GEN) Activity/Diet/Wound Care/Special Instructions: No driving while taking Jerome No lifting over 10 pounds You may shower. No soaking or tub baths for 2 weeks Very light activity until you are reevaluated at your follow up appointment with your surgeon Keep a log of FARHAD drain output and bring with you to your follow-up appointment Milk/strip drains 2-3 times a day Discharge Disposition: HOME WITH HOME HEALTH SERVICES <Rivas Perry - Last Filed: 09/30/20 15:54> Providers Date of admission: 09/30/20 09:22 Attending physician: Rivas Perry Consults: 09/27/20 13:29 Consult Physician Routine Consulting Provider: Srinivas Waldron Consult Reason/Comments: med mgmt Do you want consulting provider notified?: Yes Primary care physician: Srinivas Waldron - Discharge Diagnosis(es) (1) Incarcerated incisional hernia Status: Acute Hospital Course: As above. May discharge today. Follow-up one week.
[2020-10-01] MEDS ORDERED: FAMOTIDINE 20 MG TAB PO SCH (09:00)
== END 2020-09-30 15:05 | disposition home health service (06) | DRG 355 ==
LOC: OR 09:22 → 6NMEDSUR 13:32 → OR 09-28 10:57 → OBSVTOIN 09-30 09:22
PROVIDERS: ADMIT Surgery; ATTEND Surgery
PROC: 0WUF0JZ Supplement Abdominal Wall with Synthetic Substitute, Open Approach (ICD-10-PCS; principal; 2020-09-27 11:35)
DX: K43.0 Incisional hernia with obstruction, without gangrene (principal); E89.0 Postprocedural hypothyroidism; K66.0 Peritoneal adhesions (postprocedural) (postinfection); K21.9 Gastro-esophageal reflux disease without esophagitis; M85.80 Other specified disorders of bone density and structure, unspecified site; I10 Essential (primary) hypertension; K57.90 Diverticulosis of intestine, part unspecified, without perforation or abscess without bleeding; L71.9 Rosacea, unspecified; M15.9 Polyosteoarthritis, unspecified; Z79.890 Hormone replacement therapy; Z79.811 Long term (current) use of aromatase inhibitors; Z79.899 Other long term (current) drug therapy; Z85.3 Personal history of malignant neoplasm of breast; Z90.11 Acquired absence of right breast and nipple; Z85.828 Personal history of other malignant neoplasm of skin; Z96.653 Presence of artificial knee joint, bilateral; Z98.42 Cataract extraction status, left eye; Z98.41 Cataract extraction status, right eye; Z98.890 Other specified postprocedural states; Z88.5 Allergy status to narcotic agent; Z82.61 Family history of arthritis
CPT/HCPCS: 80048; 80053; 85025; 88302

== ENCOUNTER → 2021-02-27 | Outpatient (CLI) | payer MEDICARE, OTHER ==
--- NOTE | 2021-02-27 15:44 | XR ---
Cervical spine HISTORY: Pain, R52 cervical pain 5 views of the cervical spine Bone mineralization is reduced. Cervical vertebral bodies show preserved height. There is anatomic al ignment. Is multilevel facet arthropathy. Multilevel spondylosis is present, loss of disc height grea test at C6-7, C5-6. Prevertebral soft tissues are normal. There is foraminal encroachment on the righ t at 4 5 and C5-6 and C6-7 and on the left at C3-4, C4-5 and C6-7 due to uncovertebral joint hypertro phy. IMPRESSION: Degenerative disc disease, facet arthropathy, osteopenia and multilevel foraminal encroac hment
== END | disposition home or self-care (01) ==
LOC: RADXRMAIN 13:13
PROVIDERS: ATTEND Internal Medicine
DX: M50.30 Other cervical disc degeneration, unspecified cervical region (principal); M47.812 Spondylosis without myelopathy or radiculopathy, cervical region; M85.88 Other specified disorders of bone density and structure, other site; M99.71 Connective tissue and disc stenosis of intervertebral foramina of cervical region
CPT/HCPCS: 72050

== ENCOUNTER → 2021-04-01 | Outpatient (CLI) | payer MEDICARE, OTHER ==
--- NOTE | 2021-04-02 06:08 | MR ---
EXAMINATION TYPE: MR cervical spine wo con DATE OF EXAM: 04/01/2021 COMPARISON: None HISTORY: Pain in neck, left arm, and hanf for over 2 years, history of breast cancer. Multiplanar multiecho imaging of the cervical spine with no contrast. Cervical vertebra have normal alignment. Disc spaces are fairly normal. There is mild decreased signa l in the disks. There is no compression fracture. There is multilevel hypertrophic facet arthropathy. There is reduced size of the spinal canal from C4 to C7. There is moderate uncovertebral spurring on the right side at C5-C6 impinging on the neural foramen. There is posterior central disc bulging at C4-5 and C5-6. There is posterior disc bulging also C6-7. The spinal canal measures 7 mm at C5-6. The re is no evidence of cord edema. the brainstem is intact. Prevertebral soft tissues are intact. I see no evidence of a paraspinal mas s. IMPRESSION: Mild posterior disc bulging at multiple levels as above. There is mild narrowing of the spinal canal at C5-6 that measures 7 mm. No fracture. There is very little overall degenerative change in the cerv ical spine for the patient's age. There is some uncovertebral spurring on the right side at C5-6 and impinging on the neural foramen.
== END | disposition home or self-care (01) ==
LOC: RADMRIMAIN 13:29
PROVIDERS: ATTEND Internal Medicine
DX: M50.220 Other cervical disc displacement, mid-cervical region, unspecified level (principal)
CPT/HCPCS: 72141

== ENCOUNTER → 2021-04-03 | Outpatient (CLI) | payer MEDICARE, OTHER ==
--- NOTE | 2021-04-04 14:25 | MM ---
Reason for exam: additional evaluation requested from prior study. Last mammogram was performed 1 year ago. History: Patient is postmenopausal and has history of breast cancer at age 82. Malignant MG pre op needle loc RT of the right breast, January 27, 2018. Lumpectomy of the right breast, January 27, 2018. Malignant MG stereo VAD BX RT of the right breast, January 10, 2018. Took estrogen beginning at age 56. Took progesterone beginning at age 56. Taking antineoplastic for 3 years beginning at age 82. Physical Findings: Nurse did not find any significant physical abnormalities on exam. MG 3D Diag Mammo W/Cad EILEEN Bilateral CC and MLO view(s) were taken. Prior study comparison: March 28, 2020, bilateral MG 3d diag mammo w/cad EILEEN. March 27, 2019, bilateral MG 3d diag mammo w/cad EILEEN. There are scattered fibroglandular densities. Stable post surgical and post therapy change right breast. No significant new findings when compared with previous films. These results were verbally communicated with the patient and result sheet given to the patient on 04/03/21. ASSESSMENT: Benign, BI-RAD 2 RECOMMENDATION: Follow-up diagnostic mammogram of both breasts in 1 year.
== END | disposition home or self-care (01) ==
LOC: RADMAMWWP 10:57
PROVIDERS: ATTEND Surgery
DX: R92.8 Other abnormal and inconclusive findings on diagnostic imaging of breast (principal)
CPT/HCPCS: 77066; G0279; 77062

== ENCOUNTER 2022-03-20 13:21 | Observation (INO) | payer MEDICARE, OTHER ==
--- NOTE | 2022-03-20 14:24 | ED ---
General Adult HPI - General Chief complaint: Shortness of Breath Stated complaint: VALE Time Seen by Provider: 03/20/22 13:58 Source: patient, RN notes reviewed Mode of arrival: ambulatory Limitations: no limitations - History of Present Illness Initial comments: Patient is a pleasant 86-year-old female presenting to the emergency Department with shortness of breath. Onset of symptoms was around 3 days ago. Symptoms greatly worsen with exertion. Patient has possibly some mild phlegm in her throat. Otherwise no significant cough. No sinus congestion. No fever. No chest pain. No history of similar symptoms previously. No leg pain or leg swel ling. - Related Data Home Medications Medication Instructions Recorded Confirmed Levothyroxine Sodium [Unithroid] 150 mcg PO DAILY 08/19/16 03/20/22 Losartan [Cozaar] 50 mg PO HS 08/19/16 03/20/22 Multivitamins, Thera [Multivitamin 1 tab PO DAILY 08/19/16 03/20/22 (formulary)] Letrozole 2.5 mg PO HS 01/26/19 03/20/22 [place]-3 Fatty Acids/Fish Oil [Fish 1 cap PO HS 06/20/19 03/20/22 Oil 1,000 mg Softgel] Calcium Carbonate [Calcium] 600 mg PO HS 03/20/22 03/20/22 cycloSPORINE 0.05% OPHTH SOLN 1 applicator BOTH EYES HS 03/20/22 03/20/22 [Restasis] Allergies Allergy/AdvReac Type Severity Reaction Status Date / Time codeine AdvReac Nausea & Verified 03/20/22 15:01 Vomiting narcotics AdvReac Mild Nausea & Uncoded 03/20/22 13:26 Vomiting Review of Systems ROS Statement: Those systems with pertinent positive or pertinent negative responses have been documented in the HPI. ROS Other: All systems not noted in ROS Statement are negative. Constitutional: Denies: fever, chills Eyes: Denies: eye pain ENT: Denies: ear pain Respiratory: Reports: as per HPI, dyspnea. Denies: cough Cardiovascular: Reports: dyspnea on exertion. Denies: chest pain Endocrine: Reports: fatigue (With exertion) Gastrointestinal: Denies: abdominal pain Genitourinary: Denies: dysuria Musculoskeletal: Denies: back pain Skin: Denies: rash Neurological: Denies: weakness Past Medical History Past Medical History: Cancer, GERD/Reflux, Hypertension, Osteoarthritis (OA), Skin Disorder, Thyroid Disorder Additional Past Medical History / Comment(s): hx: R breast cancer with lumpectomy, skin cancer removed from leg, generalized arthritis, hypothyroid, diverticular disease with rupture/colostomy, rosacea, osteopenia History of Any Multi-Drug Resistant Organisms: None Reported Past Surgical History: Bowel Resection, Breast Surgery, Hernia Repair, Joint Replacement Additional Past Surgical History / Comment(s): 01/2019 sigmoid resection with colostomy,colostomy reversal colonoscopies, R breast biopsy/lumpectomy, skin cancer removal, bilateral total knee arthroplasties, bilateral inguinal hernia repairs, partial thyroidectomy, bilateral cataract removals. Past Anesthesia/Blood Transfusion Reactions: Motion Sickness, Postoperative Nausea & Vomiting (PONV) Past Psychological History: No Psychological Hx Reported Smoking Status: Never smoker Past Alcohol Use History: Occasional Past Drug Use History: None Reported - Past Family History Mother Family Medical History: Osteoarthritis (OA) Additional Family Medical History / Comment(s): at age 85 Father Additional Family Medical History / Comment(s): Pt believes father may have in war-they were never informed officially. General Exam Limitations: no limitations General appearance: alert, in no apparent distress Head exam: Present: normocephalic Eye exam: Present: normal appearance ENT exam: Present: normal oropharynx Neck exam: Present: normal inspection Respiratory exam: Present: normal lung sounds bilaterally. Absent: respiratory distress, wheezes Cardiovascular Exam: Present: regular rate, normal rhythm GI/Abdominal exam: Present: soft. Absent: tenderness Extremities exam: Present: pedal edema (Trace bilateral). Absent: calf tenderness Neurological exam: Present: alert Psychiatric exam: Present: normal affect, normal mood Skin exam: Present: normal color Course Vital Signs 03/20/22 03/20/22 03/20/22 13:23 14:21 16:47 Temperature 98.2 F Pulse Rate 91 72 Respiratory 20 16 Rate Blood Pressure 154/68 154/76 138/73 O2 Sat by Pulse 97 94 L Oximetry EKG Findings - EKG Comments: EKG Findings:: Sinus rhythm with a rate 84. IN 198. QRS 88. QT 358. QTC 399. Normal axis. Normal QRS. No acute ST change. Medical Decision Making - Medical Decision Making Patient reevaluated and updated. Case was discussed with Dr. Waldron, who will admit his patient and agrees with plan. - Lab Data Result diagrams: 03/20/22 14:27 03/20/22 14:27 Lab Results 03/20/22 03/20/22 03/20/22 Range/Units 14:27 14:27 14:27 WBC 8.8 (3.8-10.6) k/uL RBC 4.54 (3.80-5.40) m/uL Hgb 12.5 (11.4-16.0) gm/dL Hct 38.9 (34.0-46.0) % MCV 85.8 (80.0-100.0) fL MCH 27.7 (25.0-35.0) pg MCHC 32.2 (31.0-37.0) g/dL RDW 13.4 (11.5-15.5) % Plt Count 242 (150-450) k/uL MPV 7.0 Neutrophils % 74 % Lymphocytes % 20 % Monocytes % 4 % Eosinophils % 1 % Basophils % 0 % Neutrophils # 6.5 (1.3-7.7) k/uL Lymphocytes # 1.8 (1.0-4.8) k/uL Monocytes # 0.4 (0-1.0) k/uL Eosinophils # 0.0 (0-0.7) k/uL Basophils # 0.0 (0-0.2) k/uL PT 11.0 (9.0-12.0) sec INR 1.0 (<1.2) APTT 23.3 (22.0-30.0) sec D-Dimer 0.75 H (<0.60) mg/L FEU Sodium 142 (137-145) mmol/L Potassium 3.7 (3.5-5.1) mmol/L Chloride 110 H (98-107) mmol/L Carbon Dioxide 25 (22-30) mmol/L Anion Gap 7 mmol/L BUN 20 H (7-17) mg/dL Creatinine 0.68 (0.52-1.04) mg/dL Est GFR (CKD-EPI)AfAm >90 (>60 ml/min/1.73 sqM) Est GFR (CKD-EPI)NonAf 79 (>60 ml/min/1.73 sqM) Glucose 139 H (74-99) mg/dL Plasma Lactic Acid Lacho (0.7-2.0) mmol/L Calcium 10.4 H (8.4-10.2) mg/dL Total Bilirubin 0.3 (0.2-1.3) mg/dL AST 26 (14-36) U/L ALT 22 (4-34) U/L Alkaline Phosphatase 61 (38-126) U/L Troponin I (0.000-0.034) ng/mL NT-Pro-B Natriuret Pep pg/mL Total Protein 6.8 (6.3-8.2) g/dL Albumin 4.0 (3.5-5.0) g/dL Coronavirus (PCR) (Not Detectd) Influenza Type A RNA (Not Detectd) Influenza Type B (PCR) (Not Detectd) 03/20/22 03/20/22 03/20/22 Range/Units 14:27 14:27 14:27 WBC (3.8-10.6) k/uL RBC (3.80-5.40) m/uL Hgb (11.4-16.0) gm/dL Hct (34.0-46.0) % MCV (80.0-100.0) fL MCH (25.0-35.0) pg MCHC (31.0-37.0) g/dL RDW (11.5-15.5) % Plt Count (150-450) k/uL MPV Neutrophils % % Lymphocytes % % Monocytes % % Eosinophils % % Basophils % % Neutrophils # (1.3-7.7) k/uL Lymphocytes # (1.0-4.8) k/uL Monocytes # (0-1.0) k/uL Eosinophils # (0-0.7) k/uL Basophils # (0-0.2) k/uL PT (9.0-12.0) sec INR (<1.2) APTT (22.0-30.0) sec D-Dimer (<0.60) mg/L FEU Sodium (137-145) mmol/L Potassium (3.5-5.1) mmol/L Chloride (98-107) mmol/L Carbon Dioxide (22-30) mmol/L Anion Gap mmol/L BUN (7-17) mg/dL Creatinine (0.52-1.04) mg/dL Est GFR (CKD-EPI)AfAm (>60 ml/min/1.73 sqM) Est GFR (CKD-EPI)NonAf (>60 ml/min/1.73 sqM) Glucose (74-99) mg/dL Plasma Lactic Acid Lacho 1.4 (0.7-2.0) mmol/L Calcium (8.4-10.2) mg/dL Total Bilirubin (0.2-1.3) mg/dL AST (14-36) U/L ALT (4-34) U/L Alkaline Phosphatase (38-126) U/L Troponin I <0.012 (0.000-0.034) ng/mL NT-Pro-B Natriuret Pep 618 pg/mL Total Protein (6.3-8.2) g/dL Albumin (3.5-5.0) g/dL Coronavirus (PCR) (Not Detectd) Influenza Type A RNA (Not Detectd) Influenza Type B (PCR) (Not Detectd) 03/20/22 03/20/22 Range/Units 14:27 14:27 WBC (3.8-10.6) k/uL RBC (3.80-5.40) m/uL Hgb (11.4-16.0) gm/dL Hct (34.0-46.0) % MCV (80.0-100.0) fL MCH (25.0-35.0) pg MCHC (31.0-37.0) g/dL RDW (11.5-15.5) % Plt Count (150-450) k/uL MPV Neutrophils % % Lymphocytes % % Monocytes % % Eosinophils % % Basophils % % Neutrophils # (1.3-7.7) k/uL Lymphocytes # (1.0-4.8) k/uL Monocytes # (0-1.0) k/uL Eosinophils # (0-0.7) k/uL Basophils # (0-0.2) k/uL PT (9.0-12.0) sec INR (<1.2) APTT (22.0-30.0) sec D-Dimer (<0.60) mg/L FEU Sodium (137-145) mmol/L Potassium (3.5-5.1) mmol/L Chloride (98-107) mmol/L Carbon Dioxide (22-30) mmol/L Anion Gap mmol/L BUN (7-17) mg/dL Creatinine (0.52-1.04) mg/dL Est GFR (CKD-EPI)AfAm (>60 ml/min/1.73 sqM) Est GFR (CKD-EPI)NonAf (>60 ml/min/1.73 sqM) Glucose (74-99) mg/dL Plasma Lactic Acid Lacho (0.7-2.0) mmol/L Calcium (8.4-10.2) mg/dL Total Bilirubin (0.2-1.3) mg/dL AST (14-36) U/L ALT (4-34) U/L Alkaline Phosphatase (38-126) U/L Troponin I (0.000-0.034) ng/mL NT-Pro-B Natriuret Pep pg/mL Total Protein (6.3-8.2) g/dL Albumin (3.5-5.0) g/dL Coronavirus (PCR) Not Detected (Not Detectd) Influenza Type A RNA Not Detected (Not Detectd) Influenza Type B (PCR) Not Detected (Not Detectd) - Radiology Data Radiology results: report reviewed (CT negative for pulmonary embolism. Cardiomegaly. Bilateral pleural effusions and cardiovascular congestion.), image reviewed (Chest x-ray shows some interstitial edema. Possible interstitial lung disease.) Disposition Clinical Impression: Congestive heart failure Disposition: ADMITTED IP TO THIS HOSP Is patient prescribed a controlled substance at d/c from ED?: No Referrals: Srniivas Waldron MD [Primary Care Provider] - 1-2 days Time of Disposition: 17:32
[2022-03-20 14:52] LABS: Basophils % (A) 0 %; Eosinophils % (A) 1 %; HCT 38.9 % (34.0-46.0); HGB 12.5 gm/dL (11.4-16.0); Lymphocytes # (A) 1.8 k/uL (1.0-4.8); Lymphocytes % (A) 20 %; MCH 27.7 pg (25.0-35.0); MCHC 32.2 g/dL (31.0-37.0); MCV 85.8 fL (80.0-100.0); Monocytes # (A) 0.4 k/uL (0-1.0); Monocytes % (A) 4 %; Neutrophils # (A) 6.5 k/uL (1.3-7.7); Neutrophils % (A) 74 %; Platelet Count 242 k/uL (150-450); RBC 4.54 m/uL (3.80-5.40); RDW 13.4 % (11.5-15.5); WBC 8.8 k/uL (3.8-10.6)
[2022-03-20 15:10] LABS: Partial Thromboplastin Time 23.3 sec (22.0-30.0)
[2022-03-20 15:17] LABS: ALT 22 U/L (4-34); AST 26 U/L (14-36); African American GFR (CKD) >90 (>60 ml/min/1.73 sqM); Alkaline Phosphatase 61 U/L (38-126); Anion Gap 7 mmol/L; Blood Urea Nitrogen 20 mg/dL (7-17); Calcium 10.4 mg/dL (8.4-10.2); Carbon Dioxide 25 mmol/L (22-30); Chloride 110 mmol/L (98-107); Glucose 139 mg/dL (74-99); Non-African American GFR(CKD) 79 (>60 ml/min/1.73 sqM); Potassium 3.7 mmol/L (3.5-5.1); Sodium 142 mmol/L (137-145); Total Bilirubin 0.3 mg/dL (0.2-1.3); Total Protein 6.8 g/dL (6.3-8.2)
--- NOTE | 2022-03-20 15:35 | XR ---
EXAMINATION TYPE: XR chest 2V DATE OF EXAM: 03/20/2022 COMPARISON: Chest x-ray 07/20/2019 HISTORY: Difficulty breathing TECHNIQUE: Frontal and lateral views of the chest are obtained. FINDINGS: The heart is enlarged. Interstitium is increased. Postop changes are noted to the right br east and axilla. No evident pneumothorax or pleural effusion. There is a spinal curvature, there is t horacic spondylosis, arthropathy within the shoulders. Aorta is dense. Prominent lung lines suggest u nderlying COPD. Old healed rib fractures noted in the right lower chest. IMPRESSION: Difficult to exclude pulmonary venous hypertension and interstitial edema versus interst itial lung disease. There is possible cardiomegaly.
--- NOTE | 2022-03-20 16:38 | CT ---
EXAMINATION TYPE: CT angio chest CT DLP: 245.2 mGycm, Automated exposure control for dose reduction was used. DATE OF EXAM: 03/20/2022 4:30 PM COMPARISON: Chest radiograph same day. CLINICAL INDICATION:Female, 86 years old with history of dyspnea; elevated d-dimer TECHNIQUE/CONTRAST: CTA scan of the thorax is performed with IV Contrast, patient injected with 80 mL of Isovue 370, pulm onary embolism protocol. MIP images are created and reviewed. FINDINGS: Pulmonary Artery: There is no evidence for a filling defect within the pulmonary vasculature to sugge st acute pulmonary embolism. The pulmonary artery is enlarged measuring up to 3.2 cm. Lungs/Pleura: No evidence of focal consolidation or pneumothorax. Thickening of the interlobular sept a. Trace bilateral pleural effusions. Airway: Large airways are patent. Heart: Is mildly enlarged for size. Vasculature: No evidence of aortic aneurysm. There is reflux of contrast into the inferior vena cava. Mediastinum: Right subcarinal soft tissue nodularity suggestive of lymph node measuring 2.6 x 2.1 cm prominent right perihilar lymph nodes measuring 5 mm in short axis. Musculoskeletal: No acute osseous abnormalities. Degeneration changes of the shoulders right greater than left. Soft Tissues: Unremarkable. Lower neck: No significant findings. Upper Abdomen: Cholelithiasis is present. Left renal cyst is present. IMPRESSION: 1. No evidence of pulmonary embolism. 2. Cardiomegaly with bilateral pleural effusions and pulmonary vascular congestion. Correlate with se rum BNP. 3. Enlarged subcarinal lymph node suggested. The azygous vein is in close proximity to this region. I t may represent aneurysmal dilation of the azygous vein. Delayed phase imaging with IV contrast could provide further evaluation. 4. Findings suggestive of pulmonary hypertension.
[2022-03-20] MEDS ORDERED: ASPIRIN 325 MG TAB PO STA (17:32)
[2022-03-20] MEDS ORDERED: FUROSEMIDE 10 MG/ML 4 ML VIAL IV SCH (17:45)
[2022-03-20] MEDS: NITROGLYCERIN OINT 1 INCH/GM PACKET TOPICAL SCH ×2 (18:12→22:51)
[2022-03-20] MEDS: FUROSEMIDE 10 MG/ML 4 ML VIAL IV SCH (18:13)
[2022-03-21] MEDS: FUROSEMIDE 10 MG/ML 4 ML VIAL IV SCH ×2 (06:35→17:38)
[2022-03-21] MEDS: NITROGLYCERIN OINT 1 INCH/GM PACKET TOPICAL SCH ×2 (08:51→08:58)
[2022-03-21] MEDS ORDERED: ASPIRIN 325 MG TAB PO SCH (09:00)
--- NOTE | 2022-03-21 09:34 | P.HPIM ---
History of Present Illness H&P Date: 03/21/22 Brooke Canchola, is an 86-year-old female who presented to [facility] emergency room with a chief complaint of shortness of breath, patient stated that over the last 2 days she started having worsening shortness of breath that was exacerbated by activity, she had occasional cough and she was afraid she might have COVID-19 infection, she went to a walk-in clinic and had a rapid test that was negative, her symptoms continued to worsen and she decided to come to emergency room for further evaluation. She was evaluated in the emergency room vital examination on presentation rev ealed a temperature of 98.2 pulse 91 respiration 20 blood pressure 154/68 pulse ox 97% on room air Laboratory data revealed a white blood count of 8.8 hemoglobin 12.5 platelet count 242 sodium 142 potassium 3.7 chloride 110 CO2 25 BUN 20 creatinine 0.68 BNP 618 troponin level less than 0.012 d-dimer 0.75 Testing in the emergency room revealed CT angiogram of the chest revealed no evidence of pulmonary embolism, there was evidence of cardiomegaly with bilateral pleural effusion and pulmonary vascular congestion, and possible enlarged subcarinal lymph node versus azygous vein aneurysmally dilatation. Chest x-ray revealed pulmonary venous congestion and cardiomegaly, EKG revealed normal sinus rhythm normal EKG Patient was admitted to medical floor for further evaluation and treatment, echocardiogram was ordered cardiology consultation requested. 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 On review of systems patient is alert and oriented 3, there is no fever or chills no headache or dizziness no chest pain she had some shortness of breath with any activity and occasional cough without any sputum production, there is no nausea or vomiting no abdominal pain no diarrhea no blood in the stools no burning with urination no frequency or urgency and no hematuria, there is no weakness or numbness in any of the extremities and no change in vision speech or gait. Past Medical History Past Medical History: Cancer, GERD/Reflux, Hypertension, Osteoarthritis (OA), Skin Disorder, Thyroid Disorder Additional Past Medical History / Comment(s): hx: R breast cancer with lumpectomy, skin cancer removed from leg, generalized arthritis, hypothyroid, diverticular disease with rupture/colostomy, rosacea, osteopenia History of Any Multi-Drug Resistant Organisms: None Reported Past Surgical History: Bowel Resection, Breast Surgery, Hernia Repair, Joint Replacement Additional Past Surgical History / Comment(s): 01/2019 sigmoid resection with colostomy,colostomy reversal colonoscopies, R breast biopsy/lumpectomy, skin cancer removal, bilateral total knee arthroplasties, bilateral inguinal hernia repairs, partial thyroidectomy, bilateral cataract removals. Past Anesthesia/Blood Transfusion Reactions: Motion Sickness, Postoperative Nausea & Vomiting (PONV) Past Psychological History: No Psychological Hx Reported Additional Psychological History / Comment(s): Pt resides alone. She is independent. She is originally from [facility]. Smoking Status: Never smoker Past Alcohol Use History: Occasional Additional Past Alcohol Use History / Comment(s): once every couple weeks Past Drug Use History: None Reported - Past Family History Mother Family Medical History: Osteoarthritis (OA) Additional Family Medical History / Comment(s): at age 85 Father Additional Family Medical History / Comment(s): Pt believes father may have in war-they were never informed officially. Medications and Allergies Home Medications Medication Instructions Recorded Confirmed Type Levothyroxine Sodium [Unithroid] 150 mcg PO DAILY 08/19/16 03/20/22 History Losartan [Cozaar] 50 mg PO HS 08/19/16 03/20/22 History Multivitamins, Thera [Multivitamin 1 tab PO DAILY 08/19/16 03/20/22 History (formulary)] Letrozole 2.5 mg PO HS 01/26/19 03/20/22 History [place]-3 Fatty Acids/Fish Oil [Fish 1 cap PO HS 06/20/19 03/20/22 History Oil 1,000 mg Softgel] Calcium Carbonate [Calcium] 600 mg PO HS 03/20/22 03/20/22 History cycloSPORINE 0.05% OPHTH SOLN 1 applicator BOTH EYES HS 03/20/22 03/20/22 History [Restasis] Allergies Allergy/AdvReac Type Severity Reaction Status Date / Time codeine AdvReac Nausea & Verified 03/20/22 15:01 Vomiting narcotics AdvReac Mild Nausea & Uncoded 03/20/22 13:26 Vomiting Physical Exam Vitals: Vital Signs Temp Pulse Pulse Resp BP BP Pulse Ox 03/21/22 04:00 98 F 64 16 98/55 94 L 03/20/22 23:46 97.8 F 69 14 105/57 93 L 03/20/22 20:00 98.9 F 77 16 137/61 96 03/20/22 18:26 98.0 F 83 16 162/61 98 03/20/22 18:20 98.0 F 76 18 153/72 98 03/20/22 16:47 72 16 138/73 94 L 03/20/22 14:21 154/76 03/20/22 13:23 98.2 F 91 20 154/68 97 Intake and Output 03/20/22 03/21/22 03/21/22 22:59 06:59 14:59 Other: Weight 69.853 kg 60.9 kg In general patient is alert and oriented x 3 in no distress HEENT head normocephalic and atraumatic Neck is supple no JVD no goiter no lymphadenopathy no carotid bruit Chest examination reveals a scattered crackles in bases no wheezing Cardiac exam reveals regular heart sounds S1 and S2 no gallops no murmurs Abdomen is soft nontender no organomegaly with normal bowel sounds Extremity exam reveals no edema no cyanosis or clubbing Neurological examination reveals no gross focal deficits Results CBC & Chem 7: 03/20/22 14:27 03/20/22 14:27 Labs: Abnormal Lab Results - Last 24 Hours (Table) 03/20/22 03/20/22 Range/Units 14:27 14:27 D-Dimer 0.75 H (<0.60) mg/L FEU Chloride 110 H (98-107) mmol/L BUN 20 H (7-17) mg/dL Glucose 139 H (74-99) mg/dL Calcium 10.4 H (8.4-10.2) mg/dL Thrombosis Risk Factor Assmnt - Choose All That Apply Any of the Below Risk Factors Present?: No Other Risk Factors: Yes Each Risk Factor Represents 3 Points: Age 75 years or older Other congenital or acquired thrombophilia - If yes, enter type in comment: No Thrombosis Risk Factor Assessment Total Risk Factor Score: 3 Thrombosis Risk Factor Assessment Level: Moderate Risk Assessment and Plan Plan: Worsening shortness of breath Evidence of small bilateral pleural effusions and possible right subcarinal Enlarged lymph node Underlying history of hypothyroidism Previous history of breast cancer Previous history of diverticulitis with diverticular abscess Patient is admitted to telemetry floor she was started on IV Lasix Cardiology consultation was requested Echocardiogram ordered Preliminary diagnosis is congestive heart failure Also pulmonary consultation was requested in regard to bilateral pleural eff usion and enlarged lymph node For DVT prophylaxis subcu Lovenox for GI prophylaxis Protonix Will recheck labs in a.m. and follow closely
[2022-03-21 10:00] LABS: Appearance,Urine Clear (Clear); Bilirubin,Urine Negative (Negative); Blood,Urine Negative (Negative); Color,Urine Colorless; Glucose,Urine (UA) Negative (Negative); Ketones,Urine Negative (Negative); Leukocyte Esterase,Urine Negative (Negative); Nitrite,Urine Negative (Negative); Protein,Urine Negative (Negative); Specific Gravity,Urine 1.008 (1.001-1.035); Urobilinogen,Urine <2.0 mg/dL (<2.0)
[2022-03-21] MEDS: LEVOTHYROXINE 75 MCG TAB PO SCH (10:11)
[2022-03-21] MEDS: ENOXAPARIN 40 MG/0.4 ML SYRINGE SQ SCH (10:11)
[2022-03-21] MEDS: LOSARTAN 25 MG TAB PO SCH (10:11)
--- NOTE | 2022-03-21 12:12 | P.CNPUL ---
History of Present Illness Consult date: 03/21/22 Requesting physician: Srinivas Waldron Reason for consult: dyspnea, pleural effusion, abnormal CXR/CT Chief complaint: Mild shortness of breath. History of present illness: Pulmonary consult dated 03/21/2022. This is an 86-year-old very pleasant [place] woman who was seen in the emergency room, on March 20, for shortness of breath. She was seen there by Dr. Cole. She apparently been having shortness of breath about 3 days prior to her admission to the emergency room. In addition, her symptoms have been progressive, and she had some lower extremity edema. She denies any chest pain or chest discomfort. There is no fever or chills. She was not coughing. We were consulted because the chest x-ray showed small bilateral pleural effusions. Currently, the patient is not receiving any IV fluids, and she is not requiring any supplemental oxygen. Room air saturations are in the mid 90s. She does not appear short of breath. She apparently has a history of breast cancer, with previous lumpectomy, GERD, hypertension, osteoarthritis, hypothyroidism, diverticular disease, and previous bowel resection. CBC was completely normal. D-dimer was 0.75. Sodium 142, potassium 3.7, chlorides 110, CO2 25, with a BUN of 20 and a creatinine of 0.68. Troponin was normal. N-terminal proBNP was 618. Urine was negative. Testing for coronavirus and influenza were both negative. Review of Systems REVIEW OF SYSTEMS: CONSTITUTIONAL: [Negative.] NEUROLOGIC: [ Negative.] HEENT: [ Negative.] CARDIAC: Extremity edema. PULMONARY: Shortness of breath. GI: [Negative.] : [Negative.] RHEUMATOLOGIC: [ Negative.] IMMUNOLOGIC: [ Negative.] ENDOCRINE: [Negative. ] DERMATOLOGIC: [Negative.] Past Medical History Past Medical History: Cancer, GERD/Reflux, Hypertension, Osteoarthritis (OA), Skin Disorder, Thyroid Disorder Additional Past Medical History / Comment(s): hx: R breast cancer with roberta mpectomy, skin cancer removed from leg, generalized arthritis, hypothyroid, diverticular disease with rupture/colostomy, rosacea, osteopenia History of Any Multi-Drug Resistant Organisms: None Reported Past Surgical History: Bowel Resection, Breast Surgery, Hernia Repair, Joint Replacement Additional Past Surgical History / Comment(s): 01/2019 sigmoid resection with colostomy,colostomy reversal colonoscopies, R breast biopsy/lumpectomy, skin cancer removal, bilateral total knee arthroplasties, bilateral inguinal hernia repairs, partial thyroidectomy, bilateral cataract removals. Past Anesthesia/Blood Transfusion Reactions: Motion Sickness, Postoperative Nausea & Vomiting (PONV) Past Psychological History: No Psychological Hx Reported Additional Psychological History / Comment(s): Pt resides alone. She is independent. She is originally from [place] [facility]. Smoking Status: Never smoker Past Alcohol Use History: Occasional Additional Past Alcohol Use History / Comment(s): once every couple weeks Past Drug Use History: None Reported - Past Family History Mother Family Medical History: Osteoarthritis (OA) Additional Family Medical History / Comment(s): at age 85 Father Additional Family Medical History / Comment(s): Pt believes father may have in war-they were never informed officially. Medications and Allergies Home Medications Medication Instructions Recorded Confirmed Type Levothyroxine Sodium [Unithroid] 150 mcg PO DAILY 08/19/16 03/20/22 History Losartan [Cozaar] 50 mg PO HS 08/19/16 03/20/22 History Multivitamins, Thera [Multivitamin 1 tab PO DAILY 08/19/16 03/20/22 History (formulary)] Letrozole 2.5 mg PO HS 01/26/19 03/20/22 History [place]-3 Fatty Acids/Fish Oil [Fish 1 cap PO HS 06/20/19 03/20/22 History Oil 1,000 mg Softgel] Calcium Carbonate [Calcium] 600 mg PO HS 03/20/22 03/20/22 History cycloSPORINE 0.05% OPHTH SOLN 1 applicator BOTH EYES HS 03/20/22 03/20/22 History [Restasis] Allergies Allergy/AdvReac Type Severity Reaction Status Date / Time codeine AdvReac Nausea & Verified 03/20/22 15:01 Vomiting narcotics AdvReac Mild Nausea & Uncoded 03/20/22 13:26 Vomiting Physical Exam Osteopathic Statement: *. No significant issues noted on an osteopathic structural exam other than those noted in the History and Physical/Consult. Vitals: Vital Signs Temp Pulse Pulse Resp BP BP Pulse Ox 03/21/22 08:58 98.1 F 78 16 149/74 96 03/21/22 04:00 98 F 64 16 98/55 94 L 03/20/22 23:46 97.8 F 69 14 105/57 93 L 03/20/22 20:00 98.9 F 77 16 137/61 96 03/20/22 18:26 98.0 F 83 16 162/61 98 03/20/22 18:20 98.0 F 76 18 153/72 98 03/20/22 16:47 72 16 138/73 94 L 03/20/22 14:21 154/76 03/20/22 13:23 98.2 F 91 20 154/68 97 Intake and Output 03/20/22 03/21/22 03/21/22 22:59 06:59 14:59 Intake Total 120 Output Total 700 Balance -580 Intake: Oral 120 Output: Urine 700 Other: Voiding Method Toilet # Voids 2 Weight 69.853 kg 60.9 kg No acute distress, oriented 3. No respiratory distress. Room air saturation is 96%. HEENT examination is grossly unremarkable. Neck supple. Full range of motion. No adenopathy thyromegaly or neck vein distention. Cardiovascular examination reveals regular rhythm rate. S1-S2 normal. No S3 or S4. No discernible murmur noted. Heart rate is 78 bpm. Lungs reveal minimal bibasilar crackles. No wheezes. No rhonchi. Breath sounds equal bilaterally. Abdomen soft bowel sounds are heard. No masses or tenderness. Extremities are intact. No cyanosis or clubbing. Trace edema noted. Skin is without rash or lesion. Neurologic examination is brief but nonfocal. Results - Laboratory Findings CBC and BMP: 03/20/22 14:27 03/20/22 14:27 PT/INR, D-dimer PT 11.0 sec (9.0-12.0) 03/20/22 14:27 INR 1.0 (<1.2) 03/20/22 14:27 D-Dimer 0.75 mg/L FEU (<0.60) H 03/20/22 14:27 Abnormal lab findings: Abnormal Labs 03/20/22 03/20/22 14:27 14:27 D-Dimer 0.75 H Chloride 110 H BUN 20 H Glucose 139 H Calcium 10.4 H - Diagnostic Findings Chest x-ray: image reviewed CT scan - chest: image reviewed Assessment and Plan Assessment: Mild/moderate CHF, with small bilateral pleural effusions. Breast cancer, with previous lumpectomy. Hypothyroidism. History of hypertension. Gastroesophageal reflux disease. Osteoarthritis. History of diverticular disease with previous bowel resection and colostomy. Multiple other medical problems and comorbidities. Plan: Plan dated 03/21/2022. The patient is doing very well. She's on room air. Saturations are 96%. Chest x-ray is reviewed. CAT scan is reviewed. No pulmonary embolism. Physical examination reveals minimal right basilar crackles. No additional workup is necessary for the small bilateral pleural effusions. We'll follow as needed. Prognosis is guarded. Time with Patient: Greater than 30
--- NOTE | 2022-03-21 12:27 | P.CRDCN ---
History of Present Illness Consult date: 03/21/22 History of present illness: The patient is an 86-year-old female with past medical history of hypertension and hypothyroidism, who presented to the hospital with worsening shortness of breath. This started occurring approximately 3 days prior. She had no associated chest pain or chest pressure. No fever or chills. No recent infection. The patient was interviewed and examined lying comfortably in bed. She states she is currently breathing well but Wellbutrin of breath if she exerts herself. She states she initially felt much better after receiving IV Lasix in the emergency room, however no improvement in her breathing on her most recent dose. DIAGNOSTICS: EKG shows sinus mechanism without ST or T-wave abnormalities Chest x-ray shows possible interstitial lung disease versus pulmonary venous hypertension CT of the chest shows no evidence of pulmonary embolism, however bilateral pleural effusions and pulmonary vascular congestion noted. Findings suggestive of pulmonary hypertension. Lab data: WBC 8.8, hemoglobin 12.5, platelet 242, d-dimer 0.75, sodium 142, potassium 3.7, BUN 20, creatinine 0.60, AST 26, ALT 22, troponin less than 0.01, BNP 618 Vital signs: Blood pressure 149/74, pulse 78, respiratory rate 16, temp 98.1F, SpO2 96% on room air PAST MEDICAL HISTORY: Hypertension, hypothyroidism, breast cancer REVIEW OF SYSTEMS: No fever or chills. No cough or expectoration. No diaphoresis. Patient denies headache, dizziness, blurred vision, double vision. Patient denies any stomach discomfort. No nausea, vomiting. No hematochezia. No hematemesis. Denies any black stools or blood in his stools. Denies dysuria or hematuria. No muscle weakness or numbness. Positive for shortness of breath with exertion. No orthopnea. No chest pain or chest pressure. PHYSICAL EXAMINATION: This is a 86-year-old female in no apparent distress at the time of my examination. HEENT: Head is atraumatic, normocephalic. Pupils are equal, round. Sclerae an icteric. Conjunctivae are clear. Mucous membranes of the mouth are moist. Neck is supple. There is no jugular venous distention. No carotid bruit is heard. CHEST EXAMINATION: Lungs are clear to auscultation. No chest wall tenderness is noted on palpation or with deep breathing. HEART EXAMINATION: Heart regular rate and rhythm. S1, S2 heard. Systolic murmur. No gallops or rub. ABDOMEN: Soft, nontender. Bowel sounds are heard. No organomegaly noted. EXTREMITIES: 2+ peripheral pulses with no evidence of peripheral edema and no calf tenderness noted. NEUROLOGIC EXAMINATION: Patient is awake, alert and oriented x3. FINAL ASSESSMENT AND PLAN: New onset of shortness of breath with bilateral pleural effusion Mild CHF exacerbation, likely secondary to valvular disease Systolic murmur, echocardiogram pending History of hypertension History of hyperthyroidism PLAN: Resume losartan Echocardiogram and Doppler study pending Continue IV Lasix for additional 24 hours Further recommendations to be based on clinical course I am dictating on behalf of Dr Joe Acharya's history/physical and assessment/plan. Past Medical History Past Medical History: Cancer, GERD/Reflux, Hypertension, Osteoarthritis (OA), Skin Disorder, Thyroid Disorder Additional Past Medical History / Comment(s): hx: R breast cancer with lumpectomy, skin cancer removed from leg, generalized arthritis, hypothyroid, diverticular disease with rupture/colostomy, rosacea, osteopenia History of Any Multi-Drug Resistant Organisms: None Reported Past Surgical History: Bowel Resection, Breast Surgery, Hernia Repair, Joint Replacement Additional Past Surgical History / Comment(s): 01/2019 sigmoid resection with colostomy,colostomy reversal colonoscopies, R breast biopsy/lumpectomy, skin cancer removal, bilateral total knee arthroplasties, bilateral inguinal hernia repairs, partial thyroidectomy, bilateral cataract removals. Past Anesthesia/Blood Transfusion Reactions: Motion Sickness, Postoperative Nausea & Vomiting (PONV) Past Psychological History: No Psychological Hx Reported Additional Psychological History / Comment(s): Pt resides alone. She is independent. She is originally from [facility] Smoking Status: Never smoker Past Alcohol Use History: Occasional Additional Past Alcohol Use History / Comment(s): once every couple weeks Past Drug Use History: None Reported - Past Family History Mother Family Medical History: Osteoarthritis (OA) Additional Family Medical History / Comment(s): at age 85 Father Additional Family Medical History / Comment(s): Pt believes father may have in war-they were never informed officially. Medications and Allergies Home Medications Medication Instructions Recorded Confirmed Type Levothyroxine Sodium [Unithroid] 150 mcg PO DAILY 08/19/16 03/20/22 History Losartan [Cozaar] 50 mg PO HS 12/14/16 07/15/22 History Multivitamins, Thera [Multivitamin 1 tab PO DAILY 08/19/16 03/20/22 History (formulary)] Letrozole 2.5 mg PO HS 01/26/19 03/20/22 History [place]-3 Fatty Acids/Fish Oil [Fish 1 cap PO HS 06/20/19 03/20/22 History Oil 1,000 mg Softgel] Calcium Carbonate [Calcium] 600 mg PO HS 03/20/22 03/20/22 History cycloSPORINE 0.05% OPHTH SOLN 1 applicator BOTH EYES HS 03/20/22 03/20/22 History [Restasis] Allergies Allergy/AdvReac Type Severity Reaction Status Date / Time codeine AdvReac Nausea & Verified 03/20/22 15:01 Vomiting narcotics AdvReac Mild Nausea & Uncoded 03/20/22 13:26 Vomiting Physical Exam Vitals: Vital Signs Temp Pulse Pulse Resp BP BP Pulse Ox 03/21/22 04:00 98 F 64 16 98/55 94 L 03/20/22 23:46 97.8 F 69 14 105/57 93 L 03/20/22 20:00 98.9 F 77 16 137/61 96 03/20/22 18:26 98.0 F 83 16 162/61 98 03/20/22 18:20 98.0 F 76 18 153/72 98 03/20/22 16:47 72 16 138/73 94 L 03/20/22 14:21 154/76 03/20/22 13:23 98.2 F 91 20 154/68 97 Intake and Output 03/20/22 03/21/22 03/21/22 22:59 06:59 14:59 Other: Weight 69.853 kg 60.9 kg Results 03/20/22 14:27 03/20/22 14:27 Cardiac Enzymes 03/20/22 03/20/22 Range/Units 14:27 14:27 AST 26 (14-36) U/L Troponin I <0.012 (0.000-0.034) ng/mL Coagulation 03/20/22 Range/Units 14:27 PT 11.0 (9.0-12.0) sec APTT 23.3 (22.0-30.0) sec CBC 03/20/22 Range/Units 14:27 WBC 8.8 (3.8-10.6) k/uL RBC 4.54 (3.80-5.40) m/uL Hgb 12.5 (11.4-16.0) gm/dL Hct 38.9 (34.0-46.0) % Plt Count 242 (150-450) k/uL Comprehensive Metabolic Panel 03/20/22 Range/Units 14:27 Sodium 142 (137-145) mmol/L Potassium 3.7 (3.5-5.1) mmol/L Chloride 110 H (98-107) mmol/L Carbon Dioxide 25 (22-30) mmol/L BUN 20 H (7-17) mg/dL Creatinine 0.68 (0.52-1.04) mg/dL Glucose 139 H (74-99) mg/dL Calcium 10.4 H (8.4-10.2) mg/dL AST 26 (14-36) U/L ALT 22 (4-34) U/L Alkaline Phosphatase 61 (38-126) U/L Total Protein 6.8 (6.3-8.2) g/dL Albumin 4.0 (3.5-5.0) g/dL Current Medications Generic Name Dose Route Start Last Admin Trade Name Freq PRN Reason Stop Dose Admin Furosemide 40 mg 03/20/22 18:00 03/21/22 06:35 Furosemide 10 Mg/Ml 4 Ml Vial IV 40 mg Q12H AIMEE Administration Losartan Potassium 25 mg 03/21/22 09:00 Losartan 25 Mg Tab PO DAILY AIMEE Nitroglycerin 1 inch 03/20/22 18:00 03/21/22 08:51 Nitroglycerin Oint 1 Inch/Gm Packet TOPICAL Not Given QID AIMEE Sodium Chloride 10 ml 03/20/22 21:00 03/21/22 08:52 Sodium Chloride 0.9% Flush 10 Ml Syringe IV 10 ml BID AIMEE Administration Intake and Output 03/20/22 03/21/22 03/21/22 22:59 06:59 14:59 Other: Weight 69.853 kg 60.9 kg 03/20/22 14:27 03/20/22 14:27
[2022-03-21 12:46] VITALS: BMI 25.3
[2022-03-21] MEDS: cycloSPORINE 0.05% OPHTH 0.4 ML DROPERETTE BOTH EYES SCH (20:44)
[2022-03-21] MEDS: CALCIUM CARBONATE 500 MG CHEWABLE PO SCH (20:44)
[2022-03-21] MEDS ORDERED: LOSARTAN 50 MG TAB PO SCH (21:00)
[2022-03-21] MEDS ORDERED: NON FORMULARY DRUG (Omega-3 Fatty Acids/Fish Oil [Fish Oil 1,000 Mg Softgel] 1 EACH Capsul PO SCH (21:00)
[2022-03-21] MEDS: MELATONIN 5 MG TABLET PO SCH (21:07)
[2022-03-22] MEDS: LEVOTHYROXINE 75 MCG TAB PO SCH (06:36)
[2022-03-22] MEDS: PANTOPRAZOLE 40 MG TABLET PO SCH (06:37)
[2022-03-22] MEDS: FUROSEMIDE 10 MG/ML 4 ML VIAL IV SCH (06:37)
[2022-03-22 07:55] LABS: Basophils % (A) 0 %; Eosinophils # (A) 0.1 k/uL (0-0.7); Eosinophils % (A) 1 %; HGB 13.2 gm/dL (11.4-16.0); Lymphocytes % (A) 32 %; MCH 27.2 pg (25.0-35.0); MCHC 31.4 g/dL (31.0-37.0); MCV 86.5 fL (80.0-100.0); Mean Platelet Volume 7.2; Monocytes # (A) 0.5 k/uL (0-1.0); Monocytes % (A) 6 %; Neutrophils # (A) 5.6 k/uL (1.3-7.7); Neutrophils % (A) 60 %; Platelet Count 263 k/uL (150-450); RBC 4.86 m/uL (3.80-5.40); RDW 13.4 % (11.5-15.5); WBC 9.4 k/uL (3.8-10.6)
[2022-03-22 08:01] LABS: Albumin 4.3 g/dL (3.5-5.0); Calcium 10.8 mg/dL (8.4-10.2); Potassium 3.8 mmol/L (3.5-5.1); Total Bilirubin 0.6 mg/dL (0.2-1.3); Total Protein 7.4 g/dL (6.3-8.2)
[2022-03-22] MEDS: MULTIVITAMINS, THERA 1 EACH TAB PO SCH (08:04)
[2022-03-22] MEDS: LOSARTAN 25 MG TAB PO SCH (08:04)
[2022-03-22] MEDS: ENOXAPARIN 40 MG/0.4 ML SYRINGE SQ SCH (08:05)
--- NOTE | 2022-03-22 10:58 | P.PN ---
Subjective Progress Note Date: 03/22/22 Principal diagnosis: Pleural effusion. Pulmonary consult dated 03/21/2022. This is an 86-year-old very pleasant [place] woman who was seen in the emergency room, on March 20, for shortness of breath. She was seen there by Dr. Cole. She apparently been having shortness of breath about 3 days prior to her admission to the emergency room. In addition, her symptoms have been progressive, and she had some lower extremity edema. She denies any chest pain or chest discomfort. There is no fever or chills. She was not coughing. We were consulted because the chest x-ray showed small bilateral pleural effusions. Currently, the patient is not receiving any IV fluids, and she is not requiring any supplemental oxygen. Room air saturations are in the mid 90s. She does not appear short of breath. She apparently has a history of breast cancer, with previous lumpectomy, GERD, hypertension, osteoarthritis, hypothyroidism, diverticular disease, and previous bowel resection. CBC was completely normal. D-dimer was 0.75. Sodium 142, potassium 3.7, chlorides 110, CO2 25, with a BUN of 20 and a creatinine of 0.68. Troponin was normal. N-terminal proBNP was 618. Urine was negative. Testing for coronavirus and influenza were both negative. Progress note dated 03/22/2022. 86-year-old [place] female, seen in 354. We are consulted because of a chest x-ray showing small pleural effusions. The patient is not having any respiratory distress. She is on room air. The patient has mitral valve disease. She is being currently evaluated by cardiology. No intervention from our standpoint at this time. CBC is completely normal. Comprehensive metabolic profile is normal save for BUN which is mildly elevated at 26. Calcium is 10.8. Urine is negative. No new chest x-ray. The previous chest x-ray and CAT scan have been reviewed. Objective - Vital Signs Vital signs: Vital Signs Temp 97.8 F 03/22/22 08:11 Pulse 68 03/22/22 08:11 Resp 16 03/22/22 08:11 BP 114/66 03/22/22 08:11 Pulse Ox 98 03/22/22 08:11 FiO2 Intake & Output 03/21/22 03/22/22 03/22/22 18:59 06:59 18:59 Intake Total 600 5 Output Total 1150 400 Balance -550 -400 5 Weight 60.9 kg 60 kg Intake: IV 5 Invasive Line 1 5 Oral 600 Output: Urine 1150 400 Other: Voiding Method Toilet Toilet Toilet # Voids 2 - Exam No acute distress, oriented 3. No respiratory distress. Room air saturation is 98 %. HEENT examination is grossly unremarkable. Neck supple. Full range of motion. No adenopathy thyromegaly or neck vein distention. Cardiovascular examination reveals regular rhythm rate. S1-S2 normal. No S3 or S4. A soft murmur is noted. Heart rate is 68 bpm. Lungs reveal minimal bibasilar crackles. No wheezes. No rhonchi. Breath sounds equal bilaterally. Abdomen soft bowel sounds are heard. No masses or tenderness. Extremities are intact. No cyanosis or clubbing. Trace edema noted. Skin is without rash or lesion. Neurologic examination is brief but nonfocal. - Labs CBC & Chem 7: 03/22/22 07:19 03/22/22 07:19 Labs: Abnormal Lab Results - Last 24 Hours (Table) 03/22/22 Range/Units 07:19 BUN 26 H (7-17) mg/dL Glucose 104 H (74-99) mg/dL Calcium 10.8 H (8.4-10.2) mg/dL Assessment and Plan Assessment: Mild/moderate CHF, with small bilateral pleural effusions. Valvular heart disease. Breast cancer, with previous lumpectomy. Hypothyroidism. History of hypertension. Gastroesophageal reflux disease. Osteoarthritis. History of diverticular disease with previous bowel resection and colostomy. Multiple other medical problems and comorbidities. Plan: Plan dated 03/21/2022. The patient is doing very well. She's on room air. Saturations are 96%. Chest x-ray is reviewed. CAT scan is reviewed. No pulmonary embolism. Physical examination reveals minimal right basilar crackles. No additional workup is necessary for the small bilateral pleural effusions. We'll follow as needed. Prognosis is guarded. Plan dated 03/22/2022. The patient's doing well. She is on room air. No pulmonary intervention at this time. Pleural effusions on chest x-ray and CAT scan are very tiny. The patient's been treated by cardiology. Transthoracic echocardiogram is pending. The patient likely has some underlying valvular heart disease. We will see the patient only as needed. Time with Patient: Less than 30
--- NOTE | 2022-03-22 11:22 | P.PN ---
Subjective Progress Note Date: 03/22/22 The patient is an 86-year-old female who is currently admitted to the hospital with new onset of shortness of breath. She was subsequently diagnosed with CHF exacerbation with bilateral pleural effusions. She was thoroughly diuresed and will be transitioned to oral medications today. She states she does have some shortness of breath when she ambulates for an extended period time. She does well around her room, however became short of breath when ambulating the unit. No chest pain or chest pressure. No dizziness or lightheadedness. No heart racing or fluttering. GENERAL: Well-appearing, well-nourished and in no acute distress. NECK: Supple without JVD or thyromegaly. LUNGS: Breath sounds clear to auscultation bilaterally. Respiration equal and unlabored. No wheezes, rales or rhonchi. HEART: Regular rate and rhythm. Systolic murmur. No rubs or gallops. S1 and S2 heard. EXTREMITIES: Normal range of motion, no edema. No clubbing or cyanosis. Peripheral pulses intact and strong. VITALS: Blood pressure 114/66, pulse 68, respiratory rate 16, SpO2 98% on room air TELEMETRY: Sinus rhythm LABS: WBC 9.4, hemoglobin 13.2, hematocrit 42.0, platelet 263, sodium 141, potassium 3.8, BUN 26, creatinine 0.88, AST 31, ALT 22 IMPRESSION: New onset shortness of breath with bilateral pleural effusions Mild CHF exacerbation, likely secondary to valvular disease Systolic murmur, echocardiogram pending History of hypertension History of hyperthyroidism PLAN: Transitioned to oral furosemide Awaiting echocardiogram results Outpatient follow-up for further recommendations regarding valvular disease I am dictating on behalf of Dr Joe Acharya's history/physical and assessment/plan. Objective - Vital Signs Vital signs: Vital Signs Temp 97.8 F 03/22/22 08:11 Pulse 68 03/22/22 08:11 Resp 16 03/22/22 08:11 BP 114/66 03/22/22 08:11 Pulse Ox 98 03/22/22 08:11 FiO2 Intake & Output 03/21/22 03/22/22 03/22/22 18:59 06:59 18:59 Intake Total 600 5 Output Total 1150 400 Balance -550 -400 5 Weight 60.9 kg 60 kg Intake: IV 5 Invasive Line 1 5 Oral 600 Output: Urine 1150 400 Other: Voiding Method Toilet Toilet Toilet # Voids 2 - Labs CBC & Chem 7: 03/22/22 07:19 03/22/22 07:19 Labs: Abnormal Lab Results - Last 24 Hours (Table) 03/22/22 Range/Units 07:19 BUN 26 H (7-17) mg/dL Glucose 104 H (74-99) mg/dL Calcium 10.8 H (8.4-10.2) mg/dL
--- NOTE | 2022-03-22 11:27 | CA ---
Transthoracic Echo Report Name: Brooke Canchola Age: 86 Gender: F : 1935 Exam Date: 03/21/2022 10:13 Exam Location: [facility] Ht (in): 60 Wt (lb): 134 Ordering Physician: Amelia Mills Attending/Referring Phys: [id number] Cat Swamper Susan Lu, RIKKI Procedure CPT: Indications: SHORTNESS OF BREATH Cardiac Hx: Technical Quality: Good Contrast 1: Total Dose (mL): Contrast 2: Total Dose (mL): MEASUREMENTS (Male / Female) Normal Values 2D ECHO LV Diastolic Diameter PLAX 1.4 cm 4.2 - 5.9 / 3.9 - 5.3 cm LV Systolic Diameter PLAX 4.0 cm IVS Diastolic Thickness 6.2 cm 0.6 - 1.0 / 0.6 - 0.9 cm LA Systolic Diameter LX 4.3 cm 3.0 - 4.0 / 2.7 - 3.8 cm LA Volume 79.9 cm??? 18 - 58 / 22 - 52 cm??? M-MODE Aortic Root Diameter MM 3.3 cm LA Systolic Diameter MM 4.8 cm LA Ao Ratio MM 1.5 MV E Point Septal Separation 1.3 cm AV Cusp Separation MM 1.7 cm DOPPLER MV Area PHT 3.0 cm??? Mitral E Point Velocity 101.5 cm/s Mitral A Point Velocity 72.4 cm/s Mitral E to A Ratio 1.4 MV Deceleration Time 254.8 ms MV E' Velocity 5.3 cm/s Mitral E to MV E' Ratio 19.3 TR Peak Velocity 273.7 cm/s TR Peak Gradient 30.0 mmHg Right Ventricular Systolic Press 34.2 mmHg FINDINGS Left Ventricle Left ventricular ejection fraction is estimated at 50-55%. Mildly increased left ventricular wall thickness. Right Ventricle Normal right ventricular size and function. Right ventricular systolic pressure within normal limits. Right Atrium Normal right atrial size. Left Atrium Mildly increased left atrial diameter. Severely increased left atrial volume. Mitral Valve Mitral valve thickened. [id number] mitral regurgitation. Aortic Valve Trileaflet aortic valve. Aortic valve sclerosis. Mild aortic regurgitation. Tricuspid Valve Structurally normal tricuspid valve. Mild tricuspid regurgitation. Pulmonic Valve Structurally normal pulmonic valve. Pericardium Normal pericardium. Aorta Normal size aortic root and proximal ascending aorta. CONCLUSIONS Normal LV systolic function Previewed by: Dr. Joe Acharya MD (Electronically Signed) Final Date: 22 March 2022 11:26
[2022-03-22] MEDS ORDERED: FUROSEMIDE 40 MG TAB PO SCH (16:00)
[2022-03-22] MEDS: MELATONIN 5 MG TABLET PO SCH (20:52)
[2022-03-22] MEDS: CALCIUM CARBONATE 500 MG CHEWABLE PO SCH (20:52)
[2022-03-22] MEDS: cycloSPORINE 0.05% OPHTH 0.4 ML DROPERETTE BOTH EYES SCH (20:52)
[2022-03-23] MEDS: PANTOPRAZOLE 40 MG TABLET PO SCH (06:41)
[2022-03-23] MEDS: LEVOTHYROXINE 75 MCG TAB PO SCH (06:41)
[2022-03-23] MEDS: ENOXAPARIN 40 MG/0.4 ML SYRINGE SQ SCH (09:03)
[2022-03-23] MEDS: FUROSEMIDE 80 MG TAB PO SCH (09:03)
[2022-03-23] MEDS: MULTIVITAMINS, THERA 1 EACH TAB PO SCH (09:03)
[2022-03-23] MEDS: LOSARTAN 25 MG TAB PO SCH (09:03)
[2022-03-23 10:58] LABS: Calcium 10.7 mg/dL (8.4-10.2); Potassium 4.3 mmol/L (3.5-5.1)
--- NOTE | 2022-03-23 13:09 | P.PN ---
Subjective Progress Note Date: 03/23/22 HISTORY OF PRESENT ILLNESS: The patient is an 86-year-old female who is currently admitted to the hospital with new onset of shortness of breath. She was subsequently diagnosed with CHF exacerbation with bilateral pleural effusions. She was thoroughly diuresed and will be transitioned to oral medications today. She states she does have some shortness of breath when she ambulates for an extended period time. She does well around her room, however became short of breath when ambulating the unit. No chest pain or chest pressure. No dizziness or lightheadedness. No heart racing or fluttering. 03/23/2022 Patient examined this morning. She is sitting up in the chair. She denies chest pain or pressure. She reports waking up this morning short of breath. She con tinues to have some SOB when laying flat. Echocardiogram completed revealing an ejection fraction 50-55%, moderate to severe mitral regurgitation, mild aortic regurgitation, mild tricuspid regurgitation. PHYSICAL EXAM: VITAL SIGNS: Reviewed. GENERAL: Well-developed in no acute distress. NECK: Supple. No JVD or thyromegaly LUNGS: Respirations even and unlabored. Lungs essentially clear to auscultation bilaterally. HEART: Regular rate and rhythm. S1 and S2 heard. Systolic murmur. EXTREMITIES: Normal range of motion. No clubbing or cyanosis. Peripheral pulses intact. No lower extremity edema ASSESSMENT: Shortness of breath Acute on chronic heart failure with preserved ejection fraction Moderate to severe mitral regurgitation Hypertension History of hyperthyroidism PLAN: Continue current cardiac medications Continue oral Lasix. Increase morning dose to 80 mg and continue 40 mg in the afternoon Dr. Acharya to speak with Dr. Dempsey about possible PETERSON and cath tomorrow Further recommendations pending patient course Nurse practitioner note has been reviewed by physician. Signing provider agrees with the documented findings, assessment, and plan of care. Objective - Vital Signs Vital signs: Vital Signs Temp 98 F 03/23/22 08:00 Pulse 79 03/23/22 08:00 Resp 16 03/23/22 08:00 BP 109/76 03/23/22 08:00 Pulse Ox 94 L 03/23/22 08:00 FiO2 Intake & Output 03/22/22 03/23/22 03/23/22 18:59 06:59 18:59 Intake Total 685 120 358 Output Total 1075 Balance -390 120 358 Intake: IV 5 Invasive Line 1 5 Oral 680 120 358 Output: Urine 1075 Other: Voiding Method Toilet Toilet # Voids 3 1 # Bowel Movements 1 0 - Labs CBC & Chem 7: 03/22/22 07:19 03/23/22 10:06 Labs: Abnormal Lab Results - Last 24 Hours (Table) 03/23/22 Range/Units 10:06 BUN 33 H (7-17) mg/dL Calcium 10.7 H (8.4-10.2) mg/dL
[2022-03-23] MEDS ORDERED: FUROSEMIDE 40 MG TAB PO SCH (16:00)
--- NOTE | 2022-03-23 18:34 | P.PN ---
Subjective Progress Note Date: 03/22/22 Brooke Canchola, is an 86-year-old female who presented to [facility] emergency room with a chief complaint of shortness of breath, patient stated that over the last 2 days she started having worsening shortness of breath that was exacerbated by activity, she had occasional cough and she was afraid she might have COVID-19 infection, she went to a walk-in clinic and had a rapid test that was negative, her symptoms continued to worsen and she decided to come to emergency room for further evaluation. She was evaluated in the emergency room vital examination on presentation revealed a temperature of 98.2 pulse 91 respiration 20 blood pressure 154/68 pulse ox 97% on room air Laboratory data revealed a white blood count of 8.8 hemoglobin 12.5 platelet count 242 sodium 142 potassium 3.7 chloride 110 CO2 25 BUN 20 creatinine 0.68 BNP 618 troponin level less than 0.012 d-dimer 0.75 Testing in the emergency room revealed CT angiogram of the chest revealed no evidence of pulmonary embolism, there was evidence of cardiomegaly with bilateral pleural effusion and pulmonary vascular congestion, and possible enlarged subcarinal lymph node versus azygous vein aneurysmally dilatation. Chest x-ray revealed pulmonary venous congestion and cardiomegaly, EKG revealed normal sinus rhythm normal EKG Patient was admitted to medical floor for further evaluation and treatment, echocardiogram was ordered cardiology consultation requested. 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 On review of systems patient is alert and oriented 3, there is no fever or chills no headache or dizziness no chest pain she had some shortness of breath with any activity and occasional cough without any sputum production, there is no nausea or vomiting no abdominal pain no diarrhea no blood in the stools no burning with urination no frequency or urgency and no hematuria, there is no weakness or numbness in any of the extremities and no change in vision speech or gait. On 03/22/2022 patient was seen and examined on the medical floor, she is alert and oriented in no distress, shortness of breath is improving, there is no fever or chills no headache or dizziness no cough no chest pain no nausea or vomiting no abdominal pain no diarrhea no blood in stools no burning with urination no frequency or urgency and no hematuria Objective - Vital Signs Vital signs: Vital Signs Temp 97.8 F 03/22/22 08:11 Pulse 68 03/22/22 08:11 Resp 16 03/22/22 08:11 BP 114/66 03/22/22 08:11 Pulse Ox 98 03/22/22 08:11 FiO2 Intake & Output 03/21/22 03/22/22 03/22/22 18:59 06:59 18:59 Intake Total 600 5 Output Total 1150 400 Balance -550 -400 5 Weight 60.9 kg 60 kg Intake: IV 5 Invasive Line 1 5 Oral 600 Output: Urine 1150 400 Other: Voiding Method Toilet Toilet Toilet # Voids 2 - Exam In general patient is alert and oriented x 3 in no distress HEENT head normocephalic and atraumatic Neck is supple no JVD no goiter no lymphadenopathy no carotid bruit Chest examination reveals a scattered crackles in bases no wheezing Cardiac exam reveals regular heart sounds S1 and S2 no gallops no murmurs Abdomen is soft nontender no organomegaly with normal bowel sounds Extremity exam reveals no edema no cyanosis or clubbing Neurological examination reveals no gross focal deficits - Labs CBC & Chem 7: 03/22/22 07:19 03/23/22 10:06 Labs: Abnormal Lab Results - Last 24 Hours (Table) 03/22/22 Range/Units 07:19 BUN 26 H (7-17) mg/dL Glucose 104 H (74-99) mg/dL Calcium 10.8 H (8.4-10.2) mg/dL Assessment and Plan Plan: Worsening shortness of breath Evidence of small bilateral pleural effusions and possible right subcarinal Enlarged lymph node Underlying history of hypothyroidism Previous history of breast cancer Previous history of diverticulitis with diverticular abscess Patient is admitted to telemetry floor she was started on IV Lasix Cardiology consultation was requested Echocardiogram ordered Preliminary diagnosis is congestive heart failure Also pulmonary consultation was requested in regard to bilateral pleural effusion and enlarged lymph node For DVT prophylaxis subcu Lovenox for GI prophylaxis Protonix Will recheck labs in a.m. and follow closely
--- NOTE | 2022-03-23 18:36 | P.PN ---
Subjective Progress Note Date: 03/23/22 Brooke Canchola, is an 86-year-old female who presented to [facility] emergency room with a chief complaint of shortness of breath, patient stated that over the last 2 days she started having worsening shortness of breath that was exacerbated by activity, she had occasional cough and she was afraid she might have COVID-19 infection, she went to a walk-in clinic and had a rapid test that was negative, her symptoms continued to worsen and she decided to come to emergency room for further evaluation. She was evaluated in the emergency room vital examination on presentation revealed a temperature of 98.2 pulse 91 respiration 20 blood pressure 154/68 pulse ox 97% on room air Laboratory data revealed a white blood count of 8.8 hemoglobin 12.5 platelet count 242 sodium 142 potassium 3.7 chloride 110 CO2 25 BUN 20 creatinine 0.68 BNP 618 troponin level less than 0.012 d-dimer 0.75 Testing in the emergency room revealed CT angiogram of the chest revealed no evidence of pulmonary embolism, there was evidence of cardiomegaly with bilateral pleural effusion and pulmonary vascular congestion, and possible enlarged subcarinal lymph node versus azygous vein aneurysmally dilatation. Chest x-ray revealed pulmonary venous congestion and cardiomegaly, EKG revealed normal sinus rhythm normal EKG Patient was admitted to medical floor for further evaluation and treatment, echocardiogram was ordered cardiology consultation requested. 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 On review of systems patient is alert and oriented 3, there is no fever or chills no headache or dizziness no chest pain she had some shortness of breath with any activity and occasional cough without any sputum production, there is no nausea or vomiting no abdominal pain no diarrhea no blood in the stools no burning with urination no frequency or urgency and no hematuria, there is no weakness or numbness in any of the extremities and no change in vision speech or gait. On 03/22/2022 patient was seen and examined on the medical floor, she is alert and oriented in no distress, shortness of breath is improving, there is no fever or chills no headache or dizziness no cough no chest pain no nausea or vomiting no abdominal pain no diarrhea no blood in stools no burning with urination no frequency or urgency and no hematuria On 01/21/2022 patient was seen and examined on the telemetry floor she is alert and oriented 3 in no apparent distress she is still complaining of shortness of breath at this time she was switched to oral Lasix at 80 mg in a.m. and 40 mg in p.m., otherwise she denies any complaints there is no fever or chills no headache or dizziness no chest pain no cough no nausea or vomiting no abdominal pain no diarrhea and no urinary symptoms, patient was reevaluated by cardiology at this time, they are planning to proceed with PETERSON and possible cardiac catheterization, will continue to follow. Objective - Vital Signs Vital signs: Vital Signs Temp 97.8 F 03/23/22 16:29 Pulse 70 03/23/22 16:29 Resp 16 03/23/22 16:29 BP 97/60 03/23/22 16:29 Pulse Ox 95 03/23/22 16:29 FiO2 Intake & Output 03/22/22 03/23/22 03/23/22 18:59 06:59 18:59 Intake Total 685 120 594 Output Total 1075 Balance -390 120 594 Intake: IV 5 Invasive Line 1 5 Oral 680 120 594 Output: Urine 1075 Other: Voiding Method Toilet Toilet # Voids 3 1 # Bowel Movements 1 0 - Exam In general patient is alert and oriented x 3 in no distress HEENT head normocephalic and atraumatic Neck is supple no JVD no goiter no lymphadenopathy no carotid bruit Chest examination reveals a scattered crackles in bases no wheezing Cardiac exam reveals regular heart sounds S1 and S2 no gallops no murmurs Abdomen is soft nontender no organomegaly with normal bowel sounds Extremity exam reveals no edema no cyanosis or clubbing Neurological examination reveals no gross focal deficits - Labs CBC & Chem 7: 03/22/22 07:19 03/23/22 10:06 Labs: Abnormal Lab Results - Last 24 Hours (Table) 03/23/22 Range/Units 10:06 BUN 33 H (7-17) mg/dL Calcium 10.7 H (8.4-10.2) mg/dL Assessment and Plan Plan: Worsening shortness of breath Evidence of small bilateral pleural effusions and possible right subcarinal Enlarged lymph node Underlying history of hypothyroidism Previous history of breast cancer Previous history of diverticulitis with diverticular abscess Patient is admitted to telemetry floor she was started on IV Lasix Cardiology consultation was requested Echocardiogram ordered Preliminary diagnosis is congestive heart failure Also pulmonary consultation was requested in regard to bilateral pleural effusion and enlarged lymph node For DVT prophylaxis subcu Lovenox for GI prophylaxis Protonix Will recheck labs in a.m. and follow closely
[2022-03-23] MEDS: MELATONIN 5 MG TABLET PO SCH (20:20)
[2022-03-23] MEDS: cycloSPORINE 0.05% OPHTH 0.4 ML DROPERETTE BOTH EYES SCH (20:20)
[2022-03-23] MEDS: CALCIUM CARBONATE 500 MG CHEWABLE PO SCH (20:20)
[2022-03-24] MEDS: PANTOPRAZOLE 40 MG TABLET PO SCH (06:36)
[2022-03-24] MEDS: LEVOTHYROXINE 75 MCG TAB PO SCH (06:36)
[2022-03-24 07:31] VITALS: BP 124/66; PULSE 76; RESP 17; TEMP 98.4
--- NOTE | 2022-03-24 08:15 | P.CRDCN ---
History of Present Illness History of present illness: add metprolol xl 25 mg losartan 25/day lasix 80 / 40 mg outpt f/u with DR lobo Past Medical History Past Medical History: Cancer, GERD/Reflux, Hypertension, Osteoarthritis (OA), Skin Disorder, Thyroid Disorder Additional Past Medical History / Comment(s): hx: R breast cancer with lumpectomy, skin cancer removed from leg, generalized arthritis, hypothyroid, diverticular disease with rupture/colostomy, rosacea, osteopenia History of Any Multi-Drug Resistant Organisms: None Reported Past Surgical History: Bowel Resection, Breast Surgery, Hernia Repair, Joint Replacement Additional Past Surgical History / Comment(s): 01/2019 sigmoid resection with colostomy,colostomy reversal colonoscopies, R breast biopsy/lumpectomy, skin cancer removal, bilateral total knee arthroplasties, bilateral inguinal hernia repairs, partial thyroidectomy, bilateral cataract removals. Past Anesthesia/Blood Transfusion Reactions: Motion Sickness, Postoperative Nausea & Vomiting (PONV) Past Psychological History: No Psychological Hx Reported Additional Psychological History / Comment(s): Pt resides alone. She is independent. She is originally from [facility] ([place]). Smoking Status: Never smoker Past Alcohol Use History: Occasional Additional Past Alcohol Use History / Comment(s): once every couple weeks Past Drug Use History: None Reported - Past Family History Mother Family Medical History: Osteoarthritis (OA) Additional Family Medical History / Comment(s): at age 85 Father Additional Family Medical History / Comment(s): Pt believes father may have in war-they were never informed officially. Medications and Allergies Home Medications Medication Instructions Recorded Confirmed Type Levothyroxine Sodium [Unithroid] 150 mcg PO DAILY 08/19/16 03/20/22 History Multivitamins, Thera [Multivitamin 1 tab PO DAILY 08/19/16 03/20/22 History (formulary)] Letrozole 2.5 mg PO HS 01/26/19 03/20/22 History [place]-3 Fatty Acids/Fish Oil [Fish 1 cap PO HS 06/20/19 03/20/22 History Oil 1,000 mg Softgel] Calcium Carbonate [Calcium] 600 mg PO HS 03/20/22 03/20/22 History cycloSPORINE 0.05% OPHTH SOLN 1 applicator BOTH EYES HS 03/20/22 03/20/22 History [Restasis] Furosemide [Lasix] 40 mg PO DAILY@1600 tab 03/23/22 Rx Furosemide [Lasix] 80 mg PO DAILY tab 03/23/22 Rx Losartan [Cozaar] 25 mg PO DAILY tab 03/23/22 Rx Allergies Allergy/AdvReac Type Severity Reaction Status Date / Time codeine AdvReac Nausea & Verified 03/20/22 15:01 Vomiting narcotics AdvReac Mild Nausea & Uncoded 03/20/22 13:26 Vomiting Physical Exam Vitals: Vital Signs Temp Pulse Resp BP Pulse Ox 03/24/22 07:30 98.4 F 76 17 124/66 97 03/24/22 04:00 98.1 F 80 16 131/75 98 03/24/22 02:00 78 17 03/23/22 20:00 97.9 F 78 17 123/74 97 03/23/22 16:29 97.8 F 70 16 97/60 95 03/23/22 12:00 97.9 F 75 17 129/75 95 Intake and Output 03/23/22 03/24/22 03/24/22 22:59 06:59 14:59 Intake Total 358 Output Total 300 350 Balance 58 -350 Intake: Oral 358 Output: Urine 300 350 Other: Voiding Method Toilet Toilet Results 03/22/22 07:19 03/23/22 10:06 Comprehensive Metabolic Panel 03/23/22 Range/Units 10:06 Sodium 138 (137-145) mmol/L Potassium 4.3 (3.5-5.1) mmol/L Chloride 104 (98-107) mmol/L Carbon Dioxide 29 (22-30) mmol/L BUN 33 H (7-17) mg/dL Creatinine 0.96 (0.52-1.04) mg/dL Glucose 99 (74-99) mg/dL Calcium 10.7 H (8.4-10.2) mg/dL Current Medications Generic Name Dose Route Start Last Admin Trade Name Freq PRN Reason Stop Dose Admin Calcium Carbonate/Glycine 500 mg 03/21/22 21:00 03/23/22 20:20 Calcium Carbonate 500 Mg Chewable PO 500 mg HS AIMEE Administration Cyclosporine 1 drops 03/21/22 21:00 03/23/22 20:20 Cyclosporine 0.05% Ophth 0.4 Ml Droperette BOTH EYES 1 drops HS AIMEE Administration Enoxaparin Sodium 40 mg 03/21/22 10:00 03/23/22 09:03 Enoxaparin 40 Mg/0.4 Ml Syringe SQ 40 mg DAILY AIMEE Administration Furosemide 80 mg 03/23/22 09:00 03/23/22 09:03 Furosemide 80 Mg Tab PO 80 mg DAILY AIMEE Administration Furosemide 40 mg 03/23/22 16:00 03/23/22 17:20 Furosemide 40 Mg Tab PO 40 mg DAILY@1600 AIMEE Administration Levothyroxine Sodium 150 mcg 03/21/22 09:45 03/24/22 06:36 Levothyroxine 75 Mcg Tab PO Not Given DAILY@0630 [facility] Losartan Potassium 25 mg 03/21/22 09:00 03/23/22 09:03 Losartan 25 Mg Tab PO 25 mg DAILY AIMEE Administration Melatonin 10 mg 03/21/22 21:00 03/23/22 20:20 Melatonin 5 Mg Tablet PO 10 mg HS AIMEE Administration Metoprolol Succinate 25 mg 03/24/22 09:00 Metoprolol Succinate (Er) 25 Mg Tab.Er.24h PO DAILY [facility] Multivitamins 1 each 03/22/22 09:00 03/23/22 09:03 Multivitamins, Thera 1 Each Tab PO 1 each DAILY AIMEE Administration Pantoprazole Sodium 40 mg 03/22/22 07:30 03/24/22 06:36 Pantoprazole 40 Mg Tablet PO Not Given AC-BRKFST [facility] Sodium Chloride 10 ml 03/20/22 21:00 03/23/22 20:21 Sodium Chloride 0.9% Flush 10 Ml Syringe IV 10 ml BID AIMEE Administration Intake and Output 03/23/22 03/24/22 03/24/22 22:59 06:59 14:59 Intake Total 358 Output Total 300 350 Balance 58 -350 Intake: Oral 358 Output: Urine 300 350 Other: Voiding Method Toilet Toilet 03/22/22 07:19 03/23/22 10:06
[2022-03-24 08:47] LABS: Calcium 9.9 mg/dL (8.4-10.2); Potassium 3.8 mmol/L (3.5-5.1)
[2022-03-24] MEDS: FUROSEMIDE 80 MG TAB PO SCH (09:00)
[2022-03-24] MEDS: ENOXAPARIN 40 MG/0.4 ML SYRINGE SQ SCH (09:00)
[2022-03-24] MEDS: MULTIVITAMINS, THERA 1 EACH TAB PO SCH (09:00)
[2022-03-24] MEDS ORDERED: METOPROLOL SUCCINATE (ER) 25 MG TAB.ER.24H PO SCH (09:00)
--- NOTE | 2022-03-24 12:43 | P.PN ---
Subjective Patient is resting comfortably in bed Denies any chest discomfort but worried about her shortness of breath Last night she was comfortable She denies any chest discomfort On examination she is a systolic murmur of mitral regurgitation No JVD Orthopnea Impression Symptoms of heart failure with orthopnea, improve Preserved LV systolic function Left atrial enlargement Moderate severe mitral regurgitation which is very eccentric Normal cardiac enzymes Normal renal function No evidence for anemia No evidence for pulmonary embolism bilateral pleural effusions and increased pulmonary vascular congestion on CT Plan Continue Lasix 80 mg in the morning and 40 mg in the evening Continue losartan the evening Add beta blockers in the morning Outpatient follow Dr. Dempsey for evaluation of mitral valve disease Objective - Vital Signs Vital signs: Vital Signs Temp 98.4 F 03/24/22 07:30 Pulse 76 03/24/22 07:30 Resp 17 03/24/22 07:30 BP 124/66 03/24/22 07:30 Pulse Ox 97 03/24/22 07:30 FiO2 Intake & Output 03/23/22 03/24/22 03/24/22 18:59 06:59 18:59 Intake Total 594 240 118 Output Total 650 Balance 594 -410 118 Intake: Oral 594 240 118 Output: Urine 650 Other: Voiding Method Toilet # Voids 2 - Labs CBC & Chem 7: 03/22/22 07:19 03/24/22 08:14 Labs: Abnormal Lab Results - Last 24 Hours (Table) 03/24/22 Range/Units 08:14 Carbon Dioxide 32 H (22-30) mmol/L BUN 33 H (7-17) mg/dL Glucose 104 H (74-99) mg/dL
[2022-03-24] MEDS ORDERED: LOSARTAN 25 MG TAB PO SCH (21:00)
--- NOTE | 2022-06-05 10:43 | P.DS ---
Providers Date of admission: 03/20/22 17:32 Expected date of discharge: 03/24/22 Attending physician: Srinivas Waldron Consults: 03/20/22 17:32 Consult Physician Routine Consulting Provider: Lakhwinder Dempsey Consult Reason/Comments: eval for chf, exertional dyspnea Do you want consulting provider notified?: Yes 03/21/22 09:32 Consult Physician Routine Consulting Provider: Flaquito Arredondo Consult Reason/Comments: Bilateral pleural effusion, enlarged lymph node Do you want consulting provider notified?: Yes Primary care physician: Srinivas Waldron [facility] Course: Diagnosis on discharge: Worsening shortness of breath Evidence of small bilateral pleural effusions and possible right subcarinal Enlarged lymph node Underlying history of hypothyroidism Previous history of breast cancer Previous history of diverticulitis with diverticular abscess Hospital course: Brooke Canchola, is an 86-year-old female who presented to [facility] emergency room with a chief complaint of shortness of breath, patient stated that over the last 2 days she started having worsening shortness of breath that was exacerbated by activity, she had occasional cough and she was afraid she might have COVID-19 infection, she went to a walk-in clinic and had a rapid test that was negative, her symptoms continued to worsen and she decided to come to emergency room for further evaluation. She was evaluated in the emergency room vital examination on presentation revealed a temperature of 98.2 pulse 91 respiration 20 blood pressure 154/68 pulse ox 97% on room air Laboratory data revealed a white blood count of 8.8 hemoglobin 12.5 platelet count 242 sodium 142 potassium 3.7 chloride 110 CO2 25 BUN 20 creatinine 0.68 BNP 618 troponin level less than 0.012 d-dimer 0.75 Testing in the emergency room revealed CT angiogram of the chest revealed no evidence of pulmonary embolism, there was evidence of cardiomegaly with bi lateral pleural effusion and pulmonary vascular congestion, and possible enlarged subcarinal lymph node versus azygous vein aneurysmally dilatation. Chest x-ray revealed pulmonary venous congestion and cardiomegaly, EKG revealed normal sinus rhythm normal EKG Patient was admitted to medical floor for further evaluation and treatment, echocardiogram was ordered cardiology consultation requested. 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 On review of systems patient is alert and oriented 3, there is no fever or chills no headache or dizziness no chest pain she had some shortness of breath with any activity and occasional cough without any sputum production, there is no nausea or vomiting no abdominal pain no diarrhea no blood in the stools no burning with urination no frequency or urgency and no hematuria, there is no weakness or numbness in any of the extremities and no change in vision speech or gait. On 03/22/2022 patient was seen and examined on the medical floor, she is alert and oriented in no distress, shortness of breath is improving, there is no fever or chills no headache or dizziness no cough no chest pain no nausea or vomiting no abdominal pain no diarrhea no blood in stools no burning with urination no frequency or urgency and no hematuria On 01/21/2022 patient was seen and examined on the telemetry floor she is alert and oriented 3 in no apparent distress she is still complaining of shortness of breath at this time she was switched to oral Lasix at 80 mg in a.m. and 40 mg in p.m., otherwise she denies any complaints there is no fever or chills no headache or dizziness no chest pain no cough no nausea or vomiting no abdominal pain no diarrhea and no urinary symptoms, patient was reevaluated by cardiology at this time, they are planning to proceed with PETERSON and possible cardiac catheterization, will continue to follow. On 03/24/2022 patient is alert and oriented 3. Patient cleared for discharge from cardiology standpoint patient to follow-up outpatient for further management. Patient will be DC'd on Lasix, Lopressor and Cozaar. Plan - Discharge Summary Discharge Rx Participant: Yes New Discharge Prescriptions: New Losartan [Cozaar] 25 mg PO DAILY tab Metoprolol Succinate (ER) [Toprol XL] 25 mg PO DAILY tab Furosemide [Lasix] 40 mg PO DAILY@1600 tab Furosemide [Lasix] 80 mg PO DAILY tab Continue Levothyroxine Sodium [Unithroid] 150 mcg PO DAILY Multivitamins, Thera [Multivitamin (formulary)] 1 tab PO DAILY Letrozole 2.5 mg PO HS [place]-3 Fatty Acids/Fish Oil [Fish Oil 1,000 mg Softgel] 1 cap PO HS Calcium Carbonate [Calcium] 600 mg PO HS cycloSPORINE 0.05% OPHTH SOLN [Restasis] 1 applicator BOTH EYES HS Discontinued Losartan [Cozaar] 50 mg PO HS Discharge Medication List Levothyroxine Sodium [Unithroid] 150 mcg PO DAILY 08/19/16 [History] Multivitamins, Thera [Multivitamin (formulary)] 1 tab PO DAILY 08/19/16 [History] Letrozole 2.5 mg PO HS 01/26/19 [History] [place]-3 Fatty Acids/Fish Oil [Fish Oil 1,000 mg Softgel] 1 cap PO HS 06/20/19 [History] Calcium Carbonate [Calcium] 600 mg PO HS 03/20/22 [History] cycloSPORINE 0.05% OPHTH SOLN [Restasis] 1 applicator BOTH EYES HS 03/20/22 [History] Furosemide [Lasix] 40 mg PO DAILY@1600 tab 03/23/22 [Rx] Furosemide [Lasix] 80 mg PO DAILY tab 03/23/22 [Rx] Losartan [Cozaar] 25 mg PO DAILY tab 03/23/22 [Rx] Metoprolol Succinate (ER) [Toprol XL] 25 mg PO DAILY tab 03/24/22 [Rx] Follow up Appointment(s)/Referral(s): Lakhwinder Dempsey MD [STAFF PHYSICIAN] - 04/02/22 10:45 am (Stress test april 16@ 10am ) Srinivas Waldron MD [Primary Care Provider] - 03/27/22 10:45 am Patient Instructions/Handouts: Metoprolol (By mouth), Furosemide (By mouth), Losartan (By mouth), Heart Failure (DC) Discharge Disposition: HOME SELF-CARE
== END 2022-03-24 12:42 | disposition home or self-care (01) ==
LOC: EC 13:21 → 3SCARD 17:32 → INTOOBSV 17:32 → 3SCARD 18:02 → UNDODISIN 03-24 12:42
PROVIDERS: ADMIT Internal Medicine; ATTEND Internal Medicine
DX: I11.0 Hypertensive heart disease with heart failure (principal); I50.9 Heart failure, unspecified; K21.9 Gastro-esophageal reflux disease without esophagitis; E89.0 Postprocedural hypothyroidism; E05.90 Thyrotoxicosis, unspecified without thyrotoxic crisis or storm; M47.814 Spondylosis without myelopathy or radiculopathy, thoracic region; K80.80 Other cholelithiasis without obstruction; Q61.01 Congenital single renal cyst; I05.9 Rheumatic mitral valve disease, unspecified; I08.3 Combined rheumatic disorders of mitral, aortic and tricuspid valves; Z79.899 Other long term (current) drug therapy; Z88.6 Allergy status to analgesic agent; Z85.828 Personal history of other malignant neoplasm of skin; Z85.3 Personal history of malignant neoplasm of breast; Z93.3 Colostomy status; Z98.42 Cataract extraction status, left eye; Z98.41 Cataract extraction status, right eye; Z96.653 Presence of artificial knee joint, bilateral; Z82.61 Family history of arthritis; Z20.822 Contact with and (suspected) exposure to COVID-19
CPT/HCPCS: 96376 ×2; 96372 ×4; 96374; 99285; 36415; 94760; 93005; 93306; 85379; 83880; 80053 ×2; 80048 ×2; 83605; 84484; 85025 ×2; 85610; 85730; 81003; 87502; 87635; 71046; 71275; G0378 ×4; J1940 ×3; J1650 ×4; Q9967

== ENCOUNTER → 2022-04-07 | Outpatient (CLI) | payer MEDICARE, OTHER ==
--- NOTE | 2022-04-08 08:48 | MM ---
Reason for Exam: Screening (asymptomatic). Last mammogram was performed 1 year(s) and 1 month(s) ago. Patient History: Menarche at age 15. First Full-Term at age 24. Postmenopausal. Breast cancer, right, age 82. Estrogen, from age 56 until age 70. Progesterone, from age 56 until age 70. 01/27/2018, Lumpectomy on the Right side. 01/27/2018, Malignant Core Biopsy on the right side. 01/10/2018, Malignant Core Biopsy on the right side. Prior Study Comparison: 12/24/2017 Bilateral Screening Mammogram, [facility]. 12/31/2017 Right Diagnostic Mammogram, [facility]. 03/27/2019 Bilateral Diagnostic Mammogram, [facility]. 03/28/2020 Bilateral Diagnostic Mammogram, [facility]. 04/03/2021 Bilateral Diagnostic Mammogram, [facility]. Tissue Density: There are scattered fibroglandular densities. Findings: Analyzed By CAD. Postbiopsy changes are within the 11:00 posterior right breast, stable from comparison. No suspicious groups of microcalcifications, spiculated or lobular masses, architectural distortion or other secondary signs of malignancy are mammographically apparent. Overall Assessment: Benign, BI-RAD 2 Management: Screening Mammogram of both breasts in 1 year. A negative mammogram report should not preclude additional follow up of suspicious palpable abnormalities. Patient should continue monthly self breast exam. A clinical breast exam by your physician is recommended on an annual basis and results should be correlated with mammographic findings. Electronically signed and approved by: Ajay Brennan D.O. Radiologis
== END | disposition home or self-care (01) ==
LOC: RADMAMWWP 12:30
PROVIDERS: ATTEND Internal Medicine Hematology & Oncology
DX: Z12.31 Encounter for screening mammogram for malignant neoplasm of breast (principal); Z78.0 Asymptomatic menopausal state
CPT/HCPCS: 77063; 77067

== ENCOUNTER → 2022-05-04 | Outpatient (CLI) | payer MEDICARE, OTHER ==
--- NOTE | 2022-05-04 14:30 | BD ---
EXAMINATION TYPE: Axial Bone Density DATE OF EXAM: 05/04/2022 COMPARISON: NONE CLINICAL HISTORY: 86 years year old Female. ICD-10 CODE: Z79.890 Post fermin with HRT Height: 60 Weight: 134.7 FRAX RISK QUESTIONS: Alcohol (3 or more units per day): NO Family History (Parent hip fracture): NO Glucocorticoids (More than 3mos): NO History of Fracture in Adulthood: NO Secondary Osteoporosis: 1. Type 1 Diabetes: NO 2. Hyperthyroidism: NO 3. Menopause before 45: NO 4. Malnutrition: NO 5. Chronic liver disease: NO Rheumatoid Arthritis: NO Current Tobacco Use: NO RISK FACTORS HISTORY OF: Hip Fracture (Right/Left): NO Spine Fracture: NO History of Wrist Fracture: NO Surgery to Spine/Hip(right/left)/Wrist (right/left): NO When: Family History of Osteoporosis: NO Active: NO Diet low in dairy products/other sources of calcium: NO Postmenopausal woman: YES Take estrogen and/or progesterone medications: NO Lost more than 2 inches in height since high school: NO Frequent falls: NO Poor Health: NO Hyperparathyroidism: NO Adrenal Insufficiency: NO MEDICATIONS: Prednisone or other steroids: NO Thyroid Medications: LEVOTHYROXINE How Long: PAST 30 YEARS Osteoporosis Medications: NO Additional Medications: LETROZOLE, LOSARTAN, MULTI VIT., CALCIUM, BREAST CANCER 2018 EXAM MEASUREMENTS: Bone mineral densitometry was performed using the [employer] System. Bone mineral density as measured about the Lumbar spine is: ----- L1-L4(G/cm2): 1.007 T Score Values are as follows: ----- L1: -2.1 ----- L2: -1.8 ----- L3: -1.0 ----- L4: -1.1 ----- L1-L4: -1.4 Bone mineral density has: INCREASED 2.1 % since study of: 04/25/2018 Bone mineral density about the R hip (g/cm2): 0.874 Bone mineral density about the L hip (g/cm2): 0.698 T Score values are as follows: -----R Neck: -1.2 -----L Neck: -2.4 -----R Total: -1.1 -----L Total: -2.5 Bone mineral density has: DECREASED 0.3 % since study of: 04/25/2018 FRAX%s: The graph provided illustrates a 17.5% chance for a major osteoporotic fx and a 6.4% chance f or the hips probability for fx in 10 years time. 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 (T Score between -2.5 and -1). There is slightly increased risk of fracture and the patient may be considered for treatment. Re-Screen 2-5 years. NOTE: T-SCORE=SD OF THE YOUNG ADULT MEAN.
== END | disposition home or self-care (01) ==
LOC: RADBDWWP 12:32
PROVIDERS: ATTEND Internal Medicine Hematology & Oncology
DX: M85.89 Other specified disorders of bone density and structure, multiple sites (principal); Z79.890 Hormone replacement therapy; Z78.0 Asymptomatic menopausal state
CPT/HCPCS: 77080

== ENCOUNTER 2022-08-15 17:23 | Observation (INO) | payer MEDICARE, OTHER ==
[2022-08-15] MEDS ORDERED: ASPIRIN 81 MG PO STA (17:46)
--- NOTE | 2022-08-15 17:55 | ED ---
Chest Pain HPI - General Chief Complaint: Chest Pain Stated Complaint: chest pain Time Seen by Provider: 08/15/22 17:36 Source: patient Mode of arrival: ambulatory Limitations: no limitations - History of Present Illness Initial Comments: Patient is an 86-year-old female with history of hypertension presenting with chief complaint of chest pain. Patient states that starting yesterday she began to feel intermittent chest pain. It is located on the left side of the chest and she describes it as a pressure. She states that yesterday it was intermitte nt urinary, today she had a period of constant pain. Currently she is not experiencing any pain. Patient took Tylenol prior to coming to the ER. No difficulty breathing, palpitations, weakness, fever, chills, nausea, vomiting, abdominal pain, radiation of the pain down the arm or up the neck. No back pain. Patient has some mild lower extremity edema, she states that this is her baseline. No cough, congestion, sore throat. No headache, vision or hearing changes, neck pain or stiffness, dizziness. - Related Data Home Medications Medication Instructions Recorded Confirmed Levothyroxine Sodium [Unithroid] 150 mcg PO DAILY 08/19/16 08/15/22 Multivitamins, Thera [Multivitamin 1 tab PO W/LUNCH 08/19/16 08/15/22 (formulary)] Letrozole 2.5 mg PO DAILY 01/26/19 08/15/22 [place]-3 Fatty Acids/Fish Oil [Fish 1 cap PO W/LUNCH 06/20/19 08/15/22 Oil 1,000 mg Softgel] Calcium Carbonate [Calcium] 600 mg PO W/LUNCH 03/20/22 08/15/22 cycloSPORINE 0.05% OPHTH SOLN 1 drop BOTH EYES BID 03/20/22 08/15/22 [Restasis] Furosemide [Lasix] 40 mg PO AC-SUPPER 08/15/22 08/15/22 Losartan [Cozaar] 50 mg PO W/SUPPER 08/15/22 08/15/22 Previous Rx's Medication Instructions Recorded Furosemide [Lasix] 80 mg PO DAILY tab 03/23/22 Metoprolol Succinate (ER) [Toprol 25 mg PO DAILY tab 03/24/22 XL] Allergies Allergy/AdvReac Type Severity Reaction Status Date / Time codeine AdvReac Nausea & Verified 08/15/22 19:56 Vomiting narcotics AdvReac Mild Nausea & Uncoded 08/15/22 17:32 Vomiting Review of Systems ROS Statement: Those systems with pertinent positive or pertinent negative responses have been documented in the HPI. ROS Other: All systems not noted in ROS Statement are negative. Past Medical History Past Medical History: Cancer, GERD/Reflux, Hypertension, Osteoarthritis (OA), Skin Disorder, Thyroid Disorder Additional Past Medical History / Comment(s): hx: R breast cancer with lumpectomy, skin cancer removed from leg, generalized arthritis, hypothyroid, diverticular disease with rupture/colostomy, rosacea, osteopenia History of Any Multi-Drug Resistant Organisms: None Reported Past Surgical History: Bowel Resection, Breast Surgery, Hernia Repair, Joint Replacement Additional Past Surgical History / Comment(s): 01/2019 sigmoid resection with colostomy,colostomy reversal colonoscopies, R breast biopsy/lumpectomy, skin cancer removal, bilateral total knee arthroplasties, bilateral inguinal hernia repairs, partial thyroidectomy, bilateral cataract removals. Past Anesthesia/Blood Transfusion Reactions: Motion Sickness, Postoperative Nausea & Vomiting (PONV) Past Psychological History: No Psychological Hx Reported Smoking Status: Never smoker Past Alcohol Use History: Occasional Past Drug Use History: None Reported - Past Family History Mother Family Medical History: Osteoarthritis (OA) Additional Family Medical History / Comment(s): at age 85 Father Additional Family Medical History / Comment(s): Pt believes father may have in war-they were never informed officially. General Exam Limitations: no limitations General appearance: alert, in no apparent distress Head exam: Present: atraumatic, normocephalic, normal inspection Eye exam: Present: normal appearance Neck exam: Present: normal inspection Respiratory exam: Present: normal lung sounds bilaterally. Absent: respiratory distress, wheezes, rales, rhonchi, stridor Cardiovascular Exam: Present: regular rate, normal rhythm, normal heart sounds. Absent: systolic murmur, diastolic murmur, rubs, gallop, clicks Neurological exam: Present: alert, oriented X3, CN II-XII intact Psychiatric exam: Present: normal affect, normal mood Skin exam: Present: warm, dry, intact, normal color. Absent: rash Course Vital Signs 08/15/22 08/15/22 17:29 20:32 Temperature 98 F Pulse Rate 76 74 Respiratory 18 15 Rate Blood Pressure 140/72 137/86 O2 Sat by Pulse 100 99 Oximetry Chest Pain MDM - MDM Patient is an 86-year-old female presenting with chief complaint of chest pain that started yesterday. Pain is been growing more constant patient reports. At time of presentation patient denies any pain. No difficulty breathing. Heart and lungs are clear to auscultation on physical exam. EKG shows no ischemic changes. Chest x-ray shows no acute process. I also interpreted the chest x- ray and agree with the report. Troponin is less than 0.012. Patient is negative for influenza A and B, RSV, and Covid. HEART score of 4. Patient would benefit from being admitted for observation. I spoke with the patient's PCP Dr. Waldron who accepted admission. Patient is agreeable with this plan. I discussed this case with my attending Dr. Ibanez Disposition Clinical Impression: Chest pain Disposition: ADMITTED IP TO THIS [facility] Condition: Good Time of Disposition: 19:49 Decision to Admit Reason: Admit from EC Decision Date: 08/15/22 Decision Time: 19:49
[2022-08-15 18:18] LABS: Basophils # (A) 0.1 k/uL (0-0.2); Basophils % (A) 1 %; Eosinophils # (A) 0.1 k/uL (0-0.7); Eosinophils % (A) 1 %; HCT 38.5 % (34.0-46.0); HGB 13.2 gm/dL (11.4-16.0); Lymphocytes # (A) 2.7 k/uL (1.0-4.8); Lymphocytes % (A) 30 %; MCHC 34.2 g/dL (31.0-37.0); MCV 84.6 fL (80.0-100.0); Mean Platelet Volume 7.2; Monocytes # (A) 0.5 k/uL (0-1.0); Monocytes % (A) 5 %; Neutrophils # (A) 5.5 k/uL (1.3-7.7); Neutrophils % (A) 61 %; Platelet Count 273 k/uL (150-450); RBC 4.56 m/uL (3.80-5.40); RDW 12.9 % (11.5-15.5); WBC 9.1 k/uL (3.8-10.6)
[2022-08-15 18:33] LABS: Albumin 4.2 g/dL (3.5-5.0); Calcium 10.9 mg/dL (8.4-10.2); Magnesium 2.3 mg/dL (1.6-2.3); Total Bilirubin 0.3 mg/dL (0.2-1.3); Total Protein 7.3 g/dL (6.3-8.2)
[2022-08-15 18:42] LABS: Partial Thromboplastin Time 23.4 sec (22.0-30.0); Prothrombin Time 10.4 sec (9.0-12.0)
--- NOTE | 2022-08-15 19:16 | XR ---
EXAMINATION TYPE: XR chest 2V DATE OF EXAM: 08/15/2022 6:46 PM COMPARISON: Chest x-ray 03/20/2022 TECHNIQUE: XR chest 2V . CLINICAL INDICATION:Female, 86 years old with history of Chest Pain; FINDINGS: Lungs/Pleura: Similar coarsened interstitial markings bilaterally. Minimal left basilar atelectasis. No focal airspace consolidation. No pneumothorax or pleural effusion. Pulmonary vascularity: Unremarkable. Heart/mediastinum: Cardiomediastinal silhouette is unremarkable. Atherosclerotic calcifications are seen in the aorta. Musculoskeletal: No acute osseous pathology. Advanced degenerative changes of the shoulder joints valerie aterally. Other findings: Surgical clips project over the right chest wall. IMPRESSION: Coarsened interstitial markings without evidence for focal airspace consolidation, likely sequelae of emphysematous changes.
[2022-08-15] MEDS ORDERED: NALOXONE 0.4 MG/ML 1 ML VIAL IV PRN (19:44)
[2022-08-15] MEDS ORDERED: ACETAMINOPHEN TAB 325 MG TAB PO PRN (19:44)
[2022-08-15] MEDS ORDERED: MELATONIN 5 MG TABLET PO PRN (21:04)
[2022-08-16] MEDS: NITROGLYCERIN OINT 1 INCH/GM PACKET TOPICAL SCH ×3 (00:21→12:19)
--- NOTE | 2022-08-16 09:03 | P.CRDCN ---
History of Present Illness Consult date: 08/16/22 Chief complaint: Chest pain History of present illness: The patient is a pleasant 86-year-old patient with a past medical history significant for hypertension who was admitted to the hospital for further evaluation. She presented to the emergency department complaining of chest discomfort. She describes intermittent episodes of chest discomfort, in the middle of the chest, as a sharp kind of discomfort, with no radiation,it his symptoms, with each episode of chest discomfort lasts for a few seconds only. The discomfort according to her is clearly not exertional related. The patient does exercise and weight lifting and she is in good physical and mental shape for her age. She stated that his discomfort is mostly with a resting mainly when she sitting at home and no chest discomfort once she exercise and weight lifting. No cystitis symptoms of shortness of breath or dizziness or lightheadedness or any feeling of heart racing or fluttering or presyncope or syncope. She underwent a workup including cardiac enzymes came in to be unremarkable and chest x-ray did not show any acute abnormalities. Currently she is chest pain-free. She underwent according to her recently testing at the office by Dr. Dempsey occluding a stress test and that came in to be unremarkable. The physical examination is remarkable for regular rhythm with a systolic and diastolic murmur at the right upper sternal border and left upper sternal border and clear breathing sounds bilaterally and no lower extremity edema noted Past Medical History Past Medical History: Cancer, GERD/Reflux, Hypertension, Osteoarthritis (OA), Skin Disorder, Thyroid Disorder Additional Past Medical History / Comment(s): hx: R breast cancer with lumpectomy, skin cancer removed from leg, generalized arthritis, hypothyroid, diverticular disease with rupture/colostomy, rosacea, osteopenia History of Any Multi-Drug Resistant Organisms: None Reported Past Surgical History: Bowel Resection, Breast Surgery, Hernia Repair, Joint Replacement Additional Past Surgical History / Comment(s): 01/2019 sigmoid resection with colostomy,colostomy reversal colonoscopies, R breast biopsy/lumpectomy, skin cancer removal, bilateral total knee arthroplasties, bilateral inguinal hernia repairs, partial thyroidectomy, bilateral cataract removals. Past Anesthesia/Blood Transfusion Reactions: Motion Sickness, Postoperative Nausea & Vomiting (PONV) Past Psychological History: No Psychological Hx Reported Smoking Status: Never smoker Past Alcohol Use History: Occasional Past Drug Use History: None Reported - Past Family History Mother Family Medical History: Osteoarthritis (OA) Additional Family Medical History / Comment(s): at age 85 Father Additional Family Medical History / Comment(s): Pt believes father may have in war-they were never informed officially. Medications and Allergies Home Medications Medication Instructions Recorded Confirmed Type Levothyroxine Sodium [Unithroid] 150 mcg PO DAILY 08/19/16 08/15/22 History Multivitamins, Thera [Multivitamin 1 tab PO W/LUNCH 08/19/16 08/15/22 History (formulary)] Letrozole 2.5 mg PO DAILY 01/26/19 08/15/22 History [place]-3 Fatty Acids/Fish Oil [Fish 1 cap PO W/LUNCH 06/20/19 08/15/22 History Oil 1,000 mg Softgel] Calcium Carbonate [Calcium] 600 mg PO W/LUNCH 03/20/22 08/15/22 History cycloSPORINE 0.05% OPHTH SOLN 1 drop BOTH EYES BID 03/20/22 08/15/22 History [Restasis] Furosemide [Lasix] 80 mg PO DAILY tab 03/23/22 08/15/22 Rx Metoprolol Succinate (ER) [Toprol 25 mg PO DAILY tab 03/24/22 08/15/22 Rx XL] Furosemide [Lasix] 40 mg PO AC-SUPPER 08/15/22 08/15/22 History Losartan [Cozaar] 50 mg PO W/SUPPER 08/15/22 08/15/22 History Allergies Allergy/AdvReac Type Severity Reaction Status Date / Time codeine AdvReac Nausea & Verified 08/15/22 19:56 Vomiting narcotics AdvReac Mild Nausea & Uncoded 08/15/22 17:32 Vomiting Physical Exam Vitals: Vital Signs Temp Pulse Pulse Resp BP BP Pulse Ox 08/16/22 02:00 97.7 F 55 L 16 95/56 97 08/15/22 21:53 97.8 F 65 17 109/62 94 L 08/15/22 20:32 74 15 137/86 99 08/15/22 17:29 98 F 76 18 140/72 100 Intake and Output 08/15/22 08/16/22 08/16/22 22:59 06:59 14:59 Other: # Voids 1 1 Weight 58.967 kg - Constitutional General appearance: no acute distress - Respiratory Respiratory: bilateral: CTA - Cardiovascular Rhythm: regular Heart sounds: normal: S1, S2 Abnormal Heart Sounds: systolic murmur, diastolic murmur Results 08/15/22 17:56 08/15/22 17:56 Cardiac Enzymes 08/15/22 08/15/22 08/15/22 Range/Units 17:56 17:56 21:32 AST 32 (14-36) U/L Troponin I <0.012 <0.012 (0.000-0.034) ng/mL 08/15/22 Range/Units 23:51 AST (14-36) U/L Troponin I <0.012 (0.000-0.034) ng/mL Coagulation 08/15/22 Range/Units 17:56 PT 10.4 (9.0-12.0) sec APTT 23.4 (22.0-30.0) sec CBC 08/15/22 Range/Units 17:56 WBC 9.1 (3.8-10.6) k/uL RBC 4.56 (3.80-5.40) m/uL Hgb 13.2 (11.4-16.0) gm/dL Hct 38.5 (34.0-46.0) % Plt Count 273 (150-450) k/uL Comprehensive Metabolic Panel 08/15/22 Range/Units 17:56 Sodium 140 (137-145) mmol/L Potassium 4.0 (3.5-5.1) mmol/L Chloride 107 (98-107) mmol/L Carbon Dioxide 27 (22-30) mmol/L BUN 28 H (7-17) mg/dL Creatinine 1.02 (0.52-1.04) mg/dL Glucose 114 H (74-99) mg/dL Calcium 10.9 H (8.4-10.2) mg/dL AST 32 (14-36) U/L ALT 33 (4-34) U/L Alkaline Phosphatase 71 (38-126) U/L Total Protein 7.3 (6.3-8.2) g/dL Albumin 4.2 (3.5-5.0) g/dL Current Medications Generic Name Dose Route Start Last Admin Trade Name Freq PRN Reason Stop Dose Admin Acetaminophen 650 mg 08/15/22 19:44 08/15/22 21:27 Acetaminophen Tab 325 Mg Tab PO 650 mg Q6HR PRN Administration Mild Pain or Fever > 100.5 Melatonin 10 mg 08/15/22 21:04 08/15/22 21:26 Melatonin 5 Mg Tablet PO 10 mg HS PRN Administration Insomnia Naloxone HCl 0.2 mg 08/15/22 19:44 Naloxone 0.4 Mg/Ml 1 Ml Vial IV Q2M PRN Opioid Reversal Nitroglycerin 1 inch 08/16/22 00:00 08/16/22 06:18 Nitroglycerin Oint 1 Inch/Gm Packet TOPICAL 1 inch Q6HR AIMEE Administration Intake and Output 08/15/22 08/16/22 08/16/22 22:59 06:59 14:59 Other: # Voids 1 1 Weight 58.967 kg 08/15/22 17:56 08/15/22 17:56 Assessment and Plan Assessment: Assessment #1 atypical and probably noncardiac chest discomfort #2 hypertension #3 probably valvular heart disease. The patient does have systolic and diastolic murmur noted Plan Acute coronary event was ruled out Recent stress test came in to be unremarkable according to the patient From the cardiovascular standpoint of view, the patient can be discharged home and follows Dr. Dempsey as an outpatient
[2022-08-16] MEDS ORDERED: METOPROLOL SUCCINATE (ER) 25 MG TAB.ER.24H PO SCH (09:15)
[2022-08-16] MEDS ORDERED: FUROSEMIDE 80 MG TAB PO SCH (09:15)
--- NOTE | 2022-08-16 09:50 | P.HPIM ---
History of Present Illness H&P Date: 08/16/22 Chief Complaint: Chest pain This is a 86-year-old female patient who presented to the ER with concerns of chest pain. Patient reports the pain started yesterday and was occurring intermittently located on the left side or chest. Patient denies any associated shortness of breath or diaphoresis. Patient does have a past medical history of GERD, hypertension, osteoarthritis, skin disorder, thyroid disorder, breast cancer and hypothyroidism. Chest x-ray was completed showing coarsened interstitial markings without evidence for focal airspace consolidation likely sequela of emphysematous changes. EKG completed showing sinus rhythm with first-degree AV block. Troponins negative 3. BNP 528, influenza AB, RSV and COVID-19 negative. Current vital signs temp 98.2, heart rate 64, respiratory rate 16, blood pressure 109/56 with pulse ox 97% on room air. Patient was evaluated by cardiology services. Per cardiology patient recently underwent stress test with Dr. Dempsey in the office. At that time patient denies chest pain or shortness of breath. Patient denies nausea vomiting or diarrhea. Patient denies any urinary burning or frequency Review of Systems Please refer to HPI otherwise unremarkable Past Medical History Past Medical History: Cancer, GERD/Reflux, Hypertension, Osteoarthritis (OA), Skin Disorder, Thyroid Disorder Additional Past Medical History / Comment(s): hx: R breast cancer with lumpectomy, skin cancer removed from leg, generalized arthritis, hypothyroid, diverticular disease with rupture/colostomy, rosacea, osteopenia History of Any Multi-Drug Resistant Organisms: None Reported Past Surgical History: Bowel Resection, Breast Surgery, Hernia Repair, Joint Replacement Additional Past Surgical History / Comment(s): 01/2019 sigmoid resection with colostomy,colostomy reversal colonoscopies, R breast biopsy/lumpectomy, skin cancer removal, bilateral total knee arthroplasties, bilateral inguinal hernia repairs, partial thyroidectomy, bilateral cataract removals. Past Anesthesia/Blood Transfusion Reactions: Motion Sickness, Postoperative Nausea & Vomiting (PONV) Past Psychological History: No Psychological Hx Reported Smoking Status: Never smoker Past Alcohol Use History: Occasional Past Drug Use History: None Reported - Past Family History Mother Family Medical History: Osteoarthritis (OA) Additional Family Medical History / Comment(s): at age 85 Father Additional Family Medical History / Comment(s): Pt believes father may have in war-they were never informed officially. Medications and Allergies Home Medications Medication Instructions Recorded Confirmed Type Levothyroxine Sodium [Unithroid] 150 mcg PO DAILY 08/19/16 08/15/22 History Multivitamins, Thera [Multivitamin 1 tab PO W/LUNCH 08/19/16 08/15/22 History (formulary)] Letrozole 2.5 mg PO DAILY 01/26/19 08/15/22 History [place]-3 Fatty Acids/Fish Oil [Fish 1 cap PO W/LUNCH 06/20/19 08/15/22 History Oil 1,000 mg Softgel] Calcium Carbonate [Calcium] 600 mg PO W/LUNCH 03/20/22 08/15/22 History cycloSPORINE 0.05% OPHTH SOLN 1 drop BOTH EYES BID 03/20/22 08/15/22 History [Restasis] Furosemide [Lasix] 80 mg PO DAILY tab 03/23/22 08/15/22 Rx Metoprolol Succinate (ER) [Toprol 25 mg PO DAILY tab 03/24/22 08/15/22 Rx XL] Furosemide [Lasix] 40 mg PO AC-SUPPER 08/15/22 08/15/22 History Losartan [Cozaar] 50 mg PO W/SUPPER 08/15/22 08/15/22 History Allergies Allergy/AdvReac Type Severity Reaction Status Date / Time codeine AdvReac Nausea & Verified 08/15/22 19:56 Vomiting narcotics AdvReac Mild Nausea & Uncoded 08/15/22 17:32 Vomiting Physical Exam Vitals: Vital Signs Temp Pulse Pulse Resp BP BP Pulse Ox 08/16/22 07:00 98.2 F 64 16 109/56 97 08/16/22 02:00 97.7 F 55 L 16 95/56 97 08/15/22 21:53 97.8 F 65 17 109/62 94 L 08/15/22 20:32 74 15 137/86 99 08/15/22 17:29 98 F 76 18 140/72 100 Intake and Output 08/15/22 08/16/22 08/16/22 22:59 06:59 14:59 Intake Total 120 Balance 120 Intake: Oral 120 Other: # Voids 1 1 # Bowel Movements 0 Weight 58.967 kg Head normocephalic Neck supple Lungs clear to auscultation bilaterally no wheezing or crackles Heart regular rate and rhythm S1-S2, no rub or gallop Abdomen is soft nontender nondistended positive bowel sounds no hepatosplenomegaly Extremities no edema Neuro alert and orientated to 3 Results CBC & Chem 7: 08/15/22 17:56 08/15/22 17:56 Labs: Abnormal Lab Results - Last 24 Hours (Table) 08/15/22 Range/Units 17:56 BUN 28 H (7-17) mg/dL Glucose 114 H (74-99) mg/dL Calcium 10.9 H (8.4-10.2) mg/dL Assessment and Plan Assessment: 1. Chest pain. Chest x-ray negative. Per cardiology services atypical probably noncardiac chest discomfort recent stress test in office per cardiology services 2. History of essential hypertension 3. History of hypothyroidism 4. History of breast cancer 5. History of diverticulitis with diverticular abscess Time with Patient: Greater than 30 (Greater than 60% of the total time spent in counseling and coordination of care)
--- NOTE | 2022-08-16 10:19 | P.DS ---
Providers Date of admission: 08/15/22 19:46 Expected date of discharge: 08/16/22 Attending physician: Srinivas Waldron Consults: 08/15/22 19:44 Consult Physician Urgent Consulting Provider: [facility] Consult Reason/Comments: chest pain Do you want consulting provider notified?: Yes Primary care physician: Srinivas Chivo [facility] Course: Discharge diagnosis 1. Chest pain. Chest x-ray negative. Per cardiology services atypical probably noncardiac chest discomfort recent stress test in office per cardiology services 2. History of essential hypertension 3. History of hypothyroidism 4. History of breast cancer 5. History of diverticulitis with diverticular abscess Hospital course This is a 86-year-old female patient who presented to the ER with concerns of chest pain. Patient reports the pain started yesterday and was occurring intermittently located on the left side or chest. Patient denies any associated shortness of breath or diaphoresis. Patient does have a past medical history of GERD, hypertension, osteoarthritis, skin disorder, thyroid disorder, breast cancer and hypothyroidism. Chest x-ray was completed showing coarsened interstitial markings without evidence for focal airspace consolidation likely sequela of emphysematous changes. EKG completed showing sinus rhythm with first-degree AV block. Troponins negative 3. BNP 528, influenza AB, RSV and COVID-19 negative. Current vital signs temp 98.2, heart rate 64, respiratory rate 16, blood pressure 109/56 with pulse ox 97% on room air. Patient was evaluated by cardiology services. Per cardiology patient recently underwent stress test with Dr. Dempsey in the office. At that time patient denies chest pain or shortness of breath. Patient denies nausea vomiting or diarrhea. Patient denies any urinary burning or frequency No further workup inpatient per cardiology services. Recent stress test in office. Atypical probably noncardiac chest discomfort. 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 At this time patient is resting comfortably in bed eating breakfast. Patient denies chest pain or shortness breath. Patient denies nausea vomiting or diarrhea. Patient denies any urinary burning or frequency Patient Condition at Discharge: Stable Plan - Discharge Summary New Discharge Prescriptions: Continue Levothyroxine Sodium [Unithroid] 150 mcg PO DAILY Multivitamins, Thera [Multivitamin (formulary)] 1 tab PO W/LUNCH Letrozole 2.5 mg PO DAILY [place]-3 Fatty Acids/Fish Oil [Fish Oil 1,000 mg Softgel] 1 cap PO W/LUNCH Calcium Carbonate [Calcium] 600 mg PO W/LUNCH cycloSPORINE 0.05% OPHTH SOLN [Restasis] 1 drop BOTH EYES BID Metoprolol Succinate (ER) [Toprol XL] 25 mg PO DAILY tab Furosemide [Lasix] 40 mg PO AC-SUPPER Furosemide [Lasix] 80 mg PO DAILY tab Losartan [Cozaar] 50 mg PO W/SUPPER Discharge Medication List Levothyroxine Sodium [Unithroid] 150 mcg PO DAILY 08/19/16 [History] Multivitamins, Thera [Multivitamin (formulary)] 1 tab PO W/LUNCH 08/19/16 [History] Letrozole 2.5 mg PO DAILY 01/26/19 [History] [place]-3 Fatty Acids/Fish Oil [Fish Oil 1,000 mg Softgel] 1 cap PO W/LUNCH 06/20/19 [History] Calcium Carbonate [Calcium] 600 mg PO W/LUNCH 03/20/22 [History] cycloSPORINE 0.05% OPHTH SOLN [Restasis] 1 drop BOTH EYES BID 03/20/22 [History] Furosemide [Lasix] 80 mg PO DAILY tab 03/23/22 [Rx] Metoprolol Succinate (ER) [Toprol XL] 25 mg PO DAILY tab 03/24/22 [Rx] Furosemide [Lasix] 40 mg PO AC-SUPPER 08/15/22 [History] Losartan [Cozaar] 50 mg PO W/SUPPER 08/15/22 [History] Follow up Appointment(s)/Referral(s): Srinivas Waldron MD [Primary Care Provider] - 1-2 days Lakhwinder Dempsey MD [STAFF PHYSICIAN] - 1 Week Activity/Diet/Wound Care/Special Instructions: Activity as tolerated Diet heart healthy Discharge Disposition: HOME SELF-CARE
[2022-08-16 12:27] LABS: Appearance,Urine Clear (Clear); Bacteria,Urine Rare /hpf; Bilirubin,Urine Negative (Negative); Blood,Urine Negative (Negative); Calcium Oxalate Crystals,Urine Occasional /hpf; Color,Urine Light Yellow; Glucose,Urine (UA) Negative (Negative); Ketones,Urine Negative (Negative); Leukocyte Esterase,Urine Large (Negative); Mucus,Urine Rare /hpf; Nitrite,Urine Negative (Negative); PH, Urine 6.5 (5.0-8.0); Protein,Urine Negative (Negative); RBC,Urine 1 /hpf (0-5); Specific Gravity,Urine 1.017 (1.001-1.035); Squamous Epithelial Cell,Urine <1 /hpf (0-4); Urobilinogen,Urine <2.0 mg/dL (<2.0); WBC,Urine 17 /hpf (0-5)
[2022-08-16] MEDS ORDERED: CALCIUM CARBONATE 500 MG CHEWABLE PO SCH (12:30)
[2022-08-16 13:35] VITALS: BP 120/70; PULSE 68; RESP 18; TEMP 98
[2022-08-16] MEDS ORDERED: LOSARTAN 50 MG TAB PO SCH (17:30)
[2022-08-16] MEDS ORDERED: FUROSEMIDE 40 MG TAB PO SCH (17:30)
[2022-08-16] MEDS ORDERED: cycloSPORINE 0.05% OPHTH 0.4 ML DROPERETTE BOTH EYES SCH (21:00)
[2022-08-17] MEDS ORDERED: LEVOTHYROXINE 75 MCG TAB PO SCH (06:30)
[2022-08-17] MEDS ORDERED: LETROZOLE 2.5 MG TAB PO SCH (09:00)
== END 2022-08-16 17:40 | disposition home or self-care (01) ==
LOC: EC 17:23 → 6NMEDSUR 19:46
PROVIDERS: ADMIT Internal Medicine; ATTEND Internal Medicine
DX: R07.89 Other chest pain (principal); I10 Essential (primary) hypertension; K21.9 Gastro-esophageal reflux disease without esophagitis; M19.90 Unspecified osteoarthritis, unspecified site; E03.9 Hypothyroidism, unspecified; Z85.3 Personal history of malignant neoplasm of breast; Z85.828 Personal history of other malignant neoplasm of skin; Z87.19 Personal history of other diseases of the digestive system; Z93.3 Colostomy status; Z79.890 Hormone replacement therapy; Z79.899 Other long term (current) drug therapy; Z88.5 Allergy status to narcotic agent; Z20.822 Contact with and (suspected) exposure to COVID-19
CPT/HCPCS: 99285; 36415; 93005; 83880; 80053; 82150; 83690; 83735; 84484; 85025; 85610; 85730; 81001; 87086; 87077; 87186; 87636; 71046; G0378 ×3

== ENCOUNTER → 2022-12-21 | Outpatient (CLI) | payer MEDICARE ==
--- NOTE | 2022-12-21 12:29 | XR ---
Exam: Lumbosacral spine 5 views Date: 12/21/2022 Comparison: None Clinical History: Low back pain Technique: Multiple views of the lumbar sacral spine were obtained per protocol. Findings: There is diffuse generalized osteopenia. There is a mild dextroconvex curvature of the spine at the thoracolumbar junction. There is no asymme tric widening of the sacroiliac joints. There are degenerative changes of the bilateral sacroiliac ines ints. The visualized sacral glands are symmetric and contiguous. Vertebral body heights are within no rmal limits. There is multilevel disc space narrowing. There is moderate multilevel facet arthropathy , most significant within the lower lumbar spine. There is minimal grade 1 anterolisthesis of L4 on L 5. There are no obvious pars defects. Impression: Multilevel lumbar spondylosis with minimal grade 1 anterolisthesis of L4 on L5. No compression deform ity identified.
--- NOTE | 2022-12-21 12:33 | XR ---
EXAMINATION TYPE: XR Hip Complete LT DATE OF EXAM: 12/21/2022 COMPARISON: NONE HISTORY: Left hip pain TECHNIQUE: 2 views of the left hip were obtained per protocol. FINDINGS: There is diffuse generalized osteopenia. There is no acute fracture. There is no dislocation. There is very mild left hip joint space narrowin g. IMPRESSION: No acute fracture or dislocation.
== END | disposition home or self-care (01) ==
LOC: RADXRMAIN 11:27
PROVIDERS: ATTEND Internal Medicine
DX: M47.816 Spondylosis without myelopathy or radiculopathy, lumbar region (principal); M43.16 Spondylolisthesis, lumbar region; M25.552 Pain in left hip
CPT/HCPCS: 72110; 73502

== ENCOUNTER → 2023-04-08 | Outpatient (CLI) | payer MEDICARE, OTHER ==
--- NOTE | 2023-04-08 13:32 | MM ---
Reason for Exam: Clinical finding. Last screening mammogram was performed 12 month(s) ago. Patient History: Menarche at age 15. First Full-Term at age 24. Postmenopausal. Breast cancer, right, age 82. Estrogen, from age 56 until age 70. Progesterone, from age 56 until age 70. 01/27/2018, Lumpectomy on the Right side. 01/27/2018, Malignant Core Biopsy on the right side. 01/10/2018, Malignant Core Biopsy on the right side. Prior Study Comparison: 11/12/2016 Right Diagnostic Mammogram, [facility]. 12/24/2017 Bilateral Screening Mammogram, [facility]. 12/31/2017 Right Diagnostic Mammogram, [facility]. 03/27/2019 Bilateral Diagnostic Mammogram, [facility]. 03/28/2020 Bilateral Diagnostic Mammogram, [facility]. 04/03/2021 Bilateral Diagnostic Mammogram, [facility]. 04/07/2022 Bilateral MG 3D screening mammo w/cad, [facility]. Tissue Density: There are scattered fibroglandular densities. Findings: Analyzed By CAD. Postsurgical and posttreatment changes right breast. No significant change from prior exams. Overall Assessment: Benign, BI-RAD 2 Management: Screening Mammogram of both breasts in 1 year. . Results were given to the patient verbally at the time of exam. Patient should continue monthly self-breast exams. A clinical breast exam by your physician is recommended on an annual basis. This exam should not preclude additional follow-up of suspicious palpable abnormalities. Electronically signed and approved by: Valerie Mejia M.D. Radiologist
== END | disposition home or self-care (01) ==
LOC: RADMAMWWP 12:46
PROVIDERS: ATTEND Surgery
DX: R92.8 Other abnormal and inconclusive findings on diagnostic imaging of breast (principal); Z78.0 Asymptomatic menopausal state
CPT/HCPCS: 77066; G0279; 77062

== ENCOUNTER → 2024-04-13 | Outpatient (CLI) | payer MEDICARE ==
--- NOTE | 2024-05-04 14:26 | MM ---
Reason for Exam: Screening (asymptomatic). Last screening mammogram was performed 12 month(s) ago. Patient History: Menarche at age 15. First Full-Term at age 24. Postmenopausal. Breast cancer, right, age 82. Estrogen, from age 56 until age 70. Progesterone, from age 56 until age 70. 01/27/2018, Lumpectomy on the Right side. 01/27/2018, Malignant Core Biopsy on the right side. 01/10/2018, Malignant Core Biopsy on the right side. Prior Study Comparison: 04/03/2021 Bilateral Diagnostic Mammogram, [facility]. 04/07/2022 Bilateral MG 3D screening mammo w/cad, [facility]. 04/08/2023 Bilateral MG 3D diag mammo w/cad [place], [facility]. Tissue Density: There are scattered areas of fibroglandular density. Findings: Analyzed By CAD. Right breast surgical clips. Right breast: There is no suspicious group of microcalcifications or new suspicious mass. Left breast: There is no suspicious group of microcalcifications or new suspicious mass. Overall Assessment: Negative, BI-RAD 1 Management: Screening Mammogram of both breasts in [address] [facility] will attempt to contact patient to return for supplemental views and ultrasound if indicated. Patient should continue monthly self-breast exams. A clinical breast exam by your physician is recommended on an annual basis. This exam should not preclude additional follow-up of suspicious palpable abnormalities. Note on Poornima scores and lifetime risk: 1. A Poornima score greater than 3% is considered moderate risk. If this is the case, consider specialist referral to assess eligibility for a risk reducing agent. 2. If overall lifetime risk for the development of breast cancer is 20% or higher, the patient may qualify for future screening with alternating mammogram and breast MRI. Electronically signed and approved by: Flaquito Floyd DO
== END | disposition home or self-care (01) ==
LOC: RADMAMWWP 12:00
PROVIDERS: ATTEND Surgery
DX: Z12.31 Encounter for screening mammogram for malignant neoplasm of breast
CPT/HCPCS: 77063; 77067